=== PATIENT | male | born 1960 | race Caucasian/White ===

== ENCOUNTER 2016-10-07 13:51 | Inpatient (IN) | payer SELFPAY ==
[2016-10-07] MEDS ORDERED: Sodium Chloride 0.9% 1,000 ML IV ONE (13:55)
[2016-10-07] MEDS ORDERED: Ondansetron 4 MG/2 ML SDV IVPUSH ONE (13:55)
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
[2016-10-07] MEDS ORDERED: Ketorolac 30 MG/ML SDV IVPUSH ONE (14:33)
[2016-10-07 15:18] LABS: CHLORIDE,CL 102 mmol/L (98-110); SODIUM,NA 137 mmol/L (136-146)
[2016-10-07] MEDS ORDERED: HYDROmorphone 2 MG/ML Syringe IVPUSH ONE (15:27)
[2016-10-07] MEDS ORDERED: Iopamidol 755 MG/ML 500 ML Multipack Bottle IVPUSH STA (16:33)
[2016-10-07] MEDS: Sodium Chloride 0.9% 1,000 ML IV SCH (17:15)
--- NOTE | 2016-10-07 17:46 | PCM.HP ---
H&P History of Present Illness - General Date of Service: 10/07/16 Admit Problem/Dx: Admission Diagnosis/Problem Admission Diagnosis/Problem Pancreatitis Source of Information: Patient, Old records, Provider - History of Present Illness Initial Comments - Free Text/Narative: He presented to the ED today and was diagnosed with acute pancreatitis thought likely secondary to alcoholism. He arrived from the [facility] about two weeks ago. He had been drinking alcohol when he was there. He has not had alcohol in the last few days. Bilateral Upper Abdominal Pain Score (Numeric/FACES): 10 - Related Data Allergies/Adverse Reactions: Allergies Allergy/AdvReac Type Severity Reaction Status Date / Time morphine Allergy Hallucinati Verified 10/07/16 14:06 ons Home Medications: Home Meds Icosapent Ethyl [Vascepa] 2 gram PO BID 10/07/16 [History] Insulin Glarg,Human.Rec.Analog [Lantus] 5 units SQ DAILY 10/07/16 [History] Insulin Lispro [Humalog Kwikpen U-100] 0 - 10 units SQ TID 10/07/16 [History] Lisinopril 10 mg PO DAILY 10/07/16 [History] atorvaSTATin [Lipitor] 20 mg PO BEDTIME 10/07/16 [History] metFORMIN [Glucophage XR] 500 mg PO BID 10/07/16 [History] Past Medical History Cardiovascular History: Reports: High cholesterol, Hypertension Respiratory History: Reports: COPD Gastrointestinal History: Reports: Pancreatitis. Denies: Cirrhosis Genitourinary History: Denies: Chronic renal insuffiency Neurological History: Denies: Alzheimers disease, CVA Psychiatric History: Denies: Alzheimers disease Endocrine/Metabolic History: Reports: Diabetes, type I Oncologic (Cancer) History: Reports: None - Infectious Disease History Infectious Disease History: Reports: Chicken pox, Measles, Mumps - Past Surgical History GI Surgical History: Reports: Cholecystectomy Social & Family History - Family History Family Medical History: Noncontributory - Tobacco Use Smoking Status *Q: Current Every Day Smoker Years of Tobacco use: 45 Packs/Tins Daily: 1.5 - Caffeine Use Caffeine Use: Reports: None - Recreational Drug Use Recreational Drug Use: No H&P Review of Systems - Review of Systems: Review Of Systems: See Below General: Denies: fever, chills Pulmonary: Denies: Shortness of Breath, Wheezing, Cough, Sputum Cardiovascular: Denies: chest pain Gastrointestinal: Reports: Abdominal pain, Black stool, Melena, Nausea, Vomiting. Denies: Hematemesis, Hematochezia Genitourinary: Denies: dysuria, hematuria Psychiatric: Denies: agitation Exam - Exam Exam: See Below - Vital Signs Vital Signs: Last Vital Signs Temp 99.1 F 10/07/16 17:19 Pulse 95 10/07/16 17:19 Resp 18 10/07/16 17:19 BP 136/92 H 10/07/16 17:19 Pulse Ox 95 10/07/16 17:19 Weight: 63.503 kg - Exam General: alert, oriented, cooperative HEENT: EOMI Neck: supple, trachea midline Lungs: Clear to auscultation, Normal respiratory effort Cardiovascular: regular rate, regular rhythm Abdomen: soft, tenderness (marked epigastric tenderness) Rectal (Males) Exam: Deferred Extremities: No: edema Neurological: cranial nerves intact, normal speech Psychiatric: No: agitated - Patient Data Lab Results last 24 hrs: Laboratory Results - last 24 hr 10/07/16 10/07/16 10/07/16 Range/Units 14:30 14:30 14:30 WBC 14.87 H (4.0-11.0) K/uL RBC 4.46 L (4.50-5.90) M/uL Hgb 14.1 (13.0-17.0) g/dL Hct 41.1 (38.0-50.0) % MCV 92.2 (80.0-98.0) fL MCH 31.6 (27.0-32.0) pg MCHC 34.3 (31.0-37.0) g/dL RDW Std Deviation 47.3 (28.0-62.0) fl RDW Coeff of Claudio 14 (11.0-15.0) % Plt Count 299 (150-400) K/uL MPV 9.40 (7.40-12.00) fL Neut % (Auto) 83.8 H (48.0-80.0) % Lymph % (Auto) 10.0 L (16.0-40.0) % [place] % (Auto) 5.5 (0.0-15.0) % Eos % (Auto) 0.5 (0.0-7.0) % Baso % (Auto) 0.2 (0.0-1.5) % Neut # (Auto) 12.5 H (1.4-5.7) K/uL Lymph # (Auto) 1.5 (0.6-2.4) K/uL [place] # (Auto) 0.8 (0.0-0.8) K/uL Eos # (Auto) 0.1 (0.0-0.7) K/uL Baso # (Auto) 0.0 (0.0-0.1) K/uL Nucleated RBC % 0.0 /100WBC Nucleated RBCs # 0 K/uL ESR (0-19) mm/hr Sodium 137 (136-146) mmol/L Potassium 3.9 (3.5-5.1) mmol/L Chloride 102 (98-110) mmol/L Carbon Dioxide 23 (21-31) mmol/L BUN 10 (6.0-23.0) mg/dL Creatinine 0.8 (0.6-1.5) mg/dL Est Cr Clr Drug Dosing 88.62 mL/min Estimated GFR (MDRD) > 60.0 ml/min Glucose 260 H (60-110) mg/dL Calcium 9.2 (8.8-10.8) mg/dL Total Bilirubin 0.5 (0.1-1.5) mg/dL AST 14 (5-40) IU/L ALT 15 (8-54) IU/L Alkaline Phosphatase 115 (40-150) Troponin I (0.0-0.29) NG/ML C-Reactive Protein (0.0-0.5) mg/dL Total Protein 7.5 (6.0-8.0) g/dL Albumin 3.9 (3.5-5.0) g/dL Globulin 3.6 H (2.0-3.5) g/dL Albumin/Globulin Ratio 1.1 L (1.3-2.8) Amylase 168 H (10-90) U/L Lipase 311 H (7-80) U/L Ethyl Alcohol < 10.0 mg/dL 10/07/16 10/07/16 10/07/16 Range/Units 14:30 14:30 14:30 WBC (4.0-11.0) K/uL RBC (4.50-5.90) M/uL Hgb (13.0-17.0) g/dL Hct (38.0-50.0) % MCV (80.0-98.0) fL MCH (27.0-32.0) pg MCHC (31.0-37.0) g/dL RDW Std Deviation (28.0-62.0) fl RDW Coeff of Claudio (11.0-15.0) % Plt Count (150-400) K/uL MPV (7.40-12.00) fL Neut % (Auto) (48.0-80.0) % Lymph % (Auto) (16.0-40.0) % [place] % (Auto) (0.0-15.0) % Eos % (Auto) (0.0-7.0) % Baso % (Auto) (0.0-1.5) % Neut # (Auto) (1.4-5.7) K/uL Lymph # (Auto) (0.6-2.4) K/uL [place] # (Auto) (0.0-0.8) K/uL Eos # (Auto) (0.0-0.7) K/uL Baso # (Auto) (0.0-0.1) K/uL Nucleated RBC % /100WBC Nucleated RBCs # K/uL ESR 44 H (0-19) mm/hr Sodium (136-146) mmol/L Potassium (3.5-5.1) mmol/L Chloride (98-110) mmol/L Carbon Dioxide (21-31) mmol/L BUN (6.0-23.0) mg/dL Creatinine (0.6-1.5) mg/dL Est Cr Clr Drug Dosing mL/min Estimated GFR (MDRD) ml/min Glucose (60-110) mg/dL Calcium (8.8-10.8) mg/dL Total Bilirubin (0.1-1.5) mg/dL AST (5-40) IU/L ALT (8-54) IU/L Alkaline Phosphatase (40-150) Troponin I < 0.10 (0.0-0.29) NG/ML C-Reactive Protein 1.38 H (0.0-0.5) mg/dL Total Protein (6.0-8.0) g/dL Albumin (3.5-5.0) g/dL Globulin (2.0-3.5) g/dL Albumin/Globulin Ratio (1.3-2.8) Amylase (10-90) U/L Lipase (7-80) U/L Ethyl Alcohol mg/dL Result Diagrams: 10/07/16 14:30 10/07/16 14:30 *Q Meaningful Use (ADM) - VTE *Q VTE Criteria *Q: - Stroke *Q Stroke Criteria *Q: - AMI *Q AMI Criteria *Q: - Problem List (1) Pancreatitis SNOMED Code(s): 22489111 ICD Code: K85.90 - ACUTE PANCREATITIS WITHOUT NECROSIS OR INFECTION, UNSP Status: Acute Current Visit: Yes (2) Diabetes mellitus SNOMED Code(s): 00143869 ICD Code: E11.9 - TYPE 2 DIABETES MELLITUS WITHOUT COMPLICATIONS Status: Acute Current Visit: Yes Problem List Initiated/Reviewed/Updated: Yes Orders Last 24hrs: Active Orders 24 hr Category Date Time Status Patient Status [ADT] Routine ADT 10/07/16 17:35 Ordered Antiembolic Devices [RC] PER UNIT ROUTINE Care 10/07/16 17:36 Ordered EKG Documentation Completion [RC] STAT Care 10/07/16 15:01 Active Oxygen Therapy [RC] PRN Care 10/07/16 17:35 Ordered VTE/DVT Education [RC] PER UNIT ROUTINE Care 10/07/16 17:35 Ordered Vital Signs [RC] Q4H Care 10/07/16 17:35 Ordered Nothing per Oral Now Diet [DIET] Diet 10/07/16 Dinner Ordered Abdomen Pelvis w Cont [CT] Stat Exams 10/07/16 14:55 Taken CBC WITH AUTO DIFF [HEME] AM Lab 10/08/16 05:11 Ordered CBC WITH AUTO DIFF [HEME] AM Lab 10/09/16 05:11 Ordered CBC WITH AUTO DIFF [HEME] AM Lab 10/10/16 05:11 Ordered COMPREHENSIVE METABOLIC PN,CMP [CHEM] AM Lab 10/08/16 05:11 Ordered COMPREHENSIVE METABOLIC PN,CMP [CHEM] AM Lab 10/09/16 05:11 Ordered COMPREHENSIVE METABOLIC PN,CMP [CHEM] AM Lab 10/10/16 05:11 Ordered MAGNESIUM [CHEM] AM Lab 10/08/16 05:11 Ordered MAGNESIUM [CHEM] AM Lab 10/09/16 05:11 Ordered MAGNESIUM [CHEM] AM Lab 10/10/16 05:11 Ordered UA W/O MICROSCOPIC [URIN] Stat Lab 10/07/16 16:33 Uncollected HYDROmorphone [Dilaudid] Med 10/07/16 17:35 Ordered 1 mg IVPUSH Q2H PRN Insulin Glarg,Human.Rec.Analog Med 10/08/16 09:00 Ordered 5 units SQ DAILY MVI, Adult with Vitamin K [Infuvite Adult] 10 ml Med 10/07/16 17:40 Ordered Thiamine [Vitamin B-1] 100 mg Folic Acid 1 mg Sodium Chloride 0.9% [Normal Saline] 1,000 ml IV DAILY Ondansetron [Zofran] Med 10/07/16 17:35 Ordered 4 mg IVPUSH Q4H PRN Pantoprazole [Protonix IV] 80 mg Med 10/07/16 17:45 Ordered Sodium Chloride 0.9% [Normal Saline] 100 ml IV Q10H Sodium Chloride 0.9% [Normal Saline] 1,000 ml Med 10/07/16 17:00 Active IV STAT Sequential Compression Device [OM.PC] Per Unit Routine Oth 10/07/16 17:36 Ordered Resuscitation Status Routine Resus Stat 10/07/16 17:35 Ordered Medication Orders Sodium Chloride (Normal Saline) 1,000 mls @ 150 mls/hr IV STAT KATHRYN Last Admin: 10/07/16 17:15 Dose: 150 mls/hr
[2016-10-07] MEDS ORDERED: MVI, Adult with Vitamin K 10 ML, Thiamine 100 MG, Folic Acid 1 MG in Sodium Chloride 0.... IV ONE ×4 (18:00)
[2016-10-07] MEDS ORDERED: Insulin Aspart 100 Units/ML 3 ML Pen SUBCUT SCH (18:00)
[2016-10-07] MEDS: Pantoprazole 80 MG in Sodium Chloride 0.9% 100 ML IV SCH (18:31)
[2016-10-07] MEDS: HYDROmorphone 2 MG/ML Syringe IVPUSH PRN (18:44)
[2016-10-07] MEDS: Nicotine 21 MG/24 Hr Patch TRDERM SCH (19:33)
[2016-10-07] MEDS: Ondansetron 4 MG/2 ML SDV IVPUSH PRN (23:36)
[2016-10-07] MEDS: Piperacillin/Tazobactam 3.375 GM in Sodium Chloride 0.9% 50 ML IV SCH (23:46)
[2016-10-07] MEDS: Aspirin 81 MG Tab.Chew PO SCH (23:46)
[2016-10-07] MEDS: Lisinopril 10 MG Tab PO SCH (23:46)
[2016-10-07] MEDS: atorvaSTATin 20 MG Tab PO SCH (23:46)
[2016-10-07] MEDS: diphenhydrAMINE 50 MG Cap PO SCH (23:47)
[2016-10-08] MEDS: Insulin Aspart 100 Units/ML 3 ML Pen SUBCUT SCH ×4 (01:41→17:10)
[2016-10-08] MEDS: LORazepam 2 MG/ML MDV IVPUSH PRN ×3 (01:42→16:09)
[2016-10-08] MEDS: Sodium Chloride 0.9% 1,000 ML IV SCH ×3 (01:51→14:48)
[2016-10-08] MEDS: Piperacillin/Tazobactam 3.375 GM in Sodium Chloride 0.9% 50 ML IV SCH ×4 (04:34→20:33)
[2016-10-08] MEDS: HYDROmorphone 2 MG/ML Syringe IVPUSH PRN ×6 (04:47→23:50)
[2016-10-08] MEDS: Ondansetron 4 MG/2 ML SDV IVPUSH PRN ×4 (04:55→23:50)
[2016-10-08] MEDS: Pantoprazole 80 MG in Sodium Chloride 0.9% 100 ML IV SCH ×2 (05:52→16:08)
[2016-10-08 05:55] LABS: CHLORIDE,CL 107 mmol/L (98-110); SODIUM,NA 139 mmol/L (136-146)
[2016-10-08] MEDS: diphenhydrAMINE 50 MG Cap PO SCH ×2 (08:52→20:44)
[2016-10-08] MEDS: Nicotine 21 MG/24 Hr Patch TRDERM SCH (08:59)
[2016-10-08] MEDS ORDERED: Insulin Glargine,Human Rec. Analog 100 Units/ML 3 ML Pen SUBCUT SCH (09:00)
--- NOTE | 2016-10-08 10:36 | PCM.PN ---
- General Info Date of Service: 10/08/16 Admission Dx/Problem (Free Text): Admission Diagnosis/Problem Admission Diagnosis/Problem Pancreatitis Subjective Update: Patient still having abdominal pain mostly localized to epigastric and periumbilical area. No nausea or vomiting. Pain has been controlled with diluadid. States that he does not get tremors or seizures after stopping drinking. No appetite at this time. As per nursing has been asking for dilaudid every 2 hrs as well as ativan. Functional Status: Reports: pain controlled, urinating - Review of Systems General: Reports: Fatigue. Denies: Fever, Weakness HEENT: Reports: ear pain. Denies: headaches, sinus congestion, sore throat Pulmonary: Reports: wheezing. Denies: shortness of breath, pleuritic chest pain Cardiovascular: Denies: Chest Pain, Palpitations, Edema Gastrointestinal: Reports: Abdominal pain. Denies: Diarrhea, Hematochezia, Melena, Nausea, Vomiting Genitourinary: Denies: dysuria, hematuria Musculoskeletal: Denies: neck pain, leg pain Skin: Denies: cyanosis Neurological: Denies: Confusion, Dizziness, Headache Psychiatric: Denies: confusion - Patient Data Vitals - most recent: Last Vital Signs Temp 37.1 C 10/08/16 09:00 Pulse 87 10/08/16 09:00 Resp 16 10/08/16 09:00 BP 152/95 H 10/08/16 09:00 Pulse Ox 93 L 10/08/16 09:00 Weight - most recent: 63.2 kg I&O - last 24 hours: Intake & Output 10/07/16 10/08/16 10/08/16 22:59 06:59 14:59 Intake Total 1416 932 Balance 1416 932 Lab Results last 24 hrs: Laboratory Results - last 24 hr 10/07/16 10/08/16 10/08/16 Range/Units 23:45 04:42 04:42 WBC 14.46 H (4.0-11.0) K/uL RBC 3.85 L (4.50-5.90) M/uL Hgb 12.0 L (13.0-17.0) g/dL Hct 36.3 L (38.0-50.0) % MCV 94.3 (80.0-98.0) fL MCH 31.2 (27.0-32.0) pg MCHC 33.1 (31.0-37.0) g/dL RDW Std Deviation 48.3 (28.0-62.0) fl RDW Coeff of Claudio 14 (11.0-15.0) % Plt Count 312 (150-400) K/uL MPV 9.70 (7.40-12.00) fL Neut % (Auto) 75.2 (48.0-80.0) % Lymph % (Auto) 14.2 L (16.0-40.0) % [place] % (Auto) 8.7 (0.0-15.0) % Eos % (Auto) 1.7 (0.0-7.0) % Baso % (Auto) 0.2 (0.0-1.5) % Neut # (Auto) 10.9 H (1.4-5.7) K/uL Lymph # (Auto) 2.1 (0.6-2.4) K/uL [place] # (Auto) 1.3 H (0.0-0.8) K/uL Eos # (Auto) 0.3 (0.0-0.7) K/uL Baso # (Auto) 0.0 (0.0-0.1) K/uL Nucleated RBC % 0.0 /100WBC Nucleated RBCs # 0 K/uL Sodium 139 (136-146) mmol/L Potassium 4.4 (3.5-5.1) mmol/L Chloride 107 (98-110) mmol/L Carbon Dioxide 24 (21-31) mmol/L BUN 8 (6.0-23.0) mg/dL Creatinine 0.8 (0.6-1.5) mg/dL Est Cr Clr Drug Dosing 88.62 mL/min Estimated GFR (MDRD) > 60.0 ml/min Glucose 167 H (60-110) mg/dL POC Glucose 135 H (60-110) mg/dL Calcium 8.2 L (8.8-10.8) mg/dL Total Bilirubin 0.6 (0.1-1.5) mg/dL AST 12 (5-40) IU/L ALT 11 (8-54) IU/L Alkaline Phosphatase 89 (40-150) Total Protein 5.9 L (6.0-8.0) g/dL Albumin 3.2 L (3.5-5.0) g/dL Globulin 2.7 (2.0-3.5) g/dL Albumin/Globulin Ratio 1.2 L (1.3-2.8) Lipase 330 H (7-80) U/L 10/08/16 Range/Units 06:01 WBC (4.0-11.0) K/uL RBC (4.50-5.90) M/uL Hgb (13.0-17.0) g/dL Hct (38.0-50.0) % MCV (80.0-98.0) fL MCH (27.0-32.0) pg MCHC (31.0-37.0) g/dL RDW Std Deviation (28.0-62.0) fl RDW Coeff of Claudio (11.0-15.0) % Plt Count (150-400) K/uL MPV (7.40-12.00) fL Neut % (Auto) (48.0-80.0) % Lymph % (Auto) (16.0-40.0) % [place] % (Auto) (0.0-15.0) % Eos % (Auto) (0.0-7.0) % Baso % (Auto) (0.0-1.5) % Neut # (Auto) (1.4-5.7) K/uL Lymph # (Auto) (0.6-2.4) K/uL [place] # (Auto) (0.0-0.8) K/uL Eos # (Auto) (0.0-0.7) K/uL Baso # (Auto) (0.0-0.1) K/uL Nucleated RBC % /100WBC Nucleated RBCs # K/uL Sodium (136-146) mmol/L Potassium (3.5-5.1) mmol/L Chloride (98-110) mmol/L Carbon Dioxide (21-31) mmol/L BUN (6.0-23.0) mg/dL Creatinine (0.6-1.5) mg/dL Est Cr Clr Drug Dosing mL/min Estimated GFR (MDRD) ml/min Glucose (60-110) mg/dL POC Glucose 157 H (60-110) mg/dL Calcium (8.8-10.8) mg/dL Total Bilirubin (0.1-1.5) mg/dL AST (5-40) IU/L ALT (8-54) IU/L Alkaline Phosphatase (40-150) Total Protein (6.0-8.0) g/dL Albumin (3.5-5.0) g/dL Globulin (2.0-3.5) g/dL Albumin/Globulin Ratio (1.3-2.8) Lipase (7-80) U/L Med Orders - Current: Current Medications Aspirin (Aspirin) 40.5 mg PO BEDTIME [facility] Last Admin: 10/07/16 23:46 Dose: Not Given Atorvastatin Calcium (Lipitor) 20 mg PO BEDTIME [facility] Last Admin: 10/07/16 23:46 Dose: Not Given Diphenhydramine HCl (Benadryl) 50 mg PO BID [facility] Last Admin: 10/08/16 08:52 Dose: 50 mg Hydromorphone HCl (Dilaudid) 1 mg IVPUSH Q2H PRN PRN Reason: Pain (severe 7-10) Last Admin: 10/08/16 08:52 Dose: 1 mg Sodium Chloride (Normal Saline) 1,000 mls @ 150 mls/hr IV STAT [facility] Last Admin: 10/08/16 08:51 Dose: 150 mls/hr Pantoprazole Sodium 80 mg/ (Sodium Chloride) 100 mls @ 10 mls/hr IV Q10H [facility] Last Admin: 10/08/16 05:52 Dose: 10 mls/hr Piperacillin Sod/Tazobactam (Sod 3.375 gm/ Sodium Chloride) 50 mls @ 100 mls/ hr IV Q6H [facility] Last Admin: 10/08/16 08:51 Dose: 100 mls/hr Insulin Aspart (Novolog) 0 unit SUBCUT Q6HR KATHRYN PRN Reason: Protocol Last Admin: 10/08/16 06:14 Dose: 2 units Lisinopril (Prinivil) 10 mg PO BEDTIME [facility] Last Admin: 10/07/16 23:46 Dose: Not Given Lorazepam (Ativan) 1 mg IVPUSH Q2H PRN PRN Reason: Anxiety Last Admin: 10/08/16 05:52 Dose: 1 mg Nicotine (Habitrol) 21 mg TRDERM DAILY [facility] Last Admin: 10/08/16 08:59 Dose: 21 mg Ondansetron HCl (Zofran) 4 mg IVPUSH Q4H PRN PRN Reason: Nausea Last Admin: 10/08/16 04:55 Dose: 4 mg Discontinued Medications Hydromorphone HCl (Dilaudid) 1 mg IVPUSH ONETIME ONE Stop: 10/07/16 15:28 Last Admin: 10/07/16 15:39 Dose: 1 mg Sodium Chloride (Normal Saline) 1,000 mls @ 999 mls/hr IV STAT ONE Stop: 10/07/16 14:55 Last Admin: 10/07/16 14:37 Dose: 999 mls/hr Multivitamins/Minerals 10 ml/Thiamine HCl 100 mg/ Folic Acid 1 mg/ Sodium Chloride 1,011.2 mls @ 125 mls/hr IV DAILY ONE Stop: 10/08/16 02:05 Last Admin: 10/07/16 20:02 Dose: 125 mls/hr Insulin Aspart (Novolog) 0 unit SUBCUT ACBED KATHRYN PRN Reason: Protocol Last Admin: 10/07/16 18:57 Dose: Not Given Insulin Glargine (Lantus Solostar) 5 units SUBCUT DAILY KATHRYN Iopamidol (Isovue Multipack-370 (76%)) 100 ml IVPUSH ONETIME STA Stop: 10/07/16 16:34 Last Admin: 10/07/16 16:45 Dose: 100 ml Ketorolac Tromethamine (Toradol) 30 mg IVPUSH ONETIME ONE Stop: 10/07/16 14:34 Last Admin: 10/07/16 14:55 Dose: Not Given Ondansetron HCl (Zofran) 8 mg IVPUSH ONETIME ONE Stop: 10/07/16 13:56 Last Admin: 10/07/16 14:43 Dose: 8 mg - Exam Quality Assessment: DVT prophylaxis General: alert, oriented, cooperative, no acute distress HEENT: Pupils equal, Pupils reactive, EOMI, Mucous membr. moist/pink Neck: supple Lungs: Normal respiratory effort, Wheezing Cardiovascular: Regular Rate, Regular Rhythm, No Murmurs Abdomen: bowel sounds present, soft, tenderness, distension. No: rebound, guarding Back Exam: normal inspection, full range of motion Extremities: no edema, normal pulses, no tenderness/swelling, no calf tenderness Peripheral Pulses: 2+: radial (L), radial (R), posterior tibial (L), posterior tibial (R), dorsalis pedis (L), dorsalis pedis (R) Skin: warm, dry, intact Neurological: no new focal deficit Psy/Mental Status: alert, normal affect, normal mood - Problem List & Annotations (1) Hypertension SNOMED Code(s): 79050963 Code(s): I10 - ESSENTIAL (PRIMARY) HYPERTENSION Status: Chronic Priority : Medium Current Visit: Yes Qualifiers: Hypertension type: essential hypertension Qualified Code(s): I10 - Essential (primary) hypertension (2) Hyperlipidemia SNOMED Code(s): 03660215 Code(s): E78.5 - HYPERLIPIDEMIA, UNSPECIFIED Status: Chronic Priority: Medium Current Visit: Yes Qualifiers: Hyperlipidemia type: unspecified Qualified Code(s): E78.5 - Hyperlipidemia , unspecified (3) Diabetes mellitus SNOMED Code(s): 05745607 Code(s): E11.9 - TYPE 2 DIABETES MELLITUS WITHOUT COMPLICATIONS Status: Chronic Priority: Medium Current Visit: Yes (4) Pancreatitis SNOMED Code(s): 12818504 Code(s): K85.90 - ACUTE PANCREATITIS WITHOUT NECROSIS OR INFECTION, UNSP Status: Acute Priority: High Current Visit: Yes Qualifiers: Chronicity: acute Pancreatitis type: alcohol induced Acute pancreatitis complication: unspecified Qualified Code(s): K85.20 - Alcohol induced acute pancreatitis without necrosis or infection - Problem List Review Problem List Initiated/Reviewed/Updated: Yes - Plan Plan:: 56 yo male admitted 10/07/16 for acute on chronic pancreatitis secondary to alcohol abuse with pmh of htn, hyperlipidemia, and diabetes. Acute pancreatitis: Lipase increased from 311 to 330 overnight. Patient still having abdominal pain and no appetite. Will cont. NPO and IVF resus. Diluadid for pain which is controlled at this time. CT did show mild intrahepatic biliary ductal dilatation will get Abd ultrasound today. Talked with Dr. Mirza , radiologist, who reviewed CT and thought it was not as much mild acute on chronic pancreatitis but most likely peptic ulcer disease with duodenitis. Will consult surgey today. alcohol abuse: Has not drank for multiple days. Denies seizures or DT's with abstinence. Ativan has been ordered for anxiety. Monitor closely for signs of withdrawl. Hypertension/hyperlipidemia: NPO, BP stable will monitor and restart home meds possibly tomorrow. Diabetes: Cont. ISS VTE: SCD, high risk of fall and bleed. Dispo: 3-4 days possibly Wednesday or Wednesday.
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
--- NOTE | 2016-10-08 16:28 | PCM.SN ---
- Free Text/Narrative Note: pt seen, chart reviewed, cx dictated, [id number]
[2016-10-08] MEDS: Lisinopril 10 MG Tab PO SCH (20:43)
[2016-10-08] MEDS: Aspirin 81 MG Tab.Chew PO SCH (20:43)
[2016-10-08] MEDS: atorvaSTATin 20 MG Tab PO SCH (20:44)
[2016-10-08] MEDS ORDERED: Acetaminophen 325 MG Tab PO PRN (20:54)
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
[2016-10-09] MEDS: Sodium Chloride 0.9% 1,000 ML IV SCH (00:07)
[2016-10-09] MEDS: LORazepam 2 MG/ML MDV IVPUSH PRN ×2 (01:56→06:26)
[2016-10-09] MEDS: Insulin Aspart 100 Units/ML 3 ML Pen SUBCUT SCH ×2 (02:55→06:46)
[2016-10-09] MEDS: Piperacillin/Tazobactam 3.375 GM in Sodium Chloride 0.9% 50 ML IV SCH ×2 (03:04→15:40)
[2016-10-09] MEDS: Pantoprazole 80 MG in Sodium Chloride 0.9% 100 ML IV SCH (03:24)
[2016-10-09] MEDS: HYDROmorphone 2 MG/ML Syringe IVPUSH PRN (04:39)
[2016-10-09] MEDS: Ondansetron 4 MG/2 ML SDV IVPUSH PRN (04:39)
[2016-10-09 07:02] LABS: CHLORIDE,CL 107 mmol/L (98-110); SODIUM,NA 137 mmol/L (136-146)
[2016-10-09 07:30] VITALS: BP 142/90
--- NOTE | 2016-10-09 14:42 | US ---
EXAM DATE: 10/07/16 PATIENT'S AGE: 56 Patient: JOSE LOWE Facility: [place], [place] Site . Site : 1960 Study: US Abdomen [id number] 3:59:51 PM Ordering Physician: King Matos Final Report: INDICATION: Intrahepatic biliary ductal dilatation TECHNIQUE: Ultrasound abdomen limited. Sonographic images of the right upper quadrant were obtained using de paz-scale and color Doppler images. COMPARISON: CT abdomen pelvis October 07, 2016 FINDINGS: Liver: The liver measures 19.1 cm in length. Normal echotexture. No masses. Mild intrahepatic biliary ductal dilatation. Gallbladder: Status post cholecystectomy. Common bile duct: 3 mm. Pancreas: Increased echogenicity throughout the pancreas. Right kidney: 9.9 x 5.1 x 4.7 cm. Normal echotexture and cortex. No masses, stones, or hydronephrosis. IMPRESSION: 1. Mild intrahepatic biliary ductal dilatation with normal common bile duct. Status post cholecystectomy. No etiology seen to explain the intrahepatic biliary ductal dilatation. MRCP may be useful for further evaluation. 2. Mild hepatomegaly. 3. Increased echogenicity throughout the pancreas likely due to edema. Dictated by Nancy Rodriguez MD @ Oct 08 2016 4:03PM (Electronic Signature) Report Signed by Proxy and Original Signed Document filed in the Medical Record. [facility] [place]
--- NOTE | 2016-10-09 15:12 | PCM.DCSUM1 ---
Discharge Summary - Hospital Course HPI Initial Comments: 56 yo male admitted 10/07/16 for suspected pancreatitis and found to have peptic ulcer disease with duodenitis. Brief History: Patient intially presented with epigastric pain and history of pancreatitis. 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 He had been eating a bland diet however on day of admission was only tolerating water, he did have some vomiting on prior to arrival at ED. In ED patient CT abd/pelvis showed significant thickening of the distal stomach and entire duodenum with fluid collection adjacent to the pylorus. Peripancreatic stranding. Atrophy of the pancreatic body with changes of chronic pancreatitis and the pancreatic tail. Differential considerations include pancreatitis with pseudocyst formation by the pyloris with regional inflammatory changes, ruptured gastric or duodenal ulcer with wall off fluid collection and inflammatory changes, or less likely sequela of recent blunt trauma. Thickening of the hepatic flexure of the colon is likely secondary to a appears to be a primary duodenal process. There was also mild intrahepatic biliary ductal dilatation. - Discharge Data Discharge Date: 10/09/16 Discharge Disposition: Against Medical Advice 07 Condition: Fair - Discharge Diagnosis/Problem(s) (1) Hypertension SNOMED Code(s): 22900015 ICD Code: I10 - ESSENTIAL (PRIMARY) HYPERTENSION Status: Chronic Priority : Medium Qualifiers: Hypertension type: essential hypertension Qualified Code(s): I10 - Essential (primary) hypertension (2) Hyperlipidemia SNOMED Code(s): 18618102 ICD Code: E78.5 - HYPERLIPIDEMIA, UNSPECIFIED Status: Chronic Priority: Medium Qualifiers: Hyperlipidemia type: unspecified Qualified Code(s): E78.5 - Hyperlipidemia , unspecified (3) Diabetes mellitus SNOMED Code(s): 99237209 ICD Code: E11.9 - TYPE 2 DIABETES MELLITUS WITHOUT COMPLICATIONS Status: Chronic Priority: Medium (4) Pancreatitis SNOMED Code(s): 87779730 ICD Code: K85.90 - ACUTE PANCREATITIS WITHOUT NECROSIS OR INFECTION, UNSP Status: Acute Priority: High Qualifiers: Chronicity: acute Pancreatitis type: alcohol induced Acute pancreatitis complication: unspecified Qualified Code(s): K85.20 - Alcohol induced acute pancreatitis without necrosis or infection - Patient Summary/Data Consults: Consultations 10/08/16 13:33 Consult to Physician [CONS] Routine Hospital Course: Dr. Mirza reviewed the CT and believed that there was no rupture but more likely extremely thick wall with inflammatory changes most likly representing peptic ulcer disease with duodenitis. Patient was admitted to hospital, place NPO, and IVF resuscitated. He was given IV dilaudid for pain as well as IV protonix. On second day of admission abdominal US revealed mild intrahepatic biliary ductal dilatation with normal common bile duct. Status post cholecystectomy. No etiology seen to explain intrahepatic biliary ductal patient. It was recommended that MRCP may be useful for further evaluation. There was also mild hepatomegaly and increased echogenicity throughout the pancreas likely due to the edema. On third day of admission it was reported by nursing that patient had been leaving the floor multiple time and going to his car. His liver exams on admission were within normal limits but on day that patient left AMA his AST had increased. Patient's lipase had returned to normal and patient insisted on leaving against medical advice. Patient did sign AMA forms and left without being seen on 10/09/16. - Discharge Plan Home Medications: Home Meds Aspirin 40.5 mg PO BEDTIME 10/07/16 [History] Icosapent Ethyl [Vascepa] 2 gram PO BID 10/07/16 [History] Insulin Glarg,Human.Rec.Analog [Lantus] 5 - 10 units SQ BEDTIME 10/07/16 [ History] Insulin Lispro [Humalog Kwikpen U-100] 0 - 10 units SQ TIDMEALS 10/07/16 [ History] Lisinopril 10 mg PO BEDTIME 10/07/16 [History] atorvaSTATin [Lipitor] 20 mg PO BEDTIME 10/07/16 [History] diphenhydrAMINE [Benadryl] 50 mg PO BID 10/07/16 [History] metFORMIN [Glucophage] 500 mg PO BIDMEALS 10/07/16 [History] Forms: ED Department Discharge Referrals: PCP,None [Primary Care Provider] - - Discharge Summary/Plan Comment DC Time >30 min.: Yes Discharge Summary/Plan Comment: 56 yo male admitted 10/07/16 for suspected pancreatitis and found to have peptic ulcer disease with duodenitis. Patient intially presented with epigastric pain and history of pancreatitis. 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 He had been eating a bland diet however on day of admission was only tolerating water, he did have some vomiting on prior to arrival at ED. In ED patient CT abd/pelvis showed significant thickening of the distal stomach and entire duodenum with fluid collection adjacent to the pylorus. Peripancreatic stranding. Atrophy of the pancreatic body with changes of chronic pancreatitis and the pancreatic tail. Differential considerations include pancreatitis with pseudocyst formation by the pyloris with regional inflammatory changes, ruptured gastric or duodenal ulcer with wall off fluid collection and inflammatory changes, or less likely sequela of recent blunt trauma. Thickening of the hepatic flexure of the colon is likely secondary to a appears to be a primary duodenal process. There was also mild intrahepatic biliary ductal dilatation. Dr. Mirza reviewed the CT and believed that there was no rupture but more likely extremely thick wall with inflammatory changes most likly representing peptic ulcer disease with duodenitis. Patient was admitted to hospital, place NPO, and IVF resuscitated. He was given IV dilaudid for pain as well as IV protonix. On second day of admission abdominal US revealed mild intrahepatic biliary ductal dilatation with normal common bile duct. Status post cholecystectomy. No etiology seen to explain intrahepatic biliary ductal patient. It was recommended that MRCP may be useful for further evaluation. There was also mild hepatomegaly and increased echogenicity throughout the pancreas likely due to the edema. On third day of admission it was reported by nursing that patient had been leaving the floor multiple time and going to his car. His liver exams on admission were within normal limits but on day that patient left AMA his AST had increased. Patient's lipase had returned to normal and patient insisted on leaving against medical advice. Patient did sign AMA forms and left without being seen on 10/09/16. - General Info Date of Service: 10/09/16 Admission Dx/Problem (Free Text: Admission Diagnosis/Problem Admission Diagnosis/Problem Pancreatitis Subjective Update: Patient left AMA without being seen. - Patient Data Vitals - Most Recent: Last Vital Signs Temp 35.9 C 10/09/16 07:20 Pulse 104 H 10/09/16 07:20 Resp 16 10/09/16 07:20 BP 125/79 10/09/16 07:20 Pulse Ox 92 L 10/09/16 07:20 Weight - Most Recent: 63.2 kg I&O - Last 24 hours: Intake & Output 10/09/16 10/09/16 10/09/16 06:59 14:59 22:59 Intake Total 180 200 Output Total 400 Balance -220 200 Lab Results - Last 24 hrs: Laboratory Results - last 24 hr 10/08/16 10/09/16 10/09/16 Range/Units 16:32 01:54 06:20 WBC 20.46 H (4.0-11.0) K/uL RBC 3.76 L (4.50-5.90) M/uL Hgb 11.9 L (13.0-17.0) g/dL Hct 35.4 L (38.0-50.0) % MCV 94.1 (80.0-98.0) fL MCH 31.6 (27.0-32.0) pg MCHC 33.6 (31.0-37.0) g/dL RDW Std Deviation 48.2 (28.0-62.0) fl RDW Coeff of Claudio 14 (11.0-15.0) % Plt Count 286 (150-400) K/uL MPV 9.30 (7.40-12.00) fL Neut % (Auto) 76.9 (48.0-80.0) % Lymph % (Auto) 10.7 L (16.0-40.0) % Addison % (Auto) 11.5 (0.0-15.0) % Eos % (Auto) 0.7 (0.0-7.0) % Baso % (Auto) 0.2 (0.0-1.5) % Neut # (Auto) 15.7 H (1.4-5.7) K/uL Lymph # (Auto) 2.2 (0.6-2.4) K/uL Addison # (Auto) 2.4 H (0.0-0.8) K/uL Eos # (Auto) 0.1 (0.0-0.7) K/uL Baso # (Auto) 0.0 (0.0-0.1) K/uL Nucleated RBC % 0.0 /100WBC Nucleated RBCs # 0 K/uL Sodium (136-146) mmol/L Potassium (3.5-5.1) mmol/L Chloride (98-110) mmol/L Carbon Dioxide (21-31) mmol/L BUN (6.0-23.0) mg/dL Creatinine (0.6-1.5) mg/dL Est Cr Clr Drug Dosing mL/min Estimated GFR (MDRD) ml/min Glucose (60-110) mg/dL POC Glucose 112 H 116 H (60-110) mg/dL Calcium (8.8-10.8) mg/dL Total Bilirubin (0.1-1.5) mg/dL AST (5-40) IU/L ALT (8-54) IU/L Alkaline Phosphatase (40-150) Total Protein (6.0-8.0) g/dL Albumin (3.5-5.0) g/dL Globulin (2.0-3.5) g/dL Albumin/Globulin Ratio (1.3-2.8) Lipase (7-80) U/L 10/09/16 10/09/16 Range/Units 06:20 06:38 WBC (4.0-11.0) K/uL RBC (4.50-5.90) M/uL Hgb (13.0-17.0) g/dL Hct (38.0-50.0) % MCV (80.0-98.0) fL MCH (27.0-32.0) pg MCHC (31.0-37.0) g/dL RDW Std Deviation (28.0-62.0) fl RDW Coeff of Claudio (11.0-15.0) % Plt Count (150-400) K/uL MPV (7.40-12.00) fL Neut % (Auto) (48.0-80.0) % Lymph % (Auto) (16.0-40.0) % Addison % (Auto) (0.0-15.0) % Eos % (Auto) (0.0-7.0) % Baso % (Auto) (0.0-1.5) % Neut # (Auto) (1.4-5.7) K/uL Lymph # (Auto) (0.6-2.4) K/uL Addison # (Auto) (0.0-0.8) K/uL Eos # (Auto) (0.0-0.7) K/uL Baso # (Auto) (0.0-0.1) K/uL Nucleated RBC % /100WBC Nucleated RBCs # K/uL Sodium 137 (136-146) mmol/L Potassium 3.7 (3.5-5.1) mmol/L Chloride 107 (98-110) mmol/L Carbon Dioxide 16 L (21-31) mmol/L BUN 9 (6.0-23.0) mg/dL Creatinine 0.8 (0.6-1.5) mg/dL Est Cr Clr Drug Dosing 88.62 mL/min Estimated GFR (MDRD) > 60.0 ml/min Glucose 120 H (60-110) mg/dL POC Glucose 114 H (60-110) mg/dL Calcium 8.2 L (8.8-10.8) mg/dL Total Bilirubin 1.1 (0.1-1.5) mg/dL AST 141 H (5-40) IU/L ALT 67 H (8-54) IU/L Alkaline Phosphatase 133 (40-150) Total Protein 6.4 (6.0-8.0) g/dL Albumin 3.3 L (3.5-5.0) g/dL Globulin 3.1 (2.0-3.5) g/dL Albumin/Globulin Ratio 1.1 L (1.3-2.8) Lipase 75 (7-80) U/L Med Orders - Current: Current Medications Discontinued Medications Acetaminophen (Tylenol) 650 mg PO Q6H PRN PRN Reason: Fever Aspirin (Aspirin) 40.5 mg PO BEDTIME [facility] Last Admin: 10/08/16 20:43 Dose: 40.5 mg Atorvastatin Calcium (Lipitor) 20 mg PO BEDTIME KATHRYN Last Admin: 10/08/16 20:44 Dose: 20 mg Diphenhydramine HCl (Benadryl) 50 mg PO BID [facility] Last Admin: 10/08/16 20:44 Dose: 50 mg Hydromorphone HCl (Dilaudid) 1 mg IVPUSH ONETIME ONE Stop: 10/07/16 15:28 Last Admin: 10/07/16 15:39 Dose: 1 mg Hydromorphone HCl (Dilaudid) 1 mg IVPUSH Q2H PRN PRN Reason: Pain (severe 7-10) Last Admin: 10/09/16 04:39 Dose: 1 mg Sodium Chloride (Normal Saline) 1,000 mls @ 999 mls/hr IV STAT ONE Stop: 10/07/16 14:55 Last Admin: 10/07/16 14:37 Dose: 999 mls/hr Sodium Chloride (Normal Saline) 1,000 mls @ 150 mls/hr IV STAT KATHRYN Last Admin: 10/09/16 00:07 Dose: 150 mls/hr Multivitamins/Minerals 10 ml/Thiamine HCl 100 mg/ Folic Acid 1 mg/ Sodium Chloride 1,011.2 mls @ 125 mls/hr IV DAILY ONE Stop: 10/08/16 02:05 Last Admin: 10/07/16 20:02 Dose: 125 mls/hr Pantoprazole Sodium 80 mg/ (Sodium Chloride) 100 mls @ 10 mls/hr IV Q10H [facility] Last Admin: 10/09/16 03:24 Dose: 10 mls/hr Piperacillin Sod/Tazobactam (Sod 3.375 gm/ Sodium Chloride) 50 mls @ 100 mls/ hr IV Q6H [facility] Last Admin: 10/09/16 03:04 Dose: 100 mls/hr Insulin Aspart (Novolog) 0 unit SUBCUT ACBED [facility] PRN Reason: Protocol Last Admin: 10/07/16 18:57 Dose: Not Given Insulin Aspart (Novolog) 0 unit SUBCUT Q6HR [facility] PRN Reason: Protocol Last Admin: 10/09/16 06:46 Dose: Not Given Insulin Glargine (Lantus Solostar) 5 units SUBCUT DAILY [facility] Iopamidol (Isovue Multipack-370 (76%)) 100 ml IVPUSH ONETIME STA Stop: 10/07/16 16:34 Last Admin: 10/07/16 16:45 Dose: 100 ml Ketorolac Tromethamine (Toradol) 30 mg IVPUSH ONETIME ONE Stop: 10/07/16 14:34 Last Admin: 10/07/16 14:55 Dose: Not Given Lisinopril (Prinivil) 10 mg PO BEDTIME [facility] Last Admin: 10/08/16 20:43 Dose: 10 mg Lorazepam (Ativan) 1 mg IVPUSH Q2H PRN PRN Reason: Anxiety Last Admin: 10/09/16 06:26 Dose: 1 mg Nicotine (Habitrol) 21 mg TRDERM DAILY KATHRYN Last Admin: 10/08/16 08:59 Dose: 21 mg Ondansetron HCl (Zofran) 8 mg IVPUSH ONETIME ONE Stop: 10/07/16 13:56 Last Admin: 10/07/16 14:43 Dose: 8 mg Ondansetron HCl (Zofran) 4 mg IVPUSH Q4H PRN PRN Reason: Nausea Last Admin: 10/09/16 04:39 Dose: 4 mg Comments:: Patient left AMA without being seen. *Q Meaningful Use (DIS) - VTE *Q VTE Criteria *Q: - Stroke *Q Stroke Criteria *Q: - AMI *Q AMI Criteria *Q:
[2016-10-09] MEDS: Nicotine 21 MG/24 Hr Patch TRDERM SCH (15:39)
[2016-10-09] MEDS: diphenhydrAMINE 50 MG Cap PO SCH (15:39)
== END 2016-10-09 09:15 | disposition left against medical advice (07) | DRG 440 ==
LOC: MW.ED 13:51 → MW.MS 18:09
PROVIDERS: ADMIT Family Medicine; ATTEND Family Medicine
DX: K85.20 Alcohol induced acute pancreatitis without necrosis or infection (principal); K27.9 Peptic ulcer, site unspecified, unspecified as acute or chronic, without hemorrhage or perforation; K29.80 Duodenitis without bleeding; I10 Essential (primary) hypertension; E78.5 Hyperlipidemia, unspecified; E10.9 Type 1 diabetes mellitus without complications; J44.9 Chronic obstructive pulmonary disease, unspecified; Z79.82 Long term (current) use of aspirin; Z79.4 Long term (current) use of insulin; Z79.899 Other long term (current) drug therapy; Z88.8 Allergy status to other drugs, medicaments and biological substances; F17.200 Nicotine dependence, unspecified, uncomplicated
CPT/HCPCS: 36415; 74177; 74177-26; 76705; 76705-26; 80053; 82150; 82962; 83690; 84484; 85025; 85652; 86140; 87040; 93005; 96361; 96374; 96375; 99284; 99285-25; A9270-GY; C9113; G0480; J1170; J1815-GY; J2060; J2405; J2543; J3411; J7030; J7040; J7050; Q9967

== ENCOUNTER 2019-04-25 21:06 | Inpatient (IN) | payer SELFPAY ==
--- NOTE | 2019-04-25 21:42 | EDM.PDOC ---
ED HPI GENERAL MEDICAL PROBLEM - General Chief Complaint: Abdominal Pain Stated Complaint: DEHYDRATED, VOMITING,PANCREATITIS Time Seen by Provider: 04/25/19 21:15 Source of Information: Reports: Patient History Limitations: Reports: No Limitations - History of Present Illness INITIAL COMMENTS - FREE TEXT/NARRATIVE: Presents with a plethora of symptoms. He reports an 8 month history of dizziness, constipation, abdominal pain, vomiting, dysuria. He states that he has drank alcohol his entire life but he has not drank any in the last 10 days and has, through the years, taken a number of sabbaticals from drinking. He then told me that he had a complete physical one month ago in [place] and had a "best physical I've ever had" and got a "clean bill of health". And I pointed out to him that he just told me he's been sick for 8 months he said that he took a vacation to [place] and felt great while he was there but as soon as he came back to [place] his symptoms all returned. He states that he self medicates his constipation with "Blue Gava Tequila". The patient states that " I have not urinated for 3 days". When I told him that was highly unlikely he said "Well I just vomit continuously". Of note, the patient appears well is talking and telling stories continuously. upper abdomen Pain Score (Numeric/FACES): 10 - Related Data Allergies Allergy/AdvReac Type Severity Reaction Status Date / Time morphine Allergy Hallucinati Verified 04/25/19 21:29 ons Home Meds: Home Meds Lisinopril 10 mg PO BEDTIME 10/07/16 [History] atorvaSTATin [Lipitor] 20 mg PO BEDTIME 10/07/16 [History] metFORMIN [Glucophage] 500 mg PO BIDMEALS 10/07/16 [History] Past Medical History HEENT History: Reports: Impaired Vision Cardiovascular History: Reports: High Cholesterol, Hypertension Respiratory History: Reports: COPD, Pneumothorax Gastrointestinal History: Reports: Pancreatitis Musculoskeletal History: Reports: Arthritis Other Musculoskeletal History: Back Psychiatric History: Reports: Other (See Below) Other Psychiatric History: History of "melancholia" Endocrine/Metabolic History: Reports: Diabetes, Type I Oncologic (Cancer) History: Reports: None - Infectious Disease History Infectious Disease History: Reports: Chicken Pox, Measles, Mumps - Past Surgical History HEENT Surgical History: Reports: Tonsillectomy Cardiovascular Surgical History: Reports: None GI Surgical History: Reports: Cholecystectomy Social & Family History - Family History Family Medical History: Noncontributory HEENT: Reports: Impaired Vision Endocrine/Metabolic: Reports: Diabetes, type II Oncologic: Reports: Colon, Liver, Lung, Pancreatic, Thyroid - Caffeine Use Caffeine Use: Reports: Coffee ED ROS GENERAL - Review of Systems Review Of Systems: ROS reveals no pertinent complaints other than HPI. ED EXAM, GI/ABD - Physical Exam Exam: See Below Exam Limited By: No Limitations General Appearance: Alert, No Apparent Distress Ears: Normal External Exam Nose: Normal Inspection Throat/Mouth: Normal Inspection, Normal Oropharynx Head: Atraumatic, Normocephalic Neck: Normal Inspection Respiratory/Chest: No Respiratory Distress, Lungs Clear, Normal Breath Sounds Cardiovascular: Normal Peripheral Pulses, Regular Rate, Rhythm, No Murmur GI/Abdominal Exam: Normal Bowel Sounds, Soft, No Distention, Tender (Cross upper abdomen) Neurological: Alert, Oriented, Normal Cognition Psychiatric: Normal Affect, Normal Mood, Other (Patient states that he gets "ER shock" upon further questioning he describes a panic attack when he comes to the ER) Skin Exam: Warm, Dry, Intact, Normal Color, No Rash Lymphatic: No Adenopathy Course - Vital Signs Last Recorded V/S: Last Vital Signs Temp 36.1 C 04/25/19 21:10 Pulse 104 H 04/25/19 21:10 Resp 18 04/25/19 21:10 BP 96/60 04/25/19 21:10 Pulse Ox 94 L 04/25/19 21:10 - Orders/Labs/Meds Orders: Active Orders 24 hr Category Date Time Status Patient Status [ADT] Stat ADT 04/25/19 22:25 Ordered CULTURE BLOOD [BC] Stat Lab 04/25/19 22:17 Ordered CULTURE BLOOD [BC] Stat Lab 04/25/19 22:17 Ordered URINALYSIS W/MICROSCOPIC [UA W/MICROSCOPIC] [URIN] Stat Lab 04/25/19 21:44 Ordered Sodium Chloride 0.9% [Normal Saline] 1,000 ml Med 04/25/19 21:48 Active IV STAT Sodium Chloride 0.9% [Normal Saline] 1,000 ml Med 04/25/19 22:27 Ordered IV STAT Blood Culture x2 Reflex Set [OM.PC] Stat Oth 04/25/19 22:17 Ordered Medication Orders Sodium Chloride (Normal Saline) 1,000 mls @ 999 mls/hr IV STAT ONE Stop: 04/25/19 22:48 Last Admin: 04/25/19 22:00 Dose: 999 mls/hr Sodium Chloride (Normal Saline) 1,000 mls @ 999 mls/hr IV STAT ONE Stop: 04/25/19 23:27 Labs: Laboratory Tests 04/25/19 04/25/19 04/25/19 Range/Units 21:15 21:15 21:27 WBC 20.74 H (4.0-11.0) K/uL RBC 4.67 (4.50-5.90) M/uL Hgb 15.4 (13.0-17.0) g/dL Hct 43.1 (38.0-50.0) % MCV 92.3 (80.0-98.0) fL MCH 33.0 H (27.0-32.0) pg MCHC 35.7 (31.0-37.0) g/dL RDW Std Deviation 42.7 (28.0-62.0) fl RDW Coeff of Claudio 13 (11.0-15.0) % Plt Count 354 (150-400) K/uL MPV 9.30 (7.40-12.00) fL Neut % (Auto) 73.3 (48.0-80.0) % Lymph % (Auto) 13.7 L (16.0-40.0) % Blount % (Auto) 12.2 (0.0-15.0) % Eos % (Auto) 0.6 (0.0-7.0) % Baso % (Auto) 0.2 (0.0-1.5) % Neut # (Auto) 15.2 H (1.4-5.7) K/uL Lymph # (Auto) 2.8 H (0.6-2.4) K/uL Blount # (Auto) 2.5 H (0.0-0.8) K/uL Eos # (Auto) 0.1 (0.0-0.7) K/uL Baso # (Auto) 0.1 (0.0-0.1) K/uL Nucleated RBC % 0.0 /100WBC Nucleated RBCs # 0 K/uL Sodium 129 L (136-148) mmol/L Potassium 2.5 L (3.5-5.1) mmol/L Chloride 81 L (98-107) mmol/L Carbon Dioxide 41.2 H (21.0-32.0) mmol/L BUN 48 H (7.0-18.0) mg/dL Creatinine 3.8 H (0.8-1.3) mg/dL Est Cr Clr Drug Dosing TNP Estimated GFR (MDRD) 16.4 ml/min Glucose 105 (74-106) mg/dL POC Glucose 108 (60-110) mg/dL Calcium 8.9 (8.5-10.1) mg/dL Total Bilirubin 0.4 (0.2-1.0) mg/dL AST 17 (15-37) IU/L ALT 17 (14-63) IU/L Alkaline Phosphatase 110 (46-116) U/L Total Protein 8.0 (6.4-8.2) g/dL Albumin 3.4 (3.4-5.0) g/dL Globulin 4.6 H (2.6-4.0) g/dL Albumin/Globulin Ratio 0.7 L (0.9-1.6) Amylase 135 H (25-115) U/L Lipase 671 H (73-393) U/L Meds: Medications Generic Name Dose Route Start Last Admin Trade Name Freq PRN Reason Stop Dose Admin Sodium Chloride 1,000 mls @ 999 mls/hr 04/25/19 21:48 04/25/19 22:00 Normal Saline IV 04/25/19 22:48 999 mls/hr STAT ONE Administration Sodium Chloride 1,000 mls @ 999 mls/hr 04/25/19 22:27 Normal Saline IV 04/25/19 23:27 STAT ONE Discontinued Medications Generic Name Dose Route Start Last Admin Trade Name Freq PRN Reason Stop Dose Admin Lorazepam 0.5 mg 04/25/19 21:48 04/25/19 22:00 Ativan IVPUSH 04/25/19 21:49 0.5 mg ONETIME ONE Administration - Re-Assessments/Exams Free Text/Narrative Re-Assessment/Exam: 04/25/19 22:02 Patient became anxious and told me he was having "ER shock". Easily calmed with conversation and he again began telling stories. Ativan 0.5 mg IV given Free Text/Narrative Re-Assessment/Exam: 04/25/19 22:[address] Rock, hospitalist. Same will admit the patient. Patient states "I guess I waited too long". Departure - Departure Time of Disposition: 22:31 Disposition: Admitted As Inpatient 65 Condition: Fair Clinical Impression: Acute kidney injury, Dehydration Pancreatitis Qualifiers: Chronicity: acute Pancreatitis type: alcohol induced Acute pancreatitis complication: unspecified Qualified Code(s): K85.20 - Alcohol induced acute pancreatitis without necrosis or infection Leukocytosis Qualifiers: Leukocytosis type: unspecified Qualified Code(s): D72.829 - Elevated white blood cell count, unspecified - Discharge Information Referrals: PCP,None [Primary Care Provider] - Forms: ED Department Discharge - My Orders Last 24 Hours: My Active Orders 04/25/19 21:44 URINALYSIS W/MICROSCOPIC [UA W/MICROSCOPIC] [URIN] Stat 04/25/19 21:48 Sodium Chloride 0.9% [Normal Saline] 1,000 ml IV STAT 04/25/19 22:17 CULTURE BLOOD [BC] Stat CULTURE BLOOD [BC] Stat Blood Culture x2 Reflex Set [OM.PC] Stat 04/25/19 22:25 Patient Status [ADT] Stat 04/25/19 22:27 Sodium Chloride 0.9% [Normal Saline] 1,000 ml IV STAT - Assessment/Plan Last 24 Hours: My Active Orders 04/25/19 21:44 URINALYSIS W/MICROSCOPIC [UA W/MICROSCOPIC] [URIN] Stat 04/25/19 21:48 Sodium Chloride 0.9% [Normal Saline] 1,000 ml IV STAT 04/25/19 22:17 CULTURE BLOOD [BC] Stat CULTURE BLOOD [BC] Stat Blood Culture x2 Reflex Set [OM.PC] Stat 04/25/19 22:25 Patient Status [ADT] Stat 04/25/19 22:27 Sodium Chloride 0.9% [Normal Saline] 1,000 ml IV STAT
[2019-04-25] MEDS ORDERED: LORazepam 2 MG/ML SDV IVPUSH ONE (21:48)
[2019-04-25] MEDS ORDERED: Sodium Chloride 0.9% 1,000 ML IV ONE ×2 (21:48→22:27)
[2019-04-25 21:56] LABS: BLOOD UREA NITROGEN,BUN 48 mg/dL (7.0-18.0); CARBON DIOXIDE,CO2 41.2 mmol/L (21.0-32.0); CHLORIDE,CL 81 mmol/L (98-107); GLUCOSE RANDOM 105 mg/dL (74-106); LIPASE 671 U/L (73-393); POTASSIUM,K 2.5 mmol/L (3.5-5.1); SODIUM,NA 129 mmol/L (136-148)
[2019-04-25] MEDS ORDERED: fentaNYL 100 MCG/2 ML SDV IVPUSH ONE (22:30)
[2019-04-25] MEDS: Nicotine 21 MG/24 Hr Patch TRDERM SCH (22:39)
[2019-04-26] MEDS ORDERED: LORazepam 2 MG/ML SDV IVPUSH PRN ×2 (00:16→00:56)
[2019-04-26] MEDS: Sodium Chloride 0.9% 1,000 ML IV SCH ×4 (00:30→23:24)
--- NOTE | 2019-04-26 01:14 | CT ---
INDICATION: Abdominal pain TECHNIQUE: CT Abdomen and pelvis without i.v. contrast. Coronal and sagittal reformats were obtained. COMPARISON: None FINDINGS: Lower chest: Unremarkable. Liver: Unremarkable. Spleen: Unremarkable. Pancreas: There is a lobulated hypodense lesion with peripheral coarse calcification seen in the pancreatic tail measuring 5.3 x 2 cm. Gallbladder: Previous cholecystectomy noted without significant intra- or extrahepatic biliary ductal dilatation seen. Kidney: Unremarkable. No kidney or ureteral stones or obstruction seen. Adrenal: Unremarkable. Bowel: Unremarkable. The appendix is normal in appearance and size. Vascular: Unremarkable. Lymph: Several calcified peripancreatic lymph nodes are noted. Left para-aortic nodes are present measuring up to 1.1 cm. Peritoneum: Unremarkable. No pneumoperitoneum is seen. No significant ascites is noted. Pelvis: Mild prostatic enlargement is seen. Soft tissue: Unremarkable. Bone: Unremarkable for age. IMPRESSION: 1. There is a lobulated hypodense lesion with peripheral coarse calcification seen in the pancreatic tail measuring 5.3 x 2 cm. Assessment with pancreatic MRI is recommended to exclude a pancreatic mass. 2. Several calcified peripancreatic lymph nodes are noted. Left para-aortic nodes are present measuring up to 1.1 cm. Dictated by Rl Lopez MD @ 04/26/2019 1:12:38 AM Please note that all CT scans at this facility use dose modulation, iterative reconstruction, and/or weight-based dosing when appropriate to reduce radiation dose to as low as reasonably achievable. Dictated by: Rl Lopez MD @ 04/26/2019 01:13:36 (Electronically Signed)
[2019-04-26] MEDS ORDERED: Potassium Chloride 20 MEQ Tab.ER PO ONE ×2 (01:16→08:04)
[2019-04-26] MEDS: HYDROmorphone 1 MG/ML Syringe IVPUSH PRN ×5 (01:33→15:57)
[2019-04-26] MEDS: Pantoprazole 40 MG in Sodium Chloride 0.9% 10 ML IV SCH (01:37)
[2019-04-26] MEDS: LORazepam 1 MG Tab PO PRN ×3 (01:49→20:14)
--- NOTE | 2019-04-26 02:00 | PCM.HP.2 ---
H&P History of Present Illness - General Date of Service: 04/26/19 Admit Problem/Dx: Admission Diagnosis/Problem Admission Diagnosis/Problem Pancreatitis - History of Present Illness Initial Comments - Free Text/Narative: 58 yo male with pmh of chronic alcoholic pancreatitis who presents to the ED with complaints of abdominal pain, nausea and vomiting. PAtient reports his abdominal pain has been on and off over the past 2 years. He reports increase in his pain this week and has not been able to eat or drink much. HE reports a decrease in his urination. He denies any fevers or blood in his stool. He reports his last drink was 10 days ago. He is no clear with the amount he drinks he says anywhere between two shots to a half a bottle a day. upper abdomen Pain Score (Numeric/FACES): 10 - Related Data Allergies/Adverse Reactions: Allergies Allergy/AdvReac Type Severity Reaction Status Date / Time morphine Allergy Hallucinati Verified 04/25/19 23:22 ons Home Medications: Home Meds Lisinopril 10 mg PO BEDTIME 10/07/16 [History] atorvaSTATin [Lipitor] 20 mg PO BEDTIME 10/07/16 [History] metFORMIN [Glucophage] 500 mg PO BIDMEALS 10/07/16 [History] Aspirin 81 mg PO BEDTIME 04/25/19 [History] Psyllium Husk [Psyllium Fiber] 5 cap PO DAILY 04/25/19 [History] diphenhydrAMINE HCl [Benadryl] 50 mg PO BEDTIME 04/25/19 [History] Past Medical History HEENT History: Reports: Impaired Vision Cardiovascular History: Reports: High Cholesterol, Hypertension Respiratory History: Reports: COPD, Pneumothorax Gastrointestinal History: Reports: Pancreatitis Musculoskeletal History: Reports: Arthritis Other Musculoskeletal History: Back Psychiatric History: Reports: Other (See Below) Other Psychiatric History: History of "melancholia" Endocrine/Metabolic History: Reports: Diabetes, Type I Oncologic (Cancer) History: Reports: None - Infectious Disease History Infectious Disease History: Reports: Chicken Pox, Measles, Mumps - Past Surgical History HEENT Surgical History: Reports: Tonsillectomy Cardiovascular Surgical History: Reports: None GI Surgical History: Reports: Cholecystectomy Social & Family History - Family History Family Medical History: Noncontributory HEENT: Reports: Impaired Vision Endocrine/Metabolic: Reports: Diabetes, type II Oncologic: Reports: Colon, Liver, Lung, Pancreatic, Thyroid - Tobacco Use Smoking Status *Q: Current Every Day Smoker Years of Tobacco use: 40 Packs/Tins Daily: 1 - Caffeine Use Caffeine Use: Reports: None - Alcohol Use Days Per Week of Alcohol Use: 7 Number of Drinks Per Day: 5 Total Drinks Per Week: 35 Date of Last Drink: 04/16/19 - Recreational Drug Use Recreational Drug Use: No H&P Review of Systems - Review of Systems: Review Of Systems: ROS reveals no pertinent complaints other than HPI. Exam - Exam Exam: See Below - Vital Signs Vital Signs: Last Vital Signs Temp 36.1 C 04/25/19 22:47 Pulse 97 04/25/19 22:47 Resp 17 04/25/19 22:47 BP 100/65 04/25/19 22:47 Pulse Ox 97 04/25/19 22:47 Weight: 57.289 kg - Exam General: Alert, Oriented HEENT: Mucosa Moist & [place] Neck: Supple Lungs: Clear to Auscultation, Normal Respiratory Effort Cardiovascular: Regular Rate, Regular Rhythm GI/Abdominal Exam: Normal Bowel Sounds, Soft, Non-Tender Extremities: Non-Tender, No Pedal Edema Skin: Warm, Dry, Intact - Patient Data Lab Results Last 24 hrs: Laboratory Results - last 24 hr 04/25/19 04/25/19 04/25/19 Range/Units 21:15 21:15 21:27 WBC 20.74 H (4.0-11.0) K/uL RBC 4.67 (4.50-5.90) M/uL Hgb 15.4 (13.0-17.0) g/dL Hct 43.1 (38.0-50.0) % MCV 92.3 (80.0-98.0) fL MCH 33.0 H (27.0-32.0) pg MCHC 35.7 (31.0-37.0) g/dL RDW Std Deviation 42.7 (28.0-62.0) fl RDW Coeff of Claudio 13 (11.0-15.0) % Plt Count 354 (150-400) K/uL MPV 9.30 (7.40-12.00) fL Neut % (Auto) 73.3 (48.0-80.0) % Lymph % (Auto) 13.7 L (16.0-40.0) % [place] % (Auto) 12.2 (0.0-15.0) % Eos % (Auto) 0.6 (0.0-7.0) % Baso % (Auto) 0.2 (0.0-1.5) % Neut # (Auto) 15.2 H (1.4-5.7) K/uL Lymph # (Auto) 2.8 H (0.6-2.4) K/uL [place] # (Auto) 2.5 H (0.0-0.8) K/uL Eos # (Auto) 0.1 (0.0-0.7) K/uL Baso # (Auto) 0.1 (0.0-0.1) K/uL Nucleated RBC % 0.0 /100WBC Nucleated RBCs # 0 K/uL Lactate (0.20-2.00) mmol/L Sodium 129 L (136-148) mmol/L Potassium 2.5 L (3.5-5.1) mmol/L Chloride 81 L (98-107) mmol/L Carbon Dioxide 41.2 H (21.0-32.0) mmol/L BUN 48 H (7.0-18.0) mg/dL Creatinine 3.8 H (0.8-1.3) mg/dL Est Cr Clr Drug Dosing TNP Estimated GFR (MDRD) 16.4 ml/min Glucose 105 (74-106) mg/dL POC Glucose 108 (60-110) mg/dL Calcium 8.9 (8.5-10.1) mg/dL Total Bilirubin 0.4 (0.2-1.0) mg/dL AST 17 (15-37) IU/L ALT 17 (14-63) IU/L Alkaline Phosphatase 110 (46-116) U/L Total Protein 8.0 (6.4-8.2) g/dL Albumin 3.4 (3.4-5.0) g/dL Globulin 4.6 H (2.6-4.0) g/dL Albumin/Globulin Ratio 0.7 L (0.9-1.6) Amylase 135 H (25-115) U/L Lipase 671 H (73-393) U/L Urine Color Urine Appearance Urine pH (5.0-8.0) Ur Specific [place] (1.001-1.035) Urine Protein (NEGATIVE) mg/dL Urine Glucose (UA) (NEGATIVE) mg/dL Urine Ketones (NEGATIVE) mg/dL Urine Occult Blood (NEGATIVE) Urine Nitrite (NEGATIVE) Urine Bilirubin (NEGATIVE) Urine Urobilinogen (<2.0) EU/dL Ur Leukocyte Esterase (NEGATIVE) Urine RBC (0-2/HPF) Urine WBC (0-5/HPF) Ur Epithelial Cells (NONE-FEW) Urine Bacteria (NEGATIVE) 04/25/19 04/26/19 Range/Units 22:40 01:18 WBC (4.0-11.0) K/uL RBC (4.50-5.90) M/uL Hgb (13.0-17.0) g/dL Hct (38.0-50.0) % MCV (80.0-98.0) fL MCH (27.0-32.0) pg MCHC (31.0-37.0) g/dL RDW Std Deviation (28.0-62.0) fl RDW Coeff of Claudio (11.0-15.0) % Plt Count (150-400) K/uL MPV (7.40-12.00) fL Neut % (Auto) (48.0-80.0) % Lymph % (Auto) (16.0-40.0) % [place] % (Auto) (0.0-15.0) % Eos % (Auto) (0.0-7.0) % Baso % (Auto) (0.0-1.5) % Neut # (Auto) (1.4-5.7) K/uL Lymph # (Auto) (0.6-2.4) K/uL [place] # (Auto) (0.0-0.8) K/uL Eos # (Auto) (0.0-0.7) K/uL Baso # (Auto) (0.0-0.1) K/uL Nucleated RBC % /100WBC Nucleated RBCs # K/uL Lactate 0.8 (0.20-2.00) mmol/L Sodium (136-148) mmol/L Potassium (3.5-5.1) mmol/L Chloride (98-107) mmol/L Carbon Dioxide (21.0-32.0) mmol/L BUN (7.0-18.0) mg/dL Creatinine (0.8-1.3) mg/dL Est Cr Clr Drug Dosing Estimated GFR (MDRD) ml/min Glucose (74-106) mg/dL POC Glucose (60-110) mg/dL Calcium (8.5-10.1) mg/dL Total Bilirubin (0.2-1.0) mg/dL AST (15-37) IU/L ALT (14-63) IU/L Alkaline Phosphatase (46-116) U/L Total Protein (6.4-8.2) g/dL Albumin (3.4-5.0) g/dL Globulin (2.6-4.0) g/dL Albumin/Globulin Ratio (0.9-1.6) Amylase (25-115) U/L Lipase (73-393) U/L Urine Color YELLOW Urine Appearance CLEAR Urine pH 5.5 (5.0-8.0) Ur Specific [place] 1.020 (1.001-1.035) Urine Protein NEGATIVE (NEGATIVE) mg/dL Urine Glucose (UA) NEGATIVE (NEGATIVE) mg/dL Urine Ketones TRACE H (NEGATIVE) mg/dL Urine Occult Blood NEGATIVE (NEGATIVE) Urine Nitrite NEGATIVE (NEGATIVE) Urine Bilirubin NEGATIVE (NEGATIVE) Urine Urobilinogen 0.2 (<2.0) EU/dL Ur Leukocyte Esterase NEGATIVE (NEGATIVE) Urine RBC 0-1 (0-2/HPF) Urine WBC 0-1 (0-5/HPF) Ur Epithelial Cells RARE (NONE-FEW) Urine Bacteria RARE (NEGATIVE) Result Diagrams: 04/26/19 06:00 04/26/19 17:10 Cosme Results Last 24 hrs: Microbiology 04/25/19 22:39 Anaerobic Blood Culture - Final Blood - Venous - Lab Draw Problem List Initiated/Reviewed/Updated: Yes Orders Last 24hrs: Active Orders 24 hr Category Date Time Status Patient Status [ADT] Stat ADT 04/25/19 22:25 Active CIWAA Assessment [RC] Q4H Care 04/26/19 00:10 Active NPO [Nothing Per Oral Diet] [DIET] Diet 04/26/19 Breakfast Active CBC WITH AUTO DIFF [HEME] AM Lab 04/26/19 05:11 Ordered CBC WITH AUTO DIFF [HEME] AM Lab 04/27/19 05:11 Ordered CBC WITH AUTO DIFF [HEME] AM Lab 04/28/19 05:11 Ordered CBC WITH AUTO DIFF [HEME] AM Lab 04/29/19 05:11 Ordered CMP [COMPREHENSIVE METABOLIC PN,CMP] [CHEM] AM Lab 04/26/19 05:11 Ordered CMP [COMPREHENSIVE METABOLIC PN,CMP] [CHEM] AM Lab 04/27/19 05:11 Ordered CMP [COMPREHENSIVE METABOLIC PN,CMP] [CHEM] AM Lab 04/28/19 05:11 Ordered CMP [COMPREHENSIVE METABOLIC PN,CMP] [CHEM] AM Lab 04/29/19 05:11 Ordered CULTURE BLOOD [BC] Stat Lab 04/25/19 22:28 Received CULTURE BLOOD [BC] Stat Lab 04/25/19 22:39 Results Folic Acid Med 04/26/19 09:00 Ordered 1 mg SUBCUT DAILY HYDROmorphone [Dilaudid] Med 04/26/19 00:12 Active 0.5 mg IVPUSH Q3H PRN LORazepam [Ativan] Med 04/26/19 01:36 Active 0 mg PO Q4H PRN LORazepam [Ativan] Med 04/26/19 00:56 Active See Protocol IVPUSH Q4H PRN Nicotine [Habitrol] Med 04/25/19 22:45 Active 21 mg TRDERM DAILY Pantoprazole [ProTONIX IV] 40 mg Med 04/26/19 02:00 Active Sodium Chloride 0.9% [Normal Saline] 10 ml IV Q24H Pneumococcal Polyvalent-23 Vac [Pneumovax 23] Med 04/26/19 12:00 Once 0.5 ml IM .ONCE ONE Sodium Chloride 0.9% [Normal Saline] 1,000 ml Med 04/26/19 00:15 Active IV ASDIRECTED Thiamine [Vitamin B-1] 100 mg Med 04/26/19 02:00 Ordered Sodium Chloride 0.9% [Normal Saline] 100 ml IV DAILY Blood Culture x2 Reflex Set [OM.PC] Stat Oth 04/25/19 22:17 Ordered Medication Orders Folic Acid (Folic Acid) 1 mg SUBCUT DAILY KATHRYN Hydromorphone HCl (Dilaudid) 0.5 mg IVPUSH Q3H PRN PRN Reason: Pain Last Admin: 04/26/19 01:33 Dose: 0.5 mg Sodium Chloride (Normal Saline) 1,000 mls @ 200 mls/hr IV ASDIRECTED KATHRYN Last Admin: 04/26/19 00:30 Dose: 125 mls/hr Pantoprazole Sodium 40 mg/ (Sodium Chloride) 10 mls @ 300 mls/hr IV Q24H KATHRYN Last Admin: 04/26/19 01:37 Dose: 300 mls/hr Thiamine HCl 100 mg/ Sodium (Chloride) 101 mls @ 202 mls/hr IV DAILY [facility] Lorazepam (Ativan) 0 mg IVPUSH Q4H PRN; Protocol PRN Reason: Withdrawal Symptoms Lorazepam (Ativan) 0 mg PO Q4H PRN; Protocol PRN Reason: Withdrawal Symptoms Last Admin: 04/26/19 01:49 Dose: 1 mg Nicotine (Habitrol) 21 mg TRDERM DAILY [facility] Last Admin: 04/25/19 22:39 Dose: 21 mg Pneumococcal Polyvalent Vaccine (Pneumovax 23) 0.5 ml IM .ONCE ONE Stop: 04/26/19 12:01 Assessment/Plan Comment:: 58 yo male admitted for acute on chronic pancreatitis and renal insufficiency. Acute on chronic pancreatitis: we will resuscitate with IV fluid, bowel rest and pain management, CT scan shows mass at tail of pancreas so will consider MRCP. patient does have a leukocytosis but does not appear septic renal insufficiency:presumable acute, will hydrate and monitor creatinine and hypokalemia ETOH abuse: CIWA protocol prn ativan, thiamin and folic acid
[2019-04-26] MEDS: Thiamine 100 MG in Sodium Chloride 0.9% 100 ML IV SCH (02:34)
[2019-04-26 06:42] LABS: CARBON DIOXIDE,CO2 34.8 mmol/L (21.0-32.0); POTASSIUM,K 2.6 mmol/L (3.5-5.1)
[2019-04-26] MEDS ORDERED: Sodium Chloride 0.9% with KCl 1,000 ML IV SCH (08:15)
[2019-04-26] MEDS: Nicotine 21 MG/24 Hr Patch TRDERM SCH (08:41)
[2019-04-26] MEDS: Folic Acid 50 MG/10 ML MDV SUBCUT SCH (08:52)
[2019-04-26] MEDS ORDERED: Pneumococcal Polyvalent-23 Vaccine 0.5 ML SDV IM ONE (12:00)
--- NOTE | 2019-04-26 12:35 | PCM.PN ---
- General Info Date of Service: 04/26/19 - Review of Systems Systems Review Comment:: abdominal pain improving, no nausea or vomiting - Patient Data Vitals - Most Recent: Last Vital Signs Temp 36.5 C 04/26/19 07:45 Pulse 97 04/26/19 07:45 Resp 16 04/26/19 07:45 BP 86/53 L 04/26/19 07:45 Pulse Ox 94 L 04/26/19 07:45 Weight - Most Recent: 57.198 kg I&O - Last 24 Hours: Intake & Output 04/25/19 04/26/19 04/26/19 22:59 06:59 14:59 Intake Total 780 Output Total 100 Balance 680 Lab Results Last 24 Hours: Laboratory Results - last 24 hr 04/25/19 04/25/19 04/25/19 Range/Units 21:15 21:15 21:27 WBC 20.74 H (4.0-11.0) K/uL RBC 4.67 (4.50-5.90) M/uL Hgb 15.4 (13.0-17.0) g/dL Hct 43.1 (38.0-50.0) % MCV 92.3 (80.0-98.0) fL MCH 33.0 H (27.0-32.0) pg MCHC 35.7 (31.0-37.0) g/dL RDW Std Deviation 42.7 (28.0-62.0) fl RDW Coeff of Claudio 13 (11.0-15.0) % Plt Count 354 (150-400) K/uL MPV 9.30 (7.40-12.00) fL Neut % (Auto) 73.3 (48.0-80.0) % Lymph % (Auto) 13.7 L (16.0-40.0) % [place] % (Auto) 12.2 (0.0-15.0) % Eos % (Auto) 0.6 (0.0-7.0) % Baso % (Auto) 0.2 (0.0-1.5) % Neut # (Auto) 15.2 H (1.4-5.7) K/uL Lymph # (Auto) 2.8 H (0.6-2.4) K/uL [place] # (Auto) 2.5 H (0.0-0.8) K/uL Eos # (Auto) 0.1 (0.0-0.7) K/uL Baso # (Auto) 0.1 (0.0-0.1) K/uL Add Manual Diff Neutrophils % (Manual) (48.0-80.0) % Lymphocytes % (Manual) (16.0-40.0) % Monocytes % (Manual) (0.0-15.0) % Eosinophils % (Manual) (0.0-7.0) % Nucleated RBC % 0.0 /100WBC Absolute Seg Neuts (1.4-5.7) Lymphocytes # (Manual) (0.6-2.4) Monocytes # (Manual) (0.0-0.8) Eosinophils # (Manual) (0.0-0.7) Nucleated RBCs # 0 K/uL Lactate (0.20-2.00) mmol/L Sodium 129 L (136-148) mmol/L Potassium 2.5 L (3.5-5.1) mmol/L Chloride 81 L (98-107) mmol/L Carbon Dioxide 41.2 H (21.0-32.0) mmol/L BUN 48 H (7.0-18.0) mg/dL Creatinine 3.8 H (0.8-1.3) mg/dL Est Cr Clr Drug Dosing TNP Estimated GFR (MDRD) 16.4 ml/min Glucose 105 (74-106) mg/dL POC Glucose 108 (60-110) mg/dL Calcium 8.9 (8.5-10.1) mg/dL Total Bilirubin 0.4 (0.2-1.0) mg/dL AST 17 (15-37) IU/L ALT 17 (14-63) IU/L Alkaline Phosphatase 110 (46-116) U/L Total Protein 8.0 (6.4-8.2) g/dL Albumin 3.4 (3.4-5.0) g/dL Globulin 4.6 H (2.6-4.0) g/dL Albumin/Globulin Ratio 0.7 L (0.9-1.6) Amylase 135 H (25-115) U/L Lipase 671 H (73-393) U/L Urine Color Urine Appearance Urine pH (5.0-8.0) Ur Specific [place] (1.001-1.035) Urine Protein (NEGATIVE) mg/dL Urine Glucose (UA) (NEGATIVE) mg/dL Urine Ketones (NEGATIVE) mg/dL Urine Occult Blood (NEGATIVE) Urine Nitrite (NEGATIVE) Urine Bilirubin (NEGATIVE) Urine Urobilinogen (<2.0) EU/dL Ur Leukocyte Esterase (NEGATIVE) Urine RBC (0-2/HPF) Urine WBC (0-5/HPF) Ur Epithelial Cells (NONE-FEW) Urine Bacteria (NEGATIVE) 04/25/19 04/26/19 04/26/19 Range/Units 22:40 01:18 06:00 WBC 14.47 H (4.0-11.0) K/uL RBC 4.16 L (4.50-5.90) M/uL Hgb 13.4 (13.0-17.0) g/dL Hct 38.3 (38.0-50.0) % MCV 92.1 (80.0-98.0) fL MCH 32.2 H (27.0-32.0) pg MCHC 35.0 (31.0-37.0) g/dL RDW Std Deviation 42.7 (28.0-62.0) fl RDW Coeff of Claudio 13 (11.0-15.0) % Plt Count 345 (150-400) K/uL MPV 9.10 (7.40-12.00) fL Neut % (Auto) (48.0-80.0) % Lymph % (Auto) (16.0-40.0) % [place] % (Auto) (0.0-15.0) % Eos % (Auto) (0.0-7.0) % Baso % (Auto) (0.0-1.5) % Neut # (Auto) (1.4-5.7) K/uL Lymph # (Auto) (0.6-2.4) K/uL [place] # (Auto) (0.0-0.8) K/uL Eos # (Auto) (0.0-0.7) K/uL Baso # (Auto) (0.0-0.1) K/uL Add Manual Diff YES Neutrophils % (Manual) 69 (48.0-80.0) % Lymphocytes % (Manual) 20 (16.0-40.0) % Monocytes % (Manual) 9 (0.0-15.0) % Eosinophils % (Manual) 2 (0.0-7.0) % Nucleated RBC % 0.0 /100WBC Absolute Seg Neuts 10.0 H (1.4-5.7) Lymphocytes # (Manual) 2.9 H (0.6-2.4) Monocytes # (Manual) 1.3 H (0.0-0.8) Eosinophils # (Manual) 0.3 (0.0-0.7) Nucleated RBCs # 0 K/uL Lactate 0.8 (0.20-2.00) mmol/L Sodium (136-148) mmol/L Potassium (3.5-5.1) mmol/L Chloride (98-107) mmol/L Carbon Dioxide (21.0-32.0) mmol/L BUN (7.0-18.0) mg/dL Creatinine (0.8-1.3) mg/dL Est Cr Clr Drug Dosing Estimated GFR (MDRD) ml/min Glucose (74-106) mg/dL POC Glucose (60-110) mg/dL Calcium (8.5-10.1) mg/dL Total Bilirubin (0.2-1.0) mg/dL AST (15-37) IU/L ALT (14-63) IU/L Alkaline Phosphatase (46-116) U/L Total Protein (6.4-8.2) g/dL Albumin (3.4-5.0) g/dL Globulin (2.6-4.0) g/dL Albumin/Globulin Ratio (0.9-1.6) Amylase (25-115) U/L Lipase (73-393) U/L Urine Color YELLOW Urine Appearance CLEAR Urine pH 5.5 (5.0-8.0) Ur Specific [place] 1.020 (1.001-1.035) Urine Protein NEGATIVE (NEGATIVE) mg/dL Urine Glucose (UA) NEGATIVE (NEGATIVE) mg/dL Urine Ketones TRACE H (NEGATIVE) mg/dL Urine Occult Blood NEGATIVE (NEGATIVE) Urine Nitrite NEGATIVE (NEGATIVE) Urine Bilirubin NEGATIVE (NEGATIVE) Urine Urobilinogen 0.2 (<2.0) EU/dL Ur Leukocyte Esterase NEGATIVE (NEGATIVE) Urine RBC 0-1 (0-2/HPF) Urine WBC 0-1 (0-5/HPF) Ur Epithelial Cells RARE (NONE-FEW) Urine Bacteria RARE (NEGATIVE) 04/26/19 Range/Units 06:00 WBC (4.0-11.0) K/uL RBC (4.50-5.90) M/uL Hgb (13.0-17.0) g/dL Hct (38.0-50.0) % MCV (80.0-98.0) fL MCH (27.0-32.0) pg MCHC (31.0-37.0) g/dL RDW Std Deviation (28.0-62.0) fl RDW Coeff of Claudio (11.0-15.0) % Plt Count (150-400) K/uL MPV (7.40-12.00) fL Neut % (Auto) (48.0-80.0) % Lymph % (Auto) (16.0-40.0) % [place] % (Auto) (0.0-15.0) % Eos % (Auto) (0.0-7.0) % Baso % (Auto) (0.0-1.5) % Neut # (Auto) (1.4-5.7) K/uL Lymph # (Auto) (0.6-2.4) K/uL [place] # (Auto) (0.0-0.8) K/uL Eos # (Auto) (0.0-0.7) K/uL Baso # (Auto) (0.0-0.1) K/uL Add Manual Diff Neutrophils % (Manual) (48.0-80.0) % Lymphocytes % (Manual) (16.0-40.0) % Monocytes % (Manual) (0.0-15.0) % Eosinophils % (Manual) (0.0-7.0) % Nucleated RBC % /100WBC Absolute Seg Neuts (1.4-5.7) Lymphocytes # (Manual) (0.6-2.4) Monocytes # (Manual) (0.0-0.8) Eosinophils # (Manual) (0.0-0.7) Nucleated RBCs # K/uL Lactate (0.20-2.00) mmol/L Sodium 131 L (136-148) mmol/L Potassium 2.6 L (3.5-5.1) mmol/L Chloride 91 L (98-107) mmol/L Carbon Dioxide 34.8 H (21.0-32.0) mmol/L BUN 43 H (7.0-18.0) mg/dL Creatinine 2.7 H (0.8-1.3) mg/dL Est Cr Clr Drug Dosing 23.83 Estimated GFR (MDRD) 24.3 ml/min Glucose 170 H (74-106) mg/dL POC Glucose (60-110) mg/dL Calcium 7.4 L (8.5-10.1) mg/dL Total Bilirubin 0.3 (0.2-1.0) mg/dL AST 17 (15-37) IU/L ALT 14 (14-63) IU/L Alkaline Phosphatase 92 (46-116) U/L Total Protein 6.6 (6.4-8.2) g/dL Albumin 2.9 L (3.4-5.0) g/dL Globulin 3.7 (2.6-4.0) g/dL Albumin/Globulin Ratio 0.8 L (0.9-1.6) Amylase (25-115) U/L Lipase (73-393) U/L Urine Color Urine Appearance Urine pH (5.0-8.0) Ur Specific [place] (1.001-1.035) Urine Protein (NEGATIVE) mg/dL Urine Glucose (UA) (NEGATIVE) mg/dL Urine Ketones (NEGATIVE) mg/dL Urine Occult Blood (NEGATIVE) Urine Nitrite (NEGATIVE) Urine Bilirubin (NEGATIVE) Urine Urobilinogen (<2.0) EU/dL Ur Leukocyte Esterase (NEGATIVE) Urine RBC (0-2/HPF) Urine WBC (0-5/HPF) Ur Epithelial Cells (NONE-FEW) Urine Bacteria (NEGATIVE) [place]me Results Last 24 Hours: Microbiology 04/25/19 22:39 Anaerobic Blood Culture - Final Blood - Venous - Lab Draw Med Orders - Current: Current Medications Folic Acid (Folic Acid) 1 mg SUBCUT DAILY [facility] Last Admin: 04/26/19 08:52 Dose: 1 mg Hydromorphone HCl (Dilaudid) 0.5 mg IVPUSH Q3H PRN PRN Reason: Pain Last Admin: 04/26/19 08:56 Dose: 0.5 mg Sodium Chloride (Normal Saline) 1,000 mls @ 200 mls/hr IV ASDIRECTED [facility] Last Admin: 04/26/19 05:02 Dose: 200 mls/hr Pantoprazole Sodium 40 mg/ (Sodium Chloride) 10 mls @ 300 mls/hr IV Q24H [facility] Last Admin: 04/26/19 01:37 Dose: 300 mls/hr Thiamine HCl 100 mg/ Sodium (Chloride) 101 mls @ 202 mls/hr IV DAILY [facility] Last Admin: 04/26/19 02:34 Dose: 202 mls/hr Potassium Chloride/Sodium Chloride (Normal Saline With 40 Meq Kcl) 1,000 mls @ 200 mls/hr IV ASDIRECTED [facility] Stop: 04/26/19 13:14 Last Admin: 04/26/19 09:24 Dose: 200 mls/hr Lorazepam (Ativan) 0 mg IVPUSH Q4H PRN; Protocol PRN Reason: Withdrawal Symptoms Lorazepam (Ativan) 0 mg PO Q4H PRN; Protocol PRN Reason: Withdrawal Symptoms Last Admin: 04/26/19 01:49 Dose: 1 mg Nicotine (Habitrol) 21 mg TRDERM DAILY [facility] Last Admin: 04/26/19 08:41 Dose: 21 mg Discontinued Medications Fentanyl (Sublimaze) 50 mcg IVPUSH ONETIME ONE Stop: 04/25/19 22:31 Last Admin: 04/25/19 22:40 Dose: 50 mcg Sodium Chloride (Normal Saline) 1,000 mls @ 999 mls/hr IV STAT ONE Stop: 04/25/19 22:48 Last Admin: 04/25/19 22:00 Dose: 999 mls/hr Sodium Chloride (Normal Saline) 1,000 mls @ 999 mls/hr IV STAT ONE Stop: 04/25/19 23:27 Last Admin: 04/25/19 22:45 Dose: 999 mls/hr Lorazepam (Ativan) 0.5 mg IVPUSH ONETIME ONE Stop: 04/25/19 21:49 Last Admin: 04/25/19 22:00 Dose: 0.5 mg Lorazepam (Ativan) 1 mg IVPUSH Q4H PRN PRN Reason: Withdrawal Symptoms Pneumococcal Polyvalent Vaccine (Pneumovax 23) 0.5 ml IM .ONCE ONE Stop: 04/26/19 12:01 Potassium Chloride (Klor-Con M20) 40 meq PO ONETIME ONE Stop: 04/26/19 01:17 Last Admin: 10/16/19 01:35 Dose: 40 meq Potassium Chloride (Klor-Con M20) 40 meq PO ONETIME ONE Stop: 04/26/19 08:05 Last Admin: 04/26/19 08:40 Dose: 40 meq - Exam General: Alert, Oriented Lungs: Clear to Auscultation, Normal Respiratory Effort Cardiovascular: Regular Rate, Regular Rhythm GI/Abdominal Exam: Soft, Non-Tender, No Distention Extremities: Non-Tender, No Pedal Edema Skin: Warm, Dry, Intact - Problem List Review Problem List Initiated/Reviewed/Updated: Yes - My Orders Last 24 Hours: My Active Orders 04/26/19 00:10 CIWAA Assessment [RC] Q4H 04/26/19 00:12 HYDROmorphone [Dilaudid] 0.5 mg IVPUSH Q3H PRN 04/26/19 00:15 Sodium Chloride 0.9% [Normal Saline] 1,000 ml IV ASDIRECTED 04/26/19 00:56 LORazepam [Ativan] See Protocol IVPUSH Q4H PRN 04/26/19 01:36 LORazepam [Ativan] 0 mg PO Q4H PRN 04/26/19 02:00 Pantoprazole [ProTONIX IV] 40 mg Sodium Chloride 0.9% [Normal Saline] 10 ml IV Q24H Thiamine [Vitamin B-1] 100 mg Sodium Chloride 0.9% [Normal Saline] 100 ml IV DAILY 04/26/19 09:00 Folic Acid 1 mg SUBCUT DAILY 04/26/19 Breakfast NPO [Nothing Per Oral Diet] [DIET] 04/27/19 05:11 CBC WITH AUTO DIFF [HEME] AM CMP [COMPREHENSIVE METABOLIC PN,CMP] [CHEM] AM 04/28/19 05:11 CBC WITH AUTO DIFF [HEME] AM CMP [COMPREHENSIVE METABOLIC PN,CMP] [CHEM] AM 04/29/19 05:11 CBC WITH AUTO DIFF [HEME] AM CMP [COMPREHENSIVE METABOLIC PN,CMP] [CHEM] AM - Plan Plan:: 58 yo male admitted for acute on chronic pancreatitis and renal insufficiency. Acute on chronic pancreatitis: we will resuscitate with IV fluid, bowel rest and pain management, CT scan shows mass at tail of pancreas so will consider MRCP. patient does have a leukocytosis that is improving renal insufficiency: Creatinine has improved to 2.7. Will continue IV fluid hydrate and monitor creatinine and hypokalemia, CT scan shows no obstruction, will bladder scan. ETOH abuse: CIWA protocol prn ativan, thiamin and folic acid
[2019-04-26 17:30] LABS: CARBON DIOXIDE,CO2 28.2 mmol/L (21.0-32.0); POTASSIUM,K 3.8 mmol/L (3.5-5.1)
[2019-04-27] MEDS: Pantoprazole 40 MG in Sodium Chloride 0.9% 10 ML IV SCH (02:52)
[2019-04-27] MEDS: LORazepam 1 MG Tab PO PRN ×2 (03:23→09:15)
[2019-04-27] MEDS: Sodium Chloride 0.9% 1,000 ML IV SCH ×2 (04:45→10:00)
[2019-04-27 06:38] LABS: BLOOD UREA NITROGEN,BUN 17 mg/dL (7.0-18.0); CARBON DIOXIDE,CO2 26.6 mmol/L (21.0-32.0); CHLORIDE,CL 107 mmol/L (98-107); GLUCOSE RANDOM 194 mg/dL (74-106); POTASSIUM,K 3.5 mmol/L (3.5-5.1); SODIUM,NA 142 mmol/L (136-148)
[2019-04-27 08:06] VITALS: BP 128/82; PULSE 72
[2019-04-27] MEDS: Nicotine 21 MG/24 Hr Patch TRDERM SCH (09:05)
[2019-04-27] MEDS: Folic Acid 50 MG/10 ML MDV SUBCUT SCH (09:12)
[2019-04-27] MEDS: Thiamine 100 MG in Sodium Chloride 0.9% 100 ML IV SCH (09:57)
--- NOTE | 2019-04-27 11:52 | PCM.DCSUM1 ---
Discharge Summary - Discharge Data Discharge Date: 04/27/19 Discharge Disposition: Home, Self-Care 01 Condition: Good - Referral to Home Health Primary Care Physician: PCP None - Patient Summary/Data Hospital Course: 58 yo male with pmh of chronic alcoholic pancreatitis who was admitted for acute renal failure, hypokalemia, dehydration and acute on chronic pancreatitis. He presented to the ED with complaints of abdominal pain, nausea and vomiting and decrease urinary output. He reports that he is still drinking. Patient was found to have a WBC of 20,740 sodium of 129, potassium of 2.5, CO2 41, Creatinine of 3.8. CT of the abdomen reported a lobulated hypodense lesion of the pancreatic tail 5.3 by 2 cm. / blood cultures grew out coag negative staff which was felt to be a contaminate. Patient was placed on CIWAA protocol and treated with IV fluids. He had normalization of his creatinine, potassium and sodium. His abdominal pain resolved and he is requesting discharge home today. He is to follow up with [facility] regarding CT scan findings and he was encouraged and educated on the need to stop drinking alcohol. - Discharge Plan Home Medications: Home Meds Lisinopril 10 mg PO BEDTIME 10/07/16 [History] atorvaSTATin [Lipitor] 20 mg PO BEDTIME 10/07/16 [History] metFORMIN [Glucophage] 500 mg PO BIDMEALS 10/07/16 [History] Aspirin 81 mg PO BEDTIME 04/25/19 [History] Psyllium Husk [Psyllium Fiber] 5 cap PO DAILY 04/25/19 [History] diphenhydrAMINE HCl [Benadryl] 50 mg PO BEDTIME 04/25/19 [History] Patient Handouts: Acute Pancreatitis, [id number], Dehydration, Adult, Easy-to -Read Referrals: [facility] [Outside] Jose Angel Shrestha MD [Resident] - 05/08/19 3:30 pm - Discharge Summary/Plan Comment DC Time >30 min.: No - Patient Data Vitals - Most Recent: Last Vital Signs Temp 36.2 C 04/27/19 08:00 Pulse 72 04/27/19 08:00 Resp 18 04/27/19 08:00 BP 128/82 04/27/19 08:00 Pulse Ox 97 04/27/19 08:00 Weight - Most Recent: 57.289 kg I&O - Last 24 hours: Intake & Output 04/26/19 04/27/19 04/27/19 22:59 06:59 14:59 Intake Total 2610 2725 100 Output Total 1429 1050 Balance 1181 1675 100 Lab Results - Last 24 hrs: Laboratory Results - last 24 hr 04/26/19 04/27/19 04/27/19 Range/Units 17:10 06:12 06:12 WBC 9.98 (4.0-11.0) K/uL RBC 3.58 L (4.50-5.90) M/uL Hgb 11.5 L (13.0-17.0) g/dL Hct 33.8 L (38.0-50.0) % MCV 94.4 (80.0-98.0) fL MCH 32.1 H (27.0-32.0) pg MCHC 34.0 (31.0-37.0) g/dL RDW Std Deviation 43.5 (28.0-62.0) fl RDW Coeff of Claudio 13 (11.0-15.0) % Plt Count 291 (150-400) K/uL MPV 8.70 (7.40-12.00) fL Neut % (Auto) 64.9 (48.0-80.0) % Lymph % (Auto) 21.2 (16.0-40.0) % [place] % (Auto) 10.7 (0.0-15.0) % Eos % (Auto) 2.6 (0.0-7.0) % Baso % (Auto) 0.6 (0.0-1.5) % Neut # (Auto) 6.5 H (1.4-5.7) K/uL Lymph # (Auto) 2.1 (0.6-2.4) K/uL [place] # (Auto) 1.1 H (0.0-0.8) K/uL Eos # (Auto) 0.3 (0.0-0.7) K/uL Baso # (Auto) 0.1 (0.0-0.1) K/uL Nucleated RBC % 0.0 /100WBC Nucleated RBCs # 0 K/uL Sodium 136 142 (136-148) mmol/L Potassium 3.8 3.5 (3.5-5.1) mmol/L Chloride 101 107 (98-107) mmol/L Carbon Dioxide 28.2 26.6 (21.0-32.0) mmol/L BUN 31 H 17 (7.0-18.0) mg/dL Creatinine 1.4 H 1.0 (0.8-1.3) mg/dL Est Cr Clr Drug Dosing 45.96 64.45 mL/min Estimated GFR (MDRD) 51.9 > 60.0 ml/min Glucose 175 H 194 H (74-106) mg/dL Calcium 7.5 L 7.0 L (8.5-10.1) mg/dL Total Bilirubin 0.2 (0.2-1.0) mg/dL AST 24 (15-37) IU/L ALT 19 (14-63) IU/L Alkaline Phosphatase 70 (46-116) U/L Total Protein 5.7 L (6.4-8.2) g/dL Albumin 2.4 L (3.4-5.0) g/dL Globulin 3.3 (2.6-4.0) g/dL Albumin/Globulin Ratio 0.7 L (0.9-1.6) AURELIANO Results - Last 24 hrs: Microbiology 04/25/19 22:28 Aerobic Blood Culture - Preliminary Blood - Venous NO GROWTH AFTER 1 DAY Anaerobic Blood Culture - Preliminary 04/25/19 22:39 Aerobic Blood Culture - Preliminary Blood - Venous - Lab Draw NO GROWTH AFTER 1 DAY Anaerobic Blood Culture - Final Med Orders - Current: Current Medications Folic Acid (Folic Acid) 1 mg SUBCUT DAILY [facility] Last Admin: 04/27/19 09:12 Dose: 1 mg Sodium Chloride (Normal Saline) 1,000 mls @ 200 mls/hr IV ASDIRECTED [facility] Last Admin: 04/27/19 10:00 Dose: 200 mls/hr Pantoprazole Sodium 40 mg/ (Sodium Chloride) 10 mls @ 300 mls/hr IV Q24H [facility] Last Admin: 04/27/19 02:52 Dose: 300 mls/hr Thiamine HCl 100 mg/ Sodium (Chloride) 101 mls @ 202 mls/hr IV DAILY [facility] Last Admin: 04/27/19 09:57 Dose: 202 mls/hr Vancomycin HCl 1 gm/ Sodium (Chloride) 250 mls @ 166.667 mls/hr IV Q24H [facility] Last Admin: 04/26/19 15:51 Dose: 166.667 mls/hr Lorazepam (Ativan) 0 mg IVPUSH Q4H PRN; Protocol PRN Reason: Withdrawal Symptoms Lorazepam (Ativan) 0 mg PO Q4H PRN; Protocol PRN Reason: Withdrawal Symptoms Last Admin: 04/27/19 09:15 Dose: 1 mg Nicotine (Habitrol) 21 mg TRDERM DAILY [facility] Last Admin: 04/27/19 09:05 Dose: 21 mg Vancomycin HCl (Pharmacy To Dose - Vancomycin) 1 dose .XX ASDIRECTED [facility] Discontinued Medications Fentanyl (Sublimaze) 50 mcg IVPUSH ONETIME ONE Stop: 04/25/19 22:31 Last Admin: 04/25/19 22:40 Dose: 50 mcg Hydromorphone HCl (Dilaudid) 0.5 mg IVPUSH Q3H PRN PRN Reason: Pain Last Admin: 04/26/19 15:57 Dose: 0.5 mg Sodium Chloride (Normal Saline) 1,000 mls @ 999 mls/hr IV STAT ONE Stop: 04/25/19 22:48 Last Admin: 04/25/19 22:00 Dose: 999 mls/hr Sodium Chloride (Normal Saline) 1,000 mls @ 999 mls/hr IV STAT ONE Stop: 04/25/19 23:27 Last Admin: 04/25/19 22:45 Dose: 999 mls/hr Potassium Chloride/Sodium Chloride (Normal Saline With 40 Meq Kcl) 1,000 mls @ 200 mls/hr IV ASDIRECTED [facility] Stop: 04/26/19 13:14 Last Admin: 04/26/19 09:24 Dose: 200 mls/hr Lorazepam (Ativan) 0.5 mg IVPUSH ONETIME ONE Stop: 04/25/19 21:49 Last Admin: 04/25/19 22:00 Dose: 0.5 mg Lorazepam (Ativan) 1 mg IVPUSH Q4H PRN PRN Reason: Withdrawal Symptoms Pneumococcal Polyvalent Vaccine (Pneumovax 23) 0.5 ml IM .ONCE ONE Stop: 04/26/19 12:01 Potassium Chloride (Klor-Con M20) 40 meq PO ONETIME ONE Stop: 04/26/19 01:17 Last Admin: 04/26/19 01:35 Dose: 40 meq Potassium Chloride (Klor-Con M20) 40 meq PO ONETIME ONE Stop: 04/26/19 08:05 Last Admin: 04/26/19 08:40 Dose: 40 meq
== END 2019-04-27 12:00 | disposition home or self-care (01) | DRG 682 ==
LOC: MW.ED 21:06 → MW.MS 22:43 → EEVIPCON 22:43
PROVIDERS: ADMIT Internal Medicine; ATTEND Internal Medicine
DX: N17.9 Acute kidney failure, unspecified (principal); K85.20 Alcohol induced acute pancreatitis without necrosis or infection; K86.0 Alcohol-induced chronic pancreatitis; F10.188 Alcohol abuse with other alcohol-induced disorder; E86.0 Dehydration; E87.6 Hypokalemia; E78.00 Pure hypercholesterolemia, unspecified; I10 Essential (primary) hypertension; J44.9 Chronic obstructive pulmonary disease, unspecified; M19.90 Unspecified osteoarthritis, unspecified site; E10.9 Type 1 diabetes mellitus without complications; F17.200 Nicotine dependence, unspecified, uncomplicated; Z79.82 Long term (current) use of aspirin; Z79.84 Long term (current) use of oral hypoglycemic drugs; Z79.899 Other long term (current) drug therapy; Z88.5 Allergy status to narcotic agent; Z90.49 Acquired absence of other specified parts of digestive tract; Z90.89 Acquired absence of other organs
CPT/HCPCS: 36415; 51798; 74176; 74176-26; 80048; 80053; 81001; 82150; 82962; 83605; 83690; 85025; 87040; 87077; 87186; 96361; 96374; 96375; 99283; 99284-25; A9270-GY; C9113; J1170; J2060; J3010; J3370; J3411; J3480; J7030; J7040; J7050

== ENCOUNTER 2019-12-11 12:14 | Inpatient (IN) | payer MEDICAID ==
[2019-12-11] MEDS ORDERED: Sodium Chloride 0.9% 2.5 ML Syringe FLUSH PRN (12:20)
[2019-12-11] MEDS ORDERED: Sodium Chloride 0.9% 1,000 ML IV ONE (12:20)
[2019-12-11] MEDS ORDERED: Ondansetron 4 MG/2 ML SDV IVPUSH ONE (12:20)
[2019-12-11] MEDS ORDERED: Sodium Chloride 0.9% 10 ML Syringe FLUSH PRN (12:20)
--- NOTE | 2019-12-11 12:29 | EDM.PDOC ---
ED HPI GENERAL MEDICAL PROBLEM - General Chief Complaint: General Stated Complaint: VOMITING/CHEST PAIN Time Seen by Provider: 12/11/19 12:18 Source of Information: Reports: Patient History Limitations: Reports: No Limitations - History of Present Illness INITIAL COMMENTS - FREE TEXT/NARRATIVE: HISTORY AND PHYSICAL: History of present illness: Patient is a 59-year-old male who presents to the emergency room with complaints of multiple vague complaints. Patient reports that he has a history of chronic alcoholic pancreatitis, hypertension and type II diabetes, states he usually is hospitalized once or twice a year for his pancreatitis that is progressively "gets worse". "I need to be admitted for IV fluids and pain meds... then I should be good to get out of here in a few days". He states over the past 2-3 days he has had weakness, generalized abdominal pain, constipation , nausea, vomiting and generalized chest pain. Chest pain does not radiate and nothing makes the pain better or worse. He reports that he has not had a bowel movement in approximately 10 days and points to entire abdomen and chest when describing his pain. He lives in [facility] and states it has taken him 2 days to come to our facility for evaluation. Reports his weaknesses "so bad I felt like I could pass out". Has had poor oral intake and believes he is dehydrated. Patient denies any fever, chills, headache, change in vision, syncope, back pain, shortness of breath or cough. Denies any diarrhea or dysuria. Has not noted any blood in urine or stool. Patient has been eating and drinking appropriately. Patient states he is a chronic daily smoker but is trying to quit. States in the past 1 month he has not had any alcohol, reporting that prior to this month he would take approximately 3 shots of hard alcohol per night Review of systems: As per history of present illness and below otherwise all systems reviewed and negative. Past medical history: As per history of present illness and as reviewed below otherwise noncontributory. Surgical history: As per history of present illness and as reviewed below otherwise noncontributory. Social history: See social history for further information Family history: As per history of present illness and as reviewed below otherwise noncontributory. Physical exam: General: Well developed but chronically ill appearing 59-year-old male. Alert and oriented. Nontoxic in appearance and in no acute distress although does appear anxious about his health. Vital signs are stable and have been reviewed by me. HEENT: Atraumatic, normocephalic, pupils equal and reactive bilaterally, negative for conjunctival pallor or scleral icterus, mucous membranes moist, TMs normal bilaterally, throat clear, neck supple, nontender, trachea midline. No drooling or trismus noted. No meningeal signs. No hot potato voice noted. Lungs: Clear to auscultation, breath sounds equal bilaterally, chest nontender. Heart: S1S2, regular rate and rhythm without overt murmur Abdomen: Soft, nondistended, diffuse generalized tenderness in all 4 quadrants. Negative for masses or hepatosplenomegaly. Negative for costovertebral tenderness. Pelvis: Stable nontender. Skin: Intact, warm, dry. No lesions or rashes noted. Extremities: Atraumatic, moves all extremities per self without difficulty or deficits, negative for cords or calf pain. Neurovascular unremarkable. Neuro: Awake, alert, oriented. Cranial nerves II through XII unremarkable. Cerebellum unremarkable. Motor and sensory unremarkable throughout. Exam nonfocal. Notes: Patient reports he has an allergy to morphine, stating that he does have hallucinations. Reports he typically needs Ativan if he has morphine. He has had Dilaudid before without any adverse reactions. EKG shows a rate of 119, sinus tachycardia with a prolonged QT interval. Reviewed by myself and Dr Callahan. Negative chest x-ray. Unable to do the CT with contrast due to renal function. Patient feels improved after his first liter and the dilaudid. Pancreas is poorly seen due to the lack of contrast, low density with calcifications felt to represent chronic pancreatitis. Slightly enlarged lymph nodes within the left retroperitoneum and a efrem-aortic location. Otherwise nothing acute is noted on CT scan. Dr. Nicholas/Nathaniel were consulted on this case. Will come down and evaluate patient for likely admission. Patient is aware and agreeable to plan of care. Vital signs remained stable. Patient continues to have nausea, will give some Ativan as he has prolonged QT on his previous EKG. We will also repeat the EKG for reevaluation. Diagnostics: CBC, CMP, troponin, EKG, 1 view chest, UA, urine drug screen, INR, Mag, ETOH Therapeutics: IV fluid, Zofran, Dilaudid, 40 meQ Potassium Impression: Acute on chronic pancreatitis Leukocytosis Prolonged QT interval Acute renal injury Hypokalemia Hyponatremic Plan: Definitive disposition and diagnosis as appropriate pending reevaluation and review of above. Duration: Day(s): abdomen Pain Score (Numeric/FACES): 10 - Related Data Allergies Allergy/AdvReac Type Severity Reaction Status Date / Time morphine Allergy Kimaniinati Verified 12/11/19 12:27 ons Home Meds: Home Meds Lisinopril 10 mg PO BEDTIME 10/07/16 [History] atorvaSTATin [Lipitor] 20 mg PO BEDTIME 10/07/16 [History] metFORMIN [Glucophage] 500 mg PO BIDMEALS 10/07/16 [History] Aspirin 81 mg PO BEDTIME 04/25/19 [History] Psyllium Husk [Psyllium Fiber] 5 cap PO DAILY 04/25/19 [History] diphenhydrAMINE HCL [Benadryl] 50 mg PO BEDTIME 04/25/19 [History] Past Medical History HEENT History: Reports: Impaired Vision Cardiovascular History: Reports: High Cholesterol, Hypertension Respiratory History: Reports: COPD, Pneumothorax Gastrointestinal History: Reports: Pancreatitis Genitourinary History: Reports: Other (See Below) Other Genitourinary History: Stated "a doctor told me that my kidneys were shriveled up." Musculoskeletal History: Reports: Arthritis Other Musculoskeletal History: Back Psychiatric History: Reports: Other (See Below) Other Psychiatric History: History of "melancholia" Endocrine/Metabolic History: Reports: Diabetes, Type I Oncologic (Cancer) History: Reports: None - Infectious Disease History Infectious Disease History: Reports: Chicken Pox, Measles, Mumps - Past Surgical History HEENT Surgical History: Reports: Tonsillectomy Cardiovascular Surgical History: Reports: None GI Surgical History: Reports: Cholecystectomy Social & Family History - Family History Family Medical History: Noncontributory HEENT: Reports: Impaired Vision Endocrine/Metabolic: Reports: Diabetes, type II Oncologic: Reports: Colon, Liver, Lung, Pancreatic, Thyroid - Caffeine Use Caffeine Use: Reports: None ED ROS GENERAL - Review of Systems Review Of Systems: Comprehensive ROS is negative, except as noted in HPI. ED EXAM, GENERAL - Physical Exam Exam: See Below EKG INTERPRETATION EKG Date: 12/11/19 Time: 12:20 Rhythm: Other (Sinus Tachycardia with Prolonged QT interval) P-Wave: Present QT: Prolonged Course - Vital Signs Last Recorded V/S: Last Vital Signs Temp 97.7 F 06/01/20 12:22 Pulse 90 12/11/19 14:12 Resp 14 12/11/19 14:12 BP 139/80 12/11/19 14:12 Pulse Ox 95 12/11/19 14:12 - Orders/Labs/Meds Orders: Active Orders 24 hr Category Date Time Status Admission Status [Patient Status] [ADT] Stat ADT 12/11/19 14:01 Active Cardiac Monitoring [RC] . DIRECTED Care 12/11/19 14:01 Active EKG Documentation Completion [RC] STAT Care 12/11/19 12:20 Active EKG Documentation Completion [RC] STAT Care 12/11/19 14:05 Active CORONAVIRUS COVID-19 RAPID PCR [MOLEC] Stat Lab 12/11/19 13:54 Received CULTURE BLOOD [BC] Stat Lab 12/11/19 12:40 Received CULTURE BLOOD [BC] Stat Lab 12/11/19 12:50 Received DRUG SCREEN, URINE [URCHEM] Stat Lab 12/11/19 12:20 Ordered ELECTROLYTES,URINE RANDOM [URCHEM] Stat Lab 12/11/19 13:22 Ordered OSMOLALITY - SERUM [REF] Stat Lab 12/11/19 13:23 Ordered OSMOLALITY - URINE Stat Lab 12/11/19 13:23 Ordered UA W/AURELIANO RFLX IF INDICATED [URIN] Stat Lab 12/11/19 12:20 Ordered Potassium Chloride Riders [KCL 40 MEQ in Water 100 ML] Med 12/11/19 13:11 Active 40 meq Premix Bag 1 bag IV ONETIME Sodium Chloride 0.9% [Normal Saline] 1,000 ml Med 12/11/19 13:13 Active IV STAT Sodium Chloride 0.9% [Saline Flush] Med 12/11/19 12:20 Active 10 ml FLUSH ASDIRECTED PRN Sodium Chloride 0.9% [Saline Flush] Med 12/11/19 12:20 Active 2.5 ml FLUSH ASDIRECTED PRN Blood Culture x2 Reflex Set [OM.PC] Stat Oth 12/11/19 12:39 Ordered Saline Lock Insert [OM.PC] Stat Oth 12/11/19 12:20 Ordered Medication Orders Potassium Chloride 40 meq/ (Premix) 100 mls @ 25 mls/hr IV ONETIME ONE Stop: 12/11/19 17:10 Last Admin: 12/11/19 14:02 Dose: 25 mls/hr Sodium Chloride (Normal Saline) 1,000 mls @ 250 drops/hr IV STAT STA Stop: 12/14/19 01:12 Last Admin: 12/11/19 14:02 Dose: 250 drops/hr Sodium Chloride (Saline Flush) 10 ml FLUSH ASDIRECTED PRN PRN Reason: Keep Vein Open Last Admin: 12/11/19 12:34 Dose: 10 ml Sodium Chloride (Saline Flush) 2.5 ml FLUSH ASDIRECTED PRN PRN Reason: Keep Vein Open Last Admin: 12/11/19 12:34 Dose: 2.5 ml Labs: Laboratory Tests 12/11/19 12/11/19 12/11/19 Range/Units 12:23 12:23 12:23 WBC 15.85 H (4.0-11.0) K/uL RBC 4.80 (4.50-5.90) M/uL Hgb 15.5 (13.0-17.0) g/dL Hct 43.1 (38.0-50.0) % MCV 89.8 (80.0-98.0) fL MCH 32.3 H (27.0-32.0) pg MCHC 36.0 (31.0-37.0) g/dL RDW Std Deviation 40.7 (28.0-62.0) fl RDW Coeff of Claudio 12 (11.0-15.0) % Plt Count 392 (150-400) K/uL MPV 9.30 (7.40-12.00) fL Neut % (Auto) 77.6 (48.0-80.0) % Lymph % (Auto) 13.2 L (16.0-40.0) % [place] % (Auto) 8.7 (0.0-15.0) % Eos % (Auto) 0.4 (0.0-7.0) % Baso % (Auto) 0.1 (0.0-1.5) % Neut # (Auto) 12.3 H (1.4-5.7) K/uL Lymph # (Auto) 2.1 (0.6-2.4) K/uL [place] # (Auto) 1.4 H (0.0-0.8) K/uL Eos # (Auto) 0.1 (0.0-0.7) K/uL Baso # (Auto) 0.0 (0.0-0.1) K/uL Nucleated RBC % 0.0 /100WBC Nucleated RBCs # 0 K/uL INR 0.96 Lactate (0.20-2.00) mmol/L Sodium 124 L (136-148) mmol/L Potassium 3.0 L (3.5-5.1) mmol/L Chloride 74 L (98-107) mmol/L Carbon Dioxide 38.8 H (21.0-32.0) mmol/L BUN 77 H (7.0-18.0) mg/dL Creatinine 2.6 H (0.8-1.3) mg/dL Est Cr Clr Drug Dosing 21.32 mL/min Estimated GFR (MDRD) 25.3 ml/min Glucose 191 H (74-106) mg/dL Calcium 9.8 (8.5-10.1) mg/dL Magnesium (1.8-2.4) mg/dL Total Bilirubin 1.0 (0.2-1.0) mg/dL AST 22 (15-37) IU/L ALT 31 (14-63) IU/L Alkaline Phosphatase 130 H (46-116) U/L Troponin I < 0.050 (0.000-0.056) ng/mL Total Protein 8.8 H (6.4-8.2) g/dL Albumin 4.5 (3.4-5.0) g/dL Globulin 4.3 H (2.6-4.0) g/dL Albumin/Globulin Ratio 1.1 (0.9-1.6) Lipase 637 H (73-393) U/L Ethyl Alcohol mg/dL 12/11/19 12/11/19 12/11/19 Range/Units 12:23 12:23 12:50 WBC (4.0-11.0) K/uL RBC (4.50-5.90) M/uL Hgb (13.0-17.0) g/dL Hct (38.0-50.0) % MCV (80.0-98.0) fL MCH (27.0-32.0) pg MCHC (31.0-37.0) g/dL RDW Std Deviation (28.0-62.0) fl RDW Coeff of Claudio (11.0-15.0) % Plt Count (150-400) K/uL MPV (7.40-12.00) fL Neut % (Auto) (48.0-80.0) % Lymph % (Auto) (16.0-40.0) % [place] % (Auto) (0.0-15.0) % Eos % (Auto) (0.0-7.0) % Baso % (Auto) (0.0-1.5) % Neut # (Auto) (1.4-5.7) K/uL Lymph # (Auto) (0.6-2.4) K/uL [place] # (Auto) (0.0-0.8) K/uL Eos # (Auto) (0.0-0.7) K/uL Baso # (Auto) (0.0-0.1) K/uL Nucleated RBC % /100WBC Nucleated RBCs # K/uL INR Lactate 1.5 (0.20-2.00) mmol/L Sodium (136-148) mmol/L Potassium (3.5-5.1) mmol/L Chloride (98-107) mmol/L Carbon Dioxide (21.0-32.0) mmol/L BUN (7.0-18.0) mg/dL Creatinine (0.8-1.3) mg/dL Est Cr Clr Drug Dosing mL/min Estimated GFR (MDRD) ml/min Glucose (74-106) mg/dL Calcium (8.5-10.1) mg/dL Magnesium 2.3 (1.8-2.4) mg/dL Total Bilirubin (0.2-1.0) mg/dL AST (15-37) IU/L ALT (14-63) IU/L Alkaline Phosphatase (46-116) U/L Troponin I (0.000-0.056) ng/mL Total Protein (6.4-8.2) g/dL Albumin (3.4-5.0) g/dL Globulin (2.6-4.0) g/dL Albumin/Globulin Ratio (0.9-1.6) Lipase (73-393) U/L Ethyl Alcohol <3 mg/dL Meds: Medications Generic Name Dose Route Start Last Admin Trade Name Freq PRN Reason Stop Dose Admin Potassium Chloride 40 meq/ 100 mls @ 25 mls/hr 12/11/19 13:11 12/11/19 14:02 Premix IV 12/11/19 17:10 25 mls/hr ONETIME ONE Administration Sodium Chloride 1,000 mls @ 250 drops/hr 12/11/19 13:13 12/11/19 14:02 Normal Saline IV 12/14/19 01:12 250 drops/hr STAT STA Administration Sodium Chloride 10 ml 12/11/19 12:20 12/11/19 12:34 Saline Flush FLUSH 10 ml ASDIRECTED PRN Administration Keep Vein Open Sodium Chloride 2.5 ml 12/11/19 12:20 12/11/19 12:34 Saline Flush FLUSH 2.5 ml ASDIRECTED PRN Administration Keep Vein Open Discontinued Medications Generic Name Dose Route Start Last Admin Trade Name Freq PRN Reason Stop Dose Admin Hydromorphone HCl 1 mg 12/11/19 12:40 12/11/19 12:48 Dilaudid IVPUSH 12/11/19 12:41 1 mg ONETIME ONE Administration Sodium Chloride 1,000 mls @ 999 mls/hr 12/11/19 12:20 12/11/19 12:33 Normal Saline IV 12/11/19 13:20 999 mls/hr STAT ONE Administration Lorazepam 0.5 mg 12/11/19 14:05 12/11/19 14:08 Ativan IVPUSH 12/11/19 14:06 0.5 mg ONETIME ONE Administration Ondansetron HCl 4 mg 12/11/19 12:20 12/11/19 12:34 Zofran IVPUSH 12/11/19 12:21 4 mg ONETIME ONE Administration Departure - Departure Time of Disposition: 14:18 Disposition: Admitted As Inpatient 65 Clinical Impression: Hypokalemia, Prolonged QT interval, Acute kidney injury, Hyponatremia Pancreatitis Qualifiers: Chronicity: acute Pancreatitis type: alcohol induced Acute pancreatitis complication: unspecified Qualified Code(s): K85.20 - Alcohol induced acute pancreatitis without necrosis or infection Leukocytosis Qualifiers: Leukocytosis type: unspecified Qualified Code(s): D72.829 - Elevated white blood cell count, unspecified - Discharge Information Referrals: PCP,Unknown [Primary Care Provider] - Forms: ED Department Discharge Sepsis Event Note - Focused Exam Vital Signs: Vital Signs Temp Pulse Resp BP Pulse Ox 12/11/19 14:12 90 14 139/80 95 12/11/19 12:22 97.7 F 118 H 18 113/81 95 Date Exam was Performed: 12/11/19 Time Exam was Performed: 14:17 - My Orders Last 24 Hours: My Active Orders 12/11/19 12:20 EKG Documentation Completion [RC] STAT DRUG SCREEN, URINE [URCHEM] Stat UA W/AURELIANO RFLX IF INDICATED [URIN] Stat Sodium Chloride 0.9% [Saline Flush] 10 ml FLUSH ASDIRECTED PRN Sodium Chloride 0.9% [Saline Flush] 2.5 ml FLUSH ASDIRECTED PRN Saline Lock Insert [OM.PC] Stat 12/11/19 12:39 Blood Culture x2 Reflex Set [OM.PC] Stat 12/11/19 12:40 CULTURE BLOOD [BC] Stat 12/11/19 12:50 CULTURE BLOOD [BC] Stat 12/11/19 13:11 Potassium Chloride Riders [KCL 40 MEQ in Water 100 ML] 40 meq Premix Bag 1 bag IV ONETIME 12/11/19 13:13 Sodium Chloride 0.9% [Normal Saline] 1,000 ml IV STAT 12/11/19 13:54 CORONAVIRUS COVID-19 RAPID PCR [MOLEC] Stat 12/11/19 14:01 Admission Status [Patient Status] [ADT] Stat Cardiac Monitoring [RC] . DIRECTED 12/11/19 14:05 EKG Documentation Completion [RC] STAT - Assessment/Plan Last 24 Hours: My Active Orders 12/11/19 12:20 EKG Documentation Completion [RC] STAT DRUG SCREEN, URINE [URCHEM] Stat UA W/AURELIANO RFLX IF INDICATED [URIN] Stat Sodium Chloride 0.9% [Saline Flush] 10 ml FLUSH ASDIRECTED PRN Sodium Chloride 0.9% [Saline Flush] 2.5 ml FLUSH ASDIRECTED PRN Saline Lock Insert [OM.PC] Stat 12/11/19 12:39 Blood Culture x2 Reflex Set [OM.PC] Stat 12/11/19 12:40 CULTURE BLOOD [BC] Stat 12/11/19 12:50 CULTURE BLOOD [BC] Stat 12/11/19 13:11 Potassium Chloride Riders [KCL 40 MEQ in Water 100 ML] 40 meq Premix Bag 1 bag IV ONETIME 12/11/19 13:13 Sodium Chloride 0.9% [Normal Saline] 1,000 ml IV STAT 12/11/19 13:54 CORONAVIRUS COVID-19 RAPID PCR [MOLEC] Stat 12/11/19 14:01 Admission Status [Patient Status] [ADT] Stat Cardiac Monitoring [RC] . DIRECTED 12/11/19 14:05 EKG Documentation Completion [RC] STAT
[2019-12-11] MEDS ORDERED: HYDROmorphone 1 MG/ML Syringe IVPUSH ONE (12:40)
--- NOTE | 2019-12-11 12:54 | CR ---
Chest: Portable view of the chest was obtained. Comparison: No prior chest imaging is available. Heart size and mediastinum are normal. Lungs are clear with no acute parenchymal change. Bony structures are grossly intact. Impression: 1. Nothing acute is appreciated on portable chest x-ray. Diagnostic code #1 This report was dictated in MDT
[2019-12-11 13:01] LABS: BLOOD UREA NITROGEN,BUN 77 mg/dL (7.0-18.0); CARBON DIOXIDE,CO2 38.8 mmol/L (21.0-32.0); CHLORIDE,CL 74 mmol/L (98-107); GLUCOSE RANDOM 191 mg/dL (74-106); LIPASE 637 U/L (73-393); SODIUM,NA 124 mmol/L (136-148)
[2019-12-11] MEDS ORDERED: Potassium Chloride Riders 40 MEQ in Premix Bag 1 BAG IV ONE (13:11)
[2019-12-11] MEDS ORDERED: Sodium Chloride 0.9% 1,000 ML IV STA ×2 (13:13→17:06)
--- NOTE | 2019-12-11 13:44 | CT ---
CT abdomen and pelvis Technique: Multiple axial sections were obtained from above the dome of the diaphragm inferiorly through the pubic symphysis. Intravenous and oral contrast not utilized. Comparison: Prior CT abdomen and pelvis exam of 04/26/19. Findings: Visualized lung bases show nothing acute. Liver contains no focal abnormality. Spleen appears within normal limits. Adrenal glands are mildly prominent in size which is a stable finding. Several enlarged lymph nodes are seen within the left side of the periaortic region within the upper retroperitoneum. Largest lymph node measures about 1.2 cm. These lymph nodes have increased in size from previous exam. Aorta shows diffuse atherosclerotic calcification which continues into the iliac vessels. No other retroperitoneal adenopathy is seen. No mesenteric abnormalities are appreciated. Surgical clips seen from prior cholecystectomy. Appendix is seen which is normal in size. Pancreas is poorly visualized without IV or oral contrast. There does appear to be a low density finding within the pancreatic tail which also contains calcifications most likely residual from prior pancreatitis. Calcifications also noted to the head and neck of the pancreas possibly due to additional changes of prior pancreatitis. No pelvic mass or adenopathy is seen. No free fluid or inflammatory change is appreciated. Impression: 1. Pancreas poorly seen due to lack of IV or oral contrast but low density noted within the pancreatic tail with calcifications felt to be present within the pancreatic tail as well as pancreatic calcifications within the pancreatic head and neck. Findings most likely relate to chronic pancreatitis. 2. Slightly enlarged lymph nodes within the upper left retroperitoneum in a periaortic location. These have increased in size from prior study. No other adenopathy is seen and this finding is nonspecific regarding etiology. 3. Other findings as noted above which appear chronic. Nothing acute is otherwise seen. Diagnostic code #3 This report was dictated in [facility]
[2019-12-11] MEDS ORDERED: LORazepam 2 MG/ML SDV IVPUSH ONE (14:05)
--- NOTE | 2019-12-11 14:46 | EDM.PDOC ---
ED HPI GENERAL MEDICAL PROBLEM - General Chief Complaint: General Stated Complaint: VOMITING/CHEST PAIN Time Seen by Provider: 12/11/19 12:18 Source of Information: Reports: Patient History Limitations: Reports: No Limitations - History of Present Illness INITIAL COMMENTS - FREE TEXT/NARRATIVE: HISTORY AND PHYSICAL: History of present illness: Patient is a 59-year-old male who presents to the emergency room with complaints of multiple vague complaints. Patient reports that he has a history of chronic alcoholic pancreatitis, hypertension and type II diabetes, states he usually is hospitalized once or twice a year for his pancreatitis that is progressively "gets worse". "I need to be admitted for IV fluids and pain meds... then I should be good to get out of here in a few days". He states over the past 2-3 days he has had weakness, generalized abdominal pain, constipation , nausea, vomiting and generalized chest pain. Chest pain does not radiate and nothing makes the pain better or worse. He reports that he has not had a bowel movement in approximately 10 days and points to entire abdomen and chest when describing his pain. He lives in [facility] and states it has taken him 2 days to come to our facility for evaluation. Reports his weaknesses "so bad I felt like I could pass out". Has had poor oral intake and believes he is dehydrated. Patient denies any fever, chills, headache, change in vision, syncope, back pain, shortness of breath or cough. Denies any diarrhea or dysuria. Has not noted any blood in urine or stool. Patient has been eating and drinking appropriately. Patient states he is a chronic daily smoker but is trying to quit. States in the past 1 month he has not had any alcohol, reporting that prior to this month he would take approximately 3 shots of hard alcohol per night Review of systems: As per history of present illness and below otherwise all systems reviewed and negative. Past medical history: As per history of present illness and as reviewed below otherwise noncontributory. Surgical history: As per history of present illness and as reviewed below otherwise noncontributory. Social history: See social history for further information Family history: As per history of present illness and as reviewed below otherwise noncontributory. Physical exam: General: Well developed but chronically ill appearing 59-year-old male. Alert and oriented. Nontoxic in appearance and in no acute distress although does appear anxious about his health. Vital signs are stable and have been reviewed by me. HEENT: Atraumatic, normocephalic, pupils equal and reactive bilaterally, negative for conjunctival pallor or scleral icterus, mucous membranes moist, TMs normal bilaterally, throat clear, neck supple, nontender, trachea midline. No drooling or trismus noted. No meningeal signs. No hot potato voice noted. Lungs: Clear to auscultation, breath sounds equal bilaterally, chest nontender. Heart: S1S2, regular rate and rhythm without overt murmur Abdomen: Soft, nondistended, diffuse generalized tenderness in all 4 quadrants. Negative for masses or hepatosplenomegaly. Negative for costovertebral tenderness. Pelvis: Stable nontender. Skin: Intact, warm, dry. No lesions or rashes noted. Extremities: Atraumatic, moves all extremities per self without difficulty or deficits, negative for cords or calf pain. Neurovascular unremarkable. Neuro: Awake, alert, oriented. Cranial nerves II through XII unremarkable. Cerebellum unremarkable. Motor and sensory unremarkable throughout. Exam nonfocal. Notes: Patient reports he has an allergy to morphine, stating that he does have hallucinations. Reports he typically needs Ativan if he has morphine. He has had Dilaudid before without any adverse reactions. EKG shows a rate of 119, sinus tachycardia with a prolonged QT interval. Reviewed by myself and Dr Callahan. Negative chest x-ray. Unable to do the CT with contrast due to renal function. Patient feels improved after his first liter and the dilaudid. Pancreas is poorly seen due to the lack of contrast, low density with calcifications felt to represent chronic pancreatitis. Slightly enlarged lymph nodes within the left retroperitoneum and a efrem-aortic location. Otherwise nothing acute is noted on CT scan. Dr. Nicholas/Nathaniel were consulted on this case. Will come down and evaluate patient for likely admission. Patient is aware and agreeable to plan of care. Vital signs remained stable. Patient continues to have nausea, will give some Ativan as he has prolonged QT on his previous EKG. We will also repeat the EKG for reevaluation. Diagnostics: CBC, CMP, troponin, EKG, 1 view chest, UA, urine drug screen, INR, Mag, ETOH Therapeutics: IV fluid, Zofran, Dilaudid, 40 meQ Potassium Impression: Acute on chronic pancreatitis Leukocytosis Prolonged QT interval Acute renal injury Hypokalemia Hyponatremic Plan: Definitive disposition and diagnosis as appropriate pending reevaluation and review of above. Duration: Day(s): abdomen Pain Score (Numeric/FACES): 10 - Related Data Allergies Allergy/AdvReac Type Severity Reaction Status Date / Time morphine Allergy Kimaniinati Verified 12/11/19 12:27 ons Home Meds: Home Meds Lisinopril 10 mg PO BEDTIME 10/07/16 [History] atorvaSTATin [Lipitor] 20 mg PO BEDTIME 10/07/16 [History] metFORMIN [Glucophage] 500 mg PO BIDMEALS 10/07/16 [History] Aspirin 81 mg PO BEDTIME 04/25/19 [History] Psyllium Husk [Psyllium Fiber] 5 cap PO DAILY 04/25/19 [History] diphenhydrAMINE HCL [Benadryl] 50 mg PO BEDTIME 04/25/19 [History] Past Medical History HEENT History: Reports: Impaired Vision Cardiovascular History: Reports: High Cholesterol, Hypertension Respiratory History: Reports: COPD, Pneumothorax Gastrointestinal History: Reports: Pancreatitis Genitourinary History: Reports: Other (See Below) Other Genitourinary History: Stated "a doctor told me that my kidneys were shriveled up." Musculoskeletal History: Reports: Arthritis Other Musculoskeletal History: Back Neurological History: Reports: None Psychiatric History: Reports: Other (See Below) Other Psychiatric History: History of "melancholia" Endocrine/Metabolic History: Reports: Diabetes, Type I Hematologic History: Reports: None Immunologic History: Reports: None Oncologic (Cancer) History: Reports: None Dermatologic History: Reports: None - Infectious Disease History Infectious Disease History: Reports: Chicken Pox, Measles, Mumps - Past Surgical History HEENT Surgical History: Reports: Tonsillectomy Cardiovascular Surgical History: Reports: None GI Surgical History: Reports: Cholecystectomy Social & Family History - Family History Family Medical History: Noncontributory HEENT: Reports: Impaired Vision Endocrine/Metabolic: Reports: Diabetes, type II Oncologic: Reports: Colon, Liver, Lung, Pancreatic, Thyroid - Tobacco Use Smoking Status *Q: Current Every Day Smoker Years of Tobacco use: 38 Packs/Tins Daily: 0.4 - Caffeine Use Caffeine Use: Reports: None - Recreational Drug Use Recreational Drug Use: No ED ROS GENERAL - Review of Systems Review Of Systems: Unable To Obtain (see note) Reason Not Obtained: see note ED EXAM, GENERAL - Physical Exam Exam: Not Obtained (note) Free Text/Narrative:: HISTORY AND PHYSICAL: History of present illness: Patient is a 59-year-old male who presents to the emergency room with complaints of multiple vague complaints. Patient reports that he has a history of chronic alcoholic pancreatitis, hypertension and type II diabetes, states he usually is hospitalized once or twice a year for his pancreatitis that is progressively "gets worse". "I need to be admitted for IV fluids and pain meds... then I should be good to get out of here in a few days". He states over the past 2-3 days he has had weakness, generalized abdominal pain, constipation , nausea, vomiting and generalized chest pain. Chest pain does not radiate and nothing makes the pain better or worse. He reports that he has not had a bowel movement in approximately 10 days and points to entire abdomen and chest when describing his pain. He lives in [facility] and states it has taken him 2 days to come to our facility for evaluation. Reports his weaknesses "so bad I felt like I could pass out". Has had poor oral intake and believes he is dehydrated. Patient denies any fever, chills, headache, change in vision, syncope, back pain, shortness of breath or cough. Denies any diarrhea or dysuria. Has not noted any blood in urine or stool. Patient has been eating and drinking appropriately. Patient states he is a chronic daily smoker but is trying to quit. States in the past 1 month he has not had any alcohol, reporting that prior to this month he would take approximately 3 shots of hard alcohol per night Review of systems: As per history of present illness and below otherwise all systems reviewed and negative. Past medical history: As per history of present illness and as reviewed below otherwise noncontributory. Surgical history: As per history of present illness and as reviewed below otherwise noncontributory. Social history: See social history for further information Family history: As per history of present illness and as reviewed below otherwise noncontributory. Physical exam: General: Well developed but chronically ill appearing 59-year-old male. Alert and oriented. Nontoxic in appearance and in no acute distress although does appear anxious about his health. Vital signs are stable and have been reviewed by me. HEENT: Atraumatic, normocephalic, pupils equal and reactive bilaterally, negative for conjunctival pallor or scleral icterus, mucous membranes moist, TMs normal bilaterally, throat clear, neck supple, nontender, trachea midline. No drooling or trismus noted. No meningeal signs. No hot potato voice noted. Lungs: Clear to auscultation, breath sounds equal bilaterally, chest nontender. Heart: S1S2, regular rate and rhythm without overt murmur Abdomen: Soft, nondistended, diffuse generalized tenderness in all 4 quadrants. Negative for masses or hepatosplenomegaly. Negative for costovertebral tenderness. Pelvis: Stable nontender. Skin: Intact, warm, dry. No lesions or rashes noted. Extremities: Atraumatic, moves all extremities per self without difficulty or deficits, negative for cords or calf pain. Neurovascular unremarkable. Neuro: Awake, alert, oriented. Cranial nerves II through XII unremarkable. Cerebellum unremarkable. Motor and sensory unremarkable throughout. Exam nonfocal. Notes: Patient reports he has an allergy to morphine, stating that he does have hallucinations. Reports he typically needs Ativan if he has morphine. He has had Dilaudid before without any adverse reactions. EKG shows a rate of 119, sinus tachycardia with a prolonged QT interval. Reviewed by myself and Dr Callahan. Negative chest x-ray. Unable to do the CT with contrast due to renal function. Patient feels improved after his first liter and the dilaudid. Pancreas is poorly seen due to the lack of contrast, low density with calcifications felt to represent chronic pancreatitis. Slightly enlarged lymph nodes within the left retroperitoneum and a efrem-aortic location. Otherwise nothing acute is noted on CT scan. Dr. Nicholas/Nathaniel were consulted on this case. Will come down and evaluate patient for likely admission. Patient is aware and agreeable to plan of care. Vital signs remained stable. Patient continues to have nausea, will give some Ativan as he has prolonged QT on his previous EKG. We will also repeat the EKG for reevaluation. Diagnostics: CBC, CMP, troponin, EKG, 1 view chest, UA, urine drug screen, INR, Mag, ETOH Therapeutics: IV fluid, Zofran, Dilaudid, 40 meQ Potassium Impression: Acute on chronic pancreatitis Leukocytosis Prolonged QT interval Acute renal injury Hypokalemia Hyponatremic Plan: Definitive disposition and diagnosis as appropriate pending reevaluation and review of above. Course - Vital Signs Last Recorded V/S: Last Vital Signs Temp 97.7 F 12/11/19 12:22 Pulse 90 12/11/19 14:12 Resp 14 12/11/19 14:12 BP 139/80 12/11/19 14:12 Pulse Ox 95 12/11/19 14:12 - Orders/Labs/Meds Orders: Active Orders 24 hr Category Date Time Status Admission Status [Patient Status] [ADT] Stat ADT 12/11/19 14:01 Active Cardiac Monitoring [RC] . DIRECTED Care 12/11/19 14:01 Active EKG Documentation Completion [RC] STAT Care 12/11/19 12:20 Active EKG Documentation Completion [RC] STAT Care 12/11/19 14:05 Active BASIC METABOLIC PANEL,BMP [CHEM] Routine Lab 12/11/19 16:00 Ordered CULTURE BLOOD [BC] Stat Lab 12/11/19 12:40 Received CULTURE BLOOD [BC] Stat Lab 12/11/19 12:50 Received DRUG SCREEN, URINE [URCHEM] Stat Lab 12/11/19 12:20 Ordered ELECTROLYTES,URINE RANDOM [URCHEM] Stat Lab 12/11/19 13:22 Ordered OSMOLALITY - SERUM [REF] Stat Lab 12/11/19 13:23 Ordered OSMOLALITY - URINE Stat Lab 12/11/19 13:23 Ordered UA W/AURELIANO RFLX IF INDICATED [URIN] Stat Lab 12/11/19 12:20 Ordered Potassium Chloride Riders [KCL 40 MEQ in Water 100 ML] Med 12/11/19 13:11 Active 40 meq Premix Bag 1 bag IV ONETIME Sodium Chloride 0.9% [Normal Saline] 1,000 ml Med 12/11/19 13:13 Active IV STAT Sodium Chloride 0.9% [Saline Flush] Med 12/11/19 12:20 Active 10 ml FLUSH ASDIRECTED PRN Sodium Chloride 0.9% [Saline Flush] Med 12/11/19 12:20 Active 2.5 ml FLUSH ASDIRECTED PRN Blood Culture x2 Reflex Set [OM.PC] Stat Oth 12/11/19 12:39 Ordered Saline Lock Insert [OM.PC] Stat Oth 12/11/19 12:20 Ordered Medication Orders Potassium Chloride 40 meq/ (Premix) 100 mls @ 25 mls/hr IV ONETIME ONE Stop: 12/11/19 17:10 Last Admin: 12/11/19 14:02 Dose: 25 mls/hr Sodium Chloride (Normal Saline) 1,000 mls @ 250 drops/hr IV STAT STA Stop: 12/14/19 01:12 Last Admin: 12/11/19 14:02 Dose: 250 drops/hr Sodium Chloride (Saline Flush) 10 ml FLUSH ASDIRECTED PRN PRN Reason: Keep Vein Open Last Admin: 12/11/19 12:34 Dose: 10 ml Sodium Chloride (Saline Flush) 2.5 ml FLUSH ASDIRECTED PRN PRN Reason: Keep Vein Open Last Admin: 12/11/19 12:34 Dose: 2.5 ml Labs: Laboratory Tests 12/11/19 12/11/19 12/11/19 Range/Units 12:23 12:23 12:23 WBC 15.85 H (4.0-11.0) K/uL RBC 4.80 (4.50-5.90) M/uL Hgb 15.5 (13.0-17.0) g/dL Hct 43.1 (38.0-50.0) % MCV 89.8 (80.0-98.0) fL MCH 32.3 H (27.0-32.0) pg MCHC 36.0 (31.0-37.0) g/dL RDW Std Deviation 40.7 (28.0-62.0) fl RDW Coeff of Claudio 12 (11.0-15.0) % Plt Count 392 (150-400) K/uL MPV 9.30 (7.40-12.00) fL Neut % (Auto) 77.6 (48.0-80.0) % Lymph % (Auto) 13.2 L (16.0-40.0) % Real % (Auto) 8.7 (0.0-15.0) % Eos % (Auto) 0.4 (0.0-7.0) % Baso % (Auto) 0.1 (0.0-1.5) % Neut # (Auto) 12.3 H (1.4-5.7) K/uL Lymph # (Auto) 2.1 (0.6-2.4) K/uL Real # (Auto) 1.4 H (0.0-0.8) K/uL Eos # (Auto) 0.1 (0.0-0.7) K/uL Baso # (Auto) 0.0 (0.0-0.1) K/uL Nucleated RBC % 0.0 /100WBC Nucleated RBCs # 0 K/uL INR 0.96 Lactate (0.20-2.00) mmol/L Sodium 124 L (136-148) mmol/L Potassium 3.0 L (3.5-5.1) mmol/L Chloride 74 L (98-107) mmol/L Carbon Dioxide 38.8 H (21.0-32.0) mmol/L BUN 77 H (7.0-18.0) mg/dL Creatinine 2.6 H (0.8-1.3) mg/dL Est Cr Clr Drug Dosing 21.32 mL/min Estimated GFR (MDRD) 25.3 ml/min Glucose 191 H (74-106) mg/dL Calcium 9.8 (8.5-10.1) mg/dL Magnesium (1.8-2.4) mg/dL Total Bilirubin 1.0 (0.2-1.0) mg/dL AST 22 (15-37) IU/L ALT 31 (14-63) IU/L Alkaline Phosphatase 130 H (46-116) U/L Troponin I < 0.050 (0.000-0.056) ng/mL Total Protein 8.8 H (6.4-8.2) g/dL Albumin 4.5 (3.4-5.0) g/dL Globulin 4.3 H (2.6-4.0) g/dL Albumin/Globulin Ratio 1.1 (0.9-1.6) Lipase 637 H (73-393) U/L Ethyl Alcohol mg/dL SARS-CoV-2 RNA (RT-PCR) (NEGATIVE) 12/11/19 12/11/19 12/11/19 Range/Units 12:23 12:23 12:50 WBC (4.0-11.0) K/uL RBC (4.50-5.90) M/uL Hgb (13.0-17.0) g/dL Hct (38.0-50.0) % MCV (80.0-98.0) fL MCH (27.0-32.0) pg MCHC (31.0-37.0) g/dL RDW Std Deviation (28.0-62.0) fl RDW Coeff of Claudio (11.0-15.0) % Plt Count (150-400) K/uL MPV (7.40-12.00) fL Neut % (Auto) (48.0-80.0) % Lymph % (Auto) (16.0-40.0) % Real % (Auto) (0.0-15.0) % Eos % (Auto) (0.0-7.0) % Baso % (Auto) (0.0-1.5) % Neut # (Auto) (1.4-5.7) K/uL Lymph # (Auto) (0.6-2.4) K/uL Real # (Auto) (0.0-0.8) K/uL Eos # (Auto) (0.0-0.7) K/uL Baso # (Auto) (0.0-0.1) K/uL Nucleated RBC % /100WBC Nucleated RBCs # K/uL INR Lactate 1.5 (0.20-2.00) mmol/L Sodium (136-148) mmol/L Potassium (3.5-5.1) mmol/L Chloride (98-107) mmol/L Carbon Dioxide (21.0-32.0) mmol/L BUN (7.0-18.0) mg/dL Creatinine (0.8-1.3) mg/dL Est Cr Clr Drug Dosing mL/min Estimated GFR (MDRD) ml/min Glucose (74-106) mg/dL Calcium (8.5-10.1) mg/dL Magnesium 2.3 (1.8-2.4) mg/dL Total Bilirubin (0.2-1.0) mg/dL AST (15-37) IU/L ALT (14-63) IU/L Alkaline Phosphatase (46-116) U/L Troponin I (0.000-0.056) ng/mL Total Protein (6.4-8.2) g/dL Albumin (3.4-5.0) g/dL Globulin (2.6-4.0) g/dL Albumin/Globulin Ratio (0.9-1.6) Lipase (73-393) U/L Ethyl Alcohol <3 mg/dL SARS-CoV-2 RNA (RT-PCR) (NEGATIVE) 12/11/19 Range/Units 13:54 WBC (4.0-11.0) K/uL RBC (4.50-5.90) M/uL Hgb (13.0-17.0) g/dL Hct (38.0-50.0) % MCV (80.0-98.0) fL MCH (27.0-32.0) pg MCHC (31.0-37.0) g/dL RDW Std Deviation (28.0-62.0) fl RDW Coeff of Claudio (11.0-15.0) % Plt Count (150-400) K/uL MPV (7.40-12.00) fL Neut % (Auto) (48.0-80.0) % Lymph % (Auto) (16.0-40.0) % Real % (Auto) (0.0-15.0) % Eos % (Auto) (0.0-7.0) % Baso % (Auto) (0.0-1.5) % Neut # (Auto) (1.4-5.7) K/uL Lymph # (Auto) (0.6-2.4) K/uL Real # (Auto) (0.0-0.8) K/uL Eos # (Auto) (0.0-0.7) K/uL Baso # (Auto) (0.0-0.1) K/uL Nucleated RBC % /100WBC Nucleated RBCs # K/uL INR Lactate (0.20-2.00) mmol/L Sodium (136-148) mmol/L Potassium (3.5-5.1) mmol/L Chloride (98-107) mmol/L Carbon Dioxide (21.0-32.0) mmol/L BUN (7.0-18.0) mg/dL Creatinine (0.8-1.3) mg/dL Est Cr Clr Drug Dosing mL/min Estimated GFR (MDRD) ml/min Glucose (74-106) mg/dL Calcium (8.5-10.1) mg/dL Magnesium (1.8-2.4) mg/dL Total Bilirubin (0.2-1.0) mg/dL AST (15-37) IU/L ALT (14-63) IU/L Alkaline Phosphatase (46-116) U/L Troponin I (0.000-0.056) ng/mL Total Protein (6.4-8.2) g/dL Albumin (3.4-5.0) g/dL Globulin (2.6-4.0) g/dL Albumin/Globulin Ratio (0.9-1.6) Lipase (73-393) U/L Ethyl Alcohol mg/dL SARS-CoV-2 RNA (RT-PCR) NEGATIVE (NEGATIVE) Meds: Medications Generic Name Dose Route Start Last Admin Trade Name Freq PRN Reason Stop Dose Admin Potassium Chloride 40 meq/ 100 mls @ 25 mls/hr 12/11/19 13:11 12/11/19 14:02 Premix IV 12/11/19 17:10 25 mls/hr ONETIME ONE Administration Sodium Chloride 1,000 mls @ 250 drops/hr 12/11/19 13:13 12/11/19 14:02 Normal Saline IV 12/14/19 01:12 250 drops/hr STAT STA Administration Sodium Chloride 10 ml 12/11/19 12:20 12/11/19 12:34 Saline Flush FLUSH 10 ml ASDIRECTED PRN Administration Keep Vein Open Sodium Chloride 2.5 ml 12/11/19 12:20 12/11/19 12:34 Saline Flush FLUSH 2.5 ml ASDIRECTED PRN Administration Keep Vein Open Discontinued Medications Generic Name Dose Route Start Last Admin Trade Name Freq PRN Reason Stop Dose Admin Hydromorphone HCl 1 mg 12/11/19 12:40 12/11/19 12:48 Dilaudid IVPUSH 12/11/19 12:41 1 mg ONETIME ONE Administration Sodium Chloride 1,000 mls @ 999 mls/hr 12/11/19 12:20 12/11/19 12:33 Normal Saline IV 12/11/19 13:20 999 mls/hr STAT ONE Administration Lorazepam 0.5 mg 12/11/19 14:05 12/11/19 14:08 Ativan IVPUSH 12/11/19 14:06 0.5 mg ONETIME ONE Administration Ondansetron HCl 4 mg 12/11/19 12:20 12/11/19 12:34 Zofran IVPUSH 12/11/19 12:21 4 mg ONETIME ONE Administration - Re-Assessments/Exams Free Text/Narrative Re-Assessment/Exam: Attending physician note I have seen and evaluated the patient with the advanced practice provider. Chief Complaint: Chest pain, shortness of breath and abdominal pain Brief HPI: Briefly this 59-year-old male with a past medical history of alcohol abuse and chronic pancreatitis presents emergency department after being found down on the hospital campus property and was brought emergently to the emergency department. He is awake alert and appropriate and giving us a history now. He states that he has chest, abdominal pain and shortness of breath. He rates these as severe. Persistent vomiting for multiple days and drinking excessive amounts of alcohol. ROS: Reviewed and agree Focused Exam: VITAL SIGNS: Reviewed. GENERAL: Awake, conversant, GCS 15, appears moderately ill. HEAD: No visible signs of trauma EYES: Pupils equal, EOM grossly intact EARS: Hearing grossly intact. MOUTH: No visible lesions NECK: Appears supple CHEST: Mild tachypnea, clear lung sounds CARDIAC: Regular rhythm ABDOMEN: Soft, diffusely tender. No rebound or guarding. NEUROLOGIC EXAM: Awake and Alert, non-focal SKIN: No visible rashes EXTREMITIES: No deformities noted VASCULAR: Appears well perfused Assessment & Plan: I have reviewed the case in detail with the nurse practitioner. I agree with the care given. We will add urine electrolytes, urine osmolality, and serum osmolality to determine the cause of the patient's acute hyponatremia. 12 lead EKG interpretation Obtained: December 11, 2019 at 12:20 PM Rhythm: Sinus tachycardia Rate: 119 [place]: Normal Intervals: Prolonged QT interval corrected at [address]/T Segments: No acute ischemic changes Interpretation: Sinus tachycardia with prolonged QT interval 12 lead EKG interpretation Obtained: December 11, 2019 at 1421 hrs. #2 for evaluation of the patient's QT interval Rhythm: Sinus Rate: 87 Chester: Normal Intervals: Prolonged QT interval corrected at [address]/T Segments: No acute ischemic changes Interpretation: Sinus rhythm with prolonged QT interval. Slightly worse from previous EKG. Patient did receive ondansetron intravenously upon arrival secondary to his nausea. My diagnostic impression: 1. Acute on chronic pancreatitis 2. Acute renal failure with azotemia 3. Acute hyponatremia without symptoms likely secondary to dehydration/ hypovolemia 4. Acute hypokalemia 5. Prolonged QT interval likely secondary to electrolyte abnormality 6. Leukocytosis 7. Severe dehydration with electrolyte abnormality 8. Clinical signs of protein calorie malnutrition with temporal wasting and interosseous wasting The patient has clinical signs and symptoms of dehydration requiring IV hydration History (indicate if present with "X" ) x Inadequate Oral Intake x Unable to take PO / persistent vomiting x Needs to remain NPO due to possibility of a surgical condition x Abnormal fluid losses Physical Examination (indicate if present with "X" ) _altered Mental Status x HR >100 or elevated HR x Dry mucous membranes _appears septic Testing (indicate if present with "X" ) x Elevated BUN x Elevated Cr _Na >150 _elevated urine specific gravity _hemoconcentration (elevated Hgb/Hct) _elevated lactate _elevated Glucose level Critical Care Note: The patient presented in critical status due to severe electrolyte abnormalities with EKG abnormalities requiring intravenous replacement of electrolytes and constant monitoring The patient required rapid exam, decision making, and frequent re-evaluations during their time in the Emergency Department. Total Critical Care time exclusive of all other billable procedure time provided by myself 45 minutes Departure - Departure Time of Disposition: 14:47 Disposition: Admitted As Inpatient 65 Clinical Impression: Hypokalemia, Prolonged QT interval, Acute kidney injury, Hyponatremia Pancreatitis Qualifiers: Chronicity: acute Pancreatitis type: alcohol induced Acute pancreatitis complication: unspecified Qualified Code(s): K85.20 - Alcohol induced acute pancreatitis without necrosis or infection Leukocytosis Qualifiers: Leukocytosis type: unspecified Qualified Code(s): D72.829 - Elevated white blood cell count, unspecified - Discharge Information Referrals: PCP,Unknown [Primary Care Provider] - Forms: ED Department Discharge Sepsis Event Note - Evaluation Sepsis Screening Result: No Definite Risk - Focused Exam Vital Signs: Vital Signs Temp Pulse Resp BP Pulse Ox 12/11/19 14:12 90 14 139/80 95 12/11/19 12:22 97.7 F 118 H 18 113/81 95 Date Exam was Performed: 12/11/19 Time Exam was Performed: 14:38 - My Orders Last 24 Hours: My Active Orders 12/11/19 13:22 ELECTROLYTES,URINE RANDOM [URCHEM] Stat 12/11/19 13:23 OSMOLALITY - SERUM [REF] Stat OSMOLALITY - URINE Stat - Assessment/Plan Last 24 Hours: My Active Orders 12/11/19 13:22 ELECTROLYTES,URINE RANDOM [URCHEM] Stat 12/11/19 13:23 OSMOLALITY - SERUM [REF] Stat OSMOLALITY - URINE Stat
--- NOTE | 2019-12-11 14:51 | PCM.HP.2 ---
<Lacey Mar - Last Filed: 12/11/19 16:14> H&P History of Present Illness - General Date of Service: 12/11/19 Admit Problem/Dx: Admission Diagnosis/Problem Admission Diagnosis/Problem Pancreatitis Source of Information: Patient - History of Present Illness Initial Comments - Free Text/Narative: Patient is a 59-year-old male with a significant past medical history of chronic alcoholic pancreatitis, hypertension and type 2 diabetes; presenting today to the ED secondary to abdominal pain discomfort and numerous other complaints. Patient related to ER provider having waited outside hospital premises because of abdominal pain and endorses not having eaten anything significant for the past couple of days. Patient also endorses no alcohol x1 month. Main complaint per patient is dehydration with weakness and believes that all he needs is some fluids and some pain medication to get him through. ED course: Patient was started on 1 L of normal saline; EKG did not show any acute findings, CT abdomen pelvis pending, hyponatremia of 124 noted hypokalemia also appreciated however no EKG findings. Prolonged QTC on EKG of 500; troponin negative. Bedside: endorsing abd. discomfort and decrease in appetite. Mentions occasional vomiting w. food and decrease in appetite; bc of persistent Nausea and vomiting has not been compliant with his Metformin and Lipitor this past month. Vehemently denies use of ETOH, endorse one cigarette daily but mentions the nausea and abd. worsens with this too. abdomen Pain Score (Numeric/FACES): 10 - Related Data Allergies/Adverse Reactions: Allergies Allergy/AdvReac Type Severity Reaction Status Date / Time morphine Allergy Hallucinati Verified 12/11/19 15:36 ons Home Medications: Home Meds Lisinopril 10 mg PO BEDTIME 10/07/16 [History] atorvaSTATin [Lipitor] 20 mg PO BEDTIME 10/07/16 [History] metFORMIN [Glucophage] 500 mg PO BIDMEALS 10/07/16 [History] Aspirin 81 mg PO BEDTIME 04/25/19 [History] Psyllium Husk [Psyllium Fiber] 5 cap PO DAILY 04/25/19 [History] diphenhydrAMINE HCL [Benadryl] 50 mg PO BEDTIME 04/25/19 [History] Ondansetron [Zofran ODT] 4 mg PO Q6H PRN 3 Days #12 tab.dis 12/13/19 [Rx] Past Medical History HEENT History: Reports: Impaired Vision Cardiovascular History: Reports: High Cholesterol, Hypertension Respiratory History: Reports: COPD, Pneumothorax Gastrointestinal History: Reports: Pancreatitis Genitourinary History: Reports: Other (See Below) Other Genitourinary History: Stated "a doctor told me that my kidneys were shriveled up." Musculoskeletal History: Reports: Arthritis Other Musculoskeletal History: Back Neurological History: Reports: None Psychiatric History: Reports: Other (See Below) Other Psychiatric History: History of "melancholia" Endocrine/Metabolic History: Reports: Diabetes, Type I Hematologic History: Reports: None Immunologic History: Reports: None Oncologic (Cancer) History: Reports: None Dermatologic History: Reports: None - Infectious Disease History Infectious Disease History: Reports: Chicken Pox, Measles, Mumps - Past Surgical History HEENT Surgical History: Reports: Tonsillectomy Cardiovascular Surgical History: Reports: None GI Surgical History: Reports: Cholecystectomy Social & Family History - Family History Family Medical History: Noncontributory HEENT: Reports: Impaired Vision Endocrine/Metabolic: Reports: Diabetes, type II Oncologic: Reports: Colon, Liver, Lung, Pancreatic, Thyroid - Tobacco Use Smoking Status *Q: Current Every Day Smoker Years of Tobacco use: 38 Packs/Tins Daily: 0.4 - Caffeine Use Caffeine Use: Reports: None - Recreational Drug Use Recreational Drug Use: No H&P Review of Systems - Review of Systems: Review Of Systems: See Below General: Denies: Fever, Chills, Malaise, Weakness HEENT: Reports: No Symptoms Pulmonary: Reports: No Symptoms Cardiovascular: Reports: Chest Pain. Denies: Palpitations, Dyspnea on Exertion , Edema, Lightheadedness, Syncope Gastrointestinal: Reports: Abdominal Pain, Diarrhea, Decreased Appetite, Nausea , Vomiting. Denies: Black Stool, Bloody Stool, Hematemesis, Melena Genitourinary: Reports: No Symptoms Musculoskeletal: Reports: No Symptoms Skin: Reports: No Symptoms Psychiatric: Reports: No Symptoms Neurological: Reports: No Symptoms. Denies: Confusion, Dizziness, Headache Exam - Exam Exam: See Below - Vital Signs Vital Signs: Last Vital Signs Temp 97.7 F 12/11/19 12:22 Pulse 90 12/11/19 14:12 Resp 14 12/11/19 14:12 BP 139/80 12/11/19 14:12 Pulse Ox 95 06/01/20 14:12 Weight: 49.895 kg - Exam Quality Assessment: No: Supplemental Oxygen General: Alert, Oriented HEENT: EOMI Neck: Supple, Trachea Midline Lungs: Clear to Auscultation, Normal Respiratory Effort Cardiovascular: Regular Rate, Regular Rhythm GI/Abdominal Exam: Other (diffuse abd. tenderness ' predominantly in LUQ and LLQ ; no organomegaly and no rebound tenderness. s/p cholecystectomy ) Back Exam: Normal Inspection, Full Range of Motion Extremities: No Pedal Edema Skin: Warm, Intact Neurological: Cranial Nerves Intact Neuro Extensive - Mental Status: Alert, Oriented x3 Psychiatric: Alert, Normal Mood - Patient Data Lab Results Last 24 hrs: Laboratory Results - last 24 hr 12/11/19 12/11/19 12/11/19 Range/Units 12:23 12:23 12:23 WBC 15.85 H (4.0-11.0) K/uL RBC 4.80 (4.50-5.90) M/uL Hgb 15.5 (13.0-17.0) g/dL Hct 43.1 (38.0-50.0) % MCV 89.8 (80.0-98.0) fL MCH 32.3 H (27.0-32.0) pg MCHC 36.0 (31.0-37.0) g/dL RDW Std Deviation 40.7 (28.0-62.0) fl RDW Coeff of Claudio 12 (11.0-15.0) % Plt Count 392 (150-400) K/uL MPV 9.30 (7.40-12.00) fL Neut % (Auto) 77.6 (48.0-80.0) % Lymph % (Auto) 13.2 L (16.0-40.0) % Mineral % (Auto) 8.7 (0.0-15.0) % Eos % (Auto) 0.4 (0.0-7.0) % Baso % (Auto) 0.1 (0.0-1.5) % Neut # (Auto) 12.3 H (1.4-5.7) K/uL Lymph # (Auto) 2.1 (0.6-2.4) K/uL Mineral # (Auto) 1.4 H (0.0-0.8) K/uL Eos # (Auto) 0.1 (0.0-0.7) K/uL Baso # (Auto) 0.0 (0.0-0.1) K/uL Nucleated RBC % 0.0 /100WBC Nucleated RBCs # 0 K/uL INR 0.96 Lactate (0.20-2.00) mmol/L Sodium 124 L (136-148) mmol/L Potassium 3.0 L (3.5-5.1) mmol/L Chloride 74 L (98-107) mmol/L Carbon Dioxide 38.8 H (21.0-32.0) mmol/L BUN 77 H (7.0-18.0) mg/dL Creatinine 2.6 H (0.8-1.3) mg/dL Est Cr Clr Drug Dosing 21.32 mL/min Estimated GFR (MDRD) 25.3 ml/min Glucose 191 H (74-106) mg/dL Calcium 9.8 (8.5-10.1) mg/dL Magnesium (1.8-2.4) mg/dL Total Bilirubin 1.0 (0.2-1.0) mg/dL AST 22 (15-37) IU/L ALT 31 (14-63) IU/L Alkaline Phosphatase 130 H (46-116) U/L Troponin I < 0.050 (0.000-0.056) ng/mL Total Protein 8.8 H (6.4-8.2) g/dL Albumin 4.5 (3.4-5.0) g/dL Globulin 4.3 H (2.6-4.0) g/dL Albumin/Globulin Ratio 1.1 (0.9-1.6) Lipase 637 H (73-393) U/L Ethyl Alcohol mg/dL SARS-CoV-2 RNA (RT-PCR) (NEGATIVE) 12/11/19 12/11/19 12/11/19 Range/Units 12:23 12:23 12:50 WBC (4.0-11.0) K/uL RBC (4.50-5.90) M/uL Hgb (13.0-17.0) g/dL Hct (38.0-50.0) % MCV (80.0-98.0) fL MCH (27.0-32.0) pg MCHC (31.0-37.0) g/dL RDW Std Deviation (28.0-62.0) fl RDW Coeff of Claudio (11.0-15.0) % Plt Count (150-400) K/uL MPV (7.40-12.00) fL Neut % (Auto) (48.0-80.0) % Lymph % (Auto) (16.0-40.0) % Mineral % (Auto) (0.0-15.0) % Eos % (Auto) (0.0-7.0) % Baso % (Auto) (0.0-1.5) % Neut # (Auto) (1.4-5.7) K/uL Lymph # (Auto) (0.6-2.4) K/uL Mineral # (Auto) (0.0-0.8) K/uL Eos # (Auto) (0.0-0.7) K/uL Baso # (Auto) (0.0-0.1) K/uL Nucleated RBC % /100WBC Nucleated RBCs # K/uL INR Lactate 1.5 (0.20-2.00) mmol/L Sodium (136-148) mmol/L Potassium (3.5-5.1) mmol/L Chloride (98-107) mmol/L Carbon Dioxide (21.0-32.0) mmol/L BUN (7.0-18.0) mg/dL Creatinine (0.8-1.3) mg/dL Est Cr Clr Drug Dosing mL/min Estimated GFR (MDRD) ml/min Glucose (74-106) mg/dL Calcium (8.5-10.1) mg/dL Magnesium 2.3 (1.8-2.4) mg/dL Total Bilirubin (0.2-1.0) mg/dL AST (15-37) IU/L ALT (14-63) IU/L Alkaline Phosphatase (46-116) U/L Troponin I (0.000-0.056) ng/mL Total Protein (6.4-8.2) g/dL Albumin (3.4-5.0) g/dL Globulin (2.6-4.0) g/dL Albumin/Globulin Ratio (0.9-1.6) Lipase (73-393) U/L Ethyl Alcohol <3 mg/dL SARS-CoV-2 RNA (RT-PCR) (NEGATIVE) 12/11/19 Range/Units 13:54 WBC (4.0-11.0) K/uL RBC (4.50-5.90) M/uL Hgb (13.0-17.0) g/dL Hct (38.0-50.0) % MCV (80.0-98.0) fL MCH (27.0-32.0) pg MCHC (31.0-37.0) g/dL RDW Std Deviation (28.0-62.0) fl RDW Coeff of Claudio (11.0-15.0) % Plt Count (150-400) K/uL MPV (7.40-12.00) fL Neut % (Auto) (48.0-80.0) % Lymph % (Auto) (16.0-40.0) % Mineral % (Auto) (0.0-15.0) % Eos % (Auto) (0.0-7.0) % Baso % (Auto) (0.0-1.5) % Neut # (Auto) (1.4-5.7) K/uL Lymph # (Auto) (0.6-2.4) K/uL Mineral # (Auto) (0.0-0.8) K/uL Eos # (Auto) (0.0-0.7) K/uL Baso # (Auto) (0.0-0.1) K/uL Nucleated RBC % /100WBC Nucleated RBCs # K/uL INR Lactate (0.20-2.00) mmol/L Sodium (136-148) mmol/L Potassium (3.5-5.1) mmol/L Chloride (98-107) mmol/L Carbon Dioxide (21.0-32.0) mmol/L BUN (7.0-18.0) mg/dL Creatinine (0.8-1.3) mg/dL Est Cr Clr Drug Dosing mL/min Estimated GFR (MDRD) ml/min Glucose (74-106) mg/dL Calcium (8.5-10.1) mg/dL Magnesium (1.8-2.4) mg/dL Total Bilirubin (0.2-1.0) mg/dL AST (15-37) IU/L ALT (14-63) IU/L Alkaline Phosphatase (46-116) U/L Troponin I (0.000-0.056) ng/mL Total Protein (6.4-8.2) g/dL Albumin (3.4-5.0) g/dL Globulin (2.6-4.0) g/dL Albumin/Globulin Ratio (0.9-1.6) Lipase (73-393) U/L Ethyl Alcohol mg/dL SARS-CoV-2 RNA (RT-PCR) NEGATIVE (NEGATIVE) Result Diagrams: 12/11/19 12:23 12/11/19 12:23 Sepsis Event Note - Evaluation Sepsis Screening Result: No Definite Risk - Focused Exam Vital Signs: Vital Signs Temp Pulse Resp BP Pulse Ox 12/11/19 14:12 90 14 139/80 95 12/11/19 12:22 97.7 F 118 H 18 113/81 95 Date Exam was Performed: 12/11/19 Time Exam was Performed: 16:14 Problem List Initiated/Reviewed/Updated: Yes Orders Last 24hrs: Active Orders 24 hr Category Date Time Status Admission Status [Patient Status] [ADT] Stat ADT 12/11/19 14:01 Active Cardiac Monitoring [RC] . DIRECTED Care 12/11/19 14:01 Active EKG Documentation Completion [RC] STAT Care 12/11/19 12:20 Active EKG Documentation Completion [RC] STAT Care 12/11/19 14:05 Active BASIC METABOLIC PANEL,BMP [CHEM] Routine Lab 12/11/19 16:00 Ordered CULTURE BLOOD [BC] Stat Lab 12/11/19 12:40 Received CULTURE BLOOD [BC] Stat Lab 12/11/19 12:50 Received DRUG SCREEN, URINE [URCHEM] Stat Lab 12/11/19 12:20 Ordered ELECTROLYTES,URINE RANDOM [URCHEM] Stat Lab 12/11/19 13:22 Ordered OSMOLALITY - SERUM [REF] Stat Lab 12/11/19 13:23 Ordered OSMOLALITY - URINE Stat Lab 12/11/19 13:23 Ordered UA W/COSME RFLX IF INDICATED [URIN] Stat Lab 12/11/19 12:20 Ordered Potassium Chloride Riders [KCL 40 MEQ in Water 100 ML] Med 12/11/19 13:11 Active 40 meq Premix Bag 1 bag IV ONETIME Sodium Chloride 0.9% [Normal Saline] 1,000 ml Med 12/11/19 13:13 Active IV STAT Sodium Chloride 0.9% [Saline Flush] Med 12/11/19 12:20 Active 10 ml FLUSH ASDIRECTED PRN Sodium Chloride 0.9% [Saline Flush] Med 12/11/19 12:20 Active 2.5 ml FLUSH ASDIRECTED PRN Blood Culture x2 Reflex Set [OM.PC] Stat Ot 12/11/19 12:39 Ordered Saline Lock Insert [OM.PC] Stat Ot 12/11/19 12:20 Ordered Medication Orders Potassium Chloride 40 meq/ (Premix) 100 mls @ 25 mls/hr IV ONETIME ONE Stop: 12/11/19 17:10 Last Admin: 12/11/19 14:02 Dose: 25 mls/hr Sodium Chloride (Normal Saline) 1,000 mls @ 250 drops/hr IV STAT STA Stop: 12/14/19 01:12 Last Admin: 12/11/19 14:02 Dose: 250 drops/hr Sodium Chloride (Saline Flush) 10 ml FLUSH ASDIRECTED PRN PRN Reason: Keep Vein Open Last Admin: 12/11/19 12:34 Dose: 10 ml Sodium Chloride (Saline Flush) 2.5 ml FLUSH ASDIRECTED PRN PRN Reason: Keep Vein Open Last Admin: 12/11/19 12:34 Dose: 2.5 ml Assessment/Plan Comment:: Assessment 1. Abdominal pain in the setting of acute on chronic pancreatitis w/ elevated lipase 2. Moderate dehydration 3. Leukocytosis 4. Hyponatremia in the setting of dehydration 5. Hypokalemia 6. Acute on chronic kidney injury with elevated creatinine 7. Past medical history: Type 2 diabetes, hypertension and medical non- compliance. 8. Retroperitoneal lymphadenopathy Plan. Admit to inpatient. Full code. N.p.o. Up ad humza. Telemetry. 1. Elevated lipase in setting of acute on chronic pancreatitis: Pain control, Dilaudid; will avoid nephrotoxic agents secondary to RISHABH; will start patient on Tylenol PRN. Calcifications noted on CT abdomen pelvis showed calcifications but no obstruction (poorly visualized secondary to non-contrast imaging); continue to monitor clinically. RISHABH: repeat labs in AM post-fluid resuscitation. 2. Hyponatremia; rechecks BMP this afternoon after receiving 2 L of 0.9% normal saline in ED; will aim for slow sodium correction; will reassess after repeat BMP this afternoon. pt. is mentating well; no signs or history of seizure /AMS ataxia etc. Urine studies ordered: most likely hypovolemic hyponatremia; clinically volume down; free water deficits >1 L Hypokalemia: given 40 KCL in ED ; recheck in AM EKG: prolonged QTc in setting of dehydration, hypokalemia, and recent use of ondansetron; will continue to trend troponin x 3 q 6 hours/ACS r/o 3. Leukocytosis most likely secondary to dehydration; will follow up with CT abdomen pelvis and urine and blood cultures. Lactate of 1.5 Urine and blood culture ordered ; will treat accordingly. afebrile. COVID negative 4. PMH: continue to monitor current acute situation; will hold off on restarting meds once RISHABH has improved. Sliding scale : low dose; recheck A1c. accuchecks TID. <Yfn Nicholas - Last Filed: 12/16/19 12:06> H&P History of Present Illness - General Admit Problem/Dx: Admission Diagnosis/Problem Admission Diagnosis/Problem Pancreatitis Exam - Vital Signs Vital Signs: Last Vital Signs Temp 36.5 C 12/13/19 03:53 Pulse 75 12/13/19 03:53 Resp 17 12/13/19 03:53 BP 130/75 12/13/19 03:53 Pulse Ox 96 12/13/19 03:53 - Patient Data Result Diagrams: 12/13/19 17:02 12/13/19 17:02 Cosme Results Last 24 hrs: Microbiology 12/11/19 12:50 Aerobic Blood Culture - Preliminary Blood - Venous - Lab Draw NO GROWTH AFTER 4 DAYS Anaerobic Blood Culture - Preliminary NO GROWTH AFTER 4 DAYS 12/11/19 12:40 Aerobic Blood Culture - Preliminary Blood - Venous NO GROWTH AFTER 4 DAYS Anaerobic Blood Culture - Preliminary NO GROWTH AFTER 4 DAYS Assessment/Plan Comment:: I performed a history and physical exam of the patient and discussed management with resident. I have reviewed the residents note and agree with documented findings and plan unless otherwise specified in my note.
[2019-12-11] MEDS ORDERED: HYDROmorphone 2 MG/ML Syringe IVPUSH PRN (15:21)
[2019-12-11 15:50] LABS: HEMOGLOBIN A1C 7.3 % (4.5-6.2)
[2019-12-11] MEDS: Heparin Sodium 5,000 Units/ML Vial SUBCUT SCH (16:09)
[2019-12-11 16:40] LABS: CARBON DIOXIDE,CO2 41.3 mmol/L (21.0-32.0); POTASSIUM,K 3.4 mmol/L (3.5-5.1)
[2019-12-11] MEDS ORDERED: Omeprazole 20 MG Cap.CR PO SCH (17:00)
[2019-12-11] MEDS: Insulin Aspart 100 Units/ML 3 ML Pen SUBCUT SCH (18:27)
[2019-12-11] MEDS: HYDROmorphone 1 MG/ML Syringe IVPUSH PRN (21:11)
[2019-12-11] MEDS ORDERED: LORazepam 2 MG/ML SDV IVPUSH PRN (21:44)
[2019-12-12 00:51] LABS: BLOOD UREA NITROGEN,BUN 70 mg/dL (7.0-18.0); CARBON DIOXIDE,CO2 37.2 mmol/L (21.0-32.0); CHLORIDE,CL 87 mmol/L (98-107); GLUCOSE RANDOM 131 mg/dL (74-106); POTASSIUM,K 3.2 mmol/L (3.5-5.1); SODIUM,NA 129 mmol/L (136-148)
[2019-12-12] MEDS: HYDROmorphone 1 MG/ML Syringe IVPUSH PRN ×2 (02:27→08:38)
[2019-12-12] MEDS: Heparin Sodium 5,000 Units/ML Vial SUBCUT SCH ×2 (02:52→15:12)
[2019-12-12 06:16] LABS: CARBON DIOXIDE,CO2 35.1 mmol/L (21.0-32.0); POTASSIUM,K 2.8 mmol/L (3.5-5.1)
[2019-12-12] MEDS ORDERED: Sodium Chloride 0.9% 1,000 ML IV SCH (06:25)
[2019-12-12] MEDS: Pantoprazole 40 MG in Sodium Chloride 0.9% 10 ML IV SCH (07:16)
[2019-12-12] MEDS: Insulin Aspart 100 Units/ML 3 ML Pen SUBCUT SCH ×3 (07:22→18:12)
[2019-12-12] MEDS: Potassium Chloride 20 MEQ Tab.ER PO SCH ×2 (08:05→17:10)
--- NOTE | 2019-12-12 09:14 | PCM.PN ---
- General Info Date of Service: 12/12/19 Subjective Update: Patient seen at bedside endorsing abdominal pain and discomfort. Mentions a minimal appetite but otherwise endorses urinating and stooling without any issues. Patient was sitting up in his bed watching "the wire" on his laptop but states having severe pain in his belly; requested Ativan and more pain medication at this time. - Review of Systems General: Denies: Fever, Weakness, Malaise HEENT: Reports: No Symptoms Pulmonary: Reports: No Symptoms Cardiovascular: Denies: Palpitations Gastrointestinal: Reports: Abdominal Pain, Decreased Appetite, Flatus, Nausea. Denies: Vomiting Genitourinary: Reports: No Symptoms Musculoskeletal: Reports: No Symptoms Neurological: Reports: No Symptoms Psychiatric: Reports: No Symptoms - Patient Data Vitals - Most Recent: Last Vital Signs Temp 97.0 F 12/12/19 05:55 Pulse 77 12/12/19 05:55 Resp 18 12/12/19 05:55 BP 147/70 H 12/12/19 05:55 Pulse Ox 95 12/12/19 05:55 Weight - Most Recent: 49.895 kg I&O - Last 24 Hours: Intake & Output 12/11/19 12/12/19 12/12/19 22:59 06:59 14:59 Intake Total 1545 Output Total 500 Balance 1045 Lab Results Last 24 Hours: Laboratory Results - last 24 hr 12/11/19 12/11/19 12/11/19 Range/Units 11:23 12:23 12:23 WBC 15.85 H (4.0-11.0) K/uL RBC 4.80 (4.50-5.90) M/uL Hgb 15.5 (13.0-17.0) g/dL Hct 43.1 (38.0-50.0) % MCV 89.8 (80.0-98.0) fL MCH 32.3 H (27.0-32.0) pg MCHC 36.0 (31.0-37.0) g/dL RDW Std Deviation 40.7 (28.0-62.0) fl RDW Coeff of Claudio 12 (11.0-15.0) % Plt Count 392 (150-400) K/uL MPV 9.30 (7.40-12.00) fL Neut % (Auto) 77.6 (48.0-80.0) % Lymph % (Auto) 13.2 L (16.0-40.0) % [place] % (Auto) 8.7 (0.0-15.0) % Eos % (Auto) 0.4 (0.0-7.0) % Baso % (Auto) 0.1 (0.0-1.5) % Neut # (Auto) 12.3 H (1.4-5.7) K/uL Lymph # (Auto) 2.1 (0.6-2.4) K/uL [place] # (Auto) 1.4 H (0.0-0.8) K/uL Eos # (Auto) 0.1 (0.0-0.7) K/uL Baso # (Auto) 0.0 (0.0-0.1) K/uL Nucleated RBC % 0.0 /100WBC Nucleated RBCs # 0 K/uL INR 0.96 Lactate (0.20-2.00) mmol/L Sodium (136-148) mmol/L Potassium (3.5-5.1) mmol/L Chloride (98-107) mmol/L Carbon Dioxide (21.0-32.0) mmol/L BUN (7.0-18.0) mg/dL Creatinine (0.8-1.3) mg/dL Est Cr Clr Drug Dosing mL/min Estimated GFR (MDRD) ml/min Glucose (74-106) mg/dL POC Glucose (60-110) mg/dL Hemoglobin A1c 7.3 H (4.5-6.2) % Calcium (8.5-10.1) mg/dL Phosphorus (2.6-4.7) mg/dL Magnesium (1.8-2.4) mg/dL Total Bilirubin (0.2-1.0) mg/dL AST (15-37) IU/L ALT (14-63) IU/L Alkaline Phosphatase (46-116) U/L Troponin I (0.000-0.056) ng/mL Total Protein (6.4-8.2) g/dL Albumin (3.4-5.0) g/dL Globulin (2.6-4.0) g/dL Albumin/Globulin Ratio (0.9-1.6) Lipase (73-393) U/L Urine Color Urine Appearance Urine pH (5.0-8.0) Ur Specific [place] (1.001-1.035) Urine Protein (NEGATIVE) mg/dL Urine Glucose (UA) (NEGATIVE) mg/dL Urine Ketones (NEGATIVE) mg/dL Urine Occult Blood (NEGATIVE) Urine Nitrite (NEGATIVE) Urine Bilirubin (NEGATIVE) Urine Urobilinogen (<2.0) EU/dL Ur Leukocyte Esterase (NEGATIVE) Urine RBC (0-2/HPF) Urine WBC (0-5/HPF) Ur Epithelial Cells (NONE-FEW) Amorphous Sediment (NEGATIVE) Urine Bacteria (NEGATIVE) Urine Mucus (NONE-MOD) Ur Random Sodium (40.0-220.0) mmol/L Ur Random Potassium mmol/L Ur Random Chloride mmol/L Urine Opiates Screen (NEGATIVE) Ur Oxycodone Screen (NEGATIVE) Urine Methadone Screen (NEGATIVE) Ur Barbiturates Screen (NEGATIVE) Ur Phencyclidine Scrn (NEGATIVE) Ur Amphetamine Screen (NEGATIVE) U Methamphetamines Scrn (NEGATIVE) U Benzodiazepines Scrn (NEGATIVE) U Cocaine Metab Screen (NEGATIVE) U Marijuana (THC) Screen (NEGATIVE) Ethyl Alcohol mg/dL SARS-CoV-2 RNA (RT-PCR) (NEGATIVE) 12/11/19 12/11/19 12/11/19 Range/Units 12:23 12:23 12:23 WBC (4.0-11.0) K/uL RBC (4.50-5.90) M/uL Hgb (13.0-17.0) g/dL Hct (38.0-50.0) % MCV (80.0-98.0) fL MCH (27.0-32.0) pg MCHC (31.0-37.0) g/dL RDW Std Deviation (28.0-62.0) fl RDW Coeff of Claudio (11.0-15.0) % Plt Count (150-400) K/uL MPV (7.40-12.00) fL Neut % (Auto) (48.0-80.0) % Lymph % (Auto) (16.0-40.0) % [place] % (Auto) (0.0-15.0) % Eos % (Auto) (0.0-7.0) % Baso % (Auto) (0.0-1.5) % Neut # (Auto) (1.4-5.7) K/uL Lymph # (Auto) (0.6-2.4) K/uL [place] # (Auto) (0.0-0.8) K/uL Eos # (Auto) (0.0-0.7) K/uL Baso # (Auto) (0.0-0.1) K/uL Nucleated RBC % /100WBC Nucleated RBCs # K/uL INR Lactate (0.20-2.00) mmol/L Sodium 124 L (136-148) mmol/L Potassium 3.0 L (3.5-5.1) mmol/L Chloride 74 L (98-107) mmol/L Carbon Dioxide 38.8 H (21.0-32.0) mmol/L BUN 77 H (7.0-18.0) mg/dL Creatinine 2.6 H (0.8-1.3) mg/dL Est Cr Clr Drug Dosing 21.32 mL/min Estimated GFR (MDRD) 25.3 ml/min Glucose 191 H (74-106) mg/dL POC Glucose (60-110) mg/dL Hemoglobin A1c (4.5-6.2) % Calcium 9.8 (8.5-10.1) mg/dL Phosphorus (2.6-4.7) mg/dL Magnesium 2.3 (1.8-2.4) mg/dL Total Bilirubin 1.0 (0.2-1.0) mg/dL AST 22 (15-37) IU/L ALT 31 (14-63) IU/L Alkaline Phosphatase 130 H (46-116) U/L Troponin I < 0.050 (0.000-0.056) ng/mL Total Protein 8.8 H (6.4-8.2) g/dL Albumin 4.5 (3.4-5.0) g/dL Globulin 4.3 H (2.6-4.0) g/dL Albumin/Globulin Ratio 1.1 (0.9-1.6) Lipase 637 H (73-393) U/L Urine Color Urine Appearance Urine pH (5.0-8.0) Ur Specific [place] (1.001-1.035) Urine Protein (NEGATIVE) mg/dL Urine Glucose (UA) (NEGATIVE) mg/dL Urine Ketones (NEGATIVE) mg/dL Urine Occult Blood (NEGATIVE) Urine Nitrite (NEGATIVE) Urine Bilirubin (NEGATIVE) Urine Urobilinogen (<2.0) EU/dL Ur Leukocyte Esterase (NEGATIVE) Urine RBC (0-2/HPF) Urine WBC (0-5/HPF) Ur Epithelial Cells (NONE-FEW) Amorphous Sediment (NEGATIVE) Urine Bacteria (NEGATIVE) Urine Mucus (NONE-MOD) Ur Random Sodium (40.0-220.0) mmol/L Ur Random Potassium mmol/L Ur Random Chloride mmol/L Urine Opiates Screen (NEGATIVE) Ur Oxycodone Screen (NEGATIVE) Urine Methadone Screen (NEGATIVE) Ur Barbiturates Screen (NEGATIVE) Ur Phencyclidine Scrn (NEGATIVE) Ur Amphetamine Screen (NEGATIVE) U Methamphetamines Scrn (NEGATIVE) U Benzodiazepines Scrn (NEGATIVE) U Cocaine Metab Screen (NEGATIVE) U Marijuana (THC) Screen (NEGATIVE) Ethyl Alcohol <3 mg/dL SARS-CoV-2 RNA (RT-PCR) (NEGATIVE) 12/11/19 12/11/19 12/11/19 Range/Units 12:50 13:54 15:40 WBC (4.0-11.0) K/uL RBC (4.50-5.90) M/uL Hgb (13.0-17.0) g/dL Hct (38.0-50.0) % MCV (80.0-98.0) fL MCH (27.0-32.0) pg MCHC (31.0-37.0) g/dL RDW Std Deviation (28.0-62.0) fl RDW Coeff of Claudio (11.0-15.0) % Plt Count (150-400) K/uL MPV (7.40-12.00) fL Neut % (Auto) (48.0-80.0) % Lymph % (Auto) (16.0-40.0) % [place] % (Auto) (0.0-15.0) % Eos % (Auto) (0.0-7.0) % Baso % (Auto) (0.0-1.5) % Neut # (Auto) (1.4-5.7) K/uL Lymph # (Auto) (0.6-2.4) K/uL [place] # (Auto) (0.0-0.8) K/uL Eos # (Auto) (0.0-0.7) K/uL Baso # (Auto) (0.0-0.1) K/uL Nucleated RBC % /100WBC Nucleated RBCs # K/uL INR Lactate 1.5 (0.20-2.00) mmol/L Sodium (136-148) mmol/L Potassium (3.5-5.1) mmol/L Chloride (98-107) mmol/L Carbon Dioxide (21.0-32.0) mmol/L BUN (7.0-18.0) mg/dL Creatinine (0.8-1.3) mg/dL Est Cr Clr Drug Dosing mL/min Estimated GFR (MDRD) ml/min Glucose (74-106) mg/dL POC Glucose (60-110) mg/dL Hemoglobin A1c (4.5-6.2) % Calcium (8.5-10.1) mg/dL Phosphorus (2.6-4.7) mg/dL Magnesium (1.8-2.4) mg/dL Total Bilirubin (0.2-1.0) mg/dL AST (15-37) IU/L ALT (14-63) IU/L Alkaline Phosphatase (46-116) U/L Troponin I (0.000-0.056) ng/mL Total Protein (6.4-8.2) g/dL Albumin (3.4-5.0) g/dL Globulin (2.6-4.0) g/dL Albumin/Globulin Ratio (0.9-1.6) Lipase (73-393) U/L Urine Color YELLOW Urine Appearance CLEAR Urine pH 7.0 (5.0-8.0) Ur Specific [place] 1.020 (1.001-1.035) Urine Protein TRACE H (NEGATIVE) mg/dL Urine Glucose (UA) NEGATIVE (NEGATIVE) mg/dL Urine Ketones TRACE H (NEGATIVE) mg/dL Urine Occult Blood TRACE-INTACT H (NEGATIVE) Urine Nitrite NEGATIVE (NEGATIVE) Urine Bilirubin NEGATIVE (NEGATIVE) Urine Urobilinogen 0.2 (<2.0) EU/dL Ur Leukocyte Esterase NEGATIVE (NEGATIVE) Urine RBC 3-5 (0-2/HPF) Urine WBC 0-2 (0-5/HPF) Ur Epithelial Cells RARE (NONE-FEW) Amorphous Sediment RARE (NEGATIVE) Urine Bacteria RARE (NEGATIVE) Urine Mucus RARE (NONE-MOD) Ur Random Sodium (40.0-220.0) mmol/L Ur Random Potassium mmol/L Ur Random Chloride mmol/L Urine Opiates Screen (NEGATIVE) Ur Oxycodone Screen (NEGATIVE) Urine Methadone Screen (NEGATIVE) Ur Barbiturates Screen (NEGATIVE) Ur Phencyclidine Scrn (NEGATIVE) Ur Amphetamine Screen (NEGATIVE) U Methamphetamines Scrn (NEGATIVE) U Benzodiazepines Scrn (NEGATIVE) U Cocaine Metab Screen (NEGATIVE) U Marijuana (THC) Screen (NEGATIVE) Ethyl Alcohol mg/dL SARS-CoV-2 RNA (RT-PCR) NEGATIVE (NEGATIVE) 12/11/19 12/11/19 12/11/19 Range/Units 15:40 15:40 16:10 WBC (4.0-11.0) K/uL RBC (4.50-5.90) M/uL Hgb (13.0-17.0) g/dL Hct (38.0-50.0) % MCV (80.0-98.0) fL MCH (27.0-32.0) pg MCHC (31.0-37.0) g/dL RDW Std Deviation (28.0-62.0) fl RDW Coeff of Claudio (11.0-15.0) % Plt Count (150-400) K/uL MPV (7.40-12.00) fL Neut % (Auto) (48.0-80.0) % Lymph % (Auto) (16.0-40.0) % [place] % (Auto) (0.0-15.0) % Eos % (Auto) (0.0-7.0) % Baso % (Auto) (0.0-1.5) % Neut # (Auto) (1.4-5.7) K/uL Lymph # (Auto) (0.6-2.4) K/uL [place] # (Auto) (0.0-0.8) K/uL Eos # (Auto) (0.0-0.7) K/uL Baso # (Auto) (0.0-0.1) K/uL Nucleated RBC % /100WBC Nucleated RBCs # K/uL INR Lactate (0.20-2.00) mmol/L Sodium 128 L (136-148) mmol/L Potassium 3.4 L (3.5-5.1) mmol/L Chloride 84 L (98-107) mmol/L Carbon Dioxide 41.3 H (21.0-32.0) mmol/L BUN 74 H (7.0-18.0) mg/dL Creatinine 2.5 H (0.8-1.3) mg/dL Est Cr Clr Drug Dosing 22.18 mL/min Estimated GFR (MDRD) 26.5 ml/min Glucose 144 H (74-106) mg/dL POC Glucose (60-110) mg/dL Hemoglobin A1c (4.5-6.2) % Calcium 8.8 (8.5-10.1) mg/dL Phosphorus (2.6-4.7) mg/dL Magnesium (1.8-2.4) mg/dL Total Bilirubin (0.2-1.0) mg/dL AST (15-37) IU/L ALT (14-63) IU/L Alkaline Phosphatase (46-116) U/L Troponin I (0.000-0.056) ng/mL Total Protein (6.4-8.2) g/dL Albumin (3.4-5.0) g/dL Globulin (2.6-4.0) g/dL Albumin/Globulin Ratio (0.9-1.6) Lipase (73-393) U/L Urine Color Urine Appearance Urine pH (5.0-8.0) Ur Specific [place] (1.001-1.035) Urine Protein (NEGATIVE) mg/dL Urine Glucose (UA) (NEGATIVE) mg/dL Urine Ketones (NEGATIVE) mg/dL Urine Occult Blood (NEGATIVE) Urine Nitrite (NEGATIVE) Urine Bilirubin (NEGATIVE) Urine Urobilinogen (<2.0) EU/dL Ur Leukocyte Esterase (NEGATIVE) Urine RBC (0-2/HPF) Urine WBC (0-5/HPF) Ur Epithelial Cells (NONE-FEW) Amorphous Sediment (NEGATIVE) Urine Bacteria (NEGATIVE) Urine Mucus (NONE-MOD) Ur Random Sodium 42.0 (40.0-220.0) mmol/L Ur Random Potassium 58.7 mmol/L Ur Random Chloride 55 mmol/L Urine Opiates Screen NEGATIVE (NEGATIVE) Ur Oxycodone Screen NEGATIVE (NEGATIVE) Urine Methadone Screen NEGATIVE (NEGATIVE) Ur Barbiturates Screen NEGATIVE (NEGATIVE) Ur Phencyclidine Scrn NEGATIVE (NEGATIVE) Ur Amphetamine Screen NEGATIVE (NEGATIVE) U Methamphetamines Scrn NEGATIVE (NEGATIVE) U Benzodiazepines Scrn NEGATIVE (NEGATIVE) U Cocaine Metab Screen NEGATIVE (NEGATIVE) U Marijuana (THC) Screen NEGATIVE (NEGATIVE) Ethyl Alcohol mg/dL SARS-CoV-2 RNA (RT-PCR) (NEGATIVE) 12/11/19 12/11/19 12/12/19 Range/Units 18:06 18:10 00:23 WBC (4.0-11.0) K/uL RBC (4.50-5.90) M/uL Hgb (13.0-17.0) g/dL Hct (38.0-50.0) % MCV (80.0-98.0) fL MCH (27.0-32.0) pg MCHC (31.0-37.0) g/dL RDW Std Deviation (28.0-62.0) fl RDW Coeff of Claudio (11.0-15.0) % Plt Count (150-400) K/uL MPV (7.40-12.00) fL Neut % (Auto) (48.0-80.0) % Lymph % (Auto) (16.0-40.0) % [place] % (Auto) (0.0-15.0) % Eos % (Auto) (0.0-7.0) % Baso % (Auto) (0.0-1.5) % Neut # (Auto) (1.4-5.7) K/uL Lymph # (Auto) (0.6-2.4) K/uL [place] # (Auto) (0.0-0.8) K/uL Eos # (Auto) (0.0-0.7) K/uL Baso # (Auto) (0.0-0.1) K/uL Nucleated RBC % /100WBC Nucleated RBCs # K/uL INR Lactate (0.20-2.00) mmol/L Sodium 129 L (136-148) mmol/L Potassium 3.2 L (3.5-5.1) mmol/L Chloride 87 L (98-107) mmol/L Carbon Dioxide 37.2 H (21.0-32.0) mmol/L BUN 70 H (7.0-18.0) mg/dL Creatinine 2.3 H (0.8-1.3) mg/dL Est Cr Clr Drug Dosing 24.10 mL/min Estimated GFR (MDRD) 29.2 ml/min Glucose 131 H (74-106) mg/dL POC Glucose 118 H (60-110) mg/dL Hemoglobin A1c (4.5-6.2) % Calcium 8.2 L (8.5-10.1) mg/dL Phosphorus (2.6-4.7) mg/dL Magnesium (1.8-2.4) mg/dL Total Bilirubin (0.2-1.0) mg/dL AST (15-37) IU/L ALT (14-63) IU/L Alkaline Phosphatase (46-116) U/L Troponin I < 0.050 < 0.050 (0.000-0.056) ng/mL Total Protein (6.4-8.2) g/dL Albumin (3.4-5.0) g/dL Globulin (2.6-4.0) g/dL Albumin/Globulin Ratio (0.9-1.6) Lipase (73-393) U/L Urine Color Urine Appearance Urine pH (5.0-8.0) Ur Specific [place] (1.001-1.035) Urine Protein (NEGATIVE) mg/dL Urine Glucose (UA) (NEGATIVE) mg/dL Urine Ketones (NEGATIVE) mg/dL Urine Occult Blood (NEGATIVE) Urine Nitrite (NEGATIVE) Urine Bilirubin (NEGATIVE) Urine Urobilinogen (<2.0) EU/dL Ur Leukocyte Esterase (NEGATIVE) Urine RBC (0-2/HPF) Urine WBC (0-5/HPF) Ur Epithelial Cells (NONE-FEW) Amorphous Sediment (NEGATIVE) Urine Bacteria (NEGATIVE) Urine Mucus (NONE-MOD) Ur Random Sodium (40.0-220.0) mmol/L Ur Random Potassium mmol/L Ur Random Chloride mmol/L Urine Opiates Screen (NEGATIVE) Ur Oxycodone Screen (NEGATIVE) Urine Methadone Screen (NEGATIVE) Ur Barbiturates Screen (NEGATIVE) Ur Phencyclidine Scrn (NEGATIVE) Ur Amphetamine Screen (NEGATIVE) U Methamphetamines Scrn (NEGATIVE) U Benzodiazepines Scrn (NEGATIVE) U Cocaine Metab Screen (NEGATIVE) U Marijuana (THC) Screen (NEGATIVE) Ethyl Alcohol mg/dL SARS-CoV-2 RNA (RT-PCR) (NEGATIVE) 12/12/19 12/12/19 12/12/19 Range/Units 05:23 05:23 05:23 WBC 14.18 H (4.0-11.0) K/uL RBC 3.78 L (4.50-5.90) M/uL Hgb 12.0 L (13.0-17.0) g/dL Hct 34.6 L (38.0-50.0) % MCV 91.5 (80.0-98.0) fL MCH 31.7 (27.0-32.0) pg MCHC 34.7 (31.0-37.0) g/dL RDW Std Deviation 41.8 (28.0-62.0) fl RDW Coeff of Claudio 12 (11.0-15.0) % Plt Count 356 (150-400) K/uL MPV 9.40 (7.40-12.00) fL Neut % (Auto) 74.6 (48.0-80.0) % Lymph % (Auto) 10.9 L (16.0-40.0) % [place] % (Auto) 12.4 (0.0-15.0) % Eos % (Auto) 1.9 (0.0-7.0) % Baso % (Auto) 0.2 (0.0-1.5) % Neut # (Auto) 10.6 H (1.4-5.7) K/uL Lymph # (Auto) 1.6 (0.6-2.4) K/uL [place] # (Auto) 1.8 H (0.0-0.8) K/uL Eos # (Auto) 0.3 (0.0-0.7) K/uL Baso # (Auto) 0.0 (0.0-0.1) K/uL Nucleated RBC % 0.0 /100WBC Nucleated RBCs # 0 K/uL INR Lactate (0.20-2.00) mmol/L Sodium 130 L (136-148) mmol/L Potassium 2.8 L (3.5-5.1) mmol/L Chloride 87 L (98-107) mmol/L Carbon Dioxide 35.1 H (21.0-32.0) mmol/L BUN 64 H (7.0-18.0) mg/dL Creatinine 2.1 H (0.8-1.3) mg/dL Est Cr Clr Drug Dosing 26.40 mL/min Estimated GFR (MDRD) 32.4 ml/min Glucose 114 H (74-106) mg/dL POC Glucose (60-110) mg/dL Hemoglobin A1c (4.5-6.2) % Calcium 8.2 L (8.5-10.1) mg/dL Phosphorus 4.0 (2.6-4.7) mg/dL Magnesium (1.8-2.4) mg/dL Total Bilirubin 0.6 (0.2-1.0) mg/dL AST 20 (15-37) IU/L ALT 21 (14-63) IU/L Alkaline Phosphatase 93 (46-116) U/L Troponin I (0.000-0.056) ng/mL Total Protein 6.6 (6.4-8.2) g/dL Albumin 3.3 L (3.4-5.0) g/dL Globulin 3.3 (2.6-4.0) g/dL Albumin/Globulin Ratio 1.0 (0.9-1.6) Lipase (73-393) U/L Urine Color Urine Appearance Urine pH (5.0-8.0) Ur Specific [place] (1.001-1.035) Urine Protein (NEGATIVE) mg/dL Urine Glucose (UA) (NEGATIVE) mg/dL Urine Ketones (NEGATIVE) mg/dL Urine Occult Blood (NEGATIVE) Urine Nitrite (NEGATIVE) Urine Bilirubin (NEGATIVE) Urine Urobilinogen (<2.0) EU/dL Ur Leukocyte Esterase (NEGATIVE) Urine RBC (0-2/HPF) Urine WBC (0-5/HPF) Ur Epithelial Cells (NONE-FEW) Amorphous Sediment (NEGATIVE) Urine Bacteria (NEGATIVE) Urine Mucus (NONE-MOD) Ur Random Sodium (40.0-220.0) mmol/L Ur Random Potassium mmol/L Ur Random Chloride mmol/L Urine Opiates Screen (NEGATIVE) Ur Oxycodone Screen (NEGATIVE) Urine Methadone Screen (NEGATIVE) Ur Barbiturates Screen (NEGATIVE) Ur Phencyclidine Scrn (NEGATIVE) Ur Amphetamine Screen (NEGATIVE) U Methamphetamines Scrn (NEGATIVE) U Benzodiazepines Scrn (NEGATIVE) U Cocaine Metab Screen (NEGATIVE) U Marijuana (THC) Screen (NEGATIVE) Ethyl Alcohol mg/dL SARS-CoV-2 RNA (RT-PCR) (NEGATIVE) 12/12/19 Range/Units 06:44 WBC (4.0-11.0) K/uL RBC (4.50-5.90) M/uL Hgb (13.0-17.0) g/dL Hct (38.0-50.0) % MCV (80.0-98.0) fL MCH (27.0-32.0) pg MCHC (31.0-37.0) g/dL RDW Std Deviation (28.0-62.0) fl RDW Coeff of Claudio (11.0-15.0) % Plt Count (150-400) K/uL MPV (7.40-12.00) fL Neut % (Auto) (48.0-80.0) % Lymph % (Auto) (16.0-40.0) % [place] % (Auto) (0.0-15.0) % Eos % (Auto) (0.0-7.0) % Baso % (Auto) (0.0-1.5) % Neut # (Auto) (1.4-5.7) K/uL Lymph # (Auto) (0.6-2.4) K/uL [place] # (Auto) (0.0-0.8) K/uL Eos # (Auto) (0.0-0.7) K/uL Baso # (Auto) (0.0-0.1) K/uL Nucleated RBC % /100WBC Nucleated RBCs # K/uL INR Lactate (0.20-2.00) mmol/L Sodium (136-148) mmol/L Potassium (3.5-5.1) mmol/L Chloride (98-107) mmol/L Carbon Dioxide (21.0-32.0) mmol/L BUN (7.0-18.0) mg/dL Creatinine (0.8-1.3) mg/dL Est Cr Clr Drug Dosing mL/min Estimated GFR (MDRD) ml/min Glucose (74-106) mg/dL POC Glucose 169 H (60-110) mg/dL Hemoglobin A1c (4.5-6.2) % Calcium (8.5-10.1) mg/dL Phosphorus (2.6-4.7) mg/dL Magnesium (1.8-2.4) mg/dL Total Bilirubin (0.2-1.0) mg/dL AST (15-37) IU/L ALT (14-63) IU/L Alkaline Phosphatase (46-116) U/L Troponin I (0.000-0.056) ng/mL Total Protein (6.4-8.2) g/dL Albumin (3.4-5.0) g/dL Globulin (2.6-4.0) g/dL Albumin/Globulin Ratio (0.9-1.6) Lipase (73-393) U/L Urine Color Urine Appearance Urine pH (5.0-8.0) Ur Specific [place] (1.001-1.035) Urine Protein (NEGATIVE) mg/dL Urine Glucose (UA) (NEGATIVE) mg/dL Urine Ketones (NEGATIVE) mg/dL Urine Occult Blood (NEGATIVE) Urine Nitrite (NEGATIVE) Urine Bilirubin (NEGATIVE) Urine Urobilinogen (<2.0) EU/dL Ur Leukocyte Esterase (NEGATIVE) Urine RBC (0-2/HPF) Urine WBC (0-5/HPF) Ur Epithelial Cells (NONE-FEW) Amorphous Sediment (NEGATIVE) Urine Bacteria (NEGATIVE) Urine Mucus (NONE-MOD) Ur Random Sodium (40.0-220.0) mmol/L Ur Random Potassium mmol/L Ur Random Chloride mmol/L Urine Opiates Screen (NEGATIVE) Ur Oxycodone Screen (NEGATIVE) Urine Methadone Screen (NEGATIVE) Ur Barbiturates Screen (NEGATIVE) Ur Phencyclidine Scrn (NEGATIVE) Ur Amphetamine Screen (NEGATIVE) U Methamphetamines Scrn (NEGATIVE) U Benzodiazepines Scrn (NEGATIVE) U Cocaine Metab Screen (NEGATIVE) U Marijuana (THC) Screen (NEGATIVE) Ethyl Alcohol mg/dL SARS-CoV-2 RNA (RT-PCR) (NEGATIVE) Med Orders - Current: Current Medications Heparin Sodium (Porcine) (Heparin Sodium) 5,000 units SUBCUT Q12H KATHRYN Last Admin: 12/12/19 02:52 Dose: 5,000 units Hydromorphone HCl (Dilaudid) 1 mg IVPUSH Q4H PRN PRN Reason: Pain Last Admin: 12/12/19 08:38 Dose: 1 mg Pantoprazole Sodium 40 mg/ (Sodium Chloride) 10 mls @ 300 mls/hr IV Q24H KATHRYN Last Admin: 12/12/19 07:16 Dose: 300 mls/hr Sodium Chloride (Normal Saline) 1,000 mls @ 75 mls/hr IV ASDIRECTED KATHRYN Last Admin: 12/12/19 08:04 Dose: 75 mls/hr Insulin Aspart (Novolog) 0 unit SUBCUT TIDAC KATHRYN; Protocol Last Admin: 12/12/19 07:22 Dose: Not Given Lorazepam (Ativan) 0 mg IVPUSH Q4H PRN; Protocol PRN Reason: Anxiety Last Admin: 12/11/19 22:11 Dose: 1 mg Potassium Chloride (Klor-Con M20) 40 meq PO BIDMEALS KATHRYN Last Admin: 12/12/19 08:05 Dose: 40 meq Sodium Chloride (Saline Flush) 10 ml FLUSH ASDIRECTED PRN PRN Reason: Keep Vein Open Last Admin: 12/11/19 12:34 Dose: 10 ml Sodium Chloride (Saline Flush) 2.5 ml FLUSH ASDIRECTED PRN PRN Reason: Keep Vein Open Last Admin: 12/11/19 12:34 Dose: 2.5 ml Discontinued Medications Hydromorphone HCl (Dilaudid) 1 mg IVPUSH ONETIME ONE Stop: 12/11/19 12:41 Last Admin: 12/11/19 12:48 Dose: 1 mg Hydromorphone HCl (Dilaudid) 1 mg IVPUSH Q4H PRN PRN Reason: Pain Last Admin: 12/11/19 17:47 Dose: 1 mg Sodium Chloride (Normal Saline) 1,000 mls @ 999 mls/hr IV STAT ONE Stop: 12/11/19 13:20 Last Admin: 12/11/19 12:33 Dose: 999 mls/hr Potassium Chloride 40 meq/ (Premix) 100 mls @ 25 mls/hr IV ONETIME ONE Stop: 12/11/19 17:10 Last Admin: 12/11/19 14:02 Dose: 25 mls/hr Sodium Chloride (Normal Saline) 1,000 mls @ 250 drops/hr IV STAT STA Stop: 12/14/19 01:12 Last Admin: 12/11/19 14:02 Dose: 250 drops/hr Sodium Chloride (Normal Saline) 1,000 mls @ 75 mls/hr IV NOW STA Stop: 12/12/19 06:24 Last Admin: 12/11/19 19:26 Dose: 75 mls/hr Lorazepam (Ativan) 0.5 mg IVPUSH ONETIME ONE Stop: 12/11/19 14:06 Last Admin: 12/11/19 14:08 Dose: 0.5 mg Omeprazole (Omeprazole) 20 mg PO BIDAC KATHRYN Last Admin: 12/11/19 17:20 Dose: 20 mg Ondansetron HCl (Zofran) 4 mg IVPUSH ONETIME ONE Stop: 12/11/19 12:21 Last Admin: 12/11/19 12:34 Dose: 4 mg - Exam Quality Assessment: No: Supplemental Oxygen General: Alert, Oriented, Cooperative, No Acute Distress HEENT: EOMI, Mucous Membr. Moist/[place] Neck: Supple Lungs: Clear to Auscultation, Normal Respiratory Effort Cardiovascular: Regular Rate, Regular Rhythm GI/Abdominal Exam: Soft, Other (diffuse abd. tenderness w.o rebound tenderness and or organomegaly; epigastric tenderness; no flank tenderness ) Extremities: Normal Inspection, Normal Range of Motion, Non-Tender, No Pedal Edema Skin: Warm, Intact Neurological: No New Focal Deficit Psy/Mental Status: Alert, Normal Affect, Normal Mood Sepsis Event Note - Evaluation Sepsis Screening Result: No Definite Risk - Focused Exam Vital Signs: Vital Signs Temp Pulse Resp BP Pulse Ox 12/12/19 05:55 97.0 F 77 18 147/70 H 95 12/12/19 00:21 97.0 F 78 16 122/84 96 Date Exam was Performed: 12/12/19 Time Exam was Performed: 12:03 - Problem List Review Problem List Initiated/Reviewed/Updated: Yes - My Orders Last 24 Hours: My Active Orders 12/11/19 15:18 Accu Check [Blood Glucose Check, Bedside] [] TIDAC 12/11/19 15:19 Up ad Humza [] ASDIRECTED 12/11/19 15:25 Code Status [Resuscitation Status] Routine 12/11/19 15:30 Heparin Sodium 5,000 units SUBCUT Q12H 12/11/19 17:00 Insulin Aspart [NovoLOG] See Protocol SUBCUT TIDAC 12/11/19 17:37 HYDROmorphone [Dilaudid] 1 mg IVPUSH Q4H PRN 12/11/19 Dinner Nothing Per Oral Diet [DIET] 12/12/19 08:00 Potassium Chloride [Klor-Con M20] 40 meq PO BIDMEALS 12/12/19 15:28 CBC WITH AUTO DIFF [HEME] DAILY 12/13/19 05:11 COMPREHENSIVE METABOLIC PN,CMP [CHEM] AM 12/13/19 15:28 CBC WITH AUTO DIFF [HEME] DAILY 12/14/19 05:11 COMPREHENSIVE METABOLIC PN,CMP [CHEM] AM 12/14/19 15:28 CBC WITH AUTO DIFF [HEME] DAILY 12/15/19 05:11 COMPREHENSIVE METABOLIC PN,CMP [CHEM] AM - Plan Plan:: Assessment 1. Abdominal pain in the setting of acute on chronic pancreatitis improving 2. Moderate dehydration improving 3. Leukocytosis: improving 4. Hyponatremia in the setting of dehydration improving 5. Hypokalemia 6. Acute on chronic kidney injury with elevated creatinine 7. Past medical history: Type 2 diabetes, hypertension and medical non- compliance. 8. Retroperitoneal lymphadenopathy Plan. Admit to inpatient. Full code. N.p.o. Up ad humza. Telemetry. 1. Elevated lipase in setting of acute on chronic pancreatitis: Pain control, Dilaudid; will also add on Ativan PRN to supplement pain will avoid nephrotoxic agents secondary to RISHABH; will start patient on Tylenol PRN. Calcifications noted on CT abdomen pelvis showed calcifications but no obstruction (poorly visualized secondary to non-contrast imaging); continue to monitor clinically. RISHABH: repeat labs in AM post-fluid resuscitation. will increase fluid hydration to 125 cc/hr NS; include sips and chips as well ; continue NPO 2. Hyponatremia; rechecks BMP this afternoon after receiving 2 L of 0.9% normal saline in ED; will aim for slow sodium correction; will reassess after repeat BMP this afternoon. pt. is mentating well; no signs or history of seizure /AMS ataxia etc. Hyponatremia much improved from second BMP : continue rehydration with Sips and chips as well Urine studies ordered: most likely hypovolemic hyponatremia; clinically volume down; free water deficits >1 L Hypokalemia: given 40 KCL BID today; recheck tomorrow in AM EKG: prolonged QTc in setting of dehydration, hypokalemia, and recent use of ondansetron; will continue to trend troponin x 3 q 6 hours/ACS r/o 3. Leukocytosis most likely secondary to dehydration; will follow up with CT abdomen pelvis and urine and blood cultures.: marginal improvement from yesterday Lactate of 1.5 Urine and blood culture ordered ; will treat accordingly. afebrile. Improving from yesterday but will keep a watchful eye for any clinical deterioration COVID negative 4. PMH: DM Sliding scale : low dose; recheck A1c. accuchecks TID.
[2019-12-12] MEDS ORDERED: LORazepam 2 MG/ML SDV IVPUSH PRN (10:30)
[2019-12-12] MEDS: Nicotine 7 MG/24 Hr Patch TRDERM SCH (15:12)
[2019-12-12] MEDS: Sodium Chloride 0.9% 1,000 ML IV SCH (17:04)
[2019-12-12] MEDS ORDERED: traZODone 50 MG Tab PO PRN (21:47)
[2019-12-13] MEDS: Sodium Chloride 0.9% 1,000 ML IV SCH ×3 (01:10→10:47)
[2019-12-13] MEDS: Heparin Sodium 5,000 Units/ML Vial SUBCUT SCH ×2 (03:47→15:32)
[2019-12-13 03:55] VITALS: BP 130/75; PULSE 75
[2019-12-13 05:57] LABS: CARBON DIOXIDE,CO2 23.3 mmol/L (21.0-32.0); POTASSIUM,K 3.5 mmol/L (3.5-5.1)
[2019-12-13] MEDS: Pantoprazole 40 MG in Sodium Chloride 0.9% 10 ML IV SCH (06:20)
[2019-12-13] MEDS: Insulin Aspart 100 Units/ML 3 ML Pen SUBCUT SCH ×3 (08:07→18:04)
[2019-12-13] MEDS: Potassium Chloride 20 MEQ Tab.ER PO SCH ×2 (08:45→17:57)
[2019-12-13] MEDS: Nicotine 7 MG/24 Hr Patch TRDERM SCH (08:46)
[2019-12-13] MEDS ORDERED: Magnesium Sulfate/Water 2 GM in Premix Bag 1 BAG IV ONE (09:53)
[2019-12-13] MEDS ORDERED: Nicotine 14 MG/24 Hr Patch TRDERM SCH (10:00)
--- NOTE | 2019-12-13 10:48 | PCM.PN ---
<Lacey Mar - Last Filed: 12/13/19 10:43> - General Info Date of Service: 12/13/19 Subjective Update: Bedside: endorsing feeling beter and would like to go home. mentions pain imrproving and appetite returning. Functional Status: Reports: Pain Controlled - Review of Systems General: Denies: Fever, Fatigue HEENT: Reports: No Symptoms Pulmonary: Reports: No Symptoms Cardiovascular: Reports: No Symptoms Gastrointestinal: Denies: Abdominal Pain, Constipation, Decreased Appetite, Diarrhea Genitourinary: Reports: No Symptoms Musculoskeletal: Reports: No Symptoms Skin: Reports: No Symptoms Neurological: Reports: No Symptoms - Patient Data Vitals - Most Recent: Last Vital Signs Temp 97.7 F 12/13/19 03:53 Pulse 75 12/13/19 03:53 Resp 17 12/13/19 03:53 BP 130/75 12/13/19 03:53 Pulse Ox 96 12/13/19 03:53 Weight - Most Recent: 49.895 kg I&O - Last 24 Hours: Intake & Output 12/12/19 12/13/19 12/13/19 22:59 06:59 14:59 Intake Total 1292 250 Output Total 150 Balance 1292 100 Lab Results Last 24 Hours: Laboratory Results - last 24 hr 12/11/19 12/11/19 12/12/19 Range/Units 15:40 16:10 11:52 WBC (4.0-11.0) K/uL RBC (4.50-5.90) M/uL Hgb (13.0-17.0) g/dL Hct (38.0-50.0) % MCV (80.0-98.0) fL MCH (27.0-32.0) pg MCHC (31.0-37.0) g/dL RDW Std Deviation (28.0-62.0) fl RDW Coeff of Claudio (11.0-15.0) % Plt Count (150-400) K/uL MPV (7.40-12.00) fL Neut % (Auto) (48.0-80.0) % Lymph % (Auto) (16.0-40.0) % Caswell % (Auto) (0.0-15.0) % Eos % (Auto) (0.0-7.0) % Baso % (Auto) (0.0-1.5) % Neut # (Auto) (1.4-5.7) K/uL Lymph # (Auto) (0.6-2.4) K/uL Caswell # (Auto) (0.0-0.8) K/uL Eos # (Auto) (0.0-0.7) K/uL Baso # (Auto) (0.0-0.1) K/uL Nucleated RBC % /100WBC Nucleated RBCs # K/uL Sodium (136-148) mmol/L Potassium (3.5-5.1) mmol/L Chloride (98-107) mmol/L Carbon Dioxide (21.0-32.0) mmol/L BUN (7.0-18.0) mg/dL Creatinine (0.8-1.3) mg/dL Est Cr Clr Drug Dosing mL/min Estimated GFR (MDRD) ml/min Glucose (74-106) mg/dL POC Glucose 120 H (60-110) mg/dL Serum Osmolality 290 (275-295) mosm/kg Calcium (8.5-10.1) mg/dL Magnesium (1.8-2.4) mg/dL Total Bilirubin (0.2-1.0) mg/dL AST (15-37) IU/L ALT (14-63) IU/L Alkaline Phosphatase (46-116) U/L Total Protein (6.4-8.2) g/dL Albumin (3.4-5.0) g/dL Globulin (2.6-4.0) g/dL Albumin/Globulin Ratio (0.9-1.6) Urine Osmolality 432 (300-900) mosm/kg 12/12/19 12/12/19 12/13/19 Range/Units 15:32 17:56 05:12 WBC 13.46 H 14.29 H (4.0-11.0) K/uL RBC 3.80 L 3.66 L (4.50-5.90) M/uL Hgb 12.0 L 11.5 L (13.0-17.0) g/dL Hct 34.6 L 33.9 L (38.0-50.0) % MCV 91.1 92.6 (80.0-98.0) fL MCH 31.6 31.4 (27.0-32.0) pg MCHC 34.7 33.9 (31.0-37.0) g/dL RDW Std Deviation 41.6 42.4 (28.0-62.0) fl RDW Coeff of Claudio 13 12 (11.0-15.0) % Plt Count 335 341 (150-400) K/uL MPV 9.00 9.10 (7.40-12.00) fL Neut % (Auto) 70.3 76.2 (48.0-80.0) % Lymph % (Auto) 20.2 12.9 L (16.0-40.0) % Caswell % (Auto) 7.7 7.3 (0.0-15.0) % Eos % (Auto) 1.7 3.3 (0.0-7.0) % Baso % (Auto) 0.1 0.3 (0.0-1.5) % Neut # (Auto) 9.5 H 10.9 H (1.4-5.7) K/uL Lymph # (Auto) 2.7 H 1.8 (0.6-2.4) K/uL Caswell # (Auto) 1.0 H 1.1 H (0.0-0.8) K/uL Eos # (Auto) 0.2 0.5 (0.0-0.7) K/uL Baso # (Auto) 0.0 0.0 (0.0-0.1) K/uL Nucleated RBC % 0.0 0.0 /100WBC Nucleated RBCs # 0 0 K/uL Sodium (136-148) mmol/L Potassium (3.5-5.1) mmol/L Chloride (98-107) mmol/L Carbon Dioxide (21.0-32.0) mmol/L BUN (7.0-18.0) mg/dL Creatinine (0.8-1.3) mg/dL Est Cr Clr Drug Dosing mL/min Estimated GFR (MDRD) ml/min Glucose (74-106) mg/dL POC Glucose 74 (60-110) mg/dL Serum Osmolality (275-295) mosm/kg Calcium (8.5-10.1) mg/dL Magnesium (1.8-2.4) mg/dL Total Bilirubin (0.2-1.0) mg/dL AST (15-37) IU/L ALT (14-63) IU/L Alkaline Phosphatase (46-116) U/L Total Protein (6.4-8.2) g/dL Albumin (3.4-5.0) g/dL Globulin (2.6-4.0) g/dL Albumin/Globulin Ratio (0.9-1.6) Urine Osmolality (300-900) mosm/kg 12/13/19 12/13/19 12/13/19 Range/Units 05:12 05:12 06:23 WBC (4.0-11.0) K/uL RBC (4.50-5.90) M/uL Hgb (13.0-17.0) g/dL Hct (38.0-50.0) % MCV (80.0-98.0) fL MCH (27.0-32.0) pg MCHC (31.0-37.0) g/dL RDW Std Deviation (28.0-62.0) fl RDW Coeff of Claudio (11.0-15.0) % Plt Count (150-400) K/uL MPV (7.40-12.00) fL Neut % (Auto) (48.0-80.0) % Lymph % (Auto) (16.0-40.0) % Caswell % (Auto) (0.0-15.0) % Eos % (Auto) (0.0-7.0) % Baso % (Auto) (0.0-1.5) % Neut # (Auto) (1.4-5.7) K/uL Lymph # (Auto) (0.6-2.4) K/uL Caswell # (Auto) (0.0-0.8) K/uL Eos # (Auto) (0.0-0.7) K/uL Baso # (Auto) (0.0-0.1) K/uL Nucleated RBC % /100WBC Nucleated RBCs # K/uL Sodium 135 L (136-148) mmol/L Potassium 3.5 (3.5-5.1) mmol/L Chloride 98 (98-107) mmol/L Carbon Dioxide 23.3 (21.0-32.0) mmol/L BUN 45 H (7.0-18.0) mg/dL Creatinine 1.5 H (0.8-1.3) mg/dL Est Cr Clr Drug Dosing 36.96 mL/min Estimated GFR (MDRD) 47.7 ml/min Glucose 67 L (74-106) mg/dL POC Glucose 59 L (60-110) mg/dL Serum Osmolality (275-295) mosm/kg Calcium 7.7 L (8.5-10.1) mg/dL Magnesium 1.7 L (1.8-2.4) mg/dL Total Bilirubin 0.7 (0.2-1.0) mg/dL AST 22 (15-37) IU/L ALT 21 (14-63) IU/L Alkaline Phosphatase 87 (46-116) U/L Total Protein 6.1 L (6.4-8.2) g/dL Albumin 2.9 L (3.4-5.0) g/dL Globulin 3.2 (2.6-4.0) g/dL Albumin/Globulin Ratio 0.9 (0.9-1.6) Urine Osmolality (300-900) mosm/kg Cosme Results Last 24 Hours: Microbiology 12/11/19 12:50 Aerobic Blood Culture - Preliminary Blood - Venous - Lab Draw NO GROWTH AFTER 1 DAY Anaerobic Blood Culture - Preliminary NO GROWTH AFTER 1 DAY 12/11/19 12:40 Aerobic Blood Culture - Preliminary Blood - Venous NO GROWTH AFTER 1 DAY Anaerobic Blood Culture - Preliminary NO GROWTH AFTER 1 DAY Med Orders - Current: Current Medications Heparin Sodium (Porcine) (Heparin Sodium) 5,000 units SUBCUT Q12H [facility] Last Admin: 12/13/19 03:47 Dose: 5,000 units Hydromorphone HCl (Dilaudid) 1 mg IVPUSH Q4H PRN PRN Reason: Pain Last Admin: 12/12/19 08:38 Dose: 1 mg Pantoprazole Sodium 40 mg/ (Sodium Chloride) 10 mls @ 300 mls/hr IV Q24H [facility] Last Admin: 12/13/19 06:20 Dose: 300 mls/hr Sodium Chloride (Normal Saline) 1,000 mls @ 125 mls/hr IV Q8H [facility] Last Admin: 12/13/19 10:02 Dose: 125 mls/hr Magnesium Sulfate 2 gm/ Premix 50 mls @ 50 mls/hr IV ONETIME ONE Stop: 12/13/19 10:52 Last Admin: 12/13/19 10:20 Dose: 50 mls/hr Insulin Aspart (Novolog) 0 unit SUBCUT TIDAC [facility]; Protocol Last Admin: 12/13/19 08:07 Dose: Not Given Lorazepam (Ativan) 0 mg IVPUSH Q4H PRN; Protocol PRN Reason: Anxiety Last Admin: 12/11/19 22:11 Dose: 1 mg Lorazepam (Ativan) 1 mg IVPUSH Q6H PRN PRN Reason: anxiety/pain Nicotine (Habitrol) 14 mg TRDERM DAILY [facility] Last Admin: 12/13/19 10:20 Dose: 14 mg Potassium Chloride (Klor-Con M20) 40 meq PO BIDMEALS [facility] Last Admin: 12/13/19 08:45 Dose: 40 meq Sodium Chloride (Saline Flush) 10 ml FLUSH ASDIRECTED PRN PRN Reason: Keep Vein Open Last Admin: 12/11/19 12:34 Dose: 10 ml Sodium Chloride (Saline Flush) 2.5 ml FLUSH ASDIRECTED PRN PRN Reason: Keep Vein Open Last Admin: 12/11/19 12:34 Dose: 2.5 ml Trazodone HCl (Trazodone) 50 mg PO BEDTIME PRN PRN Reason: Insomnia Discontinued Medications Hydromorphone HCl (Dilaudid) 1 mg IVPUSH ONETIME ONE Stop: 12/11/19 12:41 Last Admin: 12/11/19 12:48 Dose: 1 mg Hydromorphone HCl (Dilaudid) 1 mg IVPUSH Q4H PRN PRN Reason: Pain Last Admin: 12/11/19 17:47 Dose: 1 mg Sodium Chloride (Normal Saline) 1,000 mls @ 999 mls/hr IV STAT ONE Stop: 12/11/19 13:20 Last Admin: 12/11/19 12:33 Dose: 999 mls/hr Potassium Chloride 40 meq/ (Premix) 100 mls @ 25 mls/hr IV ONETIME ONE Stop: 12/11/19 17:10 Last Admin: 12/11/19 14:02 Dose: 25 mls/hr Sodium Chloride (Normal Saline) 1,000 mls @ 250 drops/hr IV STAT STA Stop: 12/14/19 01:12 Last Admin: 12/11/19 14:02 Dose: 250 drops/hr Sodium Chloride (Normal Saline) 1,000 mls @ 75 mls/hr IV NOW STA Stop: 12/12/19 06:24 Last Admin: 12/11/19 19:26 Dose: 75 mls/hr Sodium Chloride (Normal Saline) 1,000 mls @ 75 mls/hr IV ASDIRECTED [facility] Last Infusion: 12/12/19 10:49 Dose: 125 mls/hr Lorazepam (Ativan) 0.5 mg IVPUSH ONETIME ONE Stop: 12/11/19 14:06 Last Admin: 12/11/19 14:08 Dose: 0.5 mg Nicotine (Habitrol) 7 mg TRDERM DAILY [facility] Last Admin: 12/13/19 08:46 Dose: 7 mg Omeprazole (Omeprazole) 20 mg PO BIDAC [facility] Last Admin: 12/11/19 17:20 Dose: 20 mg Ondansetron HCl (Zofran) 4 mg IVPUSH ONETIME ONE Stop: 12/11/19 12:21 Last Admin: 12/11/19 12:34 Dose: 4 mg - Exam General: Alert, Oriented HEENT: EOMI Neck: Supple Lungs: Clear to Auscultation, Normal Respiratory Effort Cardiovascular: Regular Rate, Regular Rhythm GI/Abdominal Exam: Soft, Other (minimal tenderness; no rebound tenderness; improvemnt from yesterday examination ) Extremities: Normal Inspection Skin: Warm, Dry Neurological: No New Focal Deficit Psy/Mental Status: Alert, Normal Affect, Normal Mood Sepsis Event Note - Evaluation Sepsis Screening Result: No Definite Risk - Focused Exam Vital Signs: Vital Signs Temp Pulse Resp BP Pulse Ox 12/13/19 03:53 97.7 F 75 17 130/75 96 12/13/19 00:00 98.8 F 87 18 126/77 95 Date Exam was Performed: 12/13/19 Time Exam was Performed: 10:43 - Problem List Review Problem List Initiated/Reviewed/Updated: Yes - My Orders Last 24 Hours: My Active Orders 12/13/19 17:00 CBC WITH AUTO DIFF [HEME] Routine COMPREHENSIVE METABOLIC PN,CMP [CHEM] Routine 12/13/19 Breakfast Soft Diet [DIET] 12/14/19 05:11 COMPREHENSIVE METABOLIC PN,CMP [CHEM] AM 12/14/19 15:28 CBC WITH AUTO DIFF [HEME] DAILY 12/15/19 05:11 COMPREHENSIVE METABOLIC PN,CMP [CHEM] AM - Plan Plan:: Assessment 1. Abdominal pain in the setting of acute on chronic pancreatitis improving 2. Moderate dehydration improving 3. Leukocytosis: 4. Hyponatremia in the setting of dehydration: Resolved 5. Hypokalemia: resolved 6. Acute on chronic kidney injury with elevated creatinine 7. Past medical history: Type 2 diabetes, hypertension and medical non- compliance. 8. Retroperitoneal lymphadenopathy 9. Hypomagnesemia: given 2 grams of IV mg. today; Plan. Admit to inpatient. Full code. N.p.o. Up ad humza. Telemetry. 1. Elevated lipase in setting of acute on chronic pancreatitis: Pain control, Dilaudid; will also add on Ativan PRN to supplement pain will avoid nephrotoxic agents secondary to RISHABH; will start patient on Tylenol PRN. Calcifications noted on CT abdomen pelvis showed calcifications but no obstruction (poorly visualized secondary to non-contrast imaging); continue to monitor clinically. RISHABH: repeat labs in AM post-fluid resuscitation. 2. Hyponatremia; resolved rechecks BMP this afternoon after receiving 2 L of 0.9% normal saline in ED; will aim for slow sodium correction; will reassess after repeat BMP this afternoon. pt. is mentating well; no signs or history of seizure/AMS ataxia etc. Hyponatremia much improved from second BMP : continue rehydration with Sips and chips as well Urine studies ordered: most likely hypovolemic hyponatremia; clinically volume down; free water deficits >1 L Hypokalemia: given 40 KCL BID today; recheck tomorrow in AM EKG: prolonged QTc in setting of dehydration, hypokalemia, and recent use of ondansetron; will continue to trend troponin x 3 q 6 hours/ACS r/o 3. Leukocytosis: minimal increase from yesterday; does not appear toxic at this time. most likely secondary to dehydration; will follow up with CT abdomen pelvis and urine and blood cultures.: marginal improvement from yesterday Lactate of 1.5 Urine and blood culture ordered ; will treat accordingly. afebrile. Improving from yesterday but will keep a watchful eye for any clinical deterioration COVID negative 4. PMH: DM Sliding scale : low dose; recheck A1c. accuchecks TID. 5. Pt. requesting discharge from hospital due to feeling better; explained to patient that WBC is still marginally elevated w. low magnesium; will replete magnesium and recheck CBC and CMP this afternoon; if improving and clinically stable will consider dc.; mentions he needs to leave to work at latest in AM; Advised pt. that I cannot guarantee discharge and that discharge requires both clinical and lab improvement. pt understood and agreed. <Jose EliasFrancis Pradip - Last Filed: 12/15/19 19:10> - Patient Data Vitals - Most Recent: Last Vital Signs Temp 36.5 C 12/13/19 03:53 Pulse 75 12/13/19 03:53 Resp 17 12/13/19 03:53 BP 130/75 12/13/19 03:53 Pulse Ox 96 12/13/19 03:53 Cosme Results Last 24 Hours: Microbiology 12/11/19 12:50 Aerobic Blood Culture - Preliminary Blood - Venous - Lab Draw NO GROWTH AFTER 4 DAYS Anaerobic Blood Culture - Preliminary NO GROWTH AFTER 4 DAYS 12/11/19 12:40 Aerobic Blood Culture - Preliminary Blood - Venous NO GROWTH AFTER 4 DAYS Anaerobic Blood Culture - Preliminary NO GROWTH AFTER 4 DAYS Med Orders - Current: Current Medications Discontinued Medications Guaifenesin (Mucinex) 600 mg PO ONETIME ONE Stop: 12/13/19 15:08 Last Admin: 12/13/19 15:32 Dose: 600 mg Heparin Sodium (Porcine) (Heparin Sodium) 5,000 units SUBCUT Q12H KATHRYN Last Admin: 12/13/19 15:32 Dose: 5,000 units Hydromorphone HCl (Dilaudid) 1 mg IVPUSH ONETIME ONE Stop: 12/11/19 12:41 Last Admin: 12/11/19 12:48 Dose: 1 mg Hydromorphone HCl (Dilaudid) 1 mg IVPUSH Q4H PRN PRN Reason: Pain Last Admin: 12/11/19 17:47 Dose: 1 mg Hydromorphone HCl (Dilaudid) 1 mg IVPUSH Q4H PRN PRN Reason: Pain Last Admin: 12/12/19 08:38 Dose: 1 mg Sodium Chloride (Normal Saline) 1,000 mls @ 999 mls/hr IV STAT ONE Stop: 12/11/19 13:20 Last Admin: 12/11/19 12:33 Dose: 999 mls/hr Potassium Chloride 40 meq/ (Premix) 100 mls @ 25 mls/hr IV ONETIME ONE Stop: 12/11/19 17:10 Last Admin: 12/11/19 14:02 Dose: 25 mls/hr Sodium Chloride (Normal Saline) 1,000 mls @ 250 drops/hr IV STAT STA Stop: 12/14/19 01:12 Last Admin: 12/11/19 14:02 Dose: 250 drops/hr Sodium Chloride (Normal Saline) 1,000 mls @ 75 mls/hr IV NOW STA Stop: 12/12/19 06:24 Last Admin: 12/11/19 19:26 Dose: 75 mls/hr Pantoprazole Sodium 40 mg/ (Sodium Chloride) 10 mls @ 300 mls/hr IV Q24H K[facility] Last Admin: 12/13/19 06:20 Dose: 300 mls/hr Sodium Chloride (Normal Saline) 1,000 mls @ 75 mls/hr IV ASDIRECTED [facility] Last Infusion: 12/12/19 10:49 Dose: 125 mls/hr Sodium Chloride (Normal Saline) 1,000 mls @ 125 mls/hr IV Q8H [facility] Last Admin: 12/13/19 10:47 Dose: Not Given Magnesium Sulfate 2 gm/ Premix 50 mls @ 50 mls/hr IV ONETIME ONE Stop: 12/13/19 10:52 Last Admin: 12/13/19 10:20 Dose: 50 mls/hr Insulin Aspart (Novolog) 0 unit SUBCUT TIDAC [facility]; Protocol Last Admin: 12/13/19 18:04 Dose: 4 unit Lorazepam (Ativan) 0.5 mg IVPUSH ONETIME ONE Stop: 12/11/19 14:06 Last Admin: 12/11/19 14:08 Dose: 0.5 mg Lorazepam (Ativan) 0 mg IVPUSH Q4H PRN; Protocol PRN Reason: Anxiety Last Admin: 12/11/19 22:11 Dose: 1 mg Lorazepam (Ativan) 1 mg IVPUSH Q6H PRN PRN Reason: anxiety/pain Nicotine (Habitrol) 7 mg TRDERM DAILY [facility] Last Admin: 12/13/19 08:46 Dose: 7 mg Nicotine (Habitrol) 14 mg TRDERM DAILY [facility] Last Admin: 12/13/19 10:20 Dose: 14 mg Omeprazole (Omeprazole) 20 mg PO BIDAC [facility] Last Admin: 12/11/19 17:20 Dose: 20 mg Ondansetron HCl (Zofran) 4 mg IVPUSH ONETIME ONE Stop: 12/11/19 12:21 Last Admin: 12/11/19 12:34 Dose: 4 mg Potassium Chloride (Klor-Con M20) 40 meq PO BIDMEALS KATHRYN Last Admin: 12/13/19 17:57 Dose: 40 meq Sodium Chloride (Saline Flush) 10 ml FLUSH ASDIRECTED PRN PRN Reason: Keep Vein Open Last Admin: 12/11/19 12:34 Dose: 10 ml Sodium Chloride (Saline Flush) 2.5 ml FLUSH ASDIRECTED PRN PRN Reason: Keep Vein Open Last Admin: 12/11/19 12:34 Dose: 2.5 ml Trazodone HCl (Trazodone) 50 mg PO BEDTIME PRN PRN Reason: Insomnia - Free Text/Narrative Note: I have seen and evaluated the patient with the resident. I have discussed findings and treatment plan with resident. I agree with the assessment and plan as outlined in the following note.
[2019-12-13] MEDS ORDERED: guaiFENesin 600 MG Tab.ER PO ONE (15:07)
[2019-12-13 17:32] LABS: CARBON DIOXIDE,CO2 28.1 mmol/L (21.0-32.0); POTASSIUM,K 4.4 mmol/L (3.5-5.1)
--- NOTE | 2019-12-13 17:47 | PCM.DCSUM1 ---
<Lacey Mar - Last Filed: 12/14/19 18:39> Discharge Summary - Hospital Course Free Text/Narrative:: Discharge summary Hospital course: She is a 59-year-old male with a significant past medical history of chronic pancreatitis, previous history of tobacco abuse, uncontrolled diabetes; presenting to hospital via ED secondary to worsening dehydration. Patient mentions for the past month having increasing nausea and nonbilious vomiting and presented to the ED because he was concerned about his fluid status. Patient on arrival was found to have a marginally elevated white count, hyponatremia of 124, acute kidney injury and hypomagnesemia. Patient received 2 L bolus in ED with subsequent repletion of electrolytes. Patient throughout this time however did not have any signs of ataxia, altered mental status. Patient was admitted for acute on chronic pancreatitis and mild to moderate dehydration. Throughout stay patient was made n.p.o. with subsequent advancement of diet; which patient had improved and tolerated. Patient was also repleted with potassium and magnesium throughout his stay. CT abdomen pelvis did show chronic calcifications of body and tail however no acute signs of cyst formation. Pain was controlled with Dilaudid and Ativan. On day of discharge white count had resolved, electrolytes were repleted and were not out of range. Advised patient to avoid all forms of tobacco and alcohol as patient does have a chronic pancreatitis at baseline. Once he of 7.3 suggesting uncontrolled diabetes; patient states that he has not been able to take his medication secondary to nausea vomiting. On discharge patient was given Zofran for acute episodes of nausea and or vomiting. Patient was advised to follow-up primary care after discharge. Discharge condition:stable Disposition:ho Follow-up:PCP - Discharge Data Discharge Date: 12/13/19 Discharge Disposition: Home, Self-Care 01 Condition: Fair - Referral to Home Health Primary Care Physician: PCP None - Patient Instructions Diet: Drink 8-10+ Glasses/Day, No Alcoholic Beverages, Diabetic Diet, GI Soft/ Low Residue/Low Fiber Showering/Bathing: November Shower Notify Provider of: Fever, Increased Pain, Nausea and/or Vomiting - Discharge Plan *PRESCRIPTION DRUG MONITORING PROGRAM REVIEWED*: No *COPY OF PRESCRIPTION DRUG MONITORING REPORT IN PATIENT KASEY: No Prescriptions/Med Rec: Ondansetron [Zofran ODT] 4 mg PO Q6H PRN 3 Days #12 tab.dis PRN Reason: Nausea/Vomiting Home Medications: Home Meds Lisinopril 10 mg PO BEDTIME 10/07/16 [History] atorvaSTATin [Lipitor] 20 mg PO BEDTIME 10/07/16 [History] metFORMIN [Glucophage] 500 mg PO BIDMEALS 10/07/16 [History] Aspirin 81 mg PO BEDTIME 04/25/19 [History] Psyllium Husk [Psyllium Fiber] 5 cap PO DAILY 04/25/19 [History] diphenhydrAMINE HCL [Benadryl] 50 mg PO BEDTIME 04/25/19 [History] Ondansetron [Zofran ODT] 4 mg PO Q6H PRN 3 Days #12 tab.dis 12/13/19 [Rx] Oxygen Therapy Mode: Room Air Patient Handouts: Acute Kidney Injury, Adult, Ondansetron tablets, Chronic Pancreatitis, Pancreatitis Eating Plan Referrals: Jose Angel Shrestha MD [Physician] - 12/19/19 2:00 pm - Discharge Summary/Plan Comment DC Time >30 min.: No - Patient Data Vitals - Most Recent: Last Vital Signs Temp 97.7 F 12/13/19 03:53 Pulse 75 12/13/19 03:53 Resp 17 12/13/19 03:53 BP 130/75 12/13/19 03:53 Pulse Ox 96 12/13/19 03:53 Weight - Most Recent: 49.895 kg I&O - Last 24 hours: Intake & Output 12/13/19 12/13/19 12/13/19 06:59 14:59 22:59 Intake Total 250 Output Total 150 Balance 100 Lab Results - Last 24 hrs: Laboratory Results - last 24 hr 12/11/19 12/11/19 12/12/19 Range/Units 15:40 16:10 17:56 WBC (4.0-11.0) K/uL RBC (4.50-5.90) M/uL Hgb (13.0-17.0) g/dL Hct (38.0-50.0) % MCV (80.0-98.0) fL MCH (27.0-32.0) pg MCHC (31.0-37.0) g/dL RDW Std Deviation (28.0-62.0) fl RDW Coeff of Claudio (11.0-15.0) % Plt Count (150-400) K/uL MPV (7.40-12.00) fL Neut % (Auto) (48.0-80.0) % Lymph % (Auto) (16.0-40.0) % Cloud % (Auto) (0.0-15.0) % Eos % (Auto) (0.0-7.0) % Baso % (Auto) (0.0-1.5) % Neut # (Auto) (1.4-5.7) K/uL Lymph # (Auto) (0.6-2.4) K/uL Cloud # (Auto) (0.0-0.8) K/uL Eos # (Auto) (0.0-0.7) K/uL Baso # (Auto) (0.0-0.1) K/uL Nucleated RBC % /100WBC Nucleated RBCs # K/uL Sodium (136-148) mmol/L Potassium (3.5-5.1) mmol/L Chloride (98-107) mmol/L Carbon Dioxide (21.0-32.0) mmol/L BUN (7.0-18.0) mg/dL Creatinine (0.8-1.3) mg/dL Est Cr Clr Drug Dosing mL/min Estimated GFR (MDRD) ml/min Glucose (74-106) mg/dL POC Glucose 74 (60-110) mg/dL Serum Osmolality 290 (275-295) mosm/kg Calcium (8.5-10.1) mg/dL Magnesium (1.8-2.4) mg/dL Total Bilirubin (0.2-1.0) mg/dL AST (15-37) IU/L ALT (14-63) IU/L Alkaline Phosphatase (46-116) U/L Total Protein (6.4-8.2) g/dL Albumin (3.4-5.0) g/dL Globulin (2.6-4.0) g/dL Albumin/Globulin Ratio (0.9-1.6) Urine Osmolality 432 (300-900) mosm/kg 12/13/19 12/13/19 12/13/19 Range/Units 05:12 05:12 05:12 WBC 14.29 H (4.0-11.0) K/uL RBC 3.66 L (4.50-5.90) M/uL Hgb 11.5 L (13.0-17.0) g/dL Hct 33.9 L (38.0-50.0) % MCV 92.6 (80.0-98.0) fL MCH 31.4 (27.0-32.0) pg MCHC 33.9 (31.0-37.0) g/dL RDW Std Deviation 42.4 (28.0-62.0) fl RDW Coeff of Claudio 12 (11.0-15.0) % Plt Count 341 (150-400) K/uL MPV 9.10 (7.40-12.00) fL Neut % (Auto) 76.2 (48.0-80.0) % Lymph % (Auto) 12.9 L (16.0-40.0) % Cloud % (Auto) 7.3 (0.0-15.0) % Eos % (Auto) 3.3 (0.0-7.0) % Baso % (Auto) 0.3 (0.0-1.5) % Neut # (Auto) 10.9 H (1.4-5.7) K/uL Lymph # (Auto) 1.8 (0.6-2.4) K/uL Cloud # (Auto) 1.1 H (0.0-0.8) K/uL Eos # (Auto) 0.5 (0.0-0.7) K/uL Baso # (Auto) 0.0 (0.0-0.1) K/uL Nucleated RBC % 0.0 /100WBC Nucleated RBCs # 0 K/uL Sodium 135 L (136-148) mmol/L Potassium 3.5 (3.5-5.1) mmol/L Chloride 98 (98-107) mmol/L Carbon Dioxide 23.3 (21.0-32.0) mmol/L BUN 45 H (7.0-18.0) mg/dL Creatinine 1.5 H (0.8-1.3) mg/dL Est Cr Clr Drug Dosing 36.96 mL/min Estimated GFR (MDRD) 47.7 ml/min Glucose 67 L (74-106) mg/dL POC Glucose (60-110) mg/dL Serum Osmolality (275-295) mosm/kg Calcium 7.7 L (8.5-10.1) mg/dL Magnesium 1.7 L (1.8-2.4) mg/dL Total Bilirubin 0.7 (0.2-1.0) mg/dL AST 22 (15-37) IU/L ALT 21 (14-63) IU/L Alkaline Phosphatase 87 (46-116) U/L Total Protein 6.1 L (6.4-8.2) g/dL Albumin 2.9 L (3.4-5.0) g/dL Globulin 3.2 (2.6-4.0) g/dL Albumin/Globulin Ratio 0.9 (0.9-1.6) Urine Osmolality (300-900) mosm/kg 12/13/19 12/13/19 12/13/19 Range/Units 06:23 07:26 12:07 WBC (4.0-11.0) K/uL RBC (4.50-5.90) M/uL Hgb (13.0-17.0) g/dL Hct (38.0-50.0) % MCV (80.0-98.0) fL MCH (27.0-32.0) pg MCHC (31.0-37.0) g/dL RDW Std Deviation (28.0-62.0) fl RDW Coeff of Claudio (11.0-15.0) % Plt Count (150-400) K/uL MPV (7.40-12.00) fL Neut % (Auto) (48.0-80.0) % Lymph % (Auto) (16.0-40.0) % Cloud % (Auto) (0.0-15.0) % Eos % (Auto) (0.0-7.0) % Baso % (Auto) (0.0-1.5) % Neut # (Auto) (1.4-5.7) K/uL Lymph # (Auto) (0.6-2.4) K/uL Cloud # (Auto) (0.0-0.8) K/uL Eos # (Auto) (0.0-0.7) K/uL Baso # (Auto) (0.0-0.1) K/uL Nucleated RBC % /100WBC Nucleated RBCs # K/uL Sodium (136-148) mmol/L Potassium (3.5-5.1) mmol/L Chloride (98-107) mmol/L Carbon Dioxide (21.0-32.0) mmol/L BUN (7.0-18.0) mg/dL Creatinine (0.8-1.3) mg/dL Est Cr Clr Drug Dosing mL/min Estimated GFR (MDRD) ml/min Glucose (74-106) mg/dL POC Glucose 59 L 148 H 394 H (60-110) mg/dL Serum Osmolality (275-295) mosm/kg Calcium (8.5-10.1) mg/dL Magnesium (1.8-2.4) mg/dL Total Bilirubin (0.2-1.0) mg/dL AST (15-37) IU/L ALT (14-63) IU/L Alkaline Phosphatase (46-116) U/L Total Protein (6.4-8.2) g/dL Albumin (3.4-5.0) g/dL Globulin (2.6-4.0) g/dL Albumin/Globulin Ratio (0.9-1.6) Urine Osmolality (300-900) mosm/kg 12/13/19 12/13/19 Range/Units 17:02 17:02 WBC 11.38 H (4.0-11.0) K/uL RBC 3.44 L (4.50-5.90) M/uL Hgb 10.9 L (13.0-17.0) g/dL Hct 31.5 L (38.0-50.0) % MCV 91.6 (80.0-98.0) fL MCH 31.7 (27.0-32.0) pg MCHC 34.6 (31.0-37.0) g/dL RDW Std Deviation 41.9 (28.0-62.0) fl RDW Coeff of Claudio 12 (11.0-15.0) % Plt Count 312 (150-400) K/uL MPV 9.00 (7.40-12.00) fL Neut % (Auto) 67.6 (48.0-80.0) % Lymph % (Auto) 17.0 (16.0-40.0) % Cloud % (Auto) 11.2 (0.0-15.0) % Eos % (Auto) 3.9 (0.0-7.0) % Baso % (Auto) 0.3 (0.0-1.5) % Neut # (Auto) 7.7 H (1.4-5.7) K/uL Lymph # (Auto) 1.9 (0.6-2.4) K/uL Cloud # (Auto) 1.3 H (0.0-0.8) K/uL Eos # (Auto) 0.4 (0.0-0.7) K/uL Baso # (Auto) 0.0 (0.0-0.1) K/uL Nucleated RBC % 0.0 /100WBC Nucleated RBCs # 0 K/uL Sodium 132 L (136-148) mmol/L Potassium 4.4 (3.5-5.1) mmol/L Chloride 97 L (98-107) mmol/L Carbon Dioxide 28.1 (21.0-32.0) mmol/L BUN 40 H (7.0-18.0) mg/dL Creatinine 1.6 H (0.8-1.3) mg/dL Est Cr Clr Drug Dosing 34.65 mL/min Estimated GFR (MDRD) 44.3 ml/min Glucose 319 H (74-106) mg/dL POC Glucose (60-110) mg/dL Serum Osmolality (275-295) mosm/kg Calcium 7.5 L (8.5-10.1) mg/dL Magnesium (1.8-2.4) mg/dL Total Bilirubin 0.2 (0.2-1.0) mg/dL AST 19 (15-37) IU/L ALT 21 (14-63) IU/L Alkaline Phosphatase 84 (46-116) U/L Total Protein 5.9 L (6.4-8.2) g/dL Albumin 2.7 L (3.4-5.0) g/dL Globulin 3.2 (2.6-4.0) g/dL Albumin/Globulin Ratio 0.8 L (0.9-1.6) Urine Osmolality (300-900) mosm/kg AURELIANO Results - Last 24 hrs: Microbiology 12/11/19 12:50 Aerobic Blood Culture - Preliminary Blood - Venous - Lab Draw NO GROWTH AFTER 2 DAYS Anaerobic Blood Culture - Preliminary NO GROWTH AFTER 2 DAYS 12/11/19 12:40 Aerobic Blood Culture - Preliminary Blood - Venous NO GROWTH AFTER 2 DAYS Anaerobic Blood Culture - Preliminary NO GROWTH AFTER 2 DAYS Med Orders - Current: Current Medications Heparin Sodium (Porcine) (Heparin Sodium) 5,000 units SUBCUT Q12H [facility] Last Admin: 12/13/19 15:32 Dose: 5,000 units Hydromorphone HCl (Dilaudid) 1 mg IVPUSH Q4H PRN PRN Reason: Pain Last Admin: 12/12/19 08:38 Dose: 1 mg Pantoprazole Sodium 40 mg/ (Sodium Chloride) 10 mls @ 300 mls/hr IV Q24H [facility] Last Admin: 12/13/19 06:20 Dose: 300 mls/hr Sodium Chloride (Normal Saline) 1,000 mls @ 125 mls/hr IV Q8H [facility] Last Admin: 12/13/19 10:47 Dose: Not Given Insulin Aspart (Novolog) 0 unit SUBCUT TIDAC [facility]; Protocol Last Admin: 12/13/19 12:12 Dose: 5 unit Lorazepam (Ativan) 0 mg IVPUSH Q4H PRN; Protocol PRN Reason: Anxiety Last Admin: 12/11/19 22:11 Dose: 1 mg Lorazepam (Ativan) 1 mg IVPUSH Q6H PRN PRN Reason: anxiety/pain Nicotine (Habitrol) 14 mg TRDERM DAILY [facility] Last Admin: 12/13/19 10:20 Dose: 14 mg Potassium Chloride (Klor-Con M20) 40 meq PO BIDMEALS [facility] Last Admin: 12/13/19 08:45 Dose: 40 meq Sodium Chloride (Saline Flush) 10 ml FLUSH ASDIRECTED PRN PRN Reason: Keep Vein Open Last Admin: 12/11/19 12:34 Dose: 10 ml Sodium Chloride (Saline Flush) 2.5 ml FLUSH ASDIRECTED PRN PRN Reason: Keep Vein Open Last Admin: 12/11/19 12:34 Dose: 2.5 ml Trazodone HCl (Trazodone) 50 mg PO BEDTIME PRN PRN Reason: Insomnia Discontinued Medications Guaifenesin (Mucinex) 600 mg PO ONETIME ONE Stop: 12/13/19 15:08 Last Admin: 12/13/19 15:32 Dose: 600 mg Hydromorphone HCl (Dilaudid) 1 mg IVPUSH ONETIME ONE Stop: 12/11/19 12:41 Last Admin: 12/11/19 12:48 Dose: 1 mg Hydromorphone HCl (Dilaudid) 1 mg IVPUSH Q4H PRN PRN Reason: Pain Last Admin: 12/11/19 17:47 Dose: 1 mg Sodium Chloride (Normal Saline) 1,000 mls @ 999 mls/hr IV STAT ONE Stop: 12/11/19 13:20 Last Admin: 12/11/19 12:33 Dose: 999 mls/hr Potassium Chloride 40 meq/ (Premix) 100 mls @ 25 mls/hr IV ONETIME ONE Stop: 12/11/19 17:10 Last Admin: 12/11/19 14:02 Dose: 25 mls/hr Sodium Chloride (Normal Saline) 1,000 mls @ 250 drops/hr IV STAT STA Stop: 12/14/19 01:12 Last Admin: 12/11/19 14:02 Dose: 250 drops/hr Sodium Chloride (Normal Saline) 1,000 mls @ 75 mls/hr IV NOW STA Stop: 12/12/19 06:24 Last Admin: 12/11/19 19:26 Dose: 75 mls/hr Sodium Chloride (Normal Saline) 1,000 mls @ 75 mls/hr IV ASDIRECTED [facility] Last Infusion: 12/12/19 10:49 Dose: 125 mls/hr Magnesium Sulfate 2 gm/ Premix 50 mls @ 50 mls/hr IV ONETIME ONE Stop: 12/13/19 10:52 Last Admin: 12/13/19 10:20 Dose: 50 mls/hr Lorazepam (Ativan) 0.5 mg IVPUSH ONETIME ONE Stop: 12/11/19 14:06 Last Admin: 12/11/19 14:08 Dose: 0.5 mg Nicotine (Habitrol) 7 mg TRDERM DAILY [facility] Last Admin: 12/13/19 08:46 Dose: 7 mg Omeprazole (Omeprazole) 20 mg PO BIDAC [facility] Last Admin: 12/11/19 17:20 Dose: 20 mg Ondansetron HCl (Zofran) 4 mg IVPUSH ONETIME ONE Stop: 12/11/19 12:21 Last Admin: 12/11/19 12:34 Dose: 4 mg Francis Lara - Last Filed: 12/15/19 19:16> Discharge Summary - Referral to Home Health Primary Care Physician: PCP None - Patient Data Vitals - Most Recent: Last Vital Signs Temp 36.5 C 12/13/19 03:53 Pulse 75 12/13/19 03:53 Resp 17 12/13/19 03:53 BP 130/75 12/13/19 03:53 Pulse Ox 96 12/13/19 03:53 AURELIANO Results - Last 24 hrs: Microbiology 12/11/19 12:50 Aerobic Blood Culture - Preliminary Blood - Venous - Lab Draw NO GROWTH AFTER 4 DAYS Anaerobic Blood Culture - Preliminary NO GROWTH AFTER 4 DAYS 12/11/19 12:40 Aerobic Blood Culture - Preliminary Blood - Venous NO GROWTH AFTER 4 DAYS Anaerobic Blood Culture - Preliminary NO GROWTH AFTER 4 DAYS Med Orders - Current: Current Medications Discontinued Medications Guaifenesin (Mucinex) 600 mg PO ONETIME ONE Stop: 12/13/19 15:08 Last Admin: 12/13/19 15:32 Dose: 600 mg Heparin Sodium (Porcine) (Heparin Sodium) 5,000 units SUBCUT Q12H KATHRYN Last Admin: 12/13/19 15:32 Dose: 5,000 units Hydromorphone HCl (Dilaudid) 1 mg IVPUSH ONETIME ONE Stop: 12/11/19 12:41 Last Admin: 12/11/19 12:48 Dose: 1 mg Hydromorphone HCl (Dilaudid) 1 mg IVPUSH Q4H PRN PRN Reason: Pain Last Admin: 12/11/19 17:47 Dose: 1 mg Hydromorphone HCl (Dilaudid) 1 mg IVPUSH Q4H PRN PRN Reason: Pain Last Admin: 12/12/19 08:38 Dose: 1 mg Sodium Chloride (Normal Saline) 1,000 mls @ 999 mls/hr IV STAT ONE Stop: 12/11/19 13:20 Last Admin: 12/11/19 12:33 Dose: 999 mls/hr Potassium Chloride 40 meq/ (Premix) 100 mls @ 25 mls/hr IV ONETIME ONE Stop: 12/11/19 17:10 Last Admin: 12/11/19 14:02 Dose: 25 mls/hr Sodium Chloride (Normal Saline) 1,000 mls @ 250 drops/hr IV STAT STA Stop: 12/14/19 01:12 Last Admin: 12/11/19 14:02 Dose: 250 drops/hr Sodium Chloride (Normal Saline) 1,000 mls @ 75 mls/hr IV NOW STA Stop: 12/12/19 06:24 Last Admin: 12/11/19 19:26 Dose: 75 mls/hr Pantoprazole Sodium 40 mg/ (Sodium Chloride) 10 mls @ 300 mls/hr IV Q24H KATHRYN Last Admin: 12/13/19 06:20 Dose: 300 mls/hr Sodium Chloride (Normal Saline) 1,000 mls @ 75 mls/hr IV ASDIRECTED [facility] Last Infusion: 12/12/19 10:49 Dose: 125 mls/hr Sodium Chloride (Normal Saline) 1,000 mls @ 125 mls/hr IV Q8H KATHRYN Last Admin: 12/13/19 10:47 Dose: Not Given Magnesium Sulfate 2 gm/ Premix 50 mls @ 50 mls/hr IV ONETIME ONE Stop: 12/13/19 10:52 Last Admin: 12/13/19 10:20 Dose: 50 mls/hr Insulin Aspart (Novolog) 0 unit SUBCUT TIDAC [facility]; Protocol Last Admin: 12/13/19 18:04 Dose: 4 unit Lorazepam (Ativan) 0.5 mg IVPUSH ONETIME ONE Stop: 12/11/19 14:06 Last Admin: 12/11/19 14:08 Dose: 0.5 mg Lorazepam (Ativan) 0 mg IVPUSH Q4H PRN; Protocol PRN Reason: Anxiety Last Admin: 12/11/19 22:11 Dose: 1 mg Lorazepam (Ativan) 1 mg IVPUSH Q6H PRN PRN Reason: anxiety/pain Nicotine (Habitrol) 7 mg TRDERM DAILY [facility] Last Admin: 12/13/19 08:46 Dose: 7 mg Nicotine (Habitrol) 14 mg TRDERM DAILY [facility] Last Admin: 12/13/19 10:20 Dose: 14 mg Omeprazole (Omeprazole) 20 mg PO BIDAC [facility] Last Admin: 12/11/19 17:20 Dose: 20 mg Ondansetron HCl (Zofran) 4 mg IVPUSH ONETIME ONE Stop: 12/11/19 12:21 Last Admin: 12/11/19 12:34 Dose: 4 mg Potassium Chloride (Klor-Con M20) 40 meq PO BIDMEALS KATRHYN Last Admin: 12/13/19 17:57 Dose: 40 meq Sodium Chloride (Saline Flush) 10 ml FLUSH ASDIRECTED PRN PRN Reason: Keep Vein Open Last Admin: 12/11/19 12:34 Dose: 10 ml Sodium Chloride (Saline Flush) 2.5 ml FLUSH ASDIRECTED PRN PRN Reason: Keep Vein Open Last Admin: 12/11/19 12:34 Dose: 2.5 ml Trazodone HCl (Trazodone) 50 mg PO BEDTIME PRN PRN Reason: Insomnia - Free Text/Narrative Note: I have seen and evaluated the patient with the resident. I have discussed findings and treatment plan with resident. I agree with the assessment and plan as outlined in the following note.
== END 2019-12-13 19:40 | disposition home or self-care (01) | DRG 682 ==
LOC: MW.ED 12:14 → MW.MS 14:01
PROVIDERS: ADMIT Student in an Organized Health Care Education/Training Program; ATTEND Student in an Organized Health Care Education/Training Program
DX: N17.9 Acute kidney failure, unspecified (principal); K85.90 Acute pancreatitis without necrosis or infection, unspecified; K86.1 Other chronic pancreatitis; E87.1 Hypo-osmolality and hyponatremia; E86.0 Dehydration; Z20.828 Contact with and (suspected) exposure to other viral communicable diseases; N18.9 Chronic kidney disease, unspecified; R59.0 Localized enlarged lymph nodes; E11.22 Type 2 diabetes mellitus with diabetic chronic kidney disease; E87.6 Hypokalemia; E83.42 Hypomagnesemia; I12.9 Hypertensive chronic kidney disease with stage 1 through stage 4 chronic kidney disease, or unspecified chronic kidney disease; E78.00 Pure hypercholesterolemia, unspecified; J44.9 Chronic obstructive pulmonary disease, unspecified; F17.200 Nicotine dependence, unspecified, uncomplicated; R94.31 Abnormal electrocardiogram [ECG] [EKG]; E11.65 Type 2 diabetes mellitus with hyperglycemia; Z91.19 Patient's noncompliance with other medical treatment and regimen; Z79.84 Long term (current) use of oral hypoglycemic drugs; Z79.899 Other long term (current) drug therapy
CPT/HCPCS: 36415; 71045; 71045-26; 74176; 74176-26; 80048; 80053; 80305-QW; 80307; 81001; 82436; 82962; 83036; 83605; 83690; 83735; 83930; 83935; 84100; 84133; 84300; 84484; 85025; 85610; 87040; 93005; 96361; 96374; 96375; 99285; 99285-25; A9270-GY; C9113; J1170; J1644; J1815-GY; J2060; J2405; J3475; J3480; J7030; J7050; U0002

== ENCOUNTER 2020-03-26 12:10 | Inpatient (IN) | payer MEDICAID ==
[2020-03-26] MEDS ORDERED: Sodium Chloride 0.9% 2.5 ML Syringe FLUSH PRN ×2 (12:40→15:54)
[2020-03-26] MEDS ORDERED: Lactated Ringers 1,000 ML IV ONE (12:40)
[2020-03-26] MEDS ORDERED: Sodium Chloride 0.9% 10 ML Syringe FLUSH PRN (12:40)
--- NOTE | 2020-03-26 12:42 | EDM.PDOC ---
ED HPI GENERAL MEDICAL PROBLEM - General Chief Complaint: Gastrointestinal Problem Stated Complaint: VOMITTING Time Seen by Provider: 03/26/20 12:12 Source of Information: Reports: Patient, Old Records History Limitations: Reports: No Limitations - History of Present Illness INITIAL COMMENTS - FREE TEXT/NARRATIVE: 59-year-old male past medical history of chronic pancreatitis, diabetes mellitus, hypertension, hyperlipidemia presenting with multiple complaints. He presents emergency department accompanied by his friend. They report a 2- week history of poor oral intake accompanied by multiple episodes of emesis. Patient states that he has not been able to eat much solid food due to recurrent vomiting. He is concerned that he may be dehydrated. He also reports recurrent episodes of syncope over the past few weeks, he states that he experiences syncope on a daily basis over the past 7 days. Reports that he had another episode on the way to the emergency department in his friend's car. He also complains of chronic bilateral low back pain that he attributes to multiple falls/prior injuries. He states that his back pain is not any worse than usual. However, he is quite concerned about poor oral intake, repeated vomiting, and multiple episodes of syncope. He denies any chest discomfort, shortness of breath, diarrhea, hematemesis, or any new pain today. ROS: A 10-point review of systems was negative, except as noted in the HPI (or in the ROS section of this note). Past medical history: Reviewed, no additional pertinent history. Surgical history: Reviewed in system, no additional pertinent history. Social history: Reviewed in system, no additional pertinent history. Family history: Reviewed in system, no additional pertinent history. PHYSICAL EXAM Vital signs reviewed. Nursing notes reviewed. Constitutional: Awake, alert, non-distressed. Thin appearing man. Head: Normocephalic, atraumatic. Eyes: EOMI, conjunctiva normal, no discharge, no scleral icterus. Ears, Nose, Throat: External ears and nose normal, tacky oral mucosa. Cardiovascular: Tachycardic, 2+ radial pulse, capillary refill less than 2 seconds. Pulmonary: normal work of breathing, no accessory muscle use. Abdomen/GI: Soft, nontender, nondistended, no guarding or rigidity, no masses. Musculoskeletal: No deformities. Integumentary: Appropriate color for ethnicity, warm, dry, no pallor or jaundice, no rash. Neurologic: Alert, answering questions appropriately, normal speech, no facial droop, moving all extremities well. Psychiatric: Appropriate mood and affect, normal thought process. kidneys, back Pain Score (Numeric/FACES): 10 - Related Data Allergies Allergy/AdvReac Type Severity Reaction Status Date / Time morphine Allergy Hallucinati Verified 03/26/20 17:35 ons Home Meds: Home Meds Lisinopril 10 mg PO BEDTIME 10/07/16 [History] atorvaSTATin [Lipitor] 20 mg PO BEDTIME 10/07/16 [History] metFORMIN [Glucophage] 500 mg PO BIDMEALS 10/07/16 [History] Aspirin 81 mg PO BEDTIME 04/25/19 [History] Psyllium Husk [Psyllium Fiber] 5 cap PO DAILY 04/25/19 [History] diphenhydrAMINE HCL [Benadryl] 50 mg PO BEDTIME 04/25/19 [History] Ondansetron [Zofran ODT] 4 mg PO Q6H PRN 3 Days #12 tab.dis 12/13/19 [Rx] Past Medical History HEENT History: Reports: Impaired Vision Cardiovascular History: Reports: High Cholesterol, Hypertension Respiratory History: Reports: COPD, Pneumothorax Gastrointestinal History: Reports: Pancreatitis Genitourinary History: Reports: Other (See Below) Other Genitourinary History: Stated "a doctor told me that my kidneys were shriveled up." Musculoskeletal History: Reports: Arthritis Other Musculoskeletal History: Back Neurological History: Reports: None Psychiatric History: Reports: Depression, Other (See Below) Other Psychiatric History: History of "melancholia" Endocrine/Metabolic History: Reports: Diabetes, Type II Hematologic History: Reports: None Immunologic History: Reports: None Oncologic (Cancer) History: Reports: None Dermatologic History: Reports: None - Infectious Disease History Infectious Disease History: Reports: Chicken Pox - Past Surgical History Head Surgeries/Procedures: Reports: None HEENT Surgical History: Reports: Tonsillectomy Cardiovascular Surgical History: Reports: None GI Surgical History: Reports: Cholecystectomy Social & Family History - Family History Family Medical History: Noncontributory HEENT: Reports: Impaired Vision Endocrine/Metabolic: Reports: Diabetes, type II Oncologic: Reports: Colon, Liver, Lung, Pancreatic, Thyroid - Tobacco Use Smoking Status *Q: Current Every Day Smoker Years of Tobacco use: 38 Packs/Tins Daily: 1.5 Tobacco Use Comment: now smoking 5/day - Caffeine Use Caffeine Use: Reports: None - Recreational Drug Use Recreational Drug Use: No ED ROS GENERAL - Review of Systems Review Of Systems: See Below ED EXAM, GI/ABD - Physical Exam Exam: See Below EKG INTERPRETATION EKG Interpretation Comments: 59-year-old male presenting with subacute poor oral intake, recurrent emesis, intermittent disorientation, and syncope. Differential diagnosis includes but is not limited to: Volume depletion, anemia, electrolyte disturbance, arrhythmia, acute coronary syndrome, orthostatic hypotension, cardiac syncope, thyroid disease, gastritis, peptic ulcer disease, pancreatitis, sepsis, intracranial hemorrhage, CVA, and many others [] Plan: Patient is stable to discharge home with outpatient primary care clinic follow-up. Strict emergency department return precautions were provided, patient indicated understanding. All questions were answered prior to departure. Discharged in good condition. Course - Vital Signs Text/Narrative:: 59-year-old male with subacute vomiting, poor oral intake, multiple episodes of syncope, recurrent nausea, and a chronic back and abdominal pain. Differential diagnosis includes but is not limited to: Electrolyte disturbance, volume depletion, anemia, arrhythmia, cardiac syncope, orthostatic syncope, renal failure, hepatic failure, thyroid disease, acute coronary syndrome, pancreatitis, liver disease, and many others. CBC shows mild leukocytosis. Lactate is elevated at 2.3. Chemistry panel shows hyponatremia at 126, severe hypokalemia at 2.7, hypochloremia at 76. Creatinine elevated at 2.8, consistent with acute kidney injury. Glucose 185. Troponin negative. Lipase is elevated at 1030. TSH is within normal limits. CT head shows no acute findings. CXR shows no acute findings. Given multiple metabolic derangements, patient will need to be admitted to the hospital. He was given IV lactated Ringer's bolus followed by an infusion. P.o. and IV potassium. IV magnesium sulfate. IV Compazine, p.o. oxycodone and acetaminophen. I spoke with the accepting hospitalist Dr. Francis Moctezuma who agrees to admit. Last Recorded V/S: Last Vital Signs Temp 37.0 C 03/26/20 17:15 Pulse 94 03/26/20 17:15 Resp 18 03/26/20 17:15 BP 132/82 03/26/20 17:15 Pulse Ox 93 L 03/26/20 17:25 - Orders/Labs/Meds Orders: Medication Orders Folic Acid (Folic Acid) 1 mg SUBCUT DAILY [facility] Heparin Sodium (Porcine) (Heparin Sodium) 5,000 units SUBCUT Q8H KATHRYN Hydromorphone HCl (Dilaudid) 0.5 mg IVPUSH Q4H PRN PRN Reason: Pain (severe 7-10) Last Admin: 03/26/20 16:13 Dose: 0.5 mg Documented by: BAKEMOL Potassium Chloride 40 meq/ (Premix) 100 mls @ 25 mls/hr IV ONETIME ONE Stop: 03/26/20 19:37 Last Admin: 03/26/20 16:48 Dose: 25 mls/hr Documented by: BAKEMOL Sodium Chloride (Normal Saline) 1,000 mls @ 150 mls/hr IV Q6H KATHRYN Pantoprazole Sodium 40 mg/ (Sodium Chloride) 10 mls @ 200 mls/hr IV Q24H KATHRYN Thiamine HCl 100 mg/ Sodium (Chloride) 101 mls @ 202 mls/hr IV DAILY KATHRYN Insulin Aspart (Novolog) 0 unit SUBCUT Q6H KATHRYN; Protocol Lorazepam (Ativan) 0 mg IVPUSH Q4H PRN; Protocol PRN Reason: CIWAA Lorazepam (Ativan) 0.5 mg IVPUSH Q4H PRN PRN Reason: Nausea Sodium Chloride (Saline Flush) 2.5 ml FLUSH ASDIRECTED PRN PRN Reason: Keep Vein Open Labs: Laboratory Tests 03/26/20 03/26/20 03/26/20 Range/Units 12:51 12:51 12:51 WBC 12.62 H (4.0-11.0) K/uL RBC 4.45 L (4.50-5.90) M/uL Hgb 13.8 (13.0-17.0) g/dL Hct 39.0 (38.0-50.0) % MCV 87.6 (80.0-98.0) fL MCH 31.0 (27.0-32.0) pg MCHC 35.4 (31.0-37.0) g/dL RDW Std Deviation 44.8 (28.0-62.0) fl RDW Coeff of Claudio 14 (11.0-15.0) % Plt Count 402 H (150-400) K/uL MPV 8.80 (7.40-12.00) fL Neut % (Auto) 72.8 (48.0-80.0) % Lymph % (Auto) 15.5 L (16.0-40.0) % Pine % (Auto) 10.9 (0.0-15.0) % Eos % (Auto) 0.6 (0.0-7.0) % Baso % (Auto) 0.2 (0.0-1.5) % Neut # (Auto) 9.2 H (1.4-5.7) K/uL Lymph # (Auto) 2.0 (0.6-2.4) K/uL Pine # (Auto) 1.4 H (0.0-0.8) K/uL Eos # (Auto) 0.1 (0.0-0.7) K/uL Baso # (Auto) 0.0 (0.0-0.1) K/uL Nucleated RBC % 0.0 /100WBC Nucleated RBCs # 0 K/uL Lactate 2.3 H* (0.20-2.00) mmol/L Sodium 126 L (136-148) mmol/L Potassium 2.7 L (3.5-5.1) mmol/L Chloride 76 L (98-107) mmol/L Carbon Dioxide 41.8 H (21.0-32.0) mmol/L BUN 98 H (7.0-18.0) mg/dL Creatinine 2.8 H (0.8-1.3) mg/dL Est Cr Clr Drug Dosing 18.00 mL/min Estimated GFR (MDRD) 23.2 ml/min Glucose 185 H (74-106) mg/dL Calcium 10.0 (8.5-10.1) mg/dL Phosphorus (2.6-4.7) mg/dL Magnesium (1.8-2.4) mg/dL Total Bilirubin 0.6 (0.2-1.0) mg/dL AST 19 (15-37) IU/L ALT 17 (14-63) IU/L Alkaline Phosphatase 143 H (46-116) U/L Troponin I < 0.050 (0.000-0.056) ng/mL Total Protein 8.8 H (6.4-8.2) g/dL Albumin 4.5 (3.4-5.0) g/dL Globulin 4.3 H (2.6-4.0) g/dL Albumin/Globulin Ratio 1.1 (0.9-1.6) Lipase 1030 H (73-393) U/L TSH 3rd Generation (0.36-3.74) uIU/mL 03/26/20 03/26/20 03/26/20 Range/Units 12:51 12:51 12:57 WBC (4.0-11.0) K/uL RBC (4.50-5.90) M/uL Hgb (13.0-17.0) g/dL Hct (38.0-50.0) % MCV (80.0-98.0) fL MCH (27.0-32.0) pg MCHC (31.0-37.0) g/dL RDW Std Deviation (28.0-62.0) fl RDW Coeff of Claudio (11.0-15.0) % Plt Count (150-400) K/uL MPV (7.40-12.00) fL Neut % (Auto) (48.0-80.0) % Lymph % (Auto) (16.0-40.0) % Pine % (Auto) (0.0-15.0) % Eos % (Auto) (0.0-7.0) % Baso % (Auto) (0.0-1.5) % Neut # (Auto) (1.4-5.7) K/uL Lymph # (Auto) (0.6-2.4) K/uL Pine # (Auto) (0.0-0.8) K/uL Eos # (Auto) (0.0-0.7) K/uL Baso # (Auto) (0.0-0.1) K/uL Nucleated RBC % /100WBC Nucleated RBCs # K/uL Lactate (0.20-2.00) mmol/L Sodium (136-148) mmol/L Potassium (3.5-5.1) mmol/L Chloride (98-107) mmol/L Carbon Dioxide (21.0-32.0) mmol/L BUN (7.0-18.0) mg/dL Creatinine (0.8-1.3) mg/dL Est Cr Clr Drug Dosing mL/min Estimated GFR (MDRD) ml/min Glucose (74-106) mg/dL Calcium (8.5-10.1) mg/dL Phosphorus 6.4 H (2.6-4.7) mg/dL Magnesium 2.6 H (1.8-2.4) mg/dL Total Bilirubin (0.2-1.0) mg/dL AST (15-37) IU/L ALT (14-63) IU/L Alkaline Phosphatase (46-116) U/L Troponin I (0.000-0.056) ng/mL Total Protein (6.4-8.2) g/dL Albumin (3.4-5.0) g/dL Globulin (2.6-4.0) g/dL Albumin/Globulin Ratio (0.9-1.6) Lipase (73-393) U/L TSH 3rd Generation 0.53 (0.36-3.74) uIU/mL Meds: Medications Generic Name Dose Route Start Last Admin Trade Name Freq PRN Reason Stop Dose Admin Folic Acid 1 mg 03/27/20 09:00 Folic Acid SUBCUT DAILY [facility] Heparin Sodium (Porcine) 5,000 units 03/26/20 16:00 Heparin Sodium SUBCUT Q8H [facility] Hydromorphone HCl 0.5 mg 03/26/20 15:44 03/26/20 16:13 Dilaudid IVPUSH 0.5 mg Q4H PRN Administration Pain (severe 7-10) Potassium Chloride 40 meq/ 100 mls @ 25 mls/hr 03/26/20 15:38 03/26/20 16:48 Premix IV 03/26/20 19:37 25 mls/hr ONETIME ONE Administration Sodium Chloride 1,000 mls @ 150 mls/hr 03/26/20 16:00 Normal Saline IV Q6H KATHRYN Pantoprazole Sodium 40 mg/ 10 mls @ 200 mls/hr 03/26/20 16:00 Sodium Chloride IV Q24H KATHRYN Thiamine HCl 100 mg/ Sodium 101 mls @ 202 mls/hr 03/27/20 09:00 Chloride IV DAILY [facility] Insulin Aspart 0 unit 03/26/20 18:00 Novolog SUBCUT Q6H KATHRYN Protocol Lorazepam 0 mg 03/26/20 15:54 Ativan IVPUSH Q4H PRN CIWAA Protocol Lorazepam 0.5 mg 03/26/20 16:44 Ativan IVPUSH Q4H PRN Nausea Sodium Chloride 2.5 ml 03/26/20 15:54 Saline Flush FLUSH ASDIRECTED PRN Keep Vein Open Discontinued Medications Generic Name Dose Route Start Last Admin Trade Name Freq PRN Reason Stop Dose Admin Acetaminophen 1,000 mg 03/26/20 12:58 03/26/20 14:00 Tylenol Extra Strength PO 03/26/20 12:59 1,000 mg ONETIME ONE Administration Lactated Ringer's 1,000 mls @ 999 mls/hr 03/26/20 12:40 03/26/20 12:56 Ringers, Lactated IV 03/26/20 13:40 999 mls/hr .BOLUS ONE Administration Prochlorperazine Edisylate 10 52 mls @ 150 mls/hr 03/26/20 13:06 03/26/20 15:14 mg/ Sodium Chloride IV 03/26/20 13:26 150 mls/hr ONETIME ONE Administration Magnesium Sulfate 2 gm/ Premix 50 mls @ 50 mls/hr 03/26/20 13:37 03/26/20 14:05 IV 03/26/20 14:36 50 mls/hr ONETIME ONE Administration Lactated Ringer's 1,000 mls @ 125 mls/hr 03/26/20 13:45 Ringers, Lactated IV ASDIRECTED [facility] Potassium Chloride 20 meq/ 50 mls @ 25 mls/hr 03/26/20 14:09 Premix IV 03/26/20 16:08 ONETIME ONE Sodium Chloride 1,000 mls @ 999 mls/hr 03/26/20 15:37 Normal Saline IV 03/26/20 16:37 .Bolus ONE Metoclopramide HCl 10 mg 03/26/20 12:57 03/26/20 14:17 Reglan IVPUSH 03/26/20 12:58 Not Given ONETIME ONE Ondansetron HCl 4 mg 03/26/20 16:41 Zofran IVPUSH Q6H PRN Nausea Oxycodone HCl 10 mg 03/26/20 12:58 03/26/20 14:02 Oxycodone PO 03/26/20 12:59 10 mg ONETIME ONE Administration Potassium Chloride 60 meq 03/26/20 13:43 03/26/20 14:03 Potassium Chloride PO 03/26/20 13:44 60 meq ONETIME ONE Administration Potassium Chloride Confirm 03/26/20 14:06 03/26/20 14:17 Potassium Chloride Administered 03/26/20 14:07 Not Given Dose 40 meq .ROUTE .STK-MED ONE Sodium Chloride 10 ml 03/26/20 12:40 03/26/20 12:56 Saline Flush FLUSH 10 ml ASDIRECTED PRN Administration Keep Vein Open Sodium Chloride 2.5 ml 03/26/20 12:40 03/26/20 12:56 Saline Flush FLUSH 2.5 ml ASDIRECTED PRN Administration Keep Vein Open Departure - Departure Time of Disposition: 14:10 Disposition: Admitted As Inpatient 65 Condition: Good Clinical Impression: Prolonged QT interval, Syncope and collapse, Hypokalemia, Hyponatremia, High serum lactate - Discharge Information *PRESCRIPTION DRUG MONITORING PROGRAM REVIEWED*: Not Applicable *COPY OF PRESCRIPTION DRUG MONITORING REPORT IN PATIENT KASEY: Not Applicable Sepsis Event Note (ED) - Evaluation Sepsis Screening Result: No Definite Risk - Focused Exam Vital Signs: Vital Signs Temp Pulse Resp BP Pulse Ox 03/26/20 12:20 36.2 C 114 H 16 105/83 93 L
[2020-03-26] MEDS ORDERED: Metoclopramide 10 MG/2 ML SDV IVPUSH ONE (12:57)
[2020-03-26] MEDS ORDERED: oxyCODONE 5 MG Tab PO ONE (12:58)
[2020-03-26] MEDS ORDERED: Acetaminophen 500 MG Tab PO ONE (12:58)
[2020-03-26] MEDS ORDERED: Prochlorperazine 10 MG in Sodium Chloride 0.9% 50 ML IV ONE (13:06)
[2020-03-26 13:36] LABS: BLOOD UREA NITROGEN,BUN 98 mg/dL (7.0-18.0); CARBON DIOXIDE,CO2 41.8 mmol/L (21.0-32.0); CHLORIDE,CL 76 mmol/L (98-107); GLUCOSE RANDOM 185 mg/dL (74-106); LIPASE 1030 U/L (73-393); POTASSIUM,K 2.7 mmol/L (3.5-5.1); SODIUM,NA 126 mmol/L (136-148)
[2020-03-26] MEDS ORDERED: Magnesium Sulfate/Water 2 GM in Premix Bag 1 BAG IV ONE (13:37)
[2020-03-26] MEDS ORDERED: Potassium Chloride 10% 20 MEQ/15 ML Soln 30 ML UD Cup PO ONE (13:43)
[2020-03-26] MEDS ORDERED: Lactated Ringers 1,000 ML IV SCH (13:45)
[2020-03-26] MEDS ORDERED: Potassium Chloride 10% 20 MEQ/15 ML Soln 30 ML UD Cup ONE (14:06)
[2020-03-26] MEDS ORDERED: Potassium Chloride Riders 20 MEQ in Premix Bag 1 BAG IV ONE (14:09)
--- NOTE | 2020-03-26 14:50 | CT ---
Head CT Technique: Multiple axial sections through the brain were obtained. Intravenous contrast was not utilized. Comparison: No prior intracranial imaging is available. Findings: Ventricles along with basal cisterns and sulci over the convexities are within normal limits for the patient's age. Mild areas of diminished density are noted within the periventricular white matter compatible with small vessel ischemic demyelination change. No other abnormal parenchymal densities are seen. No evidence of intracranial hemorrhage. No midline shift or mass-effect is seen. Bone window settings were reviewed. Mild mucosal thickening seen within the sphenoid sinus. Other visualized paranasal sinuses appear within normal limits. Minimal mucosal thickening within the right mastoid sinuses is seen. No acute calvarial finding is seen. Impression: 1. Mild senescent change as described above. 2. Minimal sinus findings which are most likely chronic. 3. No acute intracranial abnormality is identified. Diagnostic code #2 This report was dictated in MDT
[2020-03-26] MEDS ORDERED: Sodium Chloride 0.9% 1,000 ML IV ONE (15:37)
[2020-03-26] MEDS ORDERED: Potassium Chloride Riders 40 MEQ in Premix Bag 1 BAG IV ONE (15:38)
[2020-03-26] MEDS ORDERED: Pantoprazole 40 MG Vial IV SCH (15:45)
--- NOTE | 2020-03-26 15:57 | PCM.HP.2 ---
H&P History of Present Illness - General Date of Service: 03/26/20 Admit Problem/Dx: Admission Diagnosis/Problem Admission Diagnosis/Problem Syncope and collapse Source of Information: Patient History Limitations: Reports: No Limitations - History of Present Illness Initial Comments - Free Text/Narative: This 59 year old male with pmh of alcohol abuse, pancreatitis, cholelithiasis with cholecystectomy, HTN and DM Type 2 presented to the ED with multiple complaints. He reports he has not been eating or drinking for approximately 2 weeks having increased abdominal pain, nausea and vomiting. he has tried protein shakes but those don't stay down. He denies fevers or chills. No diarrhea, reports more constipation. Reports heartburn and epigastric RUQ pain. He reports this is very similar to the other attacks he has gotten in the past. He reports he has passed out many times over this last few weeks, mainly when he has recently changed positions, he becomes lightheaded and dizzy then passes out. He denies ches tpain or SOB. He reports he has not drank alcohol in 2-3 weeks, smokes 1-3 cigarettes daily and no recreational drug use. In the ED leukocytosis noted at 12,620, platelet 402, lactic acid 2.3, Na 126, k+ 2.7, Cl 76, Bicarb 41.8, BUN 98, Cr 2.8, lipase 1030, troponin negative HR elevated 110. BP 105/83. head CT obtained which was negative. CXR negative. He was give PO potassium which he threw up along with Oxycodone. he was also given 1 L LR bolus. He was given Magnesium 2 gm IV, compazine and Tylenol. he will be admitted for acute on chronic alcoholic pancreatitis with severe electrolyte abnormalities. kidneys, back Pain Score (Numeric/FACES): 10 - Related Data Allergies/Adverse Reactions: Allergies Allergy/AdvReac Type Severity Reaction Status Date / Time morphine Allergy Hallucinati Verified 03/26/20 12:25 ons Home Medications: Home Meds Lisinopril 10 mg PO BEDTIME 10/07/16 [History] atorvaSTATin [Lipitor] 20 mg PO BEDTIME 10/07/16 [History] metFORMIN [Glucophage] 500 mg PO BIDMEALS 10/07/16 [History] Aspirin 81 mg PO BEDTIME 04/25/19 [History] Psyllium Husk [Psyllium Fiber] 5 cap PO DAILY 04/25/19 [History] diphenhydrAMINE HCL [Benadryl] 50 mg PO BEDTIME 04/25/19 [History] Ondansetron [Zofran ODT] 4 mg PO Q6H PRN 3 Days #12 tab.dis 12/13/19 [Rx] Past Medical History HEENT History: Reports: Impaired Vision Cardiovascular History: Reports: High Cholesterol, Hypertension Respiratory History: Reports: COPD, Pneumothorax Gastrointestinal History: Reports: Pancreatitis Genitourinary History: Reports: Other (See Below) Other Genitourinary History: Stated "a doctor told me that my kidneys were shriveled up." Musculoskeletal History: Reports: Arthritis Other Musculoskeletal History: Back Neurological History: Reports: None Psychiatric History: Reports: Depression, Other (See Below) Other Psychiatric History: History of "melancholia" Endocrine/Metabolic History: Reports: Diabetes, Type II Hematologic History: Reports: None Immunologic History: Reports: None Oncologic (Cancer) History: Reports: None Dermatologic History: Reports: None - Infectious Disease History Infectious Disease History: Reports: Chicken Pox - Past Surgical History Head Surgeries/Procedures: Reports: None HEENT Surgical History: Reports: Tonsillectomy Cardiovascular Surgical History: Reports: None GI Surgical History: Reports: Cholecystectomy Social & Family History - Family History Family Medical History: Noncontributory HEENT: Reports: Impaired Vision Endocrine/Metabolic: Reports: Diabetes, type II Oncologic: Reports: Colon, Liver, Lung, Pancreatic, Thyroid - Tobacco Use Smoking Status *Q: Current Every Day Smoker Years of Tobacco use: 38 Packs/Tins Daily: 1.5 Tobacco Use Comment: now smoking 5/day - Caffeine Use Caffeine Use: Reports: None - Recreational Drug Use Recreational Drug Use: No H&P Review of Systems - Review of Systems: Review Of Systems: See Below General: Reports: Malaise, Weakness, Fatigue HEENT: Reports: Glasses, Vertigo. Denies: Headaches, Sinus Congestion, Sore Throat Pulmonary: Reports: Cough. Denies: Shortness of Breath Cardiovascular: Reports: Lightheadedness, Syncope Gastrointestinal: Reports: Abdominal Pain, Constipation, Nausea, Vomiting. Denies: Black Stool, Bloody Stool, Diarrhea Genitourinary: Reports: No Symptoms. Denies: Dysuria, Frequency, Burning Musculoskeletal: Reports: No Symptoms Skin: Reports: No Symptoms Psychiatric: Reports: No Symptoms Neurological: Reports: No Symptoms Hematologic/Lymphatic: Reports: No Symptoms Immunologic: Reports: No Symptoms Exam - Exam Exam: See Below - Vital Signs Vital Signs: Last Vital Signs Temp 97.2 F 03/26/20 12:20 Pulse 114 H 03/26/20 12:20 Resp 16 03/26/20 12:20 BP 105/83 03/26/20 12:20 Pulse Ox 93 L 03/26/20 12:20 Weight: 45.359 kg - Exam Quality Assessment: DVT Prophylaxis General: Alert, Oriented, Cooperative, Mild Distress (dry heaving and gagging during interview), Other (cachetic in appearance) HEENT: Conjunctiva Clear. No: Mucosa Moist & Burnett (dry) Lungs: Clear to Auscultation, Normal Respiratory Effort Cardiovascular: Tachycardia. No: Systolic Murmur GI/Abdominal Exam: Normal Bowel Sounds, Soft, Non-Tender, No Mass Extremities: Normal Inspection, Normal Range of Motion, Non-Tender, No Pedal Edema Skin: Warm, Dry Neurological: Cranial Nerves Intact Neuro Extensive - Mental Status: Alert, Oriented x3 Psychiatric: Alert, Normal Affect, Normal Mood - Patient Data Lab Results Last 24 hrs: Laboratory Results - last 24 hr 03/26/20 03/26/20 03/26/20 Range/Units 12:51 12:51 12:51 WBC 12.62 H (4.0-11.0) K/uL RBC 4.45 L (4.50-5.90) M/uL Hgb 13.8 (13.0-17.0) g/dL Hct 39.0 (38.0-50.0) % MCV 87.6 (80.0-98.0) fL MCH 31.0 (27.0-32.0) pg MCHC 35.4 (31.0-37.0) g/dL RDW Std Deviation 44.8 (28.0-62.0) fl RDW Coeff of Claudio 14 (11.0-15.0) % Plt Count 402 H (150-400) K/uL MPV 8.80 (7.40-12.00) fL Neut % (Auto) 72.8 (48.0-80.0) % Lymph % (Auto) 15.5 L (16.0-40.0) % Rich % (Auto) 10.9 (0.0-15.0) % Eos % (Auto) 0.6 (0.0-7.0) % Baso % (Auto) 0.2 (0.0-1.5) % Neut # (Auto) 9.2 H (1.4-5.7) K/uL Lymph # (Auto) 2.0 (0.6-2.4) K/uL Rich # (Auto) 1.4 H (0.0-0.8) K/uL Eos # (Auto) 0.1 (0.0-0.7) K/uL Baso # (Auto) 0.0 (0.0-0.1) K/uL Nucleated RBC % 0.0 /100WBC Nucleated RBCs # 0 K/uL Lactate 2.3 H* (0.20-2.00) mmol/L Sodium 126 L (136-148) mmol/L Potassium 2.7 L (3.5-5.1) mmol/L Chloride 76 L (98-107) mmol/L Carbon Dioxide 41.8 H (21.0-32.0) mmol/L BUN 98 H (7.0-18.0) mg/dL Creatinine 2.8 H (0.8-1.3) mg/dL Est Cr Clr Drug Dosing 18.00 mL/min Estimated GFR (MDRD) 23.2 ml/min Glucose 185 H (74-106) mg/dL Calcium 10.0 (8.5-10.1) mg/dL Magnesium (1.8-2.4) mg/dL Total Bilirubin 0.6 (0.2-1.0) mg/dL AST 19 (15-37) IU/L ALT 17 (14-63) IU/L Alkaline Phosphatase 143 H (46-116) U/L Troponin I < 0.050 (0.000-0.056) ng/mL Total Protein 8.8 H (6.4-8.2) g/dL Albumin 4.5 (3.4-5.0) g/dL Globulin 4.3 H (2.6-4.0) g/dL Albumin/Globulin Ratio 1.1 (0.9-1.6) Lipase 1030 H (73-393) U/L TSH 3rd Generation (0.36-3.74) uIU/mL 09/15/20 09/15/20 Range/Units 12:51 12:57 WBC (4.0-11.0) K/uL RBC (4.50-5.90) M/uL Hgb (13.0-17.0) g/dL Hct (38.0-50.0) % MCV (80.0-98.0) fL MCH (27.0-32.0) pg MCHC (31.0-37.0) g/dL RDW Std Deviation (28.0-62.0) fl RDW Coeff of Claudio (11.0-15.0) % Plt Count (150-400) K/uL MPV (7.40-12.00) fL Neut % (Auto) (48.0-80.0) % Lymph % (Auto) (16.0-40.0) % Rich % (Auto) (0.0-15.0) % Eos % (Auto) (0.0-7.0) % Baso % (Auto) (0.0-1.5) % Neut # (Auto) (1.4-5.7) K/uL Lymph # (Auto) (0.6-2.4) K/uL Rich # (Auto) (0.0-0.8) K/uL Eos # (Auto) (0.0-0.7) K/uL Baso # (Auto) (0.0-0.1) K/uL Nucleated RBC % /100WBC Nucleated RBCs # K/uL Lactate (0.20-2.00) mmol/L Sodium (136-148) mmol/L Potassium (3.5-5.1) mmol/L Chloride (98-107) mmol/L Carbon Dioxide (21.0-32.0) mmol/L BUN (7.0-18.0) mg/dL Creatinine (0.8-1.3) mg/dL Est Cr Clr Drug Dosing mL/min Estimated GFR (MDRD) ml/min Glucose (74-106) mg/dL Calcium (8.5-10.1) mg/dL Magnesium 2.6 H (1.8-2.4) mg/dL Total Bilirubin (0.2-1.0) mg/dL AST (15-37) IU/L ALT (14-63) IU/L Alkaline Phosphatase (46-116) U/L Troponin I (0.000-0.056) ng/mL Total Protein (6.4-8.2) g/dL Albumin (3.4-5.0) g/dL Globulin (2.6-4.0) g/dL Albumin/Globulin Ratio (0.9-1.6) Lipase (73-393) U/L TSH 3rd Generation 0.53 (0.36-3.74) uIU/mL Result Diagrams: 03/26/20 12:51 03/26/20 12:51 EKG INTERPRETATION EKG Date: 03/26/20 Rhythm: NSR QT: Prolonged Sepsis Event Note - Evaluation Sepsis Screening Result: No Definite Risk - Focused Exam Vital Signs: Vital Signs Temp Pulse Resp BP Pulse Ox 03/26/20 12:20 97.2 F 114 H 16 105/83 93 L - Problem List (1) Pancreatitis SNOMED Code(s): 03627557 ICD Code: K85.90 - ACUTE PANCREATITIS WITHOUT NECROSIS OR INFECTION, UNSP Status: Acute Priority: High Current Visit: No Qualifiers: Chronicity: acute Pancreatitis type: alcohol induced Acute pancreatitis complication: unspecified Qualified Code(s): K85.20 - Alcohol induced acute pancreatitis without necrosis or infection (2) High serum lactate SNOMED Code(s): 769121497, 328557570 ICD Code: R79.89 - OTHER SPECIFIED ABNORMAL FINDINGS OF BLOOD CHEMISTRY Status: Acute Current Visit: Yes (3) Hypokalemia SNOMED Code(s): 81938889 ICD Code: E87.6 - HYPOKALEMIA Status: Acute Current Visit: Yes (4) Hyponatremia SNOMED Code(s): 00247802 ICD Code: E87.1 - HYPO-OSMOLALITY AND HYPONATREMIA Status: Acute Current Visit: Yes (5) Prolonged QT interval SNOMED Code(s): 854209122 ICD Code: R94.31 - ABNORMAL ELECTROCARDIOGRAM [ECG] [EKG] Status: Acute Current Visit: Yes (6) Syncope and collapse SNOMED Code(s): 556540297 ICD Code: R55 - SYNCOPE AND COLLAPSE Status: Acute Current Visit: Yes (7) Acute kidney injury SNOMED Code(s): 79546214, 12832100 ICD Code: N17.9 - ACUTE KIDNEY FAILURE, UNSPECIFIED Status: Acute Current Visit: No (8) Dehydration SNOMED Code(s): 07004299 ICD Code: E86.0 - DEHYDRATION Status: Acute Current Visit: No (9) Leukocytosis SNOMED Code(s): 249148152, 059629145 ICD Code: D72.829 - ELEVATED WHITE BLOOD CELL COUNT, UNSPECIFIED Status: Acute Current Visit: No Qualifiers: Leukocytosis type: unspecified Qualified Code(s): D72.829 - Elevated white blood cell count, unspecified (10) Diabetes mellitus SNOMED Code(s): 76927483 ICD Code: E11.9 - TYPE 2 DIABETES MELLITUS WITHOUT COMPLICATIONS Status: Chronic Priority: Medium Current Visit: No (11) Hyperlipidemia SNOMED Code(s): 07016630 ICD Code: E78.5 - HYPERLIPIDEMIA, UNSPECIFIED Status: Chronic Priority: Medium Current Visit: No Qualifiers: Hyperlipidemia type: unspecified Qualified Code(s): E78.5 - Hyperlipidemia, unspecified (12) Hypertension SNOMED Code(s): 53096802 ICD Code: I10 - ESSENTIAL (PRIMARY) HYPERTENSION Status: Chronic Priority: Medium Current Visit: No Qualifiers: Hypertension type: essential hypertension Qualified Code(s): I10 - Essential (primary) hypertension Problem List Initiated/Reviewed/Updated: Yes Orders Last 24hrs: Active Orders 24 hr Category Date Time Status Admission Status [Patient Status] [ADT] Stat ADT 03/26/20 14:08 Active Blood Glucose Check, Bedside [RC] Q6H Care 03/26/20 18:00 Ordered CIWAA Assessment [RC] Q4H Care 03/26/20 15:54 Ordered Height and Weight [RC] DAILY Care 03/26/20 15:44 Ordered Intake and Output [RC] QSHIFT Care 03/26/20 15:45 Ordered Oxygen Therapy [RC] PRN Care 03/26/20 15:45 Ordered Telemetry Monitoring [Cardiac Monitoring] [RC] . Care 03/26/20 15:44 Ordered DIRECTED Up With Assistance [RC] ASDIRECTED Care 03/26/20 15:44 Ordered VTE/DVT Education [RC] PER UNIT ROUTINE Care 03/26/20 15:45 Ordered Vital Signs [RC] Q4H Care 03/26/20 15:45 Ordered Nothing Per Oral Diet [DIET] Diet 03/26/20 Dinner Active Chest 2V [CR] Stat Exams 03/26/20 14:01 Ordered BASIC METABOLIC PANEL,BMP [CHEM] Q5H Lab 03/27/20 19:00 Ordered BASIC METABOLIC PANEL,BMP [CHEM] Q5H Lab 03/28/20 00:00 Ordered BASIC METABOLIC PANEL,BMP [CHEM] Q5H Lab 03/28/20 05:00 Ordered BASIC METABOLIC PANEL,BMP [CHEM] Q5H Lab 03/28/20 10:00 Ordered CBC WITH AUTO DIFF [HEME] AM Lab 03/27/20 05:11 Ordered CBC WITH AUTO DIFF [HEME] AM Lab 03/28/20 05:11 Ordered CBC WITH AUTO DIFF [HEME] AM Lab 03/29/20 05:11 Ordered CORONAVIRUS COVID-19 KAUR [MOLEC] Stat Lab 03/26/20 15:49 Received LACTATE WITH REFLEX [BG] Routine Lab 03/26/20 16:45 Ordered MAGNESIUM [CHEM] AM Lab 03/27/20 05:11 Ordered MAGNESIUM [CHEM] AM Lab 03/28/20 05:11 Ordered MAGNESIUM [CHEM] AM Lab 03/29/20 05:11 Ordered PHOSPHORUS [CHEM] AM Lab 03/27/20 05:11 Ordered PHOSPHORUS [CHEM] AM Lab 03/28/20 05:11 Ordered PHOSPHORUS [CHEM] AM Lab 03/29/20 05:11 Ordered PHOSPHORUS [CHEM] Routine Lab 03/26/20 15:49 Ordered Folic Acid Med 03/27/20 09:00 Ordered 1 mg SUBCUT DAILY HYDROmorphone [Dilaudid] Med 03/26/20 15:44 Ordered 0.5 mg IVPUSH Q4H PRN Heparin Sodium Med 03/26/20 16:00 Ordered 5,000 units SUBCUT Q8H Insulin Aspart [NovoLOG] Med 03/26/20 18:00 Ordered See Protocol SUBCUT Q6H LORazepam [Ativan] Med 03/26/20 15:54 Ordered See Protocol IVPUSH Q4H PRN Pantoprazole [ProTONIX IV] 40 mg Med 03/26/20 16:00 Active Sodium Chloride 0.9% [Normal Saline] 10 ml IV Q24H Potassium Chloride Riders [KCL 20 MEQ in Water 50 ML] Med 03/26/20 14:09 Active 20 meq Premix Bag 1 bag IV ONETIME Potassium Chloride Riders [KCL 40 MEQ in Water 100 ML] Med 03/26/20 15:38 Active 40 meq Premix Bag 1 bag IV ONETIME Sodium Chloride 0.9% [Normal Saline] 1,000 ml Med 03/26/20 15:37 Active IV .Bolus Sodium Chloride 0.9% [Normal Saline] 1,000 ml Med 03/26/20 16:00 Ordered IV Q6H Sodium Chloride 0.9% [Saline Flush] Med 03/26/20 15:54 Ordered 2.5 ml FLUSH ASDIRECTED PRN Thiamine [Vitamin B-1] Med 03/27/20 09:00 Ordered 100 mg IVPUSH DAILY Saline Lock Insert [OM.PC] Routine Oth 03/26/20 15:54 Ordered Resuscitation Status Routine Resus Stat 03/26/20 15:44 Ordered Medication Orders Folic Acid (Folic Acid) 1 mg SUBCUT DAILY KATHRYN Heparin Sodium (Porcine) (Heparin Sodium) 5,000 units SUBCUT Q8H KATHRYN Hydromorphone HCl (Dilaudid) 0.5 mg IVPUSH Q4H PRN PRN Reason: Pain (severe 7-10) Potassium Chloride 20 meq/ (Premix) 50 mls @ 25 mls/hr IV ONETIME ONE Stop: 03/26/20 16:08 Sodium Chloride (Normal Saline) 1,000 mls @ 999 mls/hr IV .Bolus ONE Stop: 03/26/20 16:37 Potassium Chloride 40 meq/ (Premix) 100 mls @ 25 mls/hr IV ONETIME ONE Stop: 03/26/20 19:37 Sodium Chloride (Normal Saline) 1,000 mls @ 150 mls/hr IV Q6H KATHRYN Pantoprazole Sodium 40 mg/ (Sodium Chloride) 10 mls @ 200 mls/hr IV Q24H KATHRYN Insulin Aspart (Novolog) 0 unit SUBCUT Q6H KATHRYN; Protocol Lorazepam (Ativan) 0 mg IVPUSH Q4H PRN; Protocol PRN Reason: CIWAA Sodium Chloride (Saline Flush) 2.5 ml FLUSH ASDIRECTED PRN PRN Reason: Keep Vein Open Thiamine HCl (Vitamin B-1) 100 mg IVPUSH DAILY [facility] Assessment/Plan Comment:: This 59 year old male admitted with acute on chronic alcoholic pancreatitis, syncope, and severe electrolye abnormalities 1. Acute on chronic pancreatitis - Give another 1 L NS now - Dilaudid for pain control PRN - NPO except ice chips - No imaging at this time, will reassess in the am - Recheck lipase in am - Ativan for nausea PRN due to prolonged Qtc 2. Syncope - Monitor on telemetry - Obtain Orthostatics, likely positive due to dehydration - Obtain ECHO 3. RISHABH/dehdyration - Hold nephrotoxic medications - IVFs as above - Recheck in am 3. Severe electrolyte abnormalities - Hyponatremia- monitor closely for quick rise. Check BMP every 6 hours. NS 150ml/hr - Hypokalemia- monitor on telemetry, replace 40 IV and recheck this evening. - Mag and phos- elevated, will monitor in am. 4. DM Type 2: - Novolog SSI every 6 hours while NPO 5. HTN: - BP soft in ED, hold Lisinopril 6. Alcohol abuse - Thiamine and folic acid - CIWAA protocol with Ativan PRN VTE prophylaxis: Heparin Dispo: 2-3 days pending improvement
[2020-03-26] MEDS ORDERED: Heparin Sodium 5,000 Units/ML Vial SUBCUT SCH (16:00)
[2020-03-26] MEDS ORDERED: Pantoprazole 40 MG in Sodium Chloride 0.9% 10 ML IV SCH (16:00)
--- NOTE | 2020-03-26 16:06 | CR ---
Chest: 2 views of the chest were obtained. Comparison: Prior chest x-ray of 12/11/19. Heart size and mediastinum are normal. Lungs are clear with no acute parenchymal change. Mild degenerative change is scattered within the spine. Impression: 1. Findings as noted above. 2. Nothing acute is appreciated. Diagnostic code #2 This report was dictated in MDT
[2020-03-26] MEDS: HYDROmorphone 1 MG/ML Syringe IVPUSH PRN (16:13)
[2020-03-26] MEDS ORDERED: Ondansetron 4 MG/2 ML SDV IVPUSH PRN (16:41)
[2020-03-26] MEDS: Insulin Aspart 100 Units/ML 3 ML Pen SUBCUT SCH (18:58)
[2020-03-26] MEDS: LORazepam 2 MG/ML SDV IVPUSH PRN (20:16)
[2020-03-26] MEDS ORDERED: Sodium Chloride 0.9% with KCl 1,000 ML IV SCH (21:45)
[2020-03-26] MEDS: Sodium Chloride 0.9% 1,000 ML IV SCH (22:10)
[2020-03-26] MEDS: Pantoprazole 40 MG in Sodium Chloride 0.9% 10 ML IV SCH (22:20)
[2020-03-26] MEDS: Heparin Sodium 5,000 Units/ML Vial SUBCUT SCH (22:45)
[2020-03-27] MEDS: Insulin Aspart 100 Units/ML 3 ML Pen SUBCUT SCH ×4 (00:28→17:30)
[2020-03-27] MEDS: LORazepam 2 MG/ML SDV IVPUSH PRN ×4 (04:07→23:39)
[2020-03-27] MEDS: Sodium Chloride 0.9% 1,000 ML IV SCH ×3 (06:02→17:41)
[2020-03-27] MEDS: Heparin Sodium 5,000 Units/ML Vial SUBCUT SCH ×4 (06:20→22:36)
[2020-03-27 08:36] LABS: CARBON DIOXIDE,CO2 37.9 mmol/L (21.0-32.0); POTASSIUM,K 3.5 mmol/L (3.5-5.1)
[2020-03-27] MEDS ORDERED: Thiamine 200 MG/2 ML MDV IVPUSH SCH (09:00)
[2020-03-27] MEDS: Folic Acid 50 MG/10 ML MDV SUBCUT SCH (09:51)
[2020-03-27] MEDS: Thiamine 100 MG in Sodium Chloride 0.9% 100 ML IV SCH (09:56)
[2020-03-27] MEDS: HYDROmorphone 1 MG/ML Syringe IVPUSH PRN ×2 (10:57→16:30)
--- NOTE | 2020-03-27 12:31 | PCM.PN ---
- General Info Date of Service: 03/27/20 Admission Dx/Problem (Free Text): Admission Diagnosis/Problem Admission Diagnosis/Problem Syncope and collapse Subjective Update: Reports having a hard time hearing out of his L ear and reports mild pain. Denies chest pain, reports improvement in abdominal pain. No dyspnea. No other concerns. Functional Status: Reports: Pain Controlled, Ambulating, Urinating - Review of Systems General: Reports: Fatigue, Malaise HEENT: Reports: Other (hearing to L ear is hindered, reports mild pain to L ear, nothing significant. No worsening at night.) Pulmonary: Reports: No Symptoms. Denies: Shortness of Breath Cardiovascular: Reports: No Symptoms. Denies: Chest Pain Gastrointestinal: Reports: No Symptoms. Denies: Abdominal Pain, Nausea, Vomiting Genitourinary: Reports: No Symptoms. Denies: Dysuria, Frequency, Burning Musculoskeletal: Reports: No Symptoms Skin: Reports: No Symptoms Neurological: Reports: No Symptoms Psychiatric: Reports: No Symptoms - Patient Data Vitals - Most Recent: Last Vital Signs Temp 99.0 F 03/27/20 09:52 Pulse 95 03/27/20 09:52 Resp 18 03/27/20 09:52 BP 110/85 03/27/20 09:52 Pulse Ox 94 L 03/27/20 09:52 Orthostatic Blood Pressure [ 101/62 Standing] Orthostatic Blood Pressure [ 139/73 Sitting] Orthostatic Blood Pressure [ 113/76 Supine] Weight - Most Recent: 47.718 kg I&O - Last 24 Hours: Intake & Output 03/26/20 03/27/20 03/27/20 22:59 06:59 14:59 Intake Total 10 Output Total 950 Balance -940 Lab Results Last 24 Hours: Laboratory Results - last 24 hr 03/26/20 03/26/20 03/26/20 Range/Units 12:51 12:51 12:51 WBC 12.62 H (4.0-11.0) K/uL RBC 4.45 L (4.50-5.90) M/uL Hgb 13.8 (13.0-17.0) g/dL Hct 39.0 (38.0-50.0) % MCV 87.6 (80.0-98.0) fL MCH 31.0 (27.0-32.0) pg MCHC 35.4 (31.0-37.0) g/dL RDW Std Deviation 44.8 (28.0-62.0) fl RDW Coeff of Claudio 14 (11.0-15.0) % Plt Count 402 H (150-400) K/uL MPV 8.80 (7.40-12.00) fL Neut % (Auto) 72.8 (48.0-80.0) % Lymph % (Auto) 15.5 L (16.0-40.0) % [place] % (Auto) 10.9 (0.0-15.0) % Eos % (Auto) 0.6 (0.0-7.0) % Baso % (Auto) 0.2 (0.0-1.5) % Neut # (Auto) 9.2 H (1.4-5.7) K/uL Lymph # (Auto) 2.0 (0.6-2.4) K/uL [place] # (Auto) 1.4 H (0.0-0.8) K/uL Eos # (Auto) 0.1 (0.0-0.7) K/uL Baso # (Auto) 0.0 (0.0-0.1) K/uL Nucleated RBC % 0.0 /100WBC Nucleated RBCs # 0 K/uL Lactate 2.3 H* (0.20-2.00) mmol/L Sodium 126 L (136-148) mmol/L Potassium 2.7 L (3.5-5.1) mmol/L Chloride 76 L (98-107) mmol/L Carbon Dioxide 41.8 H (21.0-32.0) mmol/L BUN 98 H (7.0-18.0) mg/dL Creatinine 2.8 H (0.8-1.3) mg/dL Est Cr Clr Drug Dosing 18.00 mL/min Estimated GFR (MDRD) 23.2 ml/min Glucose 185 H (74-106) mg/dL POC Glucose (60-110) mg/dL Calcium 10.0 (8.5-10.1) mg/dL Phosphorus (2.6-4.7) mg/dL Magnesium (1.8-2.4) mg/dL Total Bilirubin 0.6 (0.2-1.0) mg/dL AST 19 (15-37) IU/L ALT 17 (14-63) IU/L Alkaline Phosphatase 143 H (46-116) U/L Troponin I < 0.050 (0.000-0.056) ng/mL Total Protein 8.8 H (6.4-8.2) g/dL Albumin 4.5 (3.4-5.0) g/dL Globulin 4.3 H (2.6-4.0) g/dL Albumin/Globulin Ratio 1.1 (0.9-1.6) Lipase 1030 H (73-393) U/L TSH 3rd Generation (0.36-3.74) uIU/mL SARS-CoV-2 RNA ([facility]) (NEGATIVE) 03/26/20 03/26/20 03/26/20 Range/Units 12:51 12:51 12:57 WBC (4.0-11.0) K/uL RBC (4.50-5.90) M/uL Hgb (13.0-17.0) g/dL Hct (38.0-50.0) % MCV (80.0-98.0) fL MCH (27.0-32.0) pg MCHC (31.0-37.0) g/dL RDW Std Deviation (28.0-62.0) fl RDW Coeff of Claudio (11.0-15.0) % Plt Count (150-400) K/uL MPV (7.40-12.00) fL Neut % (Auto) (48.0-80.0) % Lymph % (Auto) (16.0-40.0) % [place] % (Auto) (0.0-15.0) % Eos % (Auto) (0.0-7.0) % Baso % (Auto) (0.0-1.5) % Neut # (Auto) (1.4-5.7) K/uL Lymph # (Auto) (0.6-2.4) K/uL [place] # (Auto) (0.0-0.8) K/uL Eos # (Auto) (0.0-0.7) K/uL Baso # (Auto) (0.0-0.1) K/uL Nucleated RBC % /100WBC Nucleated RBCs # K/uL Lactate (0.20-2.00) mmol/L Sodium (136-148) mmol/L Potassium (3.5-5.1) mmol/L Chloride (98-107) mmol/L Carbon Dioxide (21.0-32.0) mmol/L BUN (7.0-18.0) mg/dL Creatinine (0.8-1.3) mg/dL Est Cr Clr Drug Dosing mL/min Estimated GFR (MDRD) ml/min Glucose (74-106) mg/dL POC Glucose (60-110) mg/dL Calcium (8.5-10.1) mg/dL Phosphorus 6.4 H (2.6-4.7) mg/dL Magnesium 2.6 H (1.8-2.4) mg/dL Total Bilirubin (0.2-1.0) mg/dL AST (15-37) IU/L ALT (14-63) IU/L Alkaline Phosphatase (46-116) U/L Troponin I (0.000-0.056) ng/mL Total Protein (6.4-8.2) g/dL Albumin (3.4-5.0) g/dL Globulin (2.6-4.0) g/dL Albumin/Globulin Ratio (0.9-1.6) Lipase (73-393) U/L TSH 3rd Generation 0.53 (0.36-3.74) uIU/mL SARS-CoV-2 RNA ([facility]) (NEGATIVE) 03/26/20 03/26/20 03/26/20 Range/Units 15:49 17:02 18:16 WBC (4.0-11.0) K/uL RBC (4.50-5.90) M/uL Hgb (13.0-17.0) g/dL Hct (38.0-50.0) % MCV (80.0-98.0) fL MCH (27.0-32.0) pg MCHC (31.0-37.0) g/dL RDW Std Deviation (28.0-62.0) fl RDW Coeff of Claudio (11.0-15.0) % Plt Count (150-400) K/uL MPV (7.40-12.00) fL Neut % (Auto) (48.0-80.0) % Lymph % (Auto) (16.0-40.0) % [place] % (Auto) (0.0-15.0) % Eos % (Auto) (0.0-7.0) % Baso % (Auto) (0.0-1.5) % Neut # (Auto) (1.4-5.7) K/uL Lymph # (Auto) (0.6-2.4) K/uL [place] # (Auto) (0.0-0.8) K/uL Eos # (Auto) (0.0-0.7) K/uL Baso # (Auto) (0.0-0.1) K/uL Nucleated RBC % /100WBC Nucleated RBCs # K/uL Lactate 1.4 (0.20-2.00) mmol/L Sodium (136-148) mmol/L Potassium (3.5-5.1) mmol/L Chloride (98-107) mmol/L Carbon Dioxide (21.0-32.0) mmol/L BUN (7.0-18.0) mg/dL Creatinine (0.8-1.3) mg/dL Est Cr Clr Drug Dosing mL/min Estimated GFR (MDRD) ml/min Glucose (74-106) mg/dL POC Glucose 155 H (60-110) mg/dL Calcium (8.5-10.1) mg/dL Phosphorus (2.6-4.7) mg/dL Magnesium (1.8-2.4) mg/dL Total Bilirubin (0.2-1.0) mg/dL AST (15-37) IU/L ALT (14-63) IU/L Alkaline Phosphatase (46-116) U/L Troponin I (0.000-0.056) ng/mL Total Protein (6.4-8.2) g/dL Albumin (3.4-5.0) g/dL Globulin (2.6-4.0) g/dL Albumin/Globulin Ratio (0.9-1.6) Lipase (73-393) U/L TSH 3rd Generation (0.36-3.74) uIU/mL SARS-CoV-2 RNA ([facility]) NEGATIVE (NEGATIVE) 03/27/20 03/27/20 03/27/20 Range/Units 00:02 00:20 05:09 WBC 17.78 H (4.0-11.0) K/uL RBC 3.94 L (4.50-5.90) M/uL Hgb 11.7 L (13.0-17.0) g/dL Hct 35.0 L (38.0-50.0) % MCV 88.8 (80.0-98.0) fL MCH 29.7 (27.0-32.0) pg MCHC 33.4 (31.0-37.0) g/dL RDW Std Deviation 45.9 (28.0-62.0) fl RDW Coeff of Claudio 14 (11.0-15.0) % Plt Count 425 H (150-400) K/uL MPV 9.00 (7.40-12.00) fL Neut % (Auto) 79.7 (48.0-80.0) % Lymph % (Auto) 9.3 L (16.0-40.0) % [place] % (Auto) 9.7 (0.0-15.0) % Eos % (Auto) 1.1 (0.0-7.0) % Baso % (Auto) 0.2 (0.0-1.5) % Neut # (Auto) 14.2 H (1.4-5.7) K/uL Lymph # (Auto) 1.7 (0.6-2.4) K/uL [place] # (Auto) 1.7 H (0.0-0.8) K/uL Eos # (Auto) 0.2 (0.0-0.7) K/uL Baso # (Auto) 0.0 (0.0-0.1) K/uL Nucleated RBC % 0.0 /100WBC Nucleated RBCs # 0 K/uL Lactate (0.20-2.00) mmol/L Sodium (136-148) mmol/L Potassium 3.3 L (3.5-5.1) mmol/L Chloride (98-107) mmol/L Carbon Dioxide (21.0-32.0) mmol/L BUN (7.0-18.0) mg/dL Creatinine (0.8-1.3) mg/dL Est Cr Clr Drug Dosing mL/min Estimated GFR (MDRD) ml/min Glucose (74-106) mg/dL POC Glucose 124 H (60-110) mg/dL Calcium (8.5-10.1) mg/dL Phosphorus (2.6-4.7) mg/dL Magnesium (1.8-2.4) mg/dL Total Bilirubin (0.2-1.0) mg/dL AST (15-37) IU/L ALT (14-63) IU/L Alkaline Phosphatase (46-116) U/L Troponin I (0.000-0.056) ng/mL Total Protein (6.4-8.2) g/dL Albumin (3.4-5.0) g/dL Globulin (2.6-4.0) g/dL Albumin/Globulin Ratio (0.9-1.6) Lipase (73-393) U/L TSH 3rd Generation (0.36-3.74) uIU/mL SARS-CoV-2 RNA ([facility]) (NEGATIVE) 03/27/20 03/27/20 03/27/20 Range/Units 05:09 05:09 05:41 WBC (4.0-11.0) K/uL RBC (4.50-5.90) M/uL Hgb (13.0-17.0) g/dL Hct (38.0-50.0) % MCV (80.0-98.0) fL MCH (27.0-32.0) pg MCHC (31.0-37.0) g/dL RDW Std Deviation (28.0-62.0) fl RDW Coeff of Claudio (11.0-15.0) % Plt Count (150-400) K/uL MPV (7.40-12.00) fL Neut % (Auto) (48.0-80.0) % Lymph % (Auto) (16.0-40.0) % [place] % (Auto) (0.0-15.0) % Eos % (Auto) (0.0-7.0) % Baso % (Auto) (0.0-1.5) % Neut # (Auto) (1.4-5.7) K/uL Lymph # (Auto) (0.6-2.4) K/uL [place] # (Auto) (0.0-0.8) K/uL Eos # (Auto) (0.0-0.7) K/uL Baso # (Auto) (0.0-0.1) K/uL Nucleated RBC % /100WBC Nucleated RBCs # K/uL Lactate (0.20-2.00) mmol/L Sodium 132 L (136-148) mmol/L Potassium 3.5 (3.5-5.1) mmol/L Chloride 85 L (98-107) mmol/L Carbon Dioxide 37.9 H (21.0-32.0) mmol/L BUN 83 H (7.0-18.0) mg/dL Creatinine 2.3 H (0.8-1.3) mg/dL Est Cr Clr Drug Dosing 23.05 mL/min Estimated GFR (MDRD) 29.2 ml/min Glucose 116 H (74-106) mg/dL POC Glucose 117 H (60-110) mg/dL Calcium 8.8 (8.5-10.1) mg/dL Phosphorus 4.2 (2.6-4.7) mg/dL Magnesium 2.9 H (1.8-2.4) mg/dL Total Bilirubin (0.2-1.0) mg/dL AST (15-37) IU/L ALT (14-63) IU/L Alkaline Phosphatase (46-116) U/L Troponin I (0.000-0.056) ng/mL Total Protein (6.4-8.2) g/dL Albumin (3.4-5.0) g/dL Globulin (2.6-4.0) g/dL Albumin/Globulin Ratio (0.9-1.6) Lipase 1094 H (73-393) U/L TSH 3rd Generation (0.36-3.74) uIU/mL SARS-CoV-2 RNA ([facility]) (NEGATIVE) 03/27/20 Range/Units 12:11 WBC (4.0-11.0) K/uL RBC (4.50-5.90) M/uL Hgb (13.0-17.0) g/dL Hct (38.0-50.0) % MCV (80.0-98.0) fL MCH (27.0-32.0) pg MCHC (31.0-37.0) g/dL RDW Std Deviation (28.0-62.0) fl RDW Coeff of Claudio (11.0-15.0) % Plt Count (150-400) K/uL MPV (7.40-12.00) fL Neut % (Auto) (48.0-80.0) % Lymph % (Auto) (16.0-40.0) % [place] % (Auto) (0.0-15.0) % Eos % (Auto) (0.0-7.0) % Baso % (Auto) (0.0-1.5) % Neut # (Auto) (1.4-5.7) K/uL Lymph # (Auto) (0.6-2.4) K/uL [place] # (Auto) (0.0-0.8) K/uL Eos # (Auto) (0.0-0.7) K/uL Baso # (Auto) (0.0-0.1) K/uL Nucleated RBC % /100WBC Nucleated RBCs # K/uL Lactate (0.20-2.00) mmol/L Sodium (136-148) mmol/L Potassium (3.5-5.1) mmol/L Chloride (98-107) mmol/L Carbon Dioxide (21.0-32.0) mmol/L BUN (7.0-18.0) mg/dL Creatinine (0.8-1.3) mg/dL Est Cr Clr Drug Dosing mL/min Estimated GFR (MDRD) ml/min Glucose (74-106) mg/dL POC Glucose 115 H (60-110) mg/dL Calcium (8.5-10.1) mg/dL Phosphorus (2.6-4.7) mg/dL Magnesium (1.8-2.4) mg/dL Total Bilirubin (0.2-1.0) mg/dL AST (15-37) IU/L ALT (14-63) IU/L Alkaline Phosphatase (46-116) U/L Troponin I (0.000-0.056) ng/mL Total Protein (6.4-8.2) g/dL Albumin (3.4-5.0) g/dL Globulin (2.6-4.0) g/dL Albumin/Globulin Ratio (0.9-1.6) Lipase (73-393) U/L TSH 3rd Generation (0.36-3.74) uIU/mL SARS-CoV-2 RNA ([facility]) (NEGATIVE) Med Orders - Current: Current Medications Folic Acid (Folic Acid) 1 mg SUBCUT DAILY [facility] Last Admin: 03/27/20 09:51 Dose: 1 mg Documented by: Heparin Sodium (Porcine) (Heparin Sodium) 5,000 units SUBCUT Q8H [facility] Last Admin: 03/27/20 06:20 Dose: 5,000 units Documented by: Hydromorphone HCl (Dilaudid) 0.5 mg IVPUSH Q4H PRN PRN Reason: Pain (severe 7-10) Last Admin: 03/27/20 10:57 Dose: 0.5 mg Documented by: Thiamine HCl 100 mg/ Sodium (Chloride) 101 mls @ 202 mls/hr IV DAILY [facility] Last Admin: 03/27/20 09:56 Dose: 202 mls/hr Documented by: Pantoprazole Sodium 40 mg/ (Sodium Chloride) 10 mls @ 200 mls/hr IV Q24H [facility] Last Admin: 03/26/20 22:20 Dose: 200 mls/hr Documented by: Sodium Chloride (Normal Saline) 1,000 mls @ 150 mls/hr IV ASDIRECTED [facility] Last Admin: 03/27/20 06:02 Dose: 150 mls/hr Documented by: Insulin Aspart (Novolog) 0 unit SUBCUT Q6H [facility]; Protocol Last Admin: 03/27/20 06:00 Dose: Not Given Documented by: Lorazepam (Ativan) 0 mg IVPUSH Q4H PRN; Protocol PRN Reason: CIWAA Last Admin: 03/26/20 20:16 Dose: 1 mg Documented by: Lorazepam (Ativan) 0.5 mg IVPUSH Q4H PRN PRN Reason: Nausea Last Admin: 03/27/20 04:07 Dose: 0.5 mg Documented by: Sodium Chloride (Saline Flush) 2.5 ml FLUSH ASDIRECTED PRN PRN Reason: Keep Vein Open Discontinued Medications Acetaminophen (Tylenol Extra Strength) 1,000 mg PO ONETIME ONE Stop: 03/26/20 12:59 Last Admin: 03/26/20 14:00 Dose: 1,000 mg Documented by: Heparin Sodium (Porcine) (Heparin Sodium) 5,000 units SUBCUT Q8H [facility] Last Admin: 03/26/20 21:42 Dose: Not Given Documented by: Lactated Ringer's (Ringers, Lactated) 1,000 mls @ 999 mls/hr IV .BOLUS ONE Stop: 03/26/20 13:40 Last Admin: 03/26/20 12:56 Dose: 999 mls/hr Documented by: Prochlorperazine Edisylate 10 (mg/ Sodium Chloride) 52 mls @ 150 mls/hr IV ONETIME ONE Stop: 03/26/20 13:26 Last Admin: 03/26/20 15:14 Dose: 150 mls/hr Documented by: Magnesium Sulfate 2 gm/ Premix 50 mls @ 50 mls/hr IV ONETIME ONE Stop: 03/26/20 14:36 Last Admin: 03/26/20 14:05 Dose: 50 mls/hr Documented by: Lactated Ringer's (Ringers, Lactated) 1,000 mls @ 125 mls/hr IV ASDIRECTED [facility] Potassium Chloride 20 meq/ (Premix) 50 mls @ 25 mls/hr IV ONETIME ONE Stop: 03/26/20 16:08 Last Admin: 03/26/20 22:09 Dose: Not Given Documented by: Sodium Chloride (Normal Saline) 1,000 mls @ 999 mls/hr IV .Bolus ONE Stop: 03/26/20 16:37 Last Admin: 03/26/20 18:58 Dose: 999 mls/hr Documented by: Potassium Chloride 40 meq/ (Premix) 100 mls @ 25 mls/hr IV ONETIME ONE Stop: 03/26/20 19:37 Last Admin: 03/26/20 16:48 Dose: 25 mls/hr Documented by: Sodium Chloride (Normal Saline) 1,000 mls @ 150 mls/hr IV Q6H [facility] Last Admin: 03/26/20 22:10 Dose: Not Given Documented by: Pantoprazole Sodium 40 mg/ (Sodium Chloride) 10 mls @ 200 mls/hr IV Q24H [facility] Last Admin: 03/26/20 21:43 Dose: Not Given Documented by: Potassium Chloride/Sodium Chloride (Normal Saline With 40 Meq Kcl) 1,000 mls @ 150 mls/hr IV ASDIRECTED [facility] Last Admin: 03/26/20 22:28 Dose: 150 mls/hr Documented by: Metoclopramide HCl (Reglan) 10 mg IVPUSH ONETIME ONE Stop: 03/26/20 12:58 Last Admin: 03/26/20 14:17 Dose: Not Given Documented by: Ondansetron HCl (Zofran) 4 mg IVPUSH Q6H PRN PRN Reason: Nausea Oxycodone HCl (Oxycodone) 10 mg PO ONETIME ONE Stop: 03/26/20 12:59 Last Admin: 03/26/20 14:02 Dose: 10 mg Documented by: Potassium Chloride (Potassium Chloride) 60 meq PO ONETIME ONE Stop: 03/26/20 13:44 Last Admin: 03/26/20 14:03 Dose: 60 meq Documented by: Potassium Chloride (Potassium Chloride) Confirm Administered Dose 40 meq .ROUTE .STK-MED ONE Stop: 03/26/20 14:07 Last Admin: 03/26/20 14:17 Dose: Not Given Documented by: Sodium Chloride (Saline Flush) 10 ml FLUSH ASDIRECTED PRN PRN Reason: Keep Vein Open Last Admin: 03/26/20 12:56 Dose: 10 ml Documented by: Sodium Chloride (Saline Flush) 2.5 ml FLUSH ASDIRECTED PRN PRN Reason: Keep Vein Open Last Admin: 03/26/20 12:56 Dose: 2.5 ml Documented by: - Exam Quality Assessment: DVT Prophylaxis General: Alert, Oriented, Cooperative, No Acute Distress HEENT: Other (Otitis externa TO L with tenderness on otoscopic exam and edema to EAC. Unable to visualize TM. No drainage noted. No significant erythema) Lungs: Clear to Auscultation, Normal Respiratory Effort Cardiovascular: Regular Rate, Regular Rhythm GI/Abdominal Exam: Normal Bowel Sounds, Soft, Tender Back Exam: Normal Inspection, Full Range of Motion Extremities: Normal Inspection, Normal Range of Motion, Non-Tender, No Pedal Edema Neurological: No New Focal Deficit Psy/Mental Status: Alert, Normal Affect, Normal Mood Sepsis Event Note - Evaluation Sepsis Screening Result: No Definite Risk - Focused Exam Vital Signs: Vital Signs Temp Pulse Resp BP Pulse Ox 03/27/20 09:52 99.0 F 95 18 110/85 94 L 03/27/20 04:21 97.7 F 98 18 138/79 92 L - Problem List & Annotations (1) Pancreatitis SNOMED Code(s): 73192940 Code(s): K85.90 - ACUTE PANCREATITIS WITHOUT NECROSIS OR INFECTION, UNSP Status: Acute Priority: High Current Visit: No Qualifiers: Chronicity: acute Pancreatitis type: alcohol induced Acute pancreatitis complication: unspecified Qualified Code(s): K85.20 - Alcohol induced acute pancreatitis without necrosis or infection (2) High serum lactate SNOMED Code(s): 778548112, 133207300 Code(s): R79.89 - OTHER SPECIFIED ABNORMAL FINDINGS OF BLOOD CHEMISTRY Status: Acute Current Visit: Yes (3) Hypokalemia SNOMED Code(s): 43825740 Code(s): E87.6 - HYPOKALEMIA Status: Acute Current Visit: Yes (4) Hyponatremia SNOMED Code(s): 33890997 Code(s): E87.1 - HYPO-OSMOLALITY AND HYPONATREMIA Status: Acute Current Visit: Yes (5) Prolonged QT interval SNOMED Code(s): 228363781 Code(s): R94.31 - ABNORMAL ELECTROCARDIOGRAM [ECG] [EKG] Status: Acute Current Visit: Yes (6) Syncope and collapse SNOMED Code(s): 167259838 Code(s): R55 - SYNCOPE AND COLLAPSE Status: Acute Current Visit: Yes (7) Acute kidney injury SNOMED Code(s): 59117118, 98223424 Code(s): N17.9 - ACUTE KIDNEY FAILURE, UNSPECIFIED Status: Acute Current Visit: No (8) Dehydration SNOMED Code(s): 28439620 Code(s): E86.0 - DEHYDRATION Status: Acute Current Visit: No (9) Leukocytosis SNOMED Code(s): 876542966, 254081873 Code(s): D72.829 - ELEVATED WHITE BLOOD CELL COUNT, UNSPECIFIED Status: Acute Current Visit: No Qualifiers: Leukocytosis type: unspecified Qualified Code(s): D72.829 - Elevated white blood cell count, unspecified (10) Diabetes mellitus SNOMED Code(s): 39515397 Code(s): E11.9 - TYPE 2 DIABETES MELLITUS WITHOUT COMPLICATIONS Status: Chronic Priority: Medium Current Visit: No (11) Hyperlipidemia SNOMED Code(s): 22201177 Code(s): E78.5 - HYPERLIPIDEMIA, UNSPECIFIED Status: Chronic Priority: Medium Current Visit: No Qualifiers: Hyperlipidemia type: unspecified Qualified Code(s): E78.5 - Hyperlipidemia, unspecified (12) Hypertension SNOMED Code(s): 56629299 Code(s): I10 - ESSENTIAL (PRIMARY) HYPERTENSION Status: Chronic Priority: Medium Current Visit: No Qualifiers: Hypertension type: essential hypertension Qualified Code(s): I10 - Essential (primary) hypertension (13) Otitis externa SNOMED Code(s): 6313056 Code(s): H60.90 - UNSPECIFIED OTITIS EXTERNA, UNSPECIFIED EAR Status: Acute Current Visit: Yes Qualifiers: Chronicity: acute Laterality: left (14) Otitis media SNOMED Code(s): 87393948 Code(s): H66.90 - OTITIS MEDIA, UNSPECIFIED, UNSPECIFIED EAR Status: Acute Current Visit: Yes Qualifiers: Chronicity: acute Laterality: left - Problem List Review Problem List Initiated/Reviewed/Updated: Yes - My Orders Last 24 Hours: My Active Orders 03/26/20 15:44 Height and Weight [RC] DAILY Telemetry Monitoring [Cardiac Monitoring] [RC] Q8H Up With Assistance [RC] ASDIRECTED HYDROmorphone [Dilaudid] 0.5 mg IVPUSH Q4H PRN Resuscitation Status Routine 03/26/20 15:45 Intake and Output [RC] Q12H Oxygen Therapy [RC] PRN VTE/DVT Education [RC] PER UNIT ROUTINE Vital Signs [RC] Q4H 03/26/20 15:54 CIWAA Assessment [RC] Q4H LORazepam [Ativan] See Protocol IVPUSH Q4H PRN Sodium Chloride 0.9% [Saline Flush] 2.5 ml FLUSH ASDIRECTED PRN Saline Lock Insert [OM.PC] Routine 03/26/20 Dinner Nothing Per Oral Diet [DIET] 03/26/20 16:37 Orthostatic Vital Signs [RC] ONETIME 03/26/20 16:44 LORazepam [Ativan] 0.5 mg IVPUSH Q4H PRN 03/26/20 18:00 Blood Glucose Check, Bedside [RC] Q6H Insulin Aspart [NovoLOG] See Protocol SUBCUT Q6H 03/26/20 22:00 Heparin Sodium 5,000 units SUBCUT Q8H Pantoprazole [ProTONIX IV] 40 mg Sodium Chloride 0.9% [Normal Saline] 10 ml IV Q24H 03/27/20 09:00 Folic Acid 1 mg SUBCUT DAILY Thiamine [Vitamin B-1] 100 mg Sodium Chloride 0.9% [Normal Saline] 100 ml IV DAILY 03/27/20 11:50 Abdomen Pelvis wo Cont [CT] Urgent Chest wo Cont [CT] Urgent 03/27/20 16:37 Echo Comp wo Cont [US] Routine 03/28/20 05:11 CBC WITH AUTO DIFF [HEME] AM MAGNESIUM [CHEM] AM PHOSPHORUS [CHEM] AM 03/29/20 05:11 CBC WITH AUTO DIFF [HEME] AM MAGNESIUM [CHEM] AM PHOSPHORUS [CHEM] AM - Plan Plan:: This 59 year old male admitted with acute on chronic alcoholic pancreatitis, syncope, and severe electrolye abnormalities 1. Acute on chronic pancreatitis - Dilaudid for pain control PRN - NPO except ice chips - CT abdomen this am for leukocytosis, negative - Lipase remains 1094 - Ativan for nausea PRN due to prolonged Qtc 2. Syncope - Monitor on telemetry - Orthostatics positive, likely due to dehydration, monitor in am again after fluid resuscitation. - Obtain ECHO 3. RISHABH/dehdyration - Improving - Hold nephrotoxic medications - IVFs as above - Recheck in am 3. Severe electrolyte abnormalities - Hyponatremia-Improving, COntinue NS 150 for now. elevated to 132 - Hypokalemia- resolved. monitor. - Mag and phos- elevated, will monitor in am. 4. Otitis Externa/Media - Treat with Cipro CH otic drops - Rocephin IV as well for possible otitis media due to inability to visualized TM. - No drainage noted. 5. DM Type 2: - Novolog SSI every 6 hours while NPO 6. HTN: - BP soft in ED, hold Lisinopril 7. Alcohol abuse - Thiamine and folic acid - CIWAA protocol with Ativan PRN VTE prophylaxis: Heparin Dispo: 2-3 days pending improvement
--- NOTE | 2020-03-27 12:35 | CT ---
CT abdomen and pelvis Technique: Multiple axial sections were obtained from above the dome of the diaphragm inferiorly through the pubic symphysis. Intravenous and oral contrast not utilized. Reconstructed coronal and sagittal images were obtained. Comparison: Previous CT abdomen and pelvis exam of 12/11/19. Findings: Visualized lung bases show nothing acute. Liver contains no focal parenchymal abnormality. Spleen size is normal. Considerable material within the stomach is seen presumably due to digested material. Surgical clips seen from prior cholecystectomy. Pancreas is poorly seen without IV or oral contrast. Calcifications are seen within the right upper abdomen within the retroperitoneum as well as calcifications being seen within the left upper abdomen. These are most likely within the pancreas. These are stable from prior CT exam. Slightly prominent periaortic lymph nodes seen within the upper retroperitoneum which are stable from previous exam. Adrenal glands show no nodule. Kidneys showhydronephrosis or surrounding inflammatory change. Aorta shows atherosclerotic calcification which continues into the iliac vessels. Appendix is seen which is normal in size. No pelvic mass or adenopathy is seen. No free fluid or inflammatory change is seen. Mild increased stool seen throughout the colon. Bone window settings were reviewed which shows a compression deformity within the superior L1 vertebral body. This could be fairly acute in age. Scattered degenerative change is noted within the spine. Impression: 1. Compression deformity within the superior L1 vertebral body which appears fairly acute in age and represents an interval finding from previous CT exam. 2. Calcifications within the right upper and left upper abdomen most likely pancreatic in origin. These are stable from prior exam. 3. Poorly seen pancreas. 4. Lymph nodes within the left periaortic region which are stable from previous study. 5. Nothing acute is definitely appreciated. Diagnostic code #3 This report was dictated in MDT
[2020-03-27] MEDS ORDERED: Bisacodyl 10 MG Supp RECTAL ONE (12:38)
[2020-03-27] MEDS ORDERED: Lactated Ringers 1,000 ML IV ONE (12:39)
--- NOTE | 2020-03-27 12:41 | CT ---
CT chest Technique: Multiple axial sections of the chest were obtained. Intravenous contrast not utilized. Reconstructed coronal and sagittal images were reviewed. Comparison: Prior chest x-ray of 03/26/20. Findings: Mediastinum and hilar regions show no adenopathy or discrete mass. No axillary adenopathy is identified. Mild emphysematous changes are present. No acute parenchymal change is seen. Bone window settings were reviewed. Mild degenerative change scattered within the spine. Endplate compression deformity seen superiorly within L1 which appears fairly acute. No acute osseous finding is otherwise appreciated. Impression: 1. Mild emphysematous change. 2. Compression deformity of the superior endplate of L1 which appears fairly acute. 3. No other acute abnormality is seen. Diagnostic code #2 This report was dictated in MDT
[2020-03-27] MEDS: cefTRIAXone 1 GM in Premix Bag 1 BAG IV SCH (13:36)
[2020-03-27] MEDS: Ciprofloxacin/Hydrocortisone Otic Susp 10 ML Bottle EARLF SCH ×2 (13:46→22:24)
[2020-03-27] MEDS ORDERED: LORazepam 2 MG/ML SDV IVPUSH PRN (15:28)
[2020-03-27] MEDS: Pantoprazole 40 MG in Sodium Chloride 0.9% 10 ML IV SCH (22:25)
[2020-03-28] MEDS: Insulin Aspart 100 Units/ML 3 ML Pen SUBCUT SCH ×3 (01:17→13:43)
[2020-03-28] MEDS: Sodium Chloride 0.9% 1,000 ML IV SCH ×2 (01:49→09:01)
[2020-03-28] MEDS: Heparin Sodium 5,000 Units/ML Vial SUBCUT SCH ×3 (06:51→14:39)
[2020-03-28] MEDS: HYDROmorphone 1 MG/ML Syringe IVPUSH PRN (06:57)
[2020-03-28] MEDS: Folic Acid 50 MG/10 ML MDV SUBCUT SCH (09:01)
[2020-03-28] MEDS: Ciprofloxacin/Hydrocortisone Otic Susp 10 ML Bottle EARLF SCH (09:02)
[2020-03-28] MEDS ORDERED: oxyCODONE 5 MG Tab PO PRN (09:30)
[2020-03-28 09:32] LABS: CARBON DIOXIDE,CO2 27.4 mmol/L (21.0-32.0); POTASSIUM,K 3.3 mmol/L (3.5-5.1)
[2020-03-28] MEDS: Thiamine 100 MG in Sodium Chloride 0.9% 100 ML IV SCH (09:36)
[2020-03-28] MEDS ORDERED: Potassium Chloride 20 MEQ Tab.ER PO ONE (14:10)
--- NOTE | 2020-03-28 14:18 | PCM.PN ---
- General Info Date of Service: 03/28/20 Admission Dx/Problem (Free Text): Admission Diagnosis/Problem Admission Diagnosis/Problem Syncope and collapse Subjective Update: Requesting pain meds and sleeping agent this morning. Tolerating CL diet. No chest pain or SOB. Ready to eat, will advance diet. Functional Status: Reports: Pain Controlled, Ambulating, Urinating - Review of Systems General: Reports: No Symptoms. Denies: Fatigue, Malaise Pulmonary: Reports: No Symptoms. Denies: Shortness of Breath Cardiovascular: Reports: No Symptoms. Denies: Chest Pain Gastrointestinal: Reports: No Symptoms. Denies: Abdominal Pain, Nausea, Vomiting Genitourinary: Reports: No Symptoms. Denies: Dysuria, Frequency Musculoskeletal: Reports: No Symptoms Skin: Reports: No Symptoms Neurological: Reports: No Symptoms Psychiatric: Reports: Anxiety - Patient Data Vitals - Most Recent: Last Vital Signs Temp 98.7 F 03/28/20 08:48 Pulse 116 H 03/28/20 08:48 Resp 14 03/28/20 08:48 BP 126/61 03/28/20 08:48 Pulse Ox 97 03/28/20 08:48 Orthostatic Blood Pressure [ 128/84 Standing] Orthostatic Blood Pressure [ 132/93 Sitting] Orthostatic Blood Pressure [ 146/81 Supine] Weight - Most Recent: 47.718 kg I&O - Last 24 Hours: Intake & Output 03/27/20 03/28/20 03/28/20 22:59 06:59 14:59 Intake Total 10 1880 Output Total 1150 925 Balance -1140 955 Lab Results Last 24 Hours: Laboratory Results - last 24 hr 03/27/20 03/27/20 03/28/20 Range/Units 16:55 23:35 08:35 WBC 14.74 H (4.0-11.0) K/uL RBC 3.45 L (4.50-5.90) M/uL Hgb 10.3 L (13.0-17.0) g/dL Hct 31.2 L (38.0-50.0) % MCV 90.4 (80.0-98.0) fL MCH 29.9 (27.0-32.0) pg MCHC 33.0 (31.0-37.0) g/dL RDW Std Deviation 46.1 (28.0-62.0) fl RDW Coeff of Claudio 14 (11.0-15.0) % Plt Count 413 H (150-400) K/uL MPV 9.20 (7.40-12.00) fL Neut % (Auto) 75.9 (48.0-80.0) % Lymph % (Auto) 12.7 L (16.0-40.0) % [place] % (Auto) 8.8 (0.0-15.0) % Eos % (Auto) 2.3 (0.0-7.0) % Baso % (Auto) 0.3 (0.0-1.5) % Neut # (Auto) 11.2 H (1.4-5.7) K/uL Lymph # (Auto) 1.9 (0.6-2.4) K/uL [place] # (Auto) 1.3 H (0.0-0.8) K/uL Eos # (Auto) 0.3 (0.0-0.7) K/uL Baso # (Auto) 0.0 (0.0-0.1) K/uL Nucleated RBC % 0.0 /100WBC Nucleated RBCs # 0 K/uL Sodium (136-148) mmol/L Potassium (3.5-5.1) mmol/L Chloride (98-107) mmol/L Carbon Dioxide (21.0-32.0) mmol/L BUN (7.0-18.0) mg/dL Creatinine (0.8-1.3) mg/dL Est Cr Clr Drug Dosing mL/min Estimated GFR (MDRD) ml/min Glucose (74-106) mg/dL POC Glucose 76 62 (60-110) mg/dL Calcium (8.5-10.1) mg/dL Phosphorus (2.6-4.7) mg/dL Magnesium (1.8-2.4) mg/dL Total Bilirubin (0.2-1.0) mg/dL AST (15-37) IU/L ALT (14-63) IU/L Alkaline Phosphatase (46-116) U/L Total Protein (6.4-8.2) g/dL Albumin (3.4-5.0) g/dL Globulin (2.6-4.0) g/dL Albumin/Globulin Ratio (0.9-1.6) Lipase (73-393) U/L 03/28/20 03/28/20 03/28/20 Range/Units 08:35 08:35 08:35 WBC (4.0-11.0) K/uL RBC (4.50-5.90) M/uL Hgb (13.0-17.0) g/dL Hct (38.0-50.0) % MCV (80.0-98.0) fL MCH (27.0-32.0) pg MCHC (31.0-37.0) g/dL RDW Std Deviation (28.0-62.0) fl RDW Coeff of Claudio (11.0-15.0) % Plt Count (150-400) K/uL MPV (7.40-12.00) fL Neut % (Auto) (48.0-80.0) % Lymph % (Auto) (16.0-40.0) % [place] % (Auto) (0.0-15.0) % Eos % (Auto) (0.0-7.0) % Baso % (Auto) (0.0-1.5) % Neut # (Auto) (1.4-5.7) K/uL Lymph # (Auto) (0.6-2.4) K/uL [place] # (Auto) (0.0-0.8) K/uL Eos # (Auto) (0.0-0.7) K/uL Baso # (Auto) (0.0-0.1) K/uL Nucleated RBC % /100WBC Nucleated RBCs # K/uL Sodium 134 L (136-148) mmol/L Potassium 3.3 L (3.5-5.1) mmol/L Chloride 97 L (98-107) mmol/L Carbon Dioxide 27.4 (21.0-32.0) mmol/L BUN 47 H (7.0-18.0) mg/dL Creatinine 1.6 H (0.8-1.3) mg/dL Est Cr Clr Drug Dosing 33.14 mL/min Estimated GFR (MDRD) 44.3 ml/min Glucose 95 (74-106) mg/dL POC Glucose (60-110) mg/dL Calcium 7.9 L (8.5-10.1) mg/dL Phosphorus 2.8 (2.6-4.7) mg/dL Magnesium 2.1 (1.8-2.4) mg/dL Total Bilirubin 0.5 (0.2-1.0) mg/dL AST 17 (15-37) IU/L ALT 14 (14-63) IU/L Alkaline Phosphatase 108 (46-116) U/L Total Protein 6.4 (6.4-8.2) g/dL Albumin 3.1 L (3.4-5.0) g/dL Globulin 3.3 (2.6-4.0) g/dL Albumin/Globulin Ratio 0.9 (0.9-1.6) Lipase 523 H (73-393) U/L 03/28/20 Range/Units 12:00 WBC (4.0-11.0) K/uL RBC (4.50-5.90) M/uL Hgb (13.0-17.0) g/dL Hct (38.0-50.0) % MCV (80.0-98.0) fL MCH (27.0-32.0) pg MCHC (31.0-37.0) g/dL RDW Std Deviation (28.0-62.0) fl RDW Coeff of Claudio (11.0-15.0) % Plt Count (150-400) K/uL MPV (7.40-12.00) fL Neut % (Auto) (48.0-80.0) % Lymph % (Auto) (16.0-40.0) % [place] % (Auto) (0.0-15.0) % Eos % (Auto) (0.0-7.0) % Baso % (Auto) (0.0-1.5) % Neut # (Auto) (1.4-5.7) K/uL Lymph # (Auto) (0.6-2.4) K/uL [place] # (Auto) (0.0-0.8) K/uL Eos # (Auto) (0.0-0.7) K/uL Baso # (Auto) (0.0-0.1) K/uL Nucleated RBC % /100WBC Nucleated RBCs # K/uL Sodium (136-148) mmol/L Potassium (3.5-5.1) mmol/L Chloride (98-107) mmol/L Carbon Dioxide (21.0-32.0) mmol/L BUN (7.0-18.0) mg/dL Creatinine (0.8-1.3) mg/dL Est Cr Clr Drug Dosing mL/min Estimated GFR (MDRD) ml/min Glucose (74-106) mg/dL POC Glucose 96 (60-110) mg/dL Calcium (8.5-10.1) mg/dL Phosphorus (2.6-4.7) mg/dL Magnesium (1.8-2.4) mg/dL Total Bilirubin (0.2-1.0) mg/dL AST (15-37) IU/L ALT (14-63) IU/L Alkaline Phosphatase (46-116) U/L Total Protein (6.4-8.2) g/dL Albumin (3.4-5.0) g/dL Globulin (2.6-4.0) g/dL Albumin/Globulin Ratio (0.9-1.6) Lipase (73-393) U/L Med Orders - Current: Current Medications Ciprofloxacin/Hydrocortisone (Cipro Hc Otic Susp) 0 ml EARLF BID [facility] Last Admin: 03/28/20 09:02 Dose: 3 drop Documented by: Folic Acid (Folic Acid) 1 mg SUBCUT DAILY [facility] Last Admin: 03/28/20 09:01 Dose: 1 mg Documented by: Heparin Sodium (Porcine) (Heparin Sodium) 5,000 units SUBCUT Q8H [facility] Last Admin: 03/28/20 06:54 Dose: 5,000 units Documented by: Thiamine HCl 100 mg/ Sodium (Chloride) 101 mls @ 202 mls/hr IV DAILY [facility] Last Admin: 03/28/20 09:36 Dose: 202 mls/hr Documented by: Pantoprazole Sodium 40 mg/ (Sodium Chloride) 10 mls @ 200 mls/hr IV Q24H [facility] Last Admin: 03/27/20 22:25 Dose: 200 mls/hr Documented by: Sodium Chloride (Normal Saline) 1,000 mls @ 150 mls/hr IV ASDIRECTED [facility] Last Admin: 03/28/20 09:01 Dose: 150 mls/hr Documented by: Ceftriaxone Sodium/Dextrose 1 (gm/ Premix) 50 mls @ 100 mls/hr IV Q24H [facility] Last Admin: 03/27/20 13:36 Dose: 100 mls/hr Documented by: Insulin Aspart (Novolog) 0 unit SUBCUT Q6H [facility]; Protocol Last Admin: 03/28/20 13:43 Dose: Not Given Documented by: Oxycodone HCl (Oxycodone) 5 mg PO Q6H PRN PRN Reason: Pain Last Admin: 03/28/20 11:51 Dose: 5 mg Documented by: Potassium Chloride (Klor-Con M20) 40 meq PO ONETIME ONE Stop: 03/28/20 14:11 Sodium Chloride (Saline Flush) 2.5 ml FLUSH ASDIRECTED PRN PRN Reason: Keep Vein Open Discontinued Medications Acetaminophen (Tylenol Extra Strength) 1,000 mg PO ONETIME ONE Stop: 03/26/20 12:59 Last Admin: 03/26/20 14:00 Dose: 1,000 mg Documented by: Bisacodyl (Dulcolax) 10 mg RECTAL ONETIME ONE Stop: 03/27/20 12:39 Last Admin: 03/27/20 13:35 Dose: 10 mg Documented by: Heparin Sodium (Porcine) (Heparin Sodium) 5,000 units SUBCUT Q8H [facility] Last Admin: 03/26/20 21:42 Dose: Not Given Documented by: Hydromorphone HCl (Dilaudid) 0.5 mg IVPUSH Q4H PRN PRN Reason: Pain (severe 7-10) Last Admin: 03/28/20 06:57 Dose: 0.5 mg Documented by: Lactated Ringer's (Ringers, Lactated) 1,000 mls @ 999 mls/hr IV .BOLUS ONE Stop: 03/26/20 13:40 Last Admin: 03/26/20 12:56 Dose: 999 mls/hr Documented by: Prochlorperazine Edisylate 10 (mg/ Sodium Chloride) 52 mls @ 150 mls/hr IV ONETIME ONE Stop: 03/26/20 13:26 Last Admin: 03/26/20 15:14 Dose: 150 mls/hr Documented by: Magnesium Sulfate 2 gm/ Premix 50 mls @ 50 mls/hr IV ONETIME ONE Stop: 03/26/20 14:36 Last Admin: 03/26/20 14:05 Dose: 50 mls/hr Documented by: Lactated Ringer's (Ringers, Lactated) 1,000 mls @ 125 mls/hr IV ASDIRECTED [facility] Potassium Chloride 20 meq/ (Premix) 50 mls @ 25 mls/hr IV ONETIME ONE Stop: 03/26/20 16:08 Last Admin: 03/26/20 22:09 Dose: Not Given Documented by: Sodium Chloride (Normal Saline) 1,000 mls @ 999 mls/hr IV .Bolus ONE Stop: 03/26/20 16:37 Last Admin: 03/26/20 18:58 Dose: 999 mls/hr Documented by: Potassium Chloride 40 meq/ (Premix) 100 mls @ 25 mls/hr IV ONETIME ONE Stop: 03/26/20 19:37 Last Admin: 03/26/20 16:48 Dose: 25 mls/hr Documented by: Sodium Chloride (Normal Saline) 1,000 mls @ 150 mls/hr IV Q6H [facility] Last Admin: 03/27/20 15:22 Dose: Not Given Documented by: Pantoprazole Sodium 40 mg/ (Sodium Chloride) 10 mls @ 200 mls/hr IV Q24H [facility] Last Admin: 03/26/20 21:43 Dose: Not Given Documented by: Potassium Chloride/Sodium Chloride (Normal Saline With 40 Meq Kcl) 1,000 mls @ 150 mls/hr IV ASDIRECTED [facility] Last Admin: 03/26/20 22:28 Dose: 150 mls/hr Documented by: Lactated Ringer's (Ringers, Lactated) 1,000 mls @ 999 mls/hr IV .BOLUS ONE Stop: 03/27/20 13:39 Last Admin: 03/27/20 13:35 Dose: 999 mls/hr Documented by: Lorazepam (Ativan) 0 mg IVPUSH Q4H PRN; Protocol PRN Reason: CIWAA Last Admin: 03/27/20 23:39 Dose: 1 mg Documented by: Lorazepam (Ativan) 0.5 mg IVPUSH Q4H PRN PRN Reason: Nausea Last Admin: 03/27/20 14:49 Dose: 0.5 mg Documented by: Lorazepam (Ativan) 0.25 mg IVPUSH Q6H PRN PRN Reason: Nausea/anxiety Metoclopramide HCl (Reglan) 10 mg IVPUSH ONETIME ONE Stop: 03/26/20 12:58 Last Admin: 03/26/20 14:17 Dose: Not Given Documented by: Ondansetron HCl (Zofran) 4 mg IVPUSH Q6H PRN PRN Reason: Nausea Oxycodone HCl (Oxycodone) 10 mg PO ONETIME ONE Stop: 03/26/20 12:59 Last Admin: 03/26/20 14:02 Dose: 10 mg Documented by: Potassium Chloride (Potassium Chloride) 60 meq PO ONETIME ONE Stop: 03/26/20 13:44 Last Admin: 03/26/20 14:03 Dose: 60 meq Documented by: Potassium Chloride (Potassium Chloride) Confirm Administered Dose 40 meq .ROUTE .STK-MED ONE Stop: 03/26/20 14:07 Last Admin: 03/26/20 14:17 Dose: Not Given Documented by: Sodium Chloride (Saline Flush) 10 ml FLUSH ASDIRECTED PRN PRN Reason: Keep Vein Open Last Admin: 03/26/20 12:56 Dose: 10 ml Documented by: Sodium Chloride (Saline Flush) 2.5 ml FLUSH ASDIRECTED PRN PRN Reason: Keep Vein Open Last Admin: 03/26/20 12:56 Dose: 2.5 ml Documented by: - Exam Quality Assessment: DVT Prophylaxis. No: Supplemental Oxygen General: Alert, Oriented Lungs: Clear to Auscultation, Normal Respiratory Effort Cardiovascular: Regular Rate, Regular Rhythm GI/Abdominal Exam: Normal Bowel Sounds, Soft, Non-Tender Back Exam: Normal Inspection, Full Range of Motion Extremities: Normal Inspection, Normal Range of Motion, Non-Tender, No Pedal Edema Neurological: No New Focal Deficit Psy/Mental Status: Anxious Sepsis Event Note - Evaluation Sepsis Screening Result: No Definite Risk - Focused Exam Vital Signs: Vital Signs Temp Pulse Resp BP Pulse Ox 03/28/20 08:48 98.7 F 116 H 14 126/61 97 03/28/20 05:44 97.3 F 78 13 121/72 92 L - Problem List & Annotations (1) Pancreatitis SNOMED Code(s): 42556495 Code(s): K85.90 - ACUTE PANCREATITIS WITHOUT NECROSIS OR INFECTION, UNSP Status: Acute Priority: High Current Visit: No Qualifiers: Chronicity: acute Pancreatitis type: alcohol induced Acute pancreatitis complication: unspecified Qualified Code(s): K85.20 - Alcohol induced acute pancreatitis without necrosis or infection (2) High serum lactate SNOMED Code(s): 236921424, 966925602 Code(s): R79.89 - OTHER SPECIFIED ABNORMAL FINDINGS OF BLOOD CHEMISTRY Status: Acute Current Visit: Yes (3) Hypokalemia SNOMED Code(s): 85488100 Code(s): E87.6 - HYPOKALEMIA Status: Acute Current Visit: Yes (4) Hyponatremia SNOMED Code(s): 60733585 Code(s): E87.1 - HYPO-OSMOLALITY AND HYPONATREMIA Status: Acute Current Visit: Yes (5) Prolonged QT interval SNOMED Code(s): 005339508 Code(s): R94.31 - ABNORMAL ELECTROCARDIOGRAM [ECG] [EKG] Status: Acute Current Visit: Yes (6) Syncope and collapse SNOMED Code(s): 274046809 Code(s): R55 - SYNCOPE AND COLLAPSE Status: Acute Current Visit: Yes (7) Acute kidney injury SNOMED Code(s): 38945442, 62920017 Code(s): N17.9 - ACUTE KIDNEY FAILURE, UNSPECIFIED Status: Acute Current Visit: No (8) Dehydration SNOMED Code(s): 77545491 Code(s): E86.0 - DEHYDRATION Status: Acute Current Visit: No (9) Leukocytosis SNOMED Code(s): 978593268, 293225595 Code(s): D72.829 - ELEVATED WHITE BLOOD CELL COUNT, UNSPECIFIED Status: Acute Current Visit: No Qualifiers: Leukocytosis type: unspecified Qualified Code(s): D72.829 - Elevated white blood cell count, unspecified (10) Diabetes mellitus SNOMED Code(s): 69545794 Code(s): E11.9 - TYPE 2 DIABETES MELLITUS WITHOUT COMPLICATIONS Status: Chronic Priority: Medium Current Visit: No (11) Hyperlipidemia SNOMED Code(s): 00100964 Code(s): E78.5 - HYPERLIPIDEMIA, UNSPECIFIED Status: Chronic Priority: Medium Current Visit: No Qualifiers: Hyperlipidemia type: unspecified Qualified Code(s): E78.5 - Hyperlipidemia, unspecified (12) Hypertension SNOMED Code(s): 33620026 Code(s): I10 - ESSENTIAL (PRIMARY) HYPERTENSION Status: Chronic Priority: Medium Current Visit: No Qualifiers: Hypertension type: essential hypertension Qualified Code(s): I10 - Essential (primary) hypertension (13) Otitis externa SNOMED Code(s): 9328583 Code(s): H60.90 - UNSPECIFIED OTITIS EXTERNA, UNSPECIFIED EAR Status: Acute Current Visit: Yes Qualifiers: Chronicity: acute Laterality: left (14) Otitis media SNOMED Code(s): 01344203 Code(s): H66.90 - OTITIS MEDIA, UNSPECIFIED, UNSPECIFIED EAR Status: Acute Current Visit: Yes Qualifiers: Chronicity: acute Laterality: left - Problem List Review Problem List Initiated/Reviewed/Updated: Yes - My Orders Last 24 Hours: My Active Orders 03/27/20 14:39 Bladder Scan [RC] ASDIRECTED 03/27/20 15:27 [facility] [place] Discontinue [Cardiac Monitoring Discontinue] [RC] Click to Edit 03/27/20 16:37 Echo Comp wo Cont [US] Routine 03/28/20 08:00 Orthostatic Vital Signs [RC] DAILY 03/28/20 09:30 oxyCODONE 5 mg PO Q6H PRN 03/28/20 Lunch Soft Diet [DIET] 03/28/20 12:08 PT Evaluation and Treatment [CONS] Routine 03/28/20 14:10 Potassium Chloride [Klor-Con M20] 40 meq PO ONETIME ONE 03/29/20 05:11 CBC WITH AUTO DIFF [HEME] AM MAGNESIUM [CHEM] AM PHOSPHORUS [CHEM] AM - Plan Plan:: This 59 year old male admitted with acute on chronic alcoholic pancreatitis, syncope, and severe electrolye abnormalities 1. Acute on chronic pancreatitis - Oxycodone PO PRN - Soft diet - Ativan for nausea PRN due to prolonged Qtc 2. Syncope - Monitor on telemetry - Orthostatics positive, likely due to dehydration, monitor in am again after fluid resuscitation. - ECHO pending - No further syncope - PT evaluation 3. RISHABH/dehdyration - Improving - Hold nephrotoxic medications - IVFs as above - Recheck in am 3. Severe electrolyte abnormalities resolved. 4. Otitis Externa/Media - Treat with Cipro CH otic drops - Rocephin IV as well for possible otitis media due to inability to visualized TM. - No drainage noted. - hearing improving as well as pain 5. DM Type 2: - Novolog SSI every 6 hours while NPO 6. HTN: - BP soft in ED, hold Lisinopril 7. Alcohol abuse - Thiamine and folic acid - CIWAA protocol with Ativan PRN VTE prophylaxis: Heparin Dispo: Likely DC in am
[2020-03-28] MEDS: cefTRIAXone 1 GM in Premix Bag 1 BAG IV SCH (14:39)
[2020-03-28] MEDS ORDERED: Melatonin 3 MG Tab PO PRN (16:40)
[2020-03-28 16:43] VITALS: BP 134/82; PULSE 70
--- NOTE | 2020-03-28 16:51 | PCM.DCSUM1 ---
Discharge Summary - Hospital Course Brief History: This 59 year old male with pmh of alcohol abuse, pancreatitis, cholelithiasis with cholecystectomy, HTN and DM Type 2 presented to the ED with multiple complaints. He reports he has not been eating or drinking for approximately 2 weeks having increased abdominal pain, nausea and vomiting. he has tried protein shakes but those don't stay down. He denies fevers or chills. No diarrhea, reports more constipation. Reports heartburn and epigastric RUQ pain. He reports this is very similar to the other attacks he has gotten in the past. He reports he has passed out many times over this last few weeks, mainly when he has recently changed positions, he becomes lightheaded and dizzy then passes out. He denies ches tpain or SOB. He reports he has not drank alcohol in 2-3 weeks, smokes 1-3 cigarettes daily and no recreational drug use. In the ED leukocytosis noted at 12,620, platelet 402, lactic acid 2.3, Na 126, k+ 2.7, Cl 76, Bicarb 41.8, BUN 98, Cr 2.8, lipase 1030, troponin negative HR elevated 110. BP 105/83. head CT obtained which was negative. CXR negative. He was give PO potassium which he threw up along with Oxycodone. he was also given 1 L LR bolus. He was given Magnesium 2 gm IV, compazine and Tylenol. he will be admitted for acute on chronic alcoholic pancreatitis with severe electrolyte abnormalities. Diagnosis: Stroke: No - Discharge Data Discharge Date: 03/28/20 Discharge Disposition: Home, Self-Care 01 Condition: Good - Referral to Home Health Primary Care Physician: PCP None - Discharge Diagnosis/Problem(s) (1) Pancreatitis SNOMED Code(s): 55469163 ICD Code: K85.90 - ACUTE PANCREATITIS WITHOUT NECROSIS OR INFECTION, UNSP Status: Acute Priority: High Current Visit: No Qualifiers: Chronicity: acute Pancreatitis type: alcohol induced Acute pancreatitis complication: unspecified Qualified Code(s): K85.20 - Alcohol induced acute pancreatitis without necrosis or infection (2) High serum lactate SNOMED Code(s): 118789337, 549970511 ICD Code: R79.89 - OTHER SPECIFIED ABNORMAL FINDINGS OF BLOOD CHEMISTRY Status: Acute Current Visit: Yes (3) Hypokalemia SNOMED Code(s): 88673217 ICD Code: E87.6 - HYPOKALEMIA Status: Acute Current Visit: Yes (4) Hyponatremia SNOMED Code(s): 47009227 ICD Code: E87.1 - HYPO-OSMOLALITY AND HYPONATREMIA Status: Acute Current Visit: Yes (5) Prolonged QT interval SNOMED Code(s): 594724827 ICD Code: R94.31 - ABNORMAL ELECTROCARDIOGRAM [ECG] [EKG] Status: Acute Current Visit: Yes (6) Syncope and collapse SNOMED Code(s): 185158796 ICD Code: R55 - SYNCOPE AND COLLAPSE Status: Acute Current Visit: Yes (7) Acute kidney injury SNOMED Code(s): 49393440, 14694947 ICD Code: N17.9 - ACUTE KIDNEY FAILURE, UNSPECIFIED Status: Acute Current Visit: No (8) Dehydration SNOMED Code(s): 23799989 ICD Code: E86.0 - DEHYDRATION Status: Acute Current Visit: No (9) Leukocytosis SNOMED Code(s): 000873757, 000551972 ICD Code: D72.829 - ELEVATED WHITE BLOOD CELL COUNT, UNSPECIFIED Status: Acute Current Visit: No Qualifiers: Leukocytosis type: unspecified Qualified Code(s): D72.829 - Elevated white blood cell count, unspecified (10) Diabetes mellitus SNOMED Code(s): 93887003 ICD Code: E11.9 - TYPE 2 DIABETES MELLITUS WITHOUT COMPLICATIONS Status: Chronic Priority: Medium Current Visit: No (11) Hyperlipidemia SNOMED Code(s): 73363482 ICD Code: E78.5 - HYPERLIPIDEMIA, UNSPECIFIED Status: Chronic Priority: Medium Current Visit: No Qualifiers: Hyperlipidemia type: unspecified Qualified Code(s): E78.5 - Hyperlipidemia, unspecified (12) Hypertension SNOMED Code(s): 71987741 ICD Code: I10 - ESSENTIAL (PRIMARY) HYPERTENSION Status: Chronic Priority: Medium Current Visit: No Qualifiers: Hypertension type: essential hypertension Qualified Code(s): I10 - Essential (primary) hypertension (13) Otitis externa SNOMED Code(s): 9215681 ICD Code: H60.90 - UNSPECIFIED OTITIS EXTERNA, UNSPECIFIED EAR Status: Acute Current Visit: Yes Qualifiers: Chronicity: acute Laterality: left (14) Otitis media SNOMED Code(s): 09514961 ICD Code: H66.90 - OTITIS MEDIA, UNSPECIFIED, UNSPECIFIED EAR Status: Acute Current Visit: Yes Qualifiers: Chronicity: acute Laterality: left - Patient Summary/Data Consults: Consultations 03/28/20 12:08 PT Evaluation and Treatment [CONS] Routine Hospital Course: Admitting Diagnoses: Acute on chronic alcoholic pancreatitis Hypokalemia Orthostatic hypotension syncope Discharge Diagnoses: Acute on chronic alcoholic pancreatitis Hypokalemia Orthostatic hypotension syncope Otitis externa and OM to Juliette Pulido was admitted with acute on chronic pancreaittis, with N/V and epigastric pain along with significant electrolyte abnormalities. He was treated with IVFs, BP improved along with orthostatic hypotension. He was treated with thiamine and folic acid for alcohol abuse. 03/27 leukocytosis noted, CT chest and abdomen/pelvis obtained which were negative. OM and Otitis externa noted to Juliette rodrigues. He was started on Rocephin and Cipro otic drops. Today he was feeling improved, but demanding Ativan and Dilaudid for pain though being very sedated. These medications were discontinued and diet advanced. He tolerated diet, but became agitated this afternoon wanting to leave. Medically stable, it was discussed with Dr Nicholas and we will discharge patient home today. I will continue Augment 875/125 BID for 5 more days for OM and CIpro otic drops for another 5 days as well. He he is to follow up with PCP as scheduled. He left unit quickly and just "wanted to get outside and smoke." He is to return to the ED or clinic if any concerns should arise. - Patient Instructions Diet: GI Soft/Low Residue/Low Fiber Activity: As Tolerated, No Strenuous Activities Driving: Do Not Drive Showering/Bathing: May Shower Notify Provider of: Fever, Increased Pain, Swelling and Redness, Drainage, Nausea and/or Vomiting - Discharge Plan *PRESCRIPTION DRUG MONITORING PROGRAM REVIEWED*: Not Applicable *COPY OF PRESCRIPTION DRUG MONITORING REPORT IN PATIENT KASEY: Not Applicable Prescriptions/Med Rec: Amoxicillin/Potassium Clav [Augmentin 875-125 Tablet] 1 each PO BID #10 tablet Home Medications: Home Meds Lisinopril 10 mg PO BEDTIME 10/07/16 [History] atorvaSTATin [Lipitor] 20 mg PO BEDTIME 10/07/16 [History] metFORMIN [Glucophage] 500 mg PO BIDMEALS 10/07/16 [History] Aspirin 81 mg PO BEDTIME 04/25/19 [History] Psyllium Husk [Psyllium Fiber] 5 cap PO DAILY 04/25/19 [History] diphenhydrAMINE HCL [Benadryl] 50 mg PO BEDTIME 04/25/19 [History] Ondansetron [Zofran ODT] 4 mg PO Q6H PRN 3 Days #12 tab.dis 12/13/19 [Rx] Amoxicillin/Potassium Clav [Augmentin 875-125 Tablet] 1 each PO BID #10 tablet 03/28/20 [Rx] Ciprofloxacin/Hydrocortisone [Cipro HC Otic Susp] 3 drop EARLF BID bottle 03/28/20 [Rx] Oxygen Therapy Mode: Room Air Patient Handouts: Amoxicillin; Clavulanic Acid tablets, Syncope, [id number] Referrals: Lora Knight NP [Nurse Practitioner] - 04/05/20 2:30 pm (Please come for your follow up appointment, arrive 15 minutes early with your ID and wearing a mask. Continue to use the ear drops at home, 3 drops in the left ear canal daily.) - Discharge Summary/Plan Comment DC Time >30 min.: No - Patient Data Vitals - Most Recent: Last Vital Signs Temp 98.2 F 03/28/20 16:00 Pulse 70 03/28/20 16:00 Resp 14 03/28/20 16:00 BP 134/82 03/28/20 16:00 Pulse Ox 96 03/28/20 16:00 Orthostatic Blood Pressure [ 128/84 Standing] Orthostatic Blood Pressure [ 132/93 Sitting] Orthostatic Blood Pressure [ 146/81 Supine] Weight - Most Recent: 47.718 kg I&O - Last 24 hours: Intake & Output 03/28/20 03/28/20 03/28/20 06:59 14:59 22:59 Intake Total 1880 200 Output Total 925 790 Balance 955 -590 Lab Results - Last 24 hrs: Laboratory Results - last 24 hr 03/27/20 03/27/20 03/28/20 Range/Units 16:55 23:35 08:35 WBC 14.74 H (4.0-11.0) K/uL RBC 3.45 L (4.50-5.90) M/uL Hgb 10.3 L (13.0-17.0) g/dL Hct 31.2 L (38.0-50.0) % MCV 90.4 (80.0-98.0) fL MCH 29.9 (27.0-32.0) pg MCHC 33.0 (31.0-37.0) g/dL RDW Std Deviation 46.1 (28.0-62.0) fl RDW Coeff of Claudio 14 (11.0-15.0) % Plt Count 413 H (150-400) K/uL MPV 9.20 (7.40-12.00) fL Neut % (Auto) 75.9 (48.0-80.0) % Lymph % (Auto) 12.7 L (16.0-40.0) % [place] % (Auto) 8.8 (0.0-15.0) % Eos % (Auto) 2.3 (0.0-7.0) % Baso % (Auto) 0.3 (0.0-1.5) % Neut # (Auto) 11.2 H (1.4-5.7) K/uL Lymph # (Auto) 1.9 (0.6-2.4) K/uL [place] # (Auto) 1.3 H (0.0-0.8) K/uL Eos # (Auto) 0.3 (0.0-0.7) K/uL Baso # (Auto) 0.0 (0.0-0.1) K/uL Nucleated RBC % 0.0 /100WBC Nucleated RBCs # 0 K/uL Sodium (136-148) mmol/L Potassium (3.5-5.1) mmol/L Chloride (98-107) mmol/L Carbon Dioxide (21.0-32.0) mmol/L BUN (7.0-18.0) mg/dL Creatinine (0.8-1.3) mg/dL Est Cr Clr Drug Dosing mL/min Estimated GFR (MDRD) ml/min Glucose (74-106) mg/dL POC Glucose 76 62 (60-110) mg/dL Calcium (8.5-10.1) mg/dL Phosphorus (2.6-4.7) mg/dL Magnesium (1.8-2.4) mg/dL Total Bilirubin (0.2-1.0) mg/dL AST (15-37) IU/L ALT (14-63) IU/L Alkaline Phosphatase (46-116) U/L Total Protein (6.4-8.2) g/dL Albumin (3.4-5.0) g/dL Globulin (2.6-4.0) g/dL Albumin/Globulin Ratio (0.9-1.6) Lipase (73-393) U/L 03/28/20 03/28/20 03/28/20 Range/Units 08:35 08:35 08:35 WBC (4.0-11.0) K/uL RBC (4.50-5.90) M/uL Hgb (13.0-17.0) g/dL Hct (38.0-50.0) % MCV (80.0-98.0) fL MCH (27.0-32.0) pg MCHC (31.0-37.0) g/dL RDW Std Deviation (28.0-62.0) fl RDW Coeff of Claudio (11.0-15.0) % Plt Count (150-400) K/uL MPV (7.40-12.00) fL Neut % (Auto) (48.0-80.0) % Lymph % (Auto) (16.0-40.0) % [place] % (Auto) (0.0-15.0) % Eos % (Auto) (0.0-7.0) % Baso % (Auto) (0.0-1.5) % Neut # (Auto) (1.4-5.7) K/uL Lymph # (Auto) (0.6-2.4) K/uL [place] # (Auto) (0.0-0.8) K/uL Eos # (Auto) (0.0-0.7) K/uL Baso # (Auto) (0.0-0.1) K/uL Nucleated RBC % /100WBC Nucleated RBCs # K/uL Sodium 134 L (136-148) mmol/L Potassium 3.3 L (3.5-5.1) mmol/L Chloride 97 L (98-107) mmol/L Carbon Dioxide 27.4 (21.0-32.0) mmol/L BUN 47 H (7.0-18.0) mg/dL Creatinine 1.6 H (0.8-1.3) mg/dL Est Cr Clr Drug Dosing 33.14 mL/min Estimated GFR (MDRD) 44.3 ml/min Glucose 95 (74-106) mg/dL POC Glucose (60-110) mg/dL Calcium 7.9 L (8.5-10.1) mg/dL Phosphorus 2.8 (2.6-4.7) mg/dL Magnesium 2.1 (1.8-2.4) mg/dL Total Bilirubin 0.5 (0.2-1.0) mg/dL AST 17 (15-37) IU/L ALT 14 (14-63) IU/L Alkaline Phosphatase 108 (46-116) U/L Total Protein 6.4 (6.4-8.2) g/dL Albumin 3.1 L (3.4-5.0) g/dL Globulin 3.3 (2.6-4.0) g/dL Albumin/Globulin Ratio 0.9 (0.9-1.6) Lipase 523 H (73-393) U/L 03/28/20 Range/Units 12:00 WBC (4.0-11.0) K/uL RBC (4.50-5.90) M/uL Hgb (13.0-17.0) g/dL Hct (38.0-50.0) % MCV (80.0-98.0) fL MCH (27.0-32.0) pg MCHC (31.0-37.0) g/dL RDW Std Deviation (28.0-62.0) fl RDW Coeff of Claudio (11.0-15.0) % Plt Count (150-400) K/uL MPV (7.40-12.00) fL Neut % (Auto) (48.0-80.0) % Lymph % (Auto) (16.0-40.0) % [place] % (Auto) (0.0-15.0) % Eos % (Auto) (0.0-7.0) % Baso % (Auto) (0.0-1.5) % Neut # (Auto) (1.4-5.7) K/uL Lymph # (Auto) (0.6-2.4) K/uL [place] # (Auto) (0.0-0.8) K/uL Eos # (Auto) (0.0-0.7) K/uL Baso # (Auto) (0.0-0.1) K/uL Nucleated RBC % /100WBC Nucleated RBCs # K/uL Sodium (136-148) mmol/L Potassium (3.5-5.1) mmol/L Chloride (98-107) mmol/L Carbon Dioxide (21.0-32.0) mmol/L BUN (7.0-18.0) mg/dL Creatinine (0.8-1.3) mg/dL Est Cr Clr Drug Dosing mL/min Estimated GFR (MDRD) ml/min Glucose (74-106) mg/dL POC Glucose 96 (60-110) mg/dL Calcium (8.5-10.1) mg/dL Phosphorus (2.6-4.7) mg/dL Magnesium (1.8-2.4) mg/dL Total Bilirubin (0.2-1.0) mg/dL AST (15-37) IU/L ALT (14-63) IU/L Alkaline Phosphatase (46-116) U/L Total Protein (6.4-8.2) g/dL Albumin (3.4-5.0) g/dL Globulin (2.6-4.0) g/dL Albumin/Globulin Ratio (0.9-1.6) Lipase (73-393) U/L Med Orders - Current: Current Medications Ciprofloxacin/Hydrocortisone (Cipro Hc Otic Susp) 0 ml EARLF BID [facility] Last Admin: 03/28/20 09:02 Dose: 3 drop Documented by: Folic Acid (Folic Acid) 1 mg SUBCUT DAILY [facility] Last Admin: 03/28/20 09:01 Dose: 1 mg Documented by: Heparin Sodium (Porcine) (Heparin Sodium) 5,000 units SUBCUT Q8H [facility] Last Admin: 03/28/20 14:39 Dose: 5,000 units Documented by: Thiamine HCl 100 mg/ Sodium (Chloride) 101 mls @ 202 mls/hr IV DAILY [facility] Last Admin: 03/28/20 09:36 Dose: 202 mls/hr Documented by: Pantoprazole Sodium 40 mg/ (Sodium Chloride) 10 mls @ 200 mls/hr IV Q24H [facility] Last Admin: 03/27/20 22:25 Dose: 200 mls/hr Documented by: Sodium Chloride (Normal Saline) 1,000 mls @ 150 mls/hr IV ASDIRECTED [facility] Last Admin: 03/28/20 09:01 Dose: 150 mls/hr Documented by: Ceftriaxone Sodium/Dextrose 1 (gm/ Premix) 50 mls @ 100 mls/hr IV Q24H [facility] Last Admin: 03/28/20 14:39 Dose: 100 mls/hr Documented by: Insulin Aspart (Novolog) 0 unit SUBCUT Q6H [facility]; Protocol Last Admin: 03/28/20 13:43 Dose: Not Given Documented by: Melatonin (Melatonin) 6 mg PO BEDTIME PRN PRN Reason: Insomnia Oxycodone HCl (Oxycodone) 5 mg PO Q6H PRN PRN Reason: Pain Last Admin: 03/28/20 11:51 Dose: 5 mg Documented by: Sodium Chloride (Saline Flush) 2.5 ml FLUSH ASDIRECTED PRN PRN Reason: Keep Vein Open Discontinued Medications Acetaminophen (Tylenol Extra Strength) 1,000 mg PO ONETIME ONE Stop: 03/26/20 12:59 Last Admin: 03/26/20 14:00 Dose: 1,000 mg Documented by: Bisacodyl (Dulcolax) 10 mg RECTAL ONETIME ONE Stop: 03/27/20 12:39 Last Admin: 03/27/20 13:35 Dose: 10 mg Documented by: Heparin Sodium (Porcine) (Heparin Sodium) 5,000 units SUBCUT Q8H [facility] Last Admin: 03/26/20 21:42 Dose: Not Given Documented by: Hydromorphone HCl (Dilaudid) 0.5 mg IVPUSH Q4H PRN PRN Reason: Pain (severe 7-10) Last Admin: 03/28/20 06:57 Dose: 0.5 mg Documented by: Lactated Ringer's (Ringers, Lactated) 1,000 mls @ 999 mls/hr IV .BOLUS ONE Stop: 03/26/20 13:40 Last Admin: 03/26/20 12:56 Dose: 999 mls/hr Documented by: Prochlorperazine Edisylate 10 (mg/ Sodium Chloride) 52 mls @ 150 mls/hr IV ONETIME ONE Stop: 03/26/20 13:26 Last Admin: 03/26/20 15:14 Dose: 150 mls/hr Documented by: Magnesium Sulfate 2 gm/ Premix 50 mls @ 50 mls/hr IV ONETIME ONE Stop: 03/26/20 14:36 Last Admin: 03/26/20 14:05 Dose: 50 mls/hr Documented by: Lactated Ringer's (Ringers, Lactated) 1,000 mls @ 125 mls/hr IV ASDIRECTED [facility] Potassium Chloride 20 meq/ (Premix) 50 mls @ 25 mls/hr IV ONETIME ONE Stop: 03/26/20 16:08 Last Admin: 03/26/20 22:09 Dose: Not Given Documented by: Sodium Chloride (Normal Saline) 1,000 mls @ 999 mls/hr IV .Bolus ONE Stop: 03/26/20 16:37 Last Admin: 03/26/20 18:58 Dose: 999 mls/hr Documented by: Potassium Chloride 40 meq/ (Premix) 100 mls @ 25 mls/hr IV ONETIME ONE Stop: 03/26/20 19:37 Last Admin: 03/26/20 16:48 Dose: 25 mls/hr Documented by: Sodium Chloride (Normal Saline) 1,000 mls @ 150 mls/hr IV Q6H [facility] Last Admin: 03/27/20 15:22 Dose: Not Given Documented by: Pantoprazole Sodium 40 mg/ (Sodium Chloride) 10 mls @ 200 mls/hr IV Q24H [facility] Last Admin: 03/26/20 21:43 Dose: Not Given Documented by: Potassium Chloride/Sodium Chloride (Normal Saline With 40 Meq Kcl) 1,000 mls @ 150 mls/hr IV ASDIRECTED [facility] Last Admin: 03/26/20 22:28 Dose: 150 mls/hr Documented by: Lactated Ringer's (Ringers, Lactated) 1,000 mls @ 999 mls/hr IV .BOLUS ONE Stop: 03/27/20 13:39 Last Admin: 03/27/20 13:35 Dose: 999 mls/hr Documented by: Lorazepam (Ativan) 0 mg IVPUSH Q4H PRN; Protocol PRN Reason: CIWAA Last Admin: 03/27/20 23:39 Dose: 1 mg Documented by: Lorazepam (Ativan) 0.5 mg IVPUSH Q4H PRN PRN Reason: Nausea Last Admin: 03/27/20 14:49 Dose: 0.5 mg Documented by: Lorazepam (Ativan) 0.25 mg IVPUSH Q6H PRN PRN Reason: Nausea/anxiety Metoclopramide HCl (Reglan) 10 mg IVPUSH ONETIME ONE Stop: 03/26/20 12:58 Last Admin: 03/26/20 14:17 Dose: Not Given Documented by: Ondansetron HCl (Zofran) 4 mg IVPUSH Q6H PRN PRN Reason: Nausea Oxycodone HCl (Oxycodone) 10 mg PO ONETIME ONE Stop: 03/26/20 12:59 Last Admin: 03/26/20 14:02 Dose: 10 mg Documented by: Potassium Chloride (Potassium Chloride) 60 meq PO ONETIME ONE Stop: 03/26/20 13:44 Last Admin: 03/26/20 14:03 Dose: 60 meq Documented by: Potassium Chloride (Potassium Chloride) Confirm Administered Dose 40 meq .ROUTE .STK-MED ONE Stop: 03/26/20 14:07 Last Admin: 03/26/20 14:17 Dose: Not Given Documented by: Potassium Chloride (Klor-Con M20) 40 meq PO ONETIME ONE Stop: 03/28/20 14:11 Last Admin: 03/28/20 14:40 Dose: 40 meq Documented by: Sodium Chloride (Saline Flush) 10 ml FLUSH ASDIRECTED PRN PRN Reason: Keep Vein Open Last Admin: 03/26/20 12:56 Dose: 10 ml Documented by: Sodium Chloride (Saline Flush) 2.5 ml FLUSH ASDIRECTED PRN PRN Reason: Keep Vein Open Last Admin: 03/26/20 12:56 Dose: 2.5 ml Documented by:
== END 2020-03-28 17:47 | disposition home or self-care (01) | DRG 640 ==
LOC: MW.ED 12:10 → MW.MS 14:08
PROVIDERS: ADMIT Internal Medicine; ATTEND Internal Medicine
DX: E87.6 Hypokalemia (principal); K85.20 Alcohol induced acute pancreatitis without necrosis or infection; N17.9 Acute kidney failure, unspecified; E87.1 Hypo-osmolality and hyponatremia; F17.210 Nicotine dependence, cigarettes, uncomplicated; Z20.828 Contact with and (suspected) exposure to other viral communicable diseases; I95.1 Orthostatic hypotension; R94.31 Abnormal electrocardiogram [ECG] [EKG]; E86.0 Dehydration; E78.5 Hyperlipidemia, unspecified; E11.9 Type 2 diabetes mellitus without complications; H60.92 Unspecified otitis externa, left ear; H66.92 Otitis media, unspecified, left ear; E78.00 Pure hypercholesterolemia, unspecified; I10 Essential (primary) hypertension; J44.9 Chronic obstructive pulmonary disease, unspecified; Z88.5 Allergy status to narcotic agent; Z79.82 Long term (current) use of aspirin; Z79.899 Other long term (current) drug therapy
CPT/HCPCS: 36415; 70450; 70450-26; 71046; 71046-26; 71250; 71250-26; 74176; 74176-26; 80048; 80053; 82962; 83605; 83690; 83735; 84100; 84132; 84443; 84484; 85025; 93005; 93306; 96361; 96374; 99285-25; A9270-GY; C9113; J0696; J0780; J1170; J1644; J1815-GY; J2060; J3411; J3475; J3480; J7030; J7050; J7120; U0002

== ENCOUNTER 2020-06-27 15:24 | Inpatient (IN) | payer MEDICAID ==
--- NOTE | 2020-06-27 15:39 | EDM.PDOC ---
ED HPI GENERAL MEDICAL PROBLEM - General Chief Complaint: Gastrointestinal Problem Stated Complaint: NAUSEA/VOMITTING Time Seen by Provider: 06/27/20 15:25 Source of Information: Reports: Patient History Limitations: Reports: No Limitations - History of Present Illness INITIAL COMMENTS - FREE TEXT/NARRATIVE: HISTORY AND PHYSICAL: History of present illness: Patient is a 60-year-old male who presents to the emergency room with nausea, vomiting, weight loss and chest pain. Patient reports over the last 1 month he has been vomiting blood. As a form of treatment he has stopped taking all his home medications and instead has been taking a daily dose of baking soda and laxatives. He has reported weight loss, although unsure how much weight he has lost. He says his appetite has decreased and he does not eat much as "all just you get up". He reports he was recently admitted for similar patient has a past medical history of alcohol abuse, pancreatitis, cholelithiasis with cholecystectomy, hypertension and type 2 diabetes. He reports he has not had any alcohol in 2 to 3 months. Patient denies any fever, chills, headache, change in vision, syncope or near syncope. Denies any shortness of breath, cough, or dysuria. Patient reports he has not had a bowel movement in approximately 1 week as the "laxatives cleaned to be out". Has not noted any blood in urine or stool. Review of systems: As per history of present illness and below otherwise all systems reviewed and negative. Past medical history: As per history of present illness and as reviewed below otherwise noncontributory. Surgical history: As per history of present illness and as reviewed below otherwise noncontributory. Social history: See social history for further information Family history: As per history of present illness and as reviewed below otherwise noncontributory. Physical exam: General: Well developed and chronically ill appearing 60-year-old male. Alert and orientated x 3. Nontoxic in appearance and in no acute distress. Vital signs are stable and have been reviewed by me. Nursing notes were reviewed. HEENT: Atraumatic, normocephalic, pupils equal and reactive bilaterally, negative for conjunctival pallor or scleral icterus, mucous membranes moist, TMs normal bilaterally, throat clear, neck supple, nontender, trachea midline. No drooling or trismus noted. No meningeal signs. No hot potato voice noted. Lungs: Clear to auscultation, breath sounds equal bilaterally, chest nontender. Normal work of breathing, no accessory muscles used. Heart: S1S2, regular rate and rhythm without overt murmur Abdomen: Soft, nondistended, nontender. Negative for masses or hepatosplenomegaly. Negative for costovertebral tenderness. Patient has had intractable vomiting while here, sample was used on the Hemoccult card and was positive. The emesis is clear and pinkish/sammie in color. Skin: Intact, warm, dry. No lesions or rashes noted. Rectal: This was done with consent and a technical specialist cytogenetics at the bedside. Patient has good rectal tone. Negative Hemoccult stool. Hematologic: No petechiae or purpra. Mucosa appropriate color and normal nail bed color and refill. Extremities: Atraumatic, moves all extremities per self without difficulty or deficits, negative for cords or calf pain. Neurovascular unremarkable. Neuro: Awake, alert, oriented. Cranial nerves II through XII unremarkable. Cerebellum unremarkable. Motor and sensory unremarkable throughout. Exam nonfocal. Psychiatric: Mood and affect are appropriate. Normal thought process. Answering questions appropriately. Notes: Patient has multiple abnormal lab values, elevated BUN/Creat at 52 and 4.1. Elevated lipase of 653. Lactate is elevated at 2.9, blood cultures have been added. Initially upon arrival patient had approximately 500 mL of clear slightly pink-tinged emesis. No obvious blood/natanael blood, I placed sample on Hemoccult card and it was positive. Rectal exam was performed, Hemoccult negative. Patient has generalized pain. At times he stating he is having chest pain, then dental pain, then low back pain then body aches. His troponin is negative and no concerning findings on his EKG. Done a D-dimer due to his initial tachycardia and brief complaint of chest pain which has now resolved. D-dimer is elevated at 5.07. Unable to do a CTA of the chest to rule out PE although my suspicion is low. Radiology states they can do a VQ scan tomorrow if desired. CT of the abdomen and pelvis could not be done with contrast; done without contrast. CT shows moderate distention of the stomach with poor definition of the antrum of the stomach, proximal duodenum as well as its relationship to the head of the pancreas. This finding is fairly similar to the prior examination. This is nonspecific and can be within normal limits, however diffuse bowel thickening such as from a gastritis, enteritis and peptic ulcer disease would be considerations. Infiltrative mass can also appear similar on this noncontrast study. Endoscopy could be considered for more detailed evaluation of this area. Cystic pancreatic tail lesion with adjacent calcification. This finding is stable compared to the prior exam. Differential diagnosis includes chronic pseudocyst, large IPMN or pancreatic cystic neoplasm. Multiple mesenteric calcifications consistent with prior granulomatous disease. L1 compression fract ure redemonstrated although note is made of some interval decreased height anteriorly compared to the prior exam. Patient has been asleep since receiving the IV medications. Vital signs have been stable. I did call and speak with Dr. Nicholas, hospitalist on-call, about this patient who is agreeable to keeping him as MedSurg inpatient with telemetry. I did make patient aware of this and he is agreeable. Diagnostics: CBC, CMP, UA, blood cultures, lactic, Hemoccult stool, COVID, CT abdomen and pelvis, EtOH, urine drug screen Therapeutics: IV fluid, Zofran, Ativan Impression: Pancreatitis RISHABH Gastritis Medication non-compliance Plan: MedSurg admission with telemetry Definitive disposition and diagnosis as appropriate pending reevaluation and review of above. Chest Pain Score (Numeric/FACES): 10 - Related Data Allergies Allergy/AdvReac Type Severity Reaction Status Date / Time morphine Allergy Hallucinati Verified 06/27/20 15:45 ons Home Meds: Home Meds Lisinopril 10 mg PO BEDTIME 10/07/16 [History] atorvaSTATin [Lipitor] 20 mg PO BEDTIME 10/07/16 [History] metFORMIN [Glucophage] 500 mg PO BIDMEALS 10/07/16 [History] Aspirin 81 mg PO BEDTIME 04/25/19 [History] Psyllium Husk [Psyllium Fiber] 5 cap PO DAILY 04/25/19 [History] diphenhydrAMINE HCL [Benadryl] 50 mg PO BEDTIME 04/25/19 [History] Ondansetron [Zofran ODT] 4 mg PO Q6H PRN 3 Days #12 tab.dis 12/13/19 [Rx] Amoxicillin/Potassium Clav [Augmentin 875-125 Tablet] 1 each PO BID #10 tablet 03/28/20 [Rx] Ciprofloxacin/Hydrocortisone [Cipro HC Otic Susp] 3 drop EARLF BID bottle 03/28/20 [Rx] Past Medical History HEENT History: Reports: Impaired Vision Cardiovascular History: Reports: High Cholesterol, Hypertension Respiratory History: Reports: COPD, Pneumothorax Gastrointestinal History: Reports: Pancreatitis Genitourinary History: Reports: Other (See Below) Other Genitourinary History: Stated "a doctor told me that my kidneys were shriveled up." Musculoskeletal History: Reports: Arthritis Other Musculoskeletal History: Back Neurological History: Reports: None Psychiatric History: Reports: Depression, Other (See Below) Other Psychiatric History: History of "melancholia" Endocrine/Metabolic History: Reports: Diabetes, Type II Hematologic History: Reports: None Immunologic History: Reports: None Oncologic (Cancer) History: Reports: None Dermatologic History: Reports: None - Infectious Disease History Infectious Disease History: Reports: Chicken Pox - Past Surgical History Head Surgeries/Procedures: Reports: None HEENT Surgical History: Reports: Tonsillectomy Cardiovascular Surgical History: Reports: None GI Surgical History: Reports: Cholecystectomy Social & Family History - Family History Family Medical History: No Pertinent Family History HEENT: Reports: Impaired Vision Endocrine/Metabolic: Reports: Diabetes, type II Oncologic: Reports: Colon, Liver, Lung, Pancreatic, Thyroid - Caffeine Use Caffeine Use: Reports: None ED ROS GENERAL - Review of Systems Review Of Systems: Comprehensive ROS is negative, except as noted in HPI. ED EXAM, GI/ABD - Physical Exam Exam: See Below (See dictation) Course - Vital Signs Last Recorded V/S: Last Vital Signs Temp 97 F 06/27/20 15:45 Pulse 120 H 06/27/20 15:45 Resp 20 06/27/20 15:45 BP 110/67 06/27/20 15:45 Pulse Ox 96 06/27/20 15:45 - Orders/Labs/Meds Orders: Active Orders 24 hr Category Date Time Status Admission Status [Patient Status] [ADT] Stat ADT 06/27/20 19:13 Ordered EKG Documentation Completion [RC] STAT Care 06/27/20 15:52 Active PE Chest [Ang Chest] [CT] Stat Exams 06/27/20 18:05 Ordered CULTURE BLOOD [BC] Stat Lab 06/27/20 16:31 Received CULTURE BLOOD [BC] Stat Lab 06/27/20 17:09 Received DRUG SCREEN, URINE [URCHEM] Stat Lab 06/27/20 15:42 Ordered UA RFX AURELIANO AND CULT IF INDIC [URIN] Stat Lab 06/27/20 15:42 Ordered Sodium Chloride 0.9% [Saline Flush] Med 06/27/20 15:43 Active 10 ml FLUSH ASDIRECTED PRN Sodium Chloride 0.9% [Saline Flush] Med 06/27/20 15:43 Active 2.5 ml FLUSH ASDIRECTED PRN Blood Culture x2 Reflex Set [OM.PC] Stat Oth 06/27/20 16:16 Ordered Saline Lock Insert [OM.PC] Stat Oth 06/27/20 15:43 Ordered Medication Orders Sodium Chloride (Saline Flush) 10 ml FLUSH ASDIRECTED PRN PRN Reason: Keep Vein Open Last Admin: 06/27/20 16:37 Dose: 10 ml Documented by: SHARON Sodium Chloride (Saline Flush) 2.5 ml FLUSH ASDIRECTED PRN PRN Reason: Keep Vein Open Last Admin: 06/27/20 16:37 Dose: 2.5 ml Documented by: SHARON Labs: Laboratory Tests 06/27/20 06/27/20 06/27/20 Range/Units 16:08 16:08 16:08 WBC 13.28 H (4.0-11.0) K/uL RBC 4.27 L (4.50-5.90) M/uL Hgb 13.2 (13.0-17.0) g/dL Hct 39.5 (38.0-50.0) % MCV 92.5 (80.0-98.0) fL MCH 30.9 (27.0-32.0) pg MCHC 33.4 (31.0-37.0) g/dL RDW Std Deviation 46.4 (28.0-62.0) fl RDW Coeff of Claudio 14 (11.0-15.0) % Plt Count 349 (150-400) K/uL MPV 9.40 (7.40-12.00) fL Neut % (Auto) 74.7 (48.0-80.0) % Lymph % (Auto) 16.9 (16.0-40.0) % Hickman % (Auto) 8.0 (0.0-15.0) % Eos % (Auto) 0.2 (0.0-7.0) % Baso % (Auto) 0.2 (0.0-1.5) % Neut # (Auto) 9.9 H (1.4-5.7) K/uL Lymph # (Auto) 2.3 (0.6-2.4) K/uL Hickman # (Auto) 1.1 H (0.0-0.8) K/uL Eos # (Auto) 0.0 (0.0-0.7) K/uL Baso # (Auto) 0.0 (0.0-0.1) K/uL Nucleated RBC % 0.0 /100WBC Nucleated RBCs # 0 K/uL D-Dimer, Quantitative (0.0-0.50) mg/L FEU Lactate 2.9 H* (0.20-2.00) mmol/L Sodium 133 L (136-148) mmol/L Potassium 3.6 (3.5-5.1) mmol/L Chloride 80 L (98-107) mmol/L Carbon Dioxide 41.0 H (21.0-32.0) mmol/L BUN 52 H (7.0-18.0) mg/dL Creatinine 4.1 H (0.8-1.3) mg/dL Est Cr Clr Drug Dosing 13.96 mL/min Estimated GFR (MDRD) 14.9 ml/min Glucose 173 H (74-106) mg/dL Calcium 10.1 (8.5-10.1) mg/dL Magnesium (1.8-2.4) mg/dL Total Bilirubin 0.5 (0.2-1.0) mg/dL AST 17 (15-37) IU/L ALT 16 (14-63) IU/L Alkaline Phosphatase 137 H (46-116) U/L Troponin I (0.000-0.056) ng/mL Total Protein 8.9 H (6.4-8.2) g/dL Albumin 4.4 (3.4-5.0) g/dL Globulin 4.5 H (2.6-4.0) g/dL Albumin/Globulin Ratio 1.0 (0.9-1.6) Lipase 653 H (73-393) U/L Ethyl Alcohol mg/dL SARS-CoV-2 RNA ([facility]) (NEGATIVE) 06/27/20 06/27/20 06/27/20 Range/Units 16:08 16:08 18:10 WBC (4.0-11.0) K/uL RBC (4.50-5.90) M/uL Hgb (13.0-17.0) g/dL Hct (38.0-50.0) % MCV (80.0-98.0) fL MCH (27.0-32.0) pg MCHC (31.0-37.0) g/dL RDW Std Deviation (28.0-62.0) fl RDW Coeff of Claudio (11.0-15.0) % Plt Count (150-400) K/uL MPV (7.40-12.00) fL Neut % (Auto) (48.0-80.0) % Lymph % (Auto) (16.0-40.0) % Hickman % (Auto) (0.0-15.0) % Eos % (Auto) (0.0-7.0) % Baso % (Auto) (0.0-1.5) % Neut # (Auto) (1.4-5.7) K/uL Lymph # (Auto) (0.6-2.4) K/uL Hickman # (Auto) (0.0-0.8) K/uL Eos # (Auto) (0.0-0.7) K/uL Baso # (Auto) (0.0-0.1) K/uL Nucleated RBC % /100WBC Nucleated RBCs # K/uL D-Dimer, Quantitative 5.07 H (0.0-0.50) mg/L FEU Lactate (0.20-2.00) mmol/L Sodium (136-148) mmol/L Potassium (3.5-5.1) mmol/L Chloride (98-107) mmol/L Carbon Dioxide (21.0-32.0) mmol/L BUN (7.0-18.0) mg/dL Creatinine (0.8-1.3) mg/dL Est Cr Clr Drug Dosing mL/min Estimated GFR (MDRD) ml/min Glucose (74-106) mg/dL Calcium (8.5-10.1) mg/dL Magnesium 2.3 (1.8-2.4) mg/dL Total Bilirubin (0.2-1.0) mg/dL AST (15-37) IU/L ALT (14-63) IU/L Alkaline Phosphatase (46-116) U/L Troponin I < 0.050 (0.000-0.056) ng/mL Total Protein (6.4-8.2) g/dL Albumin (3.4-5.0) g/dL Globulin (2.6-4.0) g/dL Albumin/Globulin Ratio (0.9-1.6) Lipase (73-393) U/L Ethyl Alcohol <3 mg/dL SARS-CoV-2 RNA ([facility]) NEGATIVE (NEGATIVE) Meds: Medications Generic Name Dose Route Start Last Admin Trade Name Freq PRN Reason Stop Dose Admin Sodium Chloride 10 ml 06/27/20 15:43 06/27/20 16:37 Saline Flush FLUSH 10 ml ASDIRECTED PRN Administration Keep Vein Open Sodium Chloride 2.5 ml 06/27/20 15:43 06/27/20 16:37 Saline Flush FLUSH 2.5 ml ASDIRECTED PRN Administration Keep Vein Open Discontinued Medications Generic Name Dose Route Start Last Admin Trade Name Freq PRN Reason Stop Dose Admin Sodium Chloride 1,000 mls @ 999 mls/hr 06/27/20 15:51 06/27/20 16:35 Normal Saline IV 06/27/20 16:51 999 mls/hr STAT ONE Administration Pantoprazole Sodium 80 mg/ 20 mls @ 420 mls/hr 06/27/20 15:51 06/27/20 16:37 Sodium Chloride IVPUSH 06/27/20 15:53 420 mls/hr ONETIME ONE Administration Sodium Chloride 1,000 mls @ 999 mls/hr 06/27/20 16:16 06/27/20 17:43 Normal Saline IV 06/27/20 17:16 999 mls/hr STAT ONE Administration Lorazepam 1 mg 06/27/20 15:51 06/27/20 16:37 Ativan IVPUSH 06/27/20 15:52 1 mg ONETIME ONE Administration Ondansetron HCl 4 mg 06/27/20 15:54 06/27/20 16:37 Zofran IVPUSH 06/27/20 15:55 4 mg ONETIME ONE Administration Departure - Departure Time of Disposition: 19:18 Disposition: Admitted As Inpatient 65 Clinical Impression: Noncompliance with medication regimen, RISHABH (acute kidney injury) Pancreatitis Qualifiers: Chronicity: acute Pancreatitis type: alcohol induced Acute pancreatitis complication: unspecified Qualified Code(s): K85.20 - Alcohol induced acute pancreatitis without necrosis or infection Gastritis Qualifiers: Gastritis type: unspecified gastritis Chronicity: unspecified Gastritis bleeding: without bleeding Qualified Code(s): K29.70 - Gastritis, unspecified, without bleeding - Discharge Information Referrals: PCP,None [Primary Care Provider] - Forms: ED Department Discharge Sepsis Event Note (ED) - Focused Exam Vital Signs: Vital Signs Temp Pulse Resp BP Pulse Ox 06/27/20 15:45 97 F 120 H 20 110/67 96 - My Orders Last 24 Hours: My Active Orders 06/27/20 15:42 DRUG SCREEN, URINE [URCHEM] Stat UA RFX AURELIANO AND CULT IF INDIC [URIN] Stat 06/27/20 15:43 Sodium Chloride 0.9% [Saline Flush] 10 ml FLUSH ASDIRECTED PRN Sodium Chloride 0.9% [Saline Flush] 2.5 ml FLUSH ASDIRECTED PRN Saline Lock Insert [OM.PC] Stat 06/27/20 15:52 EKG Documentation Completion [RC] STAT 06/27/20 16:16 Blood Culture x2 Reflex Set [OM.PC] Stat 06/27/20 16:31 CULTURE BLOOD [BC] Stat 06/27/20 17:09 CULTURE BLOOD [BC] Stat 06/27/20 18:05 PE Chest [Ang Chest] [CT] Stat 06/27/20 19:13 Admission Status [Patient Status] [ADT] Stat - Assessment/Plan Last 24 Hours: My Active Orders 06/27/20 15:42 DRUG SCREEN, URINE [URCHEM] Stat UA RFX AURELIANO AND CULT IF INDIC [URIN] Stat 06/27/20 15:43 Sodium Chloride 0.9% [Saline Flush] 10 ml FLUSH ASDIRECTED PRN Sodium Chloride 0.9% [Saline Flush] 2.5 ml FLUSH ASDIRECTED PRN Saline Lock Insert [OM.PC] Stat 06/27/20 15:52 EKG Documentation Completion [RC] STAT 06/27/20 16:16 Blood Culture x2 Reflex Set [OM.PC] Stat 06/27/20 16:31 CULTURE BLOOD [BC] Stat 06/27/20 17:09 CULTURE BLOOD [BC] Stat 06/27/20 18:05 PE Chest [Ang Chest] [CT] Stat 06/27/20 19:13 Admission Status [Patient Status] [ADT] Stat
[2020-06-27] MEDS ORDERED: Sodium Chloride 0.9% 10 ML Syringe FLUSH PRN (15:43)
[2020-06-27] MEDS ORDERED: Sodium Chloride 0.9% 2.5 ML Syringe FLUSH PRN (15:43)
[2020-06-27] MEDS ORDERED: Pantoprazole 80 MG in Sodium Chloride 0.9% 20 ML IVPUSH ONE (15:51)
[2020-06-27] MEDS ORDERED: Sodium Chloride 0.9% 1,000 ML IV ONE ×2 (15:51→16:16)
[2020-06-27] MEDS ORDERED: LORazepam 2 MG/ML SDV IVPUSH ONE (15:51)
[2020-06-27] MEDS ORDERED: Ondansetron 4 MG/2 ML SDV IVPUSH ONE (15:54)
--- NOTE | 2020-06-27 16:05 | PCM.SN.2 ---
- Free Text/Narrative Note: EG done 1557 hrs. and read at 1601. Sinus tachycardia heart rate 119 MD 122 QT 499 [place] 84 there are atrial premature complexes. When compared to 03/26/2020 no significant change impression no injury
[2020-06-27 16:42] LABS: POTASSIUM,K 3.6 mmol/L (3.5-5.1)
--- NOTE | 2020-06-27 17:33 | CR ---
INDICATION: Abdominal pain, uncontrolled vomiting TECHNIQUE: Portable upright AP view of the chest COMPARISON: PA and lateral chest radiograph 03/26/2020 FINDINGS: The lungs are clear. There is no sizable pleural effusion or pneumothorax. The cardiomediastinal silhouette is normal. The visualized osseous structures are unremarkable. There is no free air under the diaphragm. IMPRESSION: No acute intrathoracic process. Dictated by Eric Holder MD @ Jun 27 2020 5:29PM Signed by Dr. Eric Holder @ Jun 27 2020 5:31PM
--- NOTE | 2020-06-27 19:02 | CT ---
INDICATION: Abdominal pain and uncontrolled vomiting TECHNIQUE: Axial images were obtained from the diaphragm to the pubic symphysis. Reformats were obtained in the coronal and sagittal plane. IV Contrast: None Oral Contrast: None COMPARISON: Abdomen and pelvis CT 03/27/2020 FINDINGS: Lower chest: Unremarkable. Liver: Normal in contour with calcifications at the posterior margin of the liver redemonstrated. Gallbladder and bile ducts: Status post cholecystectomy. Spleen: Unremarkable. Normal in size without mass. Pancreas: The body and head of the pancreas are unremarkable, however at the tail the pancreas there is a hypodense area measuring 3.0 x 1.7 centimeters as well as areas of adjacent joint calcification. Central portion of this lesion is fluid density. Adrenal glands: Fusiform enlargement of adrenal glands, similar to the prior exam. This can be seen in adrenal hyperplasia. Kidneys: Unremarkable. No masses, stones, or hydronephrosis. Vasculature: Atherosclerosis without abdominal aortic aneurysm. GI tract: Multiple calcifications within the central mesentery. Stomach is fluid-filled and moderately distended. At the level of the gastric antrum and 1st portion the duodenum in its confluence with the pancreaticoduodenal groove, fat planes are not clearly defined (201, 44). Distal to this the small-bowel is decompressed. Colon is decompressed. Appendix is unremarkable. Pelvis: Unremarkable. Bones: L1 compression fracture redemonstrated with loss of height near 50 percent anteriorly. IMPRESSION: 1. Moderate distention of the stomach with poor definition of the antrum of the stomach, proximal duodenum as well as its relationship to the head of the pancreas. This finding is fairly similar to the prior examination. This is nonspecific and can be within normal limits, however diffuse bowel thickening such as from a gastritis, enteritis and peptic ulcer disease would be considerations. Infiltrative mass can also appear similar on this noncontrast study. Endoscopy could be considered for more detailed evaluation of this area. 2. Cystic pancreatic tail lesion with adjacent calcification. This finding is stable compared to the prior exam. Differential diagnosis includes chronic pseudocyst, large IPMN or pancreatic cystic neoplasm. 3. Multiple mesenteric calcifications consistent with prior granulomatous disease. 4. L1 compression fracture redemonstrated although note is made of some interval decreased height anteriorly compared to the prior exam. Please note that all CT scans at this facility use dose modulation, iterative reconstruction, and/or weight-based dosing when appropriate to reduce radiation dose to as low as reasonably achievable. Dictated by Nikhil Craig MD @ Jun 27 2020 6:41PM Signed by Dr. Nikhil Craig @ Jun 27 2020 7:01PM
[2020-06-27] MEDS ORDERED: HYDROmorphone 2 MG/ML Syringe IVPUSH ONE (20:20)
[2020-06-27] MEDS ORDERED: Pantoprazole 40 MG Vial IV SCH (20:47)
[2020-06-27] MEDS ORDERED: Albuterol/Ipratropium 3.0-0.5 MG/3 ML Neb Soln NEB PRN (20:47)
[2020-06-27] MEDS ORDERED: Acetaminophen 325 MG Tab PO PRN (20:47)
--- NOTE | 2020-06-27 21:04 | PCM.HP.2 ---
H&P History of Present Illness - General Date of Service: 06/27/20 Admit Problem/Dx: Admission Diagnosis/Problem Admission Diagnosis/Problem Pancreatitis - History of Present Illness Initial Comments - Free Text/Narative: Patient is a 60-year-old male with past medical history of alcohol abuse, pancreatitis, cholelithiasis with cholecystectomy, hypertension and type 2 diabetes.who presents to the emergency room with nausea, vomiting, weight loss and chest pain, generalized pain and weakness. Patient reports over the last 1 month he has been having N/V and also has been vomiting blood. He states he stopped taking all his home medications and has been taking baking soda with water and laxatives to alleviate his symptoms. States his symptoms got worse with the baking soda. Patient reports he has been sober for 2 months. Patient denies any fever, chills, headache, change in vision, syncope or near syncope. Denies any shortness of breath, cough, or dysuria. Patient reports he has not had a bowel movement in approximately 1 week, Has not noted any blood in urine or stool buts states he has noted blood in his vomit. in ER patient vomited approximately 500 mL of clear slightly pink-tinged emesis. No obvious blood/natanael blood, Lab work in ER: elevated BUN/Creat at 52 and 4.1. Elevated lipase of 653. Lactate is elevated at 2.9, blood cultures have been added. Hemoccult card of the vomit was positive. Hemoccult of stool was negative. Patient has generalized pain. His troponin is negative and EKG showed Sinus tachycardia with PACs. D-dimer is elevated at 5.07. CT of the abdomen and pelvis could not be done with contrast; done without contrast. CT shows moderate distention of the stomach with poor definition of the antrum of the stomach, proximal duodenum as well as its relationship to the head of the pancreas. This finding is fairly similar to the prior examination. This is nonspecific and can be within normal limits, however diffuse bowel thickening such as from a gastritis, enteritis and peptic ulcer disease would be considerations. Infiltrative mass can also appear similar on this noncontrast study. Endoscopy could be considered for more detailed evaluation of this area. Cystic pancreatic tail lesion with adjacent calcification. This finding is stable compared to the prior exam. Differential diagnosis includes chronic pseudocyst, large IPMN or pancreatic cystic neoplasm. Multiple mesenteric calcifications consistent with prior granulomatous disease. L1 compression fracture redemonstrated although note is made of some interval decreased height anteriorly compared to the prior exam. Patient was eventually admitted for further management. Chest Pain Score (Numeric/FACES): 10 - Related Data Allergies/Adverse Reactions: Allergies Allergy/AdvReac Type Severity Reaction Status Date / Time morphine Allergy Hallucinati Verified 06/27/20 15:45 ons Home Medications: Home Meds Lisinopril 10 mg PO BEDTIME 10/07/16 [History] atorvaSTATin [Lipitor] 20 mg PO BEDTIME 10/07/16 [History] metFORMIN [Glucophage] 500 mg PO BIDMEALS 10/07/16 [History] Aspirin 81 mg PO BEDTIME 04/25/19 [History] Psyllium Husk [Psyllium Fiber] 5 cap PO DAILY 04/25/19 [History] diphenhydrAMINE HCL [Benadryl] 50 mg PO BEDTIME 04/25/19 [History] Ondansetron [Zofran ODT] 4 mg PO Q6H PRN 3 Days #12 tab.dis 12/13/19 [Rx] Amoxicillin/Potassium Clav [Augmentin 875-125 Tablet] 1 each PO BID #10 tablet 03/28/20 [Rx] Ciprofloxacin/Hydrocortisone [Cipro HC Otic Susp] 3 drop EARLF BID bottle 03/28/20 [Rx] Past Medical History HEENT History: Reports: Impaired Vision Cardiovascular History: Reports: High Cholesterol, Hypertension Respiratory History: Reports: COPD, Pneumothorax Gastrointestinal History: Reports: Pancreatitis Genitourinary History: Reports: Other (See Below) Other Genitourinary History: Stated "a doctor told me that my kidneys were shriveled up." Musculoskeletal History: Reports: Arthritis Other Musculoskeletal History: Back Neurological History: Reports: None Psychiatric History: Reports: Depression, Other (See Below) Other Psychiatric History: History of "melancholia" Endocrine/Metabolic History: Reports: Diabetes, Type II Hematologic History: Reports: None Immunologic History: Reports: None Oncologic (Cancer) History: Reports: None Dermatologic History: Reports: None - Infectious Disease History Infectious Disease History: Reports: Chicken Pox - Past Surgical History Head Surgeries/Procedures: Reports: None HEENT Surgical History: Reports: Tonsillectomy Cardiovascular Surgical History: Reports: None Respiratory Surgical History: Reports: None GI Surgical History: Reports: Cholecystectomy Male Surgical History: Reports: None Endocrine Surgical History: Reports: None Neurological Surgical History: Reports: None Musculoskeletal Surgical History: Reports: None Oncologic Surgical History: Reports: None Social & Family History - Family History Family Medical History: No Pertinent Family History HEENT: Reports: Impaired Vision Endocrine/Metabolic: Reports: Diabetes, type II Oncologic: Reports: Colon, Liver, Lung, Pancreatic, Thyroid - Tobacco Use Tobacco Use Status *Q: Current Every Day Tobacco User Years of Tobacco use: 30 Packs/Tins Daily: 0.5 - Caffeine Use Caffeine Use: Reports: None - Recreational Drug Use Recreational Drug Use: No H&P Review of Systems - Review of Systems: Review Of Systems: See Below General: Reports: Malaise, Weakness, Fatigue, Decreased Appetite. Denies: Fever, Chills, Night Sweats Pulmonary: Denies: Shortness of Breath, Wheezing, Pleuritic Chest Pain, Cough Cardiovascular: Reports: Chest Pain. Denies: Palpitations, Dyspnea on Exertion, Orthopnea Gastrointestinal: Reports: Abdominal Pain, Anorexia, Constipation, Decreased Appetite, Flatus, Hematemesis, Nausea, Vomiting. Denies: Black Stool, Bloody St ool, Distension, Melena Genitourinary: Denies: Dysuria, Frequency, Burning Musculoskeletal: Denies: Neck Pain, Shoulder Pain, Arm Pain Skin: Denies: Cyanosis, Jaundice Psychiatric: Denies: Confusion, Depression, Mood Lability Neurological: Denies: Confusion, Dizziness, Headache, Numbness, Paresthesia Exam - Exam Exam: See Below - Vital Signs Vital Signs: Last Vital Signs Temp 36.9 C 06/27/20 19:23 Pulse 112 H 06/27/20 19:23 Resp 18 06/27/20 19:23 BP 104/68 06/27/20 19:23 Pulse Ox 97 06/27/20 19:23 Weight: 52.163 kg - Exam Quality Assessment: No: Supplemental Oxygen General: Alert, Oriented Neck: Supple, Trachea Midline Lungs: Clear to Auscultation, Normal Respiratory Effort Cardiovascular: Regular Rate, Regular Rhythm, Normal S1, Normal S2 GI/Abdominal Exam: Normal Bowel Sounds, Soft, Non-Tender, No Organomegaly. No: Hepatomegaly, Splenomegaly Back Exam: CVA Tenderness (L), CVA Tenderness (R) Extremities: Normal Inspection, Normal Range of Motion, Non-Tender Skin: Dry, Intact - Patient Data Lab Results Last 24 hrs: Laboratory Results - last 24 hr 06/27/20 06/27/20 06/27/20 Range/Units 16:08 16:08 16:08 WBC 13.28 H (4.0-11.0) K/uL RBC 4.27 L (4.50-5.90) M/uL Hgb 13.2 (13.0-17.0) g/dL Hct 39.5 (38.0-50.0) % MCV 92.5 (80.0-98.0) fL MCH 30.9 (27.0-32.0) pg MCHC 33.4 (31.0-37.0) g/dL RDW Std Deviation 46.4 (28.0-62.0) fl RDW Coeff of Claudio 14 (11.0-15.0) % Plt Count 349 (150-400) K/uL MPV 9.40 (7.40-12.00) fL Neut % (Auto) 74.7 (48.0-80.0) % Lymph % (Auto) 16.9 (16.0-40.0) % Whiteside % (Auto) 8.0 (0.0-15.0) % Eos % (Auto) 0.2 (0.0-7.0) % Baso % (Auto) 0.2 (0.0-1.5) % Neut # (Auto) 9.9 H (1.4-5.7) K/uL Lymph # (Auto) 2.3 (0.6-2.4) K/uL Whiteside # (Auto) 1.1 H (0.0-0.8) K/uL Eos # (Auto) 0.0 (0.0-0.7) K/uL Baso # (Auto) 0.0 (0.0-0.1) K/uL Nucleated RBC % 0.0 /100WBC Nucleated RBCs # 0 K/uL D-Dimer, Quantitative (0.0-0.50) mg/L FEU Lactate 2.9 H* (0.20-2.00) mmol/L Sodium 133 L (136-148) mmol/L Potassium 3.6 (3.5-5.1) mmol/L Chloride 80 L (98-107) mmol/L Carbon Dioxide 41.0 H (21.0-32.0) mmol/L BUN 52 H (7.0-18.0) mg/dL Creatinine 4.1 H (0.8-1.3) mg/dL Est Cr Clr Drug Dosing 13.96 mL/min Estimated GFR (MDRD) 14.9 ml/min Glucose 173 H (74-106) mg/dL Calcium 10.1 (8.5-10.1) mg/dL Magnesium (1.8-2.4) mg/dL Total Bilirubin 0.5 (0.2-1.0) mg/dL AST 17 (15-37) IU/L ALT 16 (14-63) IU/L Alkaline Phosphatase 137 H (46-116) U/L Troponin I (0.000-0.056) ng/mL Total Protein 8.9 H (6.4-8.2) g/dL Albumin 4.4 (3.4-5.0) g/dL Globulin 4.5 H (2.6-4.0) g/dL Albumin/Globulin Ratio 1.0 (0.9-1.6) Lipase 653 H (73-393) U/L Urine Color Urine Appearance Urine pH (5.0-8.0) Ur Specific [place] (1.001-1.035) Urine Protein (NEGATIVE) mg/dL Urine Glucose (UA) (NEGATIVE) mg/dL Urine Ketones (NEGATIVE) mg/dL Urine Occult Blood (NEGATIVE) Urine Nitrite (NEGATIVE) Urine Bilirubin (NEGATIVE) Urine Ictotest Urine Urobilinogen (<2.0) EU/dL Ur Leukocyte Esterase (NEGATIVE) Urine RBC (0-2/HPF) Urine WBC (0-5/HPF) Ur Epithelial Cells (NONE-FEW) Urine Bacteria (NEGATIVE) Urine Opiates Screen (NEGATIVE) Ur Oxycodone Screen (NEGATIVE) Urine Methadone Screen (NEGATIVE) Ur Barbiturates Screen (NEGATIVE) Ur Phencyclidine Scrn (NEGATIVE) Ur Amphetamine Screen (NEGATIVE) U Methamphetamines Scrn (NEGATIVE) U Benzodiazepines Scrn (NEGATIVE) U Cocaine Metab Screen (NEGATIVE) U Marijuana (THC) Screen (NEGATIVE) Ethyl Alcohol mg/dL SARS-CoV-2 RNA (KAUR) (NEGATIVE) 06/27/20 06/27/20 06/27/20 Range/Units 16:08 16:08 18:10 WBC (4.0-11.0) K/uL RBC (4.50-5.90) M/uL Hgb (13.0-17.0) g/dL Hct (38.0-50.0) % MCV (80.0-98.0) fL MCH (27.0-32.0) pg MCHC (31.0-37.0) g/dL RDW Std Deviation (28.0-62.0) fl RDW Coeff of Claudio (11.0-15.0) % Plt Count (150-400) K/uL MPV (7.40-12.00) fL Neut % (Auto) (48.0-80.0) % Lymph % (Auto) (16.0-40.0) % Whiteside % (Auto) (0.0-15.0) % Eos % (Auto) (0.0-7.0) % Baso % (Auto) (0.0-1.5) % Neut # (Auto) (1.4-5.7) K/uL Lymph # (Auto) (0.6-2.4) K/uL Whiteside # (Auto) (0.0-0.8) K/uL Eos # (Auto) (0.0-0.7) K/uL Baso # (Auto) (0.0-0.1) K/uL Nucleated RBC % /100WBC Nucleated RBCs # K/uL D-Dimer, Quantitative 5.07 H (0.0-0.50) mg/L FEU Lactate (0.20-2.00) mmol/L Sodium (136-148) mmol/L Potassium (3.5-5.1) mmol/L Chloride (98-107) mmol/L Carbon Dioxide (21.0-32.0) mmol/L BUN (7.0-18.0) mg/dL Creatinine (0.8-1.3) mg/dL Est Cr Clr Drug Dosing mL/min Estimated GFR (MDRD) ml/min Glucose (74-106) mg/dL Calcium (8.5-10.1) mg/dL Magnesium 2.3 (1.8-2.4) mg/dL Total Bilirubin (0.2-1.0) mg/dL AST (15-37) IU/L ALT (14-63) IU/L Alkaline Phosphatase (46-116) U/L Troponin I < 0.050 (0.000-0.056) ng/mL Total Protein (6.4-8.2) g/dL Albumin (3.4-5.0) g/dL Globulin (2.6-4.0) g/dL Albumin/Globulin Ratio (0.9-1.6) Lipase (73-393) U/L Urine Color Urine Appearance Urine pH (5.0-8.0) Ur Specific [place] (1.001-1.035) Urine Protein (NEGATIVE) mg/dL Urine Glucose (UA) (NEGATIVE) mg/dL Urine Ketones (NEGATIVE) mg/dL Urine Occult Blood (NEGATIVE) Urine Nitrite (NEGATIVE) Urine Bilirubin (NEGATIVE) Urine Ictotest Urine Urobilinogen (<2.0) EU/dL Ur Leukocyte Esterase (NEGATIVE) Urine RBC (0-2/HPF) Urine WBC (0-5/HPF) Ur Epithelial Cells (NONE-FEW) Urine Bacteria (NEGATIVE) Urine Opiates Screen (NEGATIVE) Ur Oxycodone Screen (NEGATIVE) Urine Methadone Screen (NEGATIVE) Ur Barbiturates Screen (NEGATIVE) Ur Phencyclidine Scrn (NEGATIVE) Ur Amphetamine Screen (NEGATIVE) U Methamphetamines Scrn (NEGATIVE) U Benzodiazepines Scrn (NEGATIVE) U Cocaine Metab Screen (NEGATIVE) U Marijuana (THC) Screen (NEGATIVE) Ethyl Alcohol <3 mg/dL SARS-CoV-2 RNA (KAUR) NEGATIVE (NEGATIVE) 06/27/20 06/27/20 06/27/20 Range/Units 20:30 20:30 20:34 WBC (4.0-11.0) K/uL RBC (4.50-5.90) M/uL Hgb (13.0-17.0) g/dL Hct (38.0-50.0) % MCV (80.0-98.0) fL MCH (27.0-32.0) pg MCHC (31.0-37.0) g/dL RDW Std Deviation (28.0-62.0) fl RDW Coeff of Claudio (11.0-15.0) % Plt Count (150-400) K/uL MPV (7.40-12.00) fL Neut % (Auto) (48.0-80.0) % Lymph % (Auto) (16.0-40.0) % Whiteside % (Auto) (0.0-15.0) % Eos % (Auto) (0.0-7.0) % Baso % (Auto) (0.0-1.5) % Neut # (Auto) (1.4-5.7) K/uL Lymph # (Auto) (0.6-2.4) K/uL Whiteside # (Auto) (0.0-0.8) K/uL Eos # (Auto) (0.0-0.7) K/uL Baso # (Auto) (0.0-0.1) K/uL Nucleated RBC % /100WBC Nucleated RBCs # K/uL D-Dimer, Quantitative (0.0-0.50) mg/L FEU Lactate 1.0 (0.20-2.00) mmol/L Sodium (136-148) mmol/L Potassium (3.5-5.1) mmol/L Chloride (98-107) mmol/L Carbon Dioxide (21.0-32.0) mmol/L BUN (7.0-18.0) mg/dL Creatinine (0.8-1.3) mg/dL Est Cr Clr Drug Dosing mL/min Estimated GFR (MDRD) ml/min Glucose (74-106) mg/dL Calcium (8.5-10.1) mg/dL Magnesium (1.8-2.4) mg/dL Total Bilirubin (0.2-1.0) mg/dL AST (15-37) IU/L ALT (14-63) IU/L Alkaline Phosphatase (46-116) U/L Troponin I (0.000-0.056) ng/mL Total Protein (6.4-8.2) g/dL Albumin (3.4-5.0) g/dL Globulin (2.6-4.0) g/dL Albumin/Globulin Ratio (0.9-1.6) Lipase (73-393) U/L Urine Color YELLOW Urine Appearance CLEAR Urine pH 7.5 (5.0-8.0) Ur Specific [place] 1.015 (1.001-1.035) Urine Protein TRACE H (NEGATIVE) mg/dL Urine Glucose (UA) NEGATIVE (NEGATIVE) mg/dL Urine Ketones 15 H (NEGATIVE) mg/dL Urine Occult Blood TRACE-INTACT H (NEGATIVE) Urine Nitrite NEGATIVE (NEGATIVE) Urine Bilirubin MODERATE H (NEGATIVE) Urine Ictotest NEGATIVE Urine Urobilinogen 0.2 (<2.0) EU/dL Ur Leukocyte Esterase NEGATIVE (NEGATIVE) Urine RBC 0-2 (0-2/HPF) Urine WBC 0-1 (0-5/HPF) Ur Epithelial Cells RARE (NONE-FEW) Urine Bacteria RARE (NEGATIVE) Urine Opiates Screen NEGATIVE (NEGATIVE) Ur Oxycodone Screen NEGATIVE (NEGATIVE) Urine Methadone Screen NEGATIVE (NEGATIVE) Ur Barbiturates Screen NEGATIVE (NEGATIVE) Ur Phencyclidine Scrn NEGATIVE (NEGATIVE) Ur Amphetamine Screen NEGATIVE (NEGATIVE) U Methamphetamines Scrn NEGATIVE (NEGATIVE) U Benzodiazepines Scrn NEGATIVE (NEGATIVE) U Cocaine Metab Screen NEGATIVE (NEGATIVE) U Marijuana (THC) Screen NEGATIVE (NEGATIVE) Ethyl Alcohol mg/dL SARS-CoV-2 RNA (KAUR) (NEGATIVE) Result Diagrams: 06/27/20 16:08 06/27/20 16:08 Sepsis Event Note - Evaluation Sepsis Screening Result: No Definite Risk - Focused Exam Vital Signs: Vital Signs Temp Pulse Resp BP Pulse Ox 06/27/20 19:23 36.9 C 112 H 18 104/68 97 06/27/20 15:45 36.1 C 120 H 20 110/67 96 - Problem List (1) Acute kidney injury SNOMED Code(s): 53363676, 44765725 ICD Code: N17.9 - ACUTE KIDNEY FAILURE, UNSPECIFIED Status: Acute Current Visit: Yes (2) Gastritis SNOMED Code(s): 7347808 ICD Code: K29.70 - GASTRITIS, UNSPECIFIED, WITHOUT BLEEDING Status: Acute Current Visit: Yes Qualifiers: Gastritis type: unspecified gastritis Chronicity: unspecified Gastritis bleeding: without bleeding Qualified Code(s): K29.70 - Gastritis, unspecified, without bleeding (3) Noncompliance with medication regimen SNOMED Code(s): 559469583 ICD Code: Z91.14 - PATIENT'S OTHER NONCOMPLIANCE WITH MEDICATION REGIMEN Status: Acute Current Visit: Yes (4) Pancreatitis SNOMED Code(s): 45324567 ICD Code: K85.90 - ACUTE PANCREATITIS WITHOUT NECROSIS OR INFECTION, UNSP Status: Acute Priority: High Current Visit: Yes Qualifiers: Chronicity: acute Pancreatitis type: alcohol induced Acute pancreatitis complication: unspecified Qualified Code(s): K85.20 - Alcohol induced acute pancreatitis without necrosis or infection (5) Dehydration SNOMED Code(s): 67942645 ICD Code: E86.0 - DEHYDRATION Status: Acute Current Visit: No (6) High serum lactate SNOMED Code(s): 113560778, 971085833 ICD Code: R79.89 - OTHER SPECIFIED ABNORMAL FINDINGS OF BLOOD CHEMISTRY Status: Acute Current Visit: No (7) Leukocytosis SNOMED Code(s): 763778545, 163602906 ICD Code: D72.829 - ELEVATED WHITE BLOOD CELL COUNT, UNSPECIFIED Status: Acute Current Visit: No Qualifiers: Leukocytosis type: unspecified Qualified Code(s): D72.829 - Elevated white blood cell count, unspecified Problem List Initiated/Reviewed/Updated: Yes Orders Last 24hrs: Active Orders 24 hr Category Date Time Status Admission Status [Patient Status] [ADT] Stat ADT 06/27/20 19:13 Active Ambulate [RC] ASDIRECTED Care 06/27/20 20:47 Active Antiembolic Devices [RC] PER UNIT ROUTINE Care 06/27/20 20:50 Active EKG Documentation Completion [RC] STAT Care 06/27/20 15:52 Active Oxygen Therapy [RC] PRN Care 06/27/20 20:47 Active Pulse Oximetry [RC] PRN Care 06/27/20 20:48 Active RT Aerosol Therapy [RC] ASDIRECTED Care 06/27/20 20:52 Active Telemetry Monitoring [Cardiac Monitoring] [RC] Q8H Care 06/27/20 20:10 Active VTE/DVT Education [RC] PER UNIT ROUTINE Care 06/27/20 20:47 Active Vital Signs [RC] Q4H Care 06/27/20 20:47 Active Nothing per Oral Now Diet [DIET] Diet 06/27/20 Dinner Active BMP [BASIC METABOLIC PANEL,BMP] [CHEM] AM Lab 06/28/20 05:11 Ordered CBC WITH AUTO DIFF [HEME] AM Lab 06/28/20 05:11 Ordered CULTURE BLOOD [BC] Stat Lab 06/27/20 16:31 Received CULTURE BLOOD [BC] Stat Lab 06/27/20 17:09 Received MAGNESIUM [CHEM] AM Lab 06/28/20 05:11 Ordered PHOSPHORUS [CHEM] AM Lab 06/28/20 05:11 Ordered Acetaminophen [TylenoL] Med 06/27/20 20:47 Active 650 mg PO Q4H PRN Albuterol/Ipratropium [DuoNeb 3.0-0.5 MG/3 ML] Med 06/27/20 20:47 Active 3 ml NEB Q4HRRT PRN HYDROmorphone [Dilaudid] Med 06/27/20 20:47 Active 0.5 mg IVPUSH Q3H PRN Heparin Sodium Med 06/27/20 21:00 Active 5,000 units SUBCUT Q8H Lactated Ringers [Ringers, Lactated] 1,000 ml Med 06/27/20 21:00 Active IV ASDIRECTED Ondansetron [Zofran] Med 06/27/20 20:47 Active 4 mg IVPUSH Q4H PRN Pantoprazole [ProTONIX IV] Med 06/27/20 20:47 Active 40 mg IV DAILY Sodium Chloride 0.9% [Saline Flush] Med 06/27/20 15:43 Active 10 ml FLUSH ASDIRECTED PRN Sodium Chloride 0.9% [Saline Flush] Med 06/27/20 15:43 Active 2.5 ml FLUSH ASDIRECTED PRN Blood Culture x2 Reflex Set [OM.PC] Stat Ot 06/27/20 16:16 Ordered Saline Lock Insert [OM.PC] Stat Ot 06/27/20 15:43 Ordered Sequential Compression Device [OM.PC] Per Unit Routine Ot 06/27/20 20:48 Ordered Medication Orders Acetaminophen (Tylenol) 650 mg PO Q4H PRN PRN Reason: Pain (Mild 1-3)/fever Albuterol/Ipratropium (Duoneb 3.0-0.5 Mg/3 Ml) 3 ml NEB Q4HRRT PRN PRN Reason: Shortness Of Breath/wheezing Heparin Sodium (Porcine) (Heparin Sodium) 5,000 units SUBCUT Q8H KATHRYN Hydromorphone HCl (Dilaudid) 0.5 mg IVPUSH Q3H PRN PRN Reason: Pain (severe 7-10) Lactated Ringer's (Ringers, Lactated) 1,000 mls @ 200 mls/hr IV ASDIRECTED KATHRYN Ondansetron HCl (Zofran) 4 mg IVPUSH Q4H PRN PRN Reason: Abdominal Pain Pantoprazole Sodium (Protonix Iv) 40 mg IV DAILY KATHRYN Sodium Chloride (Saline Flush) 10 ml FLUSH ASDIRECTED PRN PRN Reason: Keep Vein Open Last Admin: 06/27/20 16:37 Dose: 10 ml Documented by: SHARON Sodium Chloride (Saline Flush) 2.5 ml FLUSH ASDIRECTED PRN PRN Reason: Keep Vein Open Last Admin: 06/27/20 16:37 Dose: 2.5 ml Documented by: SHARON Assessment/Plan Comment:: 60 y/o M admitted for acute over chronic pancreatitis, possible gastritis Hb is stable, blood streaked emesis likely due to gastritis and chemical irritation from baking soda Significant RISHABH noted, no indications for Dialysis, lkely pre-renal vs ATN, check FENA CT scan noted, i do not suspect infection at this point, HR is high secondary to pain and dehydration, leucocytosis likely reactive, hold off on antibiotics for now Start aggressive IV hydration Start IV PPI BID Start IV zofran for N/V Start IV Dilaudid for pain Nicotine patch Sober for 2 months, hold off on CIWAA for now Needs outpatient endoscopy to rule out neoplasm based on CT findings Reoeat BMP in AM
[2020-06-27] MEDS: Heparin Sodium 5,000 Units/ML Vial SUBCUT SCH (21:39)
[2020-06-27] MEDS: Lactated Ringers 1,000 ML IV SCH (21:39)
[2020-06-27] MEDS ORDERED: LORazepam 1 MG Tab PO ONE (22:27)
[2020-06-27] MEDS: Nicotine 14 MG/24 Hr Patch TRDERM SCH (22:47)
[2020-06-27] MEDS: HYDROmorphone 2 MG/ML Syringe IVPUSH PRN (23:38)
[2020-06-28] MEDS: HYDROmorphone 2 MG/ML Syringe IVPUSH PRN ×5 (03:50→18:58)
[2020-06-28] MEDS: Lactated Ringers 1,000 ML IV SCH ×2 (05:27→17:05)
[2020-06-28] MEDS: Heparin Sodium 5,000 Units/ML Vial SUBCUT SCH ×3 (05:28→21:25)
[2020-06-28 06:22] LABS: CARBON DIOXIDE,CO2 38.6 mmol/L (21.0-32.0)
[2020-06-28] MEDS: Pantoprazole 40 MG in Sodium Chloride 0.9% 10 ML IV SCH ×2 (08:21→21:24)
[2020-06-28] MEDS: Nicotine 14 MG/24 Hr Patch TRDERM SCH (08:23)
[2020-06-28] MEDS ORDERED: Thiamine 100 MG in Sodium Chloride 0.9% 100 ML IV ONE (08:45)
[2020-06-28] MEDS ORDERED: Folic Acid 1 MG Tab PO SCH (09:00)
[2020-06-28] MEDS ORDERED: Pantoprazole 40 MG Vial IV SCH (09:00)
[2020-06-28] MEDS ORDERED: Thiamine 100 MG in Sodium Chloride 0.9% 100 ML IV SCH (09:00)
[2020-06-28] MEDS ORDERED: Glucagon,Human Recombinant 1 MG Vial IM PRN (09:40)
[2020-06-28] MEDS ORDERED: 50% Dextrose in Water 50 ML Syringe IV PRN (09:40)
--- NOTE | 2020-06-28 09:43 | PCM.PN ---
<Lacey Mar - Last Filed: 06/28/20 11:18> - General Info Date of Service: 06/28/20 Subjective Update: Bedside: feeling fatigued and anxious. Requesting medication to help sleep. Mentions some pain in mouth; loose dentition. - Review of Systems General: Reports: Fatigue HEENT: Reports: Other (tooth pain/ multiple ) Pulmonary: Reports: No Symptoms Cardiovascular: Reports: No Symptoms Gastrointestinal: Reports: Abdominal Pain. Denies: Decreased Appetite, Nausea, Vomiting Genitourinary: Reports: No Symptoms Musculoskeletal: Reports: Back Pain Skin: Reports: No Symptoms Neurological: Reports: Headache. Denies: Confusion, Dizziness Psychiatric: Reports: Anxiety - Patient Data Vitals - Most Recent: Last Vital Signs Temp 97.2 F 06/28/20 07:30 Pulse 78 06/28/20 07:30 Resp 18 06/28/20 07:30 BP 131/110 H 06/28/20 07:30 Pulse Ox 93 L 06/28/20 07:30 Weight - Most Recent: 49 kg I&O - Last 24 Hours: Intake & Output 06/27/20 06/28/20 06/28/20 22:59 06:59 14:59 Intake Total 0 Balance 0 Lab Results Last 24 Hours: Laboratory Results - last 24 hr 06/27/20 06/27/20 06/27/20 Range/Units 16:08 16:08 16:08 WBC 13.28 H (4.0-11.0) K/uL RBC 4.27 L (4.50-5.90) M/uL Hgb 13.2 (13.0-17.0) g/dL Hct 39.5 (38.0-50.0) % MCV 92.5 (80.0-98.0) fL MCH 30.9 (27.0-32.0) pg MCHC 33.4 (31.0-37.0) g/dL RDW Std Deviation 46.4 (28.0-62.0) fl RDW Coeff of Claudio 14 (11.0-15.0) % Plt Count 349 (150-400) K/uL MPV 9.40 (7.40-12.00) fL Neut % (Auto) 74.7 (48.0-80.0) % Lymph % (Auto) 16.9 (16.0-40.0) % [place] % (Auto) 8.0 (0.0-15.0) % Eos % (Auto) 0.2 (0.0-7.0) % Baso % (Auto) 0.2 (0.0-1.5) % Neut # (Auto) 9.9 H (1.4-5.7) K/uL Lymph # (Auto) 2.3 (0.6-2.4) K/uL [place] # (Auto) 1.1 H (0.0-0.8) K/uL Eos # (Auto) 0.0 (0.0-0.7) K/uL Baso # (Auto) 0.0 (0.0-0.1) K/uL Nucleated RBC % 0.0 /100WBC Nucleated RBCs # 0 K/uL D-Dimer, Quantitative (0.0-0.50) mg/L FEU Lactate 2.9 H* (0.20-2.00) mmol/L Sodium 133 L (136-148) mmol/L Potassium 3.6 (3.5-5.1) mmol/L Chloride 80 L (98-107) mmol/L Carbon Dioxide 41.0 H (21.0-32.0) mmol/L BUN 52 H (7.0-18.0) mg/dL Creatinine 4.1 H (0.8-1.3) mg/dL Est Cr Clr Drug Dosing 13.96 mL/min Estimated GFR (MDRD) 14.9 ml/min Glucose 173 H (74-106) mg/dL POC Glucose (60-110) mg/dL Calcium 10.1 (8.5-10.1) mg/dL Phosphorus (2.6-4.7) mg/dL Magnesium (1.8-2.4) mg/dL Total Bilirubin 0.5 (0.2-1.0) mg/dL AST 17 (15-37) IU/L ALT 16 (14-63) IU/L Alkaline Phosphatase 137 H (46-116) U/L Troponin I (0.000-0.056) ng/mL Total Protein 8.9 H (6.4-8.2) g/dL Albumin 4.4 (3.4-5.0) g/dL Globulin 4.5 H (2.6-4.0) g/dL Albumin/Globulin Ratio 1.0 (0.9-1.6) Lipase 653 H (73-393) U/L Urine Color Urine Appearance Urine pH (5.0-8.0) Ur Specific [place] (1.001-1.035) Urine Protein (NEGATIVE) mg/dL Urine Glucose (UA) (NEGATIVE) mg/dL Urine Ketones (NEGATIVE) mg/dL Urine Occult Blood (NEGATIVE) Urine Nitrite (NEGATIVE) Urine Bilirubin (NEGATIVE) Urine Ictotest Urine Urobilinogen (<2.0) EU/dL Ur Leukocyte Esterase (NEGATIVE) Urine RBC (0-2/HPF) Urine WBC (0-5/HPF) Ur Epithelial Cells (NONE-FEW) Urine Bacteria (NEGATIVE) Ur Random Sodium (40.0-220.0) mmol/L Ur Random Potassium mmol/L Ur Random Chloride mmol/L Urine Opiates Screen (NEGATIVE) Ur Oxycodone Screen (NEGATIVE) Urine Methadone Screen (NEGATIVE) Ur Barbiturates Screen (NEGATIVE) Ur Phencyclidine Scrn (NEGATIVE) Ur Amphetamine Screen (NEGATIVE) U Methamphetamines Scrn (NEGATIVE) U Benzodiazepines Scrn (NEGATIVE) U Cocaine Metab Screen (NEGATIVE) U Marijuana (THC) Screen (NEGATIVE) Ethyl Alcohol mg/dL SARS-CoV-2 RNA (KAUR) (NEGATIVE) 06/27/20 06/27/20 06/27/20 Range/Units 16:08 16:08 18:10 WBC (4.0-11.0) K/uL RBC (4.50-5.90) M/uL Hgb (13.0-17.0) g/dL Hct (38.0-50.0) % MCV (80.0-98.0) fL MCH (27.0-32.0) pg MCHC (31.0-37.0) g/dL RDW Std Deviation (28.0-62.0) fl RDW Coeff of Claudio (11.0-15.0) % Plt Count (150-400) K/uL MPV (7.40-12.00) fL Neut % (Auto) (48.0-80.0) % Lymph % (Auto) (16.0-40.0) % [place] % (Auto) (0.0-15.0) % Eos % (Auto) (0.0-7.0) % Baso % (Auto) (0.0-1.5) % Neut # (Auto) (1.4-5.7) K/uL Lymph # (Auto) (0.6-2.4) K/uL [place] # (Auto) (0.0-0.8) K/uL Eos # (Auto) (0.0-0.7) K/uL Baso # (Auto) (0.0-0.1) K/uL Nucleated RBC % /100WBC Nucleated RBCs # K/uL D-Dimer, Quantitative 5.07 H (0.0-0.50) mg/L FEU Lactate (0.20-2.00) mmol/L Sodium (136-148) mmol/L Potassium (3.5-5.1) mmol/L Chloride (98-107) mmol/L Carbon Dioxide (21.0-32.0) mmol/L BUN (7.0-18.0) mg/dL Creatinine (0.8-1.3) mg/dL Est Cr Clr Drug Dosing mL/min Estimated GFR (MDRD) ml/min Glucose (74-106) mg/dL POC Glucose (60-110) mg/dL Calcium (8.5-10.1) mg/dL Phosphorus (2.6-4.7) mg/dL Magnesium 2.3 (1.8-2.4) mg/dL Total Bilirubin (0.2-1.0) mg/dL AST (15-37) IU/L ALT (14-63) IU/L Alkaline Phosphatase (46-116) U/L Troponin I < 0.050 (0.000-0.056) ng/mL Total Protein (6.4-8.2) g/dL Albumin (3.4-5.0) g/dL Globulin (2.6-4.0) g/dL Albumin/Globulin Ratio (0.9-1.6) Lipase (73-393) U/L Urine Color Urine Appearance Urine pH (5.0-8.0) Ur Specific [place] (1.001-1.035) Urine Protein (NEGATIVE) mg/dL Urine Glucose (UA) (NEGATIVE) mg/dL Urine Ketones (NEGATIVE) mg/dL Urine Occult Blood (NEGATIVE) Urine Nitrite (NEGATIVE) Urine Bilirubin (NEGATIVE) Urine Ictotest Urine Urobilinogen (<2.0) EU/dL Ur Leukocyte Esterase (NEGATIVE) Urine RBC (0-2/HPF) Urine WBC (0-5/HPF) Ur Epithelial Cells (NONE-FEW) Urine Bacteria (NEGATIVE) Ur Random Sodium (40.0-220.0) mmol/L Ur Random Potassium mmol/L Ur Random Chloride mmol/L Urine Opiates Screen (NEGATIVE) Ur Oxycodone Screen (NEGATIVE) Urine Methadone Screen (NEGATIVE) Ur Barbiturates Screen (NEGATIVE) Ur Phencyclidine Scrn (NEGATIVE) Ur Amphetamine Screen (NEGATIVE) U Methamphetamines Scrn (NEGATIVE) U Benzodiazepines Scrn (NEGATIVE) U Cocaine Metab Screen (NEGATIVE) U Marijuana (THC) Screen (NEGATIVE) Ethyl Alcohol <3 mg/dL SARS-CoV-2 RNA (KAUR) NEGATIVE (NEGATIVE) 06/27/20 06/27/20 06/27/20 Range/Units 20:30 20:30 20:30 WBC (4.0-11.0) K/uL RBC (4.50-5.90) M/uL Hgb (13.0-17.0) g/dL Hct (38.0-50.0) % MCV (80.0-98.0) fL MCH (27.0-32.0) pg MCHC (31.0-37.0) g/dL RDW Std Deviation (28.0-62.0) fl RDW Coeff of Claudio (11.0-15.0) % Plt Count (150-400) K/uL MPV (7.40-12.00) fL Neut % (Auto) (48.0-80.0) % Lymph % (Auto) (16.0-40.0) % [place] % (Auto) (0.0-15.0) % Eos % (Auto) (0.0-7.0) % Baso % (Auto) (0.0-1.5) % Neut # (Auto) (1.4-5.7) K/uL Lymph # (Auto) (0.6-2.4) K/uL [place] # (Auto) (0.0-0.8) K/uL Eos # (Auto) (0.0-0.7) K/uL Baso # (Auto) (0.0-0.1) K/uL Nucleated RBC % /100WBC Nucleated RBCs # K/uL D-Dimer, Quantitative (0.0-0.50) mg/L FEU Lactate (0.20-2.00) mmol/L Sodium (136-148) mmol/L Potassium (3.5-5.1) mmol/L Chloride (98-107) mmol/L Carbon Dioxide (21.0-32.0) mmol/L BUN (7.0-18.0) mg/dL Creatinine (0.8-1.3) mg/dL Est Cr Clr Drug Dosing mL/min Estimated GFR (MDRD) ml/min Glucose (74-106) mg/dL POC Glucose (60-110) mg/dL Calcium (8.5-10.1) mg/dL Phosphorus (2.6-4.7) mg/dL Magnesium (1.8-2.4) mg/dL Total Bilirubin (0.2-1.0) mg/dL AST (15-37) IU/L ALT (14-63) IU/L Alkaline Phosphatase (46-116) U/L Troponin I (0.000-0.056) ng/mL Total Protein (6.4-8.2) g/dL Albumin (3.4-5.0) g/dL Globulin (2.6-4.0) g/dL Albumin/Globulin Ratio (0.9-1.6) Lipase (73-393) U/L Urine Color YELLOW Urine Appearance CLEAR Urine pH 7.5 (5.0-8.0) Ur Specific [place] 1.015 (1.001-1.035) Urine Protein TRACE H (NEGATIVE) mg/dL Urine Glucose (UA) NEGATIVE (NEGATIVE) mg/dL Urine Ketones 15 H (NEGATIVE) mg/dL Urine Occult Blood TRACE-INTACT H (NEGATIVE) Urine Nitrite NEGATIVE (NEGATIVE) Urine Bilirubin MODERATE H (NEGATIVE) Urine Ictotest NEGATIVE Urine Urobilinogen 0.2 (<2.0) EU/dL Ur Leukocyte Esterase NEGATIVE (NEGATIVE) Urine RBC 0-2 (0-2/HPF) Urine WBC 0-1 (0-5/HPF) Ur Epithelial Cells RARE (NONE-FEW) Urine Bacteria RARE (NEGATIVE) Ur Random Sodium 80.0 (40.0-220.0) mmol/L Ur Random Potassium 69.9 mmol/L Ur Random Chloride 67 mmol/L Urine Opiates Screen NEGATIVE (NEGATIVE) Ur Oxycodone Screen NEGATIVE (NEGATIVE) Urine Methadone Screen NEGATIVE (NEGATIVE) Ur Barbiturates Screen NEGATIVE (NEGATIVE) Ur Phencyclidine Scrn NEGATIVE (NEGATIVE) Ur Amphetamine Screen NEGATIVE (NEGATIVE) U Methamphetamines Scrn NEGATIVE (NEGATIVE) U Benzodiazepines Scrn NEGATIVE (NEGATIVE) U Cocaine Metab Screen NEGATIVE (NEGATIVE) U Marijuana (THC) Screen NEGATIVE (NEGATIVE) Ethyl Alcohol mg/dL SARS-CoV-2 RNA (KAUR) (NEGATIVE) 06/27/20 06/28/20 06/28/20 Range/Units 20:34 05:42 05:42 WBC 13.29 H (4.0-11.0) K/uL RBC 3.42 L (4.50-5.90) M/uL Hgb 10.4 L (13.0-17.0) g/dL Hct 31.5 L (38.0-50.0) % MCV 92.1 (80.0-98.0) fL MCH 30.4 (27.0-32.0) pg MCHC 33.0 (31.0-37.0) g/dL RDW Std Deviation 46.1 (28.0-62.0) fl RDW Coeff of Claudio 14 (11.0-15.0) % Plt Count 277 (150-400) K/uL MPV 9.50 (7.40-12.00) fL Neut % (Auto) 59.4 (48.0-80.0) % Lymph % (Auto) 27.2 (16.0-40.0) % [place] % (Auto) 10.8 (0.0-15.0) % Eos % (Auto) 2.3 (0.0-7.0) % Baso % (Auto) 0.3 (0.0-1.5) % Neut # (Auto) 7.9 H (1.4-5.7) K/uL Lymph # (Auto) 3.6 H (0.6-2.4) K/uL [place] # (Auto) 1.4 H (0.0-0.8) K/uL Eos # (Auto) 0.3 (0.0-0.7) K/uL Baso # (Auto) 0.0 (0.0-0.1) K/uL Nucleated RBC % 0.0 /100WBC Nucleated RBCs # 0 K/uL D-Dimer, Quantitative (0.0-0.50) mg/L FEU Lactate 1.0 (0.20-2.00) mmol/L Sodium 135 L (136-148) mmol/L Potassium 3.0 L (3.5-5.1) mmol/L Chloride 89 L (98-107) mmol/L Carbon Dioxide 38.6 H (21.0-32.0) mmol/L BUN 52 H (7.0-18.0) mg/dL Creatinine 3.8 H (0.8-1.3) mg/dL Est Cr Clr Drug Dosing 14.15 mL/min Estimated GFR (MDRD) 16.3 ml/min Glucose 96 (74-106) mg/dL POC Glucose (60-110) mg/dL Calcium 8.8 (8.5-10.1) mg/dL Phosphorus 6.3 H (2.6-4.7) mg/dL Magnesium 2.0 (1.8-2.4) mg/dL Total Bilirubin (0.2-1.0) mg/dL AST (15-37) IU/L ALT (14-63) IU/L Alkaline Phosphatase (46-116) U/L Troponin I (0.000-0.056) ng/mL Total Protein (6.4-8.2) g/dL Albumin (3.4-5.0) g/dL Globulin (2.6-4.0) g/dL Albumin/Globulin Ratio (0.9-1.6) Lipase (73-393) U/L Urine Color Urine Appearance Urine pH (5.0-8.0) Ur Specific [place] (1.001-1.035) Urine Protein (NEGATIVE) mg/dL Urine Glucose (UA) (NEGATIVE) mg/dL Urine Ketones (NEGATIVE) mg/dL Urine Occult Blood (NEGATIVE) Urine Nitrite (NEGATIVE) Urine Bilirubin (NEGATIVE) Urine Ictotest Urine Urobilinogen (<2.0) EU/dL Ur Leukocyte Esterase (NEGATIVE) Urine RBC (0-2/HPF) Urine WBC (0-5/HPF) Ur Epithelial Cells (NONE-FEW) Urine Bacteria (NEGATIVE) Ur Random Sodium (40.0-220.0) mmol/L Ur Random Potassium mmol/L Ur Random Chloride mmol/L Urine Opiates Screen (NEGATIVE) Ur Oxycodone Screen (NEGATIVE) Urine Methadone Screen (NEGATIVE) Ur Barbiturates Screen (NEGATIVE) Ur Phencyclidine Scrn (NEGATIVE) Ur Amphetamine Screen (NEGATIVE) U Methamphetamines Scrn (NEGATIVE) U Benzodiazepines Scrn (NEGATIVE) U Cocaine Metab Screen (NEGATIVE) U Marijuana (THC) Screen (NEGATIVE) Ethyl Alcohol mg/dL SARS-CoV-2 RNA (KAUR) (NEGATIVE) 06/28/20 Range/Units 06:53 WBC (4.0-11.0) K/uL RBC (4.50-5.90) M/uL Hgb (13.0-17.0) g/dL Hct (38.0-50.0) % MCV (80.0-98.0) fL MCH (27.0-32.0) pg MCHC (31.0-37.0) g/dL RDW Std Deviation (28.0-62.0) fl RDW Coeff of Claudio (11.0-15.0) % Plt Count (150-400) K/uL MPV (7.40-12.00) fL Neut % (Auto) (48.0-80.0) % Lymph % (Auto) (16.0-40.0) % [place] % (Auto) (0.0-15.0) % Eos % (Auto) (0.0-7.0) % Baso % (Auto) (0.0-1.5) % Neut # (Auto) (1.4-5.7) K/uL Lymph # (Auto) (0.6-2.4) K/uL [place] # (Auto) (0.0-0.8) K/uL Eos # (Auto) (0.0-0.7) K/uL Baso # (Auto) (0.0-0.1) K/uL Nucleated RBC % /100WBC Nucleated RBCs # K/uL D-Dimer, Quantitative (0.0-0.50) mg/L FEU Lactate (0.20-2.00) mmol/L Sodium (136-148) mmol/L Potassium (3.5-5.1) mmol/L Chloride (98-107) mmol/L Carbon Dioxide (21.0-32.0) mmol/L BUN (7.0-18.0) mg/dL Creatinine (0.8-1.3) mg/dL Est Cr Clr Drug Dosing mL/min Estimated GFR (MDRD) ml/min Glucose (74-106) mg/dL POC Glucose 97 (60-110) mg/dL Calcium (8.5-10.1) mg/dL Phosphorus (2.6-4.7) mg/dL Magnesium (1.8-2.4) mg/dL Total Bilirubin (0.2-1.0) mg/dL AST (15-37) IU/L ALT (14-63) IU/L Alkaline Phosphatase (46-116) U/L Troponin I (0.000-0.056) ng/mL Total Protein (6.4-8.2) g/dL Albumin (3.4-5.0) g/dL Globulin (2.6-4.0) g/dL Albumin/Globulin Ratio (0.9-1.6) Lipase (73-393) U/L Urine Color Urine Appearance Urine pH (5.0-8.0) Ur Specific [place] (1.001-1.035) Urine Protein (NEGATIVE) mg/dL Urine Glucose (UA) (NEGATIVE) mg/dL Urine Ketones (NEGATIVE) mg/dL Urine Occult Blood (NEGATIVE) Urine Nitrite (NEGATIVE) Urine Bilirubin (NEGATIVE) Urine Ictotest Urine Urobilinogen (<2.0) EU/dL Ur Leukocyte Esterase (NEGATIVE) Urine RBC (0-2/HPF) Urine WBC (0-5/HPF) Ur Epithelial Cells (NONE-FEW) Urine Bacteria (NEGATIVE) Ur Random Sodium (40.0-220.0) mmol/L Ur Random Potassium mmol/L Ur Random Chloride mmol/L Urine Opiates Screen (NEGATIVE) Ur Oxycodone Screen (NEGATIVE) Urine Methadone Screen (NEGATIVE) Ur Barbiturates Screen (NEGATIVE) Ur Phencyclidine Scrn (NEGATIVE) Ur Amphetamine Screen (NEGATIVE) U Methamphetamines Scrn (NEGATIVE) U Benzodiazepines Scrn (NEGATIVE) U Cocaine Metab Screen (NEGATIVE) U Marijuana (THC) Screen (NEGATIVE) Ethyl Alcohol mg/dL SARS-CoV-2 RNA (KAUR) (NEGATIVE) Med Orders - Current: Current Medications Acetaminophen (Tylenol) 650 mg PO Q4H PRN PRN Reason: Pain (Mild 1-3)/fever Albuterol/Ipratropium (Duoneb 3.0-0.5 Mg/3 Ml) 3 ml NEB Q4HRRT PRN PRN Reason: Shortness Of Breath/wheezing Dextrose/Water (Dextrose 50% In Water) 50 ml IV ASDIRECTED PRN PRN Reason: Hypoglycemia Folic Acid (Folic Acid) 1 mg PO DAILY [facility] Last Admin: 06/28/20 09:19 Dose: 1 mg Documented by: Glucagon (Glucagen) 1 mg IM ASDIRECTED PRN PRN Reason: Hypoglycemia Heparin Sodium (Porcine) (Heparin Sodium) 5,000 units SUBCUT Q8H [facility] Last Admin: 06/28/20 05:28 Dose: 5,000 units Documented by: Hydromorphone HCl (Dilaudid) 0.5 mg IVPUSH Q3H PRN PRN Reason: Pain (severe 7-10) Last Admin: 06/28/20 08:21 Dose: 0.5 mg Documented by: Lactated Ringer's (Ringers, Lactated) 1,000 mls @ 200 mls/hr IV ASDIRECTED [facility] Last Admin: 06/28/20 05:27 Dose: 200 mls/hr Documented by: Pantoprazole Sodium 40 mg/ (Sodium Chloride) 10 mls @ 200 mls/hr IV BID [facility] Last Admin: 06/28/20 08:21 Dose: 200 mls/hr Documented by: Thiamine HCl 100 mg/ Sodium (Chloride) 101 mls @ 202 mls/hr IV DAILY [facility] Last Admin: 06/28/20 09:20 Dose: 202 mls/hr Documented by: Insulin Aspart (Novolog) 0 unit SUBCUT TIDAC [facility]; Protocol Nicotine (Habitrol) 14 mg TRDERM DAILY [facility] Last Admin: 06/28/20 08:23 Dose: 14 mg Documented by: Ondansetron HCl (Zofran) 4 mg IVPUSH Q4H PRN PRN Reason: Abdominal Pain Sodium Chloride (Saline Flush) 10 ml FLUSH ASDIRECTED PRN PRN Reason: Keep Vein Open Last Admin: 06/27/20 16:37 Dose: 10 ml Documented by: Sodium Chloride (Saline Flush) 2.5 ml FLUSH ASDIRECTED PRN PRN Reason: Keep Vein Open Last Admin: 06/27/20 16:37 Dose: 2.5 ml Documented by: Discontinued Medications Hydromorphone HCl (Dilaudid) 0.5 mg IVPUSH ONETIME ONE Stop: 06/27/20 20:21 Last Admin: 06/27/20 20:27 Dose: 0.5 mg Documented by: Sodium Chloride (Normal Saline) 1,000 mls @ 999 mls/hr IV STAT ONE Stop: 06/27/20 16:51 Last Admin: 06/27/20 16:35 Dose: 999 mls/hr Documented by: Pantoprazole Sodium 80 mg/ (Sodium Chloride) 20 mls @ 420 mls/hr IVPUSH ONETIME ONE Stop: 06/27/20 15:53 Last Admin: 06/27/20 16:37 Dose: 420 mls/hr Documented by: Sodium Chloride (Normal Saline) 1,000 mls @ 999 mls/hr IV STAT ONE Stop: 06/27/20 17:16 Last Admin: 06/27/20 17:43 Dose: 999 mls/hr Documented by: Lorazepam (Ativan) 1 mg IVPUSH ONETIME ONE Stop: 06/27/20 15:52 Last Admin: 06/27/20 16:37 Dose: 1 mg Documented by: Lorazepam (Ativan) 1 mg PO ONETIME ONE Stop: 06/27/20 22:28 Last Admin: 06/27/20 22:47 Dose: 1 mg Documented by: Ondansetron HCl (Zofran) 4 mg IVPUSH ONETIME ONE Stop: 06/27/20 15:55 Last Admin: 06/27/20 16:37 Dose: 4 mg Documented by: Pantoprazole Sodium (Protonix Iv) 40 mg IV DAILY [facility] Last Admin: 06/27/20 21:39 Dose: 40 mg Documented by: Pantoprazole Sodium (Protonix Iv) 40 mg IV BID KATHRYN - Exam Quality Assessment: No: Supplemental Oxygen General: Alert, Oriented HEENT: Pupils Equal, Pupils Reactive, Other (+nystagmus /horizontal ...poor dentition w. 2 loose dentition in lower jawline ) Lungs: Clear to Auscultation, Normal Respiratory Effort Cardiovascular: Regular Rate, Regular Rhythm GI/Abdominal Exam: Soft, Non-Tender, No Organomegaly Back Exam: Normal Inspection Extremities: Normal Inspection Skin: Warm Neurological: No New Focal Deficit Psy/Mental Status: Alert, Anxious Sepsis Event Note - Evaluation Sepsis Screening Result: No Definite Risk - Focused Exam Vital Signs: Vital Signs Temp Pulse Resp BP Pulse Ox 06/28/20 07:30 97.2 F 78 18 131/110 H 93 L 06/28/20 03:58 97.4 F 90 18 112/73 94 L 06/28/20 00:54 97.3 F 89 16 117/72 94 L - Problem List Review Problem List Initiated/Reviewed/Updated: Yes - My Orders Last 24 Hours: My Active Orders 06/28/20 09:00 Folic Acid 1 mg PO DAILY Thiamine [Vitamin B-1] 100 mg Sodium Chloride 0.9% [Normal Saline] 100 ml IV DAILY 06/28/20 09:40 Accu Check [Blood Glucose Check, Bedside] [RC] TIDMEALS Dextrose 50% in Water 50 ml IV ASDIRECTED PRN Glucagon,Human Recombinant [GlucaGen] 1 mg IM ASDIRECTED PRN 06/28/20 Lunch Clear Liquid Diet [DIET] 06/28/20 11:30 Insulin Aspart [NovoLOG] See Protocol SUBCUT TIDAC - Plan Plan:: 60 y/o M admitted for acute over chronic pancreatitis, possible gastritis Hb is stable, blood streaked emesis likely due to gastritis and chemical irritation from baking soda Significant RISHABH noted: improving this AM w. IV LR 200 cc :continue ; recheck BMP in AM Advance to clear liquid diet; poor dentition ; most likely will only tolerate soft diet moving forward. Continue IV PPI BID secondary to gastritis Continue IV zofran for N/V Continue IV Dilaudid for pain Nicotine patch +Nystagmus on examination: start daily folic acid+ thiamine supplementation Needs outpatient endoscopy to rule out neoplasm based on CT findings; currently stable; nominal BP <CristopherHooria - Last Filed: 06/28/20 17:59> - Patient Data Vitals - Most Recent: Last Vital Signs Temp 36.6 C 06/28/20 16:00 Pulse 88 06/28/20 16:00 Resp 16 06/28/20 16:00 BP 130/76 06/28/20 16:00 Pulse Ox 93 L 06/28/20 16:00 I&O - Last 24 Hours: Intake & Output 06/28/20 06/28/20 06/28/20 06:59 14:59 22:59 Intake Total 0 1305 Output Total 775 Balance 0 530 Lab Results Last 24 Hours: Laboratory Results - last 24 hr 06/27/20 06/27/20 06/27/20 Range/Units 18:10 20:30 20:30 WBC (4.0-11.0) K/uL RBC (4.50-5.90) M/uL Hgb (13.0-17.0) g/dL Hct (38.0-50.0) % MCV (80.0-98.0) fL MCH (27.0-32.0) pg MCHC (31.0-37.0) g/dL RDW Std Deviation (28.0-62.0) fl RDW Coeff of Claudio (11.0-15.0) % Plt Count (150-400) K/uL MPV (7.40-12.00) fL Neut % (Auto) (48.0-80.0) % Lymph % (Auto) (16.0-40.0) % [place] % (Auto) (0.0-15.0) % Eos % (Auto) (0.0-7.0) % Baso % (Auto) (0.0-1.5) % Neut # (Auto) (1.4-5.7) K/uL Lymph # (Auto) (0.6-2.4) K/uL [place] # (Auto) (0.0-0.8) K/uL Eos # (Auto) (0.0-0.7) K/uL Baso # (Auto) (0.0-0.1) K/uL Nucleated RBC % /100WBC Nucleated RBCs # K/uL Lactate (0.20-2.00) mmol/L Sodium (136-148) mmol/L Potassium (3.5-5.1) mmol/L Chloride (98-107) mmol/L Carbon Dioxide (21.0-32.0) mmol/L BUN (7.0-18.0) mg/dL Creatinine (0.8-1.3) mg/dL Est Cr Clr Drug Dosing mL/min Estimated GFR (MDRD) ml/min Glucose (74-106) mg/dL POC Glucose (60-110) mg/dL Calcium (8.5-10.1) mg/dL Phosphorus (2.6-4.7) mg/dL Magnesium (1.8-2.4) mg/dL Urine Color YELLOW Urine Appearance CLEAR Urine pH 7.5 (5.0-8.0) Ur Specific [place] 1.015 (1.001-1.035) Urine Protein TRACE H (NEGATIVE) mg/dL Urine Glucose (UA) NEGATIVE (NEGATIVE) mg/dL Urine Ketones 15 H (NEGATIVE) mg/dL Urine Occult Blood TRACE-INTACT H (NEGATIVE) Urine Nitrite NEGATIVE (NEGATIVE) Urine Bilirubin MODERATE H (NEGATIVE) Urine Ictotest NEGATIVE Urine Urobilinogen 0.2 (<2.0) EU/dL Ur Leukocyte Esterase NEGATIVE (NEGATIVE) Urine RBC 0-2 (0-2/HPF) Urine WBC 0-1 (0-5/HPF) Ur Epithelial Cells RARE (NONE-FEW) Urine Bacteria RARE (NEGATIVE) Ur Random Sodium (40.0-220.0) mmol/L Ur Random Potassium mmol/L Ur Random Chloride mmol/L Urine Opiates Screen NEGATIVE (NEGATIVE) Ur Oxycodone Screen NEGATIVE (NEGATIVE) Urine Methadone Screen NEGATIVE (NEGATIVE) Ur Barbiturates Screen NEGATIVE (NEGATIVE) Ur Phencyclidine Scrn NEGATIVE (NEGATIVE) Ur Amphetamine Screen NEGATIVE (NEGATIVE) U Methamphetamines Scrn NEGATIVE (NEGATIVE) U Benzodiazepines Scrn NEGATIVE (NEGATIVE) U Cocaine Metab Screen NEGATIVE (NEGATIVE) U Marijuana (THC) Screen NEGATIVE (NEGATIVE) SARS-CoV-2 RNA ([facility]) NEGATIVE (NEGATIVE) 06/27/20 06/27/20 06/28/20 Range/Units 20:30 20:34 05:42 WBC 13.29 H (4.0-11.0) K/uL RBC 3.42 L (4.50-5.90) M/uL Hgb 10.4 L (13.0-17.0) g/dL Hct 31.5 L (38.0-50.0) % MCV 92.1 (80.0-98.0) fL MCH 30.4 (27.0-32.0) pg MCHC 33.0 (31.0-37.0) g/dL RDW Std Deviation 46.1 (28.0-62.0) fl RDW Coeff of Claudio 14 (11.0-15.0) % Plt Count 277 (150-400) K/uL MPV 9.50 (7.40-12.00) fL Neut % (Auto) 59.4 (48.0-80.0) % Lymph % (Auto) 27.2 (16.0-40.0) % [place] % (Auto) 10.8 (0.0-15.0) % Eos % (Auto) 2.3 (0.0-7.0) % Baso % (Auto) 0.3 (0.0-1.5) % Neut # (Auto) 7.9 H (1.4-5.7) K/uL Lymph # (Auto) 3.6 H (0.6-2.4) K/uL [place] # (Auto) 1.4 H (0.0-0.8) K/uL Eos # (Auto) 0.3 (0.0-0.7) K/uL Baso # (Auto) 0.0 (0.0-0.1) K/uL Nucleated RBC % 0.0 /100WBC Nucleated RBCs # 0 K/uL Lactate 1.0 (0.20-2.00) mmol/L Sodium (136-148) mmol/L Potassium (3.5-5.1) mmol/L Chloride (98-107) mmol/L Carbon Dioxide (21.0-32.0) mmol/L BUN (7.0-18.0) mg/dL Creatinine (0.8-1.3) mg/dL Est Cr Clr Drug Dosing mL/min Estimated GFR (MDRD) ml/min Glucose (74-106) mg/dL POC Glucose (60-110) mg/dL Calcium (8.5-10.1) mg/dL Phosphorus (2.6-4.7) mg/dL Magnesium (1.8-2.4) mg/dL Urine Color Urine Appearance Urine pH (5.0-8.0) Ur Specific [place] (1.001-1.035) Urine Protein (NEGATIVE) mg/dL Urine Glucose (UA) (NEGATIVE) mg/dL Urine Ketones (NEGATIVE) mg/dL Urine Occult Blood (NEGATIVE) Urine Nitrite (NEGATIVE) Urine Bilirubin (NEGATIVE) Urine Ictotest Urine Urobilinogen (<2.0) EU/dL Ur Leukocyte Esterase (NEGATIVE) Urine RBC (0-2/HPF) Urine WBC (0-5/HPF) Ur Epithelial Cells (NONE-FEW) Urine Bacteria (NEGATIVE) Ur Random Sodium 80.0 (40.0-220.0) mmol/L Ur Random Potassium 69.9 mmol/L Ur Random Chloride 67 mmol/L Urine Opiates Screen (NEGATIVE) Ur Oxycodone Screen (NEGATIVE) Urine Methadone Screen (NEGATIVE) Ur Barbiturates Screen (NEGATIVE) Ur Phencyclidine Scrn (NEGATIVE) Ur Amphetamine Screen (NEGATIVE) U Methamphetamines Scrn (NEGATIVE) U Benzodiazepines Scrn (NEGATIVE) U Cocaine Metab Screen (NEGATIVE) U Marijuana (THC) Screen (NEGATIVE) SARS-CoV-2 RNA ([facility]) (NEGATIVE) 06/28/20 06/28/20 06/28/20 Range/Units 05:42 06:53 10:34 WBC (4.0-11.0) K/uL RBC (4.50-5.90) M/uL Hgb (13.0-17.0) g/dL Hct (38.0-50.0) % MCV (80.0-98.0) fL MCH (27.0-32.0) pg MCHC (31.0-37.0) g/dL RDW Std Deviation (28.0-62.0) fl RDW Coeff of Claudio (11.0-15.0) % Plt Count (150-400) K/uL MPV (7.40-12.00) fL Neut % (Auto) (48.0-80.0) % Lymph % (Auto) (16.0-40.0) % [place] % (Auto) (0.0-15.0) % Eos % (Auto) (0.0-7.0) % Baso % (Auto) (0.0-1.5) % Neut # (Auto) (1.4-5.7) K/uL Lymph # (Auto) (0.6-2.4) K/uL [place] # (Auto) (0.0-0.8) K/uL Eos # (Auto) (0.0-0.7) K/uL Baso # (Auto) (0.0-0.1) K/uL Nucleated RBC % /100WBC Nucleated RBCs # K/uL Lactate (0.20-2.00) mmol/L Sodium 135 L (136-148) mmol/L Potassium 3.0 L (3.5-5.1) mmol/L Chloride 89 L (98-107) mmol/L Carbon Dioxide 38.6 H (21.0-32.0) mmol/L BUN 52 H (7.0-18.0) mg/dL Creatinine 3.8 H (0.8-1.3) mg/dL Est Cr Clr Drug Dosing 14.15 mL/min Estimated GFR (MDRD) 16.3 ml/min Glucose 96 (74-106) mg/dL POC Glucose 97 98 (60-110) mg/dL Calcium 8.8 (8.5-10.1) mg/dL Phosphorus 6.3 H (2.6-4.7) mg/dL Magnesium 2.0 (1.8-2.4) mg/dL Urine Color Urine Appearance Urine pH (5.0-8.0) Ur Specific [place] (1.001-1.035) Urine Protein (NEGATIVE) mg/dL Urine Glucose (UA) (NEGATIVE) mg/dL Urine Ketones (NEGATIVE) mg/dL Urine Occult Blood (NEGATIVE) Urine Nitrite (NEGATIVE) Urine Bilirubin (NEGATIVE) Urine Ictotest Urine Urobilinogen (<2.0) EU/dL Ur Leukocyte Esterase (NEGATIVE) Urine RBC (0-2/HPF) Urine WBC (0-5/HPF) Ur Epithelial Cells (NONE-FEW) Urine Bacteria (NEGATIVE) Ur Random Sodium (40.0-220.0) mmol/L Ur Random Potassium mmol/L Ur Random Chloride mmol/L Urine Opiates Screen (NEGATIVE) Ur Oxycodone Screen (NEGATIVE) Urine Methadone Screen (NEGATIVE) Ur Barbiturates Screen (NEGATIVE) Ur Phencyclidine Scrn (NEGATIVE) Ur Amphetamine Screen (NEGATIVE) U Methamphetamines Scrn (NEGATIVE) U Benzodiazepines Scrn (NEGATIVE) U Cocaine Metab Screen (NEGATIVE) U Marijuana (THC) Screen (NEGATIVE) SARS-CoV-2 RNA ([facility]) (NEGATIVE) [place]me Results Last 24 Hours: Microbiology 06/27/20 17:09 Aerobic Blood Culture - Preliminary Blood - Venous NO GROWTH AFTER 1 DAY Anaerobic Blood Culture - Preliminary NO GROWTH AFTER 1 DAY 06/27/20 16:31 Aerobic Blood Culture - Preliminary Blood - Venous - Lab Draw NO GROWTH AFTER 1 DAY Anaerobic Blood Culture - Preliminary NO GROWTH AFTER 1 DAY Med Orders - Current: Current Medications Acetaminophen (Tylenol) 650 mg PO Q4H PRN PRN Reason: Pain (Mild 1-3)/fever Albuterol/Ipratropium (Duoneb 3.0-0.5 Mg/3 Ml) 3 ml NEB Q4HRRT PRN PRN Reason: Shortness Of Breath/wheezing Atorvastatin Calcium (Lipitor) 20 mg PO BEDTIME [facility] Dextrose/Water (Dextrose 50% In Water) 50 ml IV ASDIRECTED PRN PRN Reason: Hypoglycemia Folic Acid (Folic Acid) 1 mg PO DAILY [facility] Last Admin: 06/28/20 09:19 Dose: 1 mg Documented by: Glucagon (Glucagen) 1 mg IM ASDIRECTED PRN PRN Reason: Hypoglycemia Heparin Sodium (Porcine) (Heparin Sodium) 5,000 units SUBCUT Q8H [facility] Last Admin: 06/28/20 13:43 Dose: 5,000 units Documented by: Hydromorphone HCl (Dilaudid) 0.5 mg IVPUSH Q3H PRN PRN Reason: Pain (severe 7-10) Last Admin: 06/28/20 15:18 Dose: 0.5 mg Documented by: Lactated Ringer's (Ringers, Lactated) 1,000 mls @ 200 mls/hr IV ASDIRECTED [facility] Last Admin: 06/28/20 17:05 Dose: 200 mls/hr Documented by: Pantoprazole Sodium 40 mg/ (Sodium Chloride) 10 mls @ 200 mls/hr IV BID [facility] Last Admin: 06/28/20 08:21 Dose: 200 mls/hr Documented by: Thiamine HCl 100 mg/ Sodium (Chloride) 101 mls @ 202 mls/hr IV DAILY [facility] Last Admin: 06/28/20 09:20 Dose: 202 mls/hr Documented by: Insulin Aspart (Novolog) 0 unit SUBCUT TIDAC [facility]; Protocol Last Admin: 06/28/20 11:44 Dose: Not Given Documented by: Lisinopril (Prinivil) 10 mg PO BEDTIME [facility] Nicotine (Habitrol) 14 mg TRDERM DAILY [facility] Last Admin: 06/28/20 08:23 Dose: 14 mg Documented by: Ondansetron HCl (Zofran) 4 mg IVPUSH Q4H PRN PRN Reason: Abdominal Pain Last Admin: 06/28/20 16:52 Dose: 4 mg Documented by: Sodium Chloride (Saline Flush) 10 ml FLUSH ASDIRECTED PRN PRN Reason: Keep Vein Open Last Admin: 06/27/20 16:37 Dose: 10 ml Documented by: Sodium Chloride (Saline Flush) 2.5 ml FLUSH ASDIRECTED PRN PRN Reason: Keep Vein Open Last Admin: 06/27/20 16:37 Dose: 2.5 ml Documented by: Discontinued Medications Hydromorphone HCl (Dilaudid) 0.5 mg IVPUSH ONETIME ONE Stop: 06/27/20 20:21 Last Admin: 06/27/20 20:27 Dose: 0.5 mg Documented by: Sodium Chloride (Normal Saline) 1,000 mls @ 999 mls/hr IV STAT ONE Stop: 06/27/20 16:51 Last Admin: 06/27/20 16:35 Dose: 999 mls/hr Documented by: Pantoprazole Sodium 80 mg/ (Sodium Chloride) 20 mls @ 420 mls/hr IVPUSH ONETIME ONE Stop: 06/27/20 15:53 Last Admin: 06/27/20 16:37 Dose: 420 mls/hr Documented by: Sodium Chloride (Normal Saline) 1,000 mls @ 999 mls/hr IV STAT ONE Stop: 06/27/20 17:16 Last Admin: 06/27/20 17:43 Dose: 999 mls/hr Documented by: Lorazepam (Ativan) 1 mg IVPUSH ONETIME ONE Stop: 06/27/20 15:52 Last Admin: 06/27/20 16:37 Dose: 1 mg Documented by: Lorazepam (Ativan) 1 mg PO ONETIME ONE Stop: 06/27/20 22:28 Last Admin: 06/27/20 22:47 Dose: 1 mg Documented by: Ondansetron HCl (Zofran) 4 mg IVPUSH ONETIME ONE Stop: 06/27/20 15:55 Last Admin: 06/27/20 16:37 Dose: 4 mg Documented by: Pantoprazole Sodium (Protonix Iv) 40 mg IV DAILY [facility] Last Admin: 06/27/20 21:39 Dose: 40 mg Documented by: Pantoprazole Sodium (Protonix Iv) 40 mg IV BID [facility] Sepsis Event Note - Focused Exam Vital Signs: Vital Signs Temp Pulse Resp BP Pulse Ox 06/28/20 16:00 36.6 C 88 16 130/76 93 L 06/28/20 11:20 36.5 C 87 16 116/66 93 L 06/28/20 07:30 36.2 C 78 18 131/110 H 93 L - Problem List & Annotations (1) Acute kidney injury SNOMED Code(s): 93073929, 61821860 Code(s): N17.9 - ACUTE KIDNEY FAILURE, UNSPECIFIED Status: Acute Current Visit: Yes (2) Gastritis SNOMED Code(s): 2356111 Code(s): K29.70 - GASTRITIS, UNSPECIFIED, WITHOUT BLEEDING Status: Acute Current Visit: Yes Qualifiers: Gastritis type: unspecified gastritis Chronicity: unspecified Gastritis bleeding: without bleeding Qualified Code(s): K29.70 - Gastritis, unspecified, without bleeding (3) Noncompliance with medication regimen SNOMED Code(s): 749386251 Code(s): Z91.14 - PATIENT'S OTHER NONCOMPLIANCE WITH MEDICATION REGIMEN Status: Acute Current Visit: Yes (4) Pancreatitis SNOMED Code(s): 60093294 Code(s): K85.90 - ACUTE PANCREATITIS WITHOUT NECROSIS OR INFECTION, UNSP Status: Acute Priority: High Current Visit: Yes Qualifiers: Chronicity: acute Pancreatitis type: alcohol induced Acute pancreatitis complication: unspecified Qualified Code(s): K85.20 - Alcohol induced acute pancreatitis without necrosis or infection (5) Dehydration SNOMED Code(s): 84969480 Code(s): E86.0 - DEHYDRATION Status: Acute Current Visit: No (6) High serum lactate SNOMED Code(s): 125672472, 583282442 Code(s): R79.89 - OTHER SPECIFIED ABNORMAL FINDINGS OF BLOOD CHEMISTRY Status: Acute Current Visit: No (7) Leukocytosis SNOMED Code(s): 871069672, 900011623 Code(s): D72.829 - ELEVATED WHITE BLOOD CELL COUNT, UNSPECIFIED Status: Acute Current Visit: No Qualifiers: Leukocytosis type: unspecified Qualified Code(s): D72.829 - Elevated white blood cell count, unspecified - My Orders Last 24 Hours: My Active Orders 06/27/20 20:10 Telemetry Monitoring [Cardiac Monitoring] [RC] Q8H 06/27/20 20:47 Ambulate [RC] ASDIRECTED Oxygen Therapy [RC] PRN VTE/DVT Education [RC] PER UNIT ROUTINE Vital Signs [RC] Q4H Acetaminophen [TylenoL] 650 mg PO Q4H PRN Albuterol/Ipratropium [DuoNeb 3.0-0.5 MG/3 ML] 3 ml NEB Q4HRRT PRN HYDROmorphone [Dilaudid] 0.5 mg IVPUSH Q3H PRN Ondansetron [Zofran] 4 mg IVPUSH Q4H PRN 06/27/20 20:48 Pulse Oximetry [RC] PRN Sequential Compression Device [OM.PC] Per Unit Routine 06/27/20 20:50 Antiembolic Devices [RC] PER UNIT ROUTINE 06/27/20 20:52 RT Aerosol Therapy [RC] ASDIRECTED 06/27/20 21:00 Heparin Sodium 5,000 units SUBCUT Q8H Lactated Ringers [Ringers, Lactated] 1,000 ml IV ASDIRECTED 06/27/20 22:30 Nicotine [Habitrol] 14 mg TRDERM DAILY 06/27/20 22:47 Resuscitation Status Routine 06/28/20 09:00 Pantoprazole [ProTONIX IV] 40 mg Sodium Chloride 0.9% [Normal Saline] 10 ml IV BID - Plan Plan:: I have seen and evaluated the patient and agree with the residents note unless specified in my note
[2020-06-28] MEDS: Insulin Aspart 100 Units/ML 3 ML Pen SUBCUT SCH ×2 (11:44→18:59)
[2020-06-28] MEDS: Ondansetron 4 MG/2 ML SDV IVPUSH PRN ×2 (12:02→16:52)
[2020-06-28] MEDS ORDERED: LORazepam 2 MG/ML SDV IVPUSH PRN (19:00)
[2020-06-28] MEDS ORDERED: atorvaSTATin 20 MG Tab PO SCH (21:00)
[2020-06-28] MEDS ORDERED: Lisinopril 10 MG Tab PO SCH (21:00)
[2020-06-29] MEDS: Lactated Ringers 1,000 ML IV SCH (00:40)
[2020-06-29] MEDS: HYDROmorphone 2 MG/ML Syringe IVPUSH PRN (02:22)
[2020-06-29 04:41] VITALS: BP 119/72; PULSE 93
== END 2020-06-29 05:57 | disposition still patient (30) | DRG 682 ==
LOC: MW.ED 15:24 → MW.MS 19:13
PROVIDERS: ADMIT Student in an Organized Health Care Education/Training Program; ATTEND Student in an Organized Health Care Education/Training Program
DX: N17.9 Acute kidney failure, unspecified (principal); K85.20 Alcohol induced acute pancreatitis without necrosis or infection; H54.7 Unspecified visual loss; E78.00 Pure hypercholesterolemia, unspecified; J44.9 Chronic obstructive pulmonary disease, unspecified; I10 Essential (primary) hypertension; M19.90 Unspecified osteoarthritis, unspecified site; F32.9 Major depressive disorder, single episode, unspecified; Z20.828 Contact with and (suspected) exposure to other viral communicable diseases; E11.9 Type 2 diabetes mellitus without complications; F17.200 Nicotine dependence, unspecified, uncomplicated; K29.70 Gastritis, unspecified, without bleeding; E86.0 Dehydration; R79.89 Other specified abnormal findings of blood chemistry; Z88.5 Allergy status to narcotic agent; Z79.82 Long term (current) use of aspirin; Z79.84 Long term (current) use of oral hypoglycemic drugs; Z79.899 Other long term (current) drug therapy; Z91.14 Patient's other noncompliance with medication regimen; Z90.49 Acquired absence of other specified parts of digestive tract
CPT/HCPCS: 36415; 71045; 71045-26; 74176; 74176-26; 80048; 80053; 80305-QW; 80307; 81001; 82436; 82962; 83605; 83690; 83735; 84100; 84133; 84300; 84484; 85025; 85379; 87040; 93005; 93010; 96374; 96375; 99285; 99285-25; A9270-GY; C9113; J1170; J1644; J1815-GY; J2060; J2405; J3411; J7030; J7120; U0002

== ENCOUNTER 2021-07-08 16:12 | Inpatient (IN) | payer MEDICAID ==
[2021-07-08] MEDS ORDERED: Sodium Chloride 0.9% 2.5 ML Syringe FLUSH PRN (16:56)
[2021-07-08] MEDS ORDERED: Sodium Chloride 0.9% 10 ML Syringe FLUSH PRN (16:56)
--- NOTE | 2021-07-08 17:01 | EDM.PDOC ---
<Teo Macdonald - Last Filed: 07/08/21 16:56> ED HPI GENERAL MEDICAL PROBLEM - General Chief Complaint: Gastrointestinal Problem Stated Complaint: NAUSEA, SHORTNESS OF BREATH Time Seen by Provider: 07/08/21 16:45 - History of Present Illness INITIAL COMMENTS - FREE TEXT/NARRATIVE: History of present illness: [] Patient presents with body aches. He has body aches and malaise for several days. The patient has developed chest pain a few minutes before he was taken back to the room for evaluation. He developed chest pain while he was waiting to come back into the emergency department. He was actually in our lobby when it happened. He is a smoker he was treated for hypertension. He has negative family history of NM and stroke. The pain is moderately severe but fairly comparable to the other body aches that he is having. He has no history of fever or chills and he has no taste change. The patient was vaccinated twice for COVID-19 but has not had a booster. Last dose was April. Review of systems: As per history of present illness and below otherwise all systems reviewed and negative. Past medical history: As per history of present illness and as reviewed below otherwise noncontr ibutory. Surgical history: As per history of present illness and as reviewed below otherwise noncontributory. Social history: No reported history of drug or alcohol abuse. Family history: As per history of present illness and as reviewed below otherwise noncontributory. Physical exam: Constitutional - well developed, well-nourished and in no acute distress HEENT - normocephalic, no evidence of trauma - external nose and mouth normal - no mass in neck and no JVD - mucosae moist EYES - full EOM, PERRL, no icterus - no evidence of inflammation, injection, or drainage Respiratory - no respiratory distress, equal bilateral expansion, lungs clear to auscultation and no abnormal lung sounds Cardiovascular - Regular Rhythm with S1 and S2 appreciated and no murmur, gallop or rub. GI - abdomen soft without distension or organomegaly - normal bowel sounds - no guard or rebound Musculoskeletal no gross deformity of long bones or joints - no tenderness, swelling or edema Neurologic - Alert and oriented times four - CN II-XII grossly intact - motor sensory and coordination symmetrically normal Psychiatric - appropriate mood and affect with normal thought content Hematologic - No petechiae or purpura - mucosa appropriate color and sclera not pale - normal nail bed color and refill Integument - no rash or evidence of trauma - normal turgor Diagnostics: [] Therapeutics: [] Impression: [] Plan: [] Definitive disposition and diagnosis as appropriate pending reevaluation and review of above. - Related Data Allergies Allergy/AdvReac Type Severity Reaction Status Date / Time morphine Allergy Hallucinati Verified 06/27/20 15:45 ons Home Meds: Home Meds Lisinopril 10 mg PO BEDTIME 10/07/16 [History] atorvaSTATin [Lipitor] 20 mg PO BEDTIME 10/07/16 [History] metFORMIN [Glucophage] 500 mg PO BIDMEALS 10/07/16 [History] Aspirin 81 mg PO BEDTIME 04/25/19 [History] Psyllium Husk [Psyllium Fiber] 5 cap PO DAILY 04/25/19 [History] diphenhydrAMINE HCL [Benadryl] 50 mg PO BEDTIME 04/25/19 [History] Ondansetron [Zofran ODT] 4 mg PO Q6H PRN 3 Days #12 tab.dis 12/13/19 [Rx] Acetaminophen/Codeine [Tylenol with Codeine No.3 300MG/30MG] 30 - 300 mg PO Q4H PRN 06/28/20 [History] Eszopiclone [Lunesta] 2 mg PO BEDTIME PRN 06/28/20 [History] Past Medical History HEENT History: Reports: Impaired Vision Cardiovascular History: Reports: High Cholesterol, Hypertension Respiratory History: Reports: COPD, Pneumothorax Gastrointestinal History: Reports: Pancreatitis Genitourinary History: Reports: Other (See Below) Other Genitourinary History: Stated "a doctor told me that my kidneys were shriveled up." Musculoskeletal History: Reports: Arthritis Other Musculoskeletal History: Back Neurological History: Reports: None Psychiatric History: Reports: Depression, Other (See Below) Other Psychiatric History: History of "melancholia" Endocrine/Metabolic History: Reports: Diabetes, Type II Hematologic History: Reports: None Immunologic History: Reports: None Oncologic (Cancer) History: Reports: None Dermatologic History: Reports: None - Infectious Disease History Infectious Disease History: Reports: Chicken Pox - Past Surgical History Head Surgeries/Procedures: Reports: None HEENT Surgical History: Reports: Tonsillectomy Cardiovascular Surgical History: Reports: None Respiratory Surgical History: Reports: None GI Surgical History: Reports: Cholecystectomy Male Surgical History: Reports: None Endocrine Surgical History: Reports: None Neurological Surgical History: Reports: None Musculoskeletal Surgical History: Reports: None Oncologic Surgical History: Reports: None Social & Family History - Family History Family Medical History: No Pertinent Family History HEENT: Reports: Impaired Vision Endocrine/Metabolic: Reports: Diabetes, type II Oncologic: Reports: Colon, Liver, Lung, Pancreatic, Thyroid - Caffeine Use Caffeine Use: Reports: Coffee ED ROS GENERAL - Review of Systems Review Of Systems: Comprehensive ROS is negative, except as noted in HPI. ED EXAM, GENERAL - Physical Exam Exam: See Below Free Text/Narrative:: My physical exam is in the HPI #1 Interpretation EKG Interpretation Comments: EKG done 07/08/2021 at 1637 hrs. shows atrial fibrillation with a ventricular rate of 122 a QT duration of 552 and a QRS axis of 81. The QRS shows Q wave in V1 and V2 and late transition R wave. Baseline wander makes it difficult to rule out acute ST elevation NM there are some ways in which inferior leads show an ST elevation that could be beyond 1 mm. There are some possible ST depressions as well in the lateral leads. When compared to 06/27/[address] changes if they are in fact more than baseline wander were not present but the Q waves in the anterior leads were. Impression needed better EKG to rule out STEMI #2 Interpretation EKG Interpretation Comments: EKG done 07/08/2021 1647-hour sinus tachycardia premature complexes heart rate 113 [place] 128 QT duration 560 axis 80 Q's in V1 and V2 with late transition R wave variations in the ST segment including some areas of elevation and some areas of depression. Compared to the prior today it is apparent that there is no ST elevation NM. There also is a P wave suggesting that this may be sinus rhythm with frequent ectopy rather than atrial fibrillation. Impression no obvious STEMI. Departure - Departure Disposition: Admitted As Inpatient 65 Clinical Impression: Hyponatremia - Discharge Information Forms: ED Department Discharge <Elmo Breen - Last Filed: 07/08/21 22:47> ED HPI GENERAL MEDICAL PROBLEM Chest Pain Score (Numeric/FACES): 8 Course - Vital Signs Last Recorded V/S: Last Vital Signs Temp 98.1 F 07/08/21 16:43 Pulse 81 07/08/21 22:44 Resp 14 07/08/21 21:33 BP 149/94 H 07/08/21 22:44 Pulse Ox 96 07/08/21 22:44 - Orders/Labs/Meds Orders: Active Orders 24 hr Category Date Time Status OSMOLALITY - SERUM [REF] Stat Lab 07/08/21 21:15 Received OSMOLALITY - URINE Stat Lab 07/08/21 20:32 Received URIC ACID, URINE Stat Lab 07/08/21 20:32 Received Sodium Chloride 0.9% [Saline Flush] Med 07/08/21 16:56 Active 10 ml FLUSH ASDIRECTED PRN Sodium Chloride 0.9% [Saline Flush] Med 07/08/21 16:56 Active 2.5 ml FLUSH ASDIRECTED PRN Saline Lock Insert [OM.PC] Stat Oth 07/08/21 16:56 Ordered Medication Orders Sodium Chloride (Sodium Chloride 0.9% 10 Ml Syringe) 10 ml FLUSH ASDIRECTED PRN PRN Reason: Keep Vein Open Last Admin: 07/08/21 17:10 Dose: 10 ml Documented by: RONI Sodium Chloride (Sodium Chloride 0.9% 2.5 Ml Syringe) 2.5 ml FLUSH ASDIRECTED PRN PRN Reason: Keep Vein Open Last Admin: 07/08/21 17:10 Dose: 2.5 ml Documented by: RONI Labs: Laboratory Tests 07/08/21 07/08/21 07/08/21 Range/Units 16:50 16:50 16:50 WBC 13.08 H (4.0-11.0) K/uL RBC 4.36 L (4.50-5.90) M/uL Hgb 14.5 (13.0-17.0) g/dL Hct 39.1 (38.0-50.0) % MCV 89.7 (80.0-98.0) fL MCH 33.3 H (27.0-32.0) pg MCHC 37.1 H (31.0-37.0) g/dL RDW Std Deviation 47.2 (28.0-62.0) fl RDW Coeff of Claudio 14 (11.0-15.0) % Plt Count 318 (150-400) K/uL MPV 9.40 (7.40-12.00) fL Neut % (Auto) 82.0 H (48.0-80.0) % Lymph % (Auto) 6.7 L (16.0-40.0) % [place] % (Auto) 11.2 (0.0-15.0) % Eos % (Auto) 0.0 (0.0-7.0) % Baso % (Auto) 0.1 (0.0-1.5) % Neut # (Auto) 10.7 H (1.4-5.7) K/uL Lymph # (Auto) 0.9 (0.6-2.4) K/uL [place] # (Auto) 1.5 H (0.0-0.8) K/uL Eos # (Auto) 0.0 (0.0-0.7) K/uL Baso # (Auto) 0.0 (0.0-0.1) K/uL Nucleated RBC % 0.0 /100WBC Nucleated RBCs # 0 K/uL Sodium 117 L* (136-148) mmol/L Potassium 2.9 L (3.5-5.1) mmol/L Chloride 62 L (98-107) mmol/L Carbon Dioxide 45.7 H (21.0-32.0) mmol/L BUN 52 H (7.0-18.0) mg/dL Creatinine 4.3 H (0.8-1.3) mg/dL Est Cr Clr Drug Dosing TNP Estimated GFR (MDRD) 14.1 ml/min Glucose 213 H (74-106) mg/dL Calcium 10.2 H (8.5-10.1) mg/dL Magnesium 2.8 H (1.8-2.4) mg/dL Total Bilirubin 0.4 (0.2-1.0) mg/dL AST 27 (15-37) IU/L ALT 8 L (14-63) IU/L Alkaline Phosphatase 145 H (46-116) U/L Troponin I < 0.050 (0.000-0.056) ng/mL Total Protein 9.6 H (6.4-8.2) g/dL Albumin 3.8 (3.4-5.0) g/dL Globulin 5.8 H (2.6-4.0) g/dL Albumin/Globulin Ratio 0.7 L (0.9-1.6) Urine Color Urine Appearance Urine pH (5.0-8.0) Ur Specific [place] (1.001-1.035) Urine Protein (NEGATIVE) mg/dL Urine Glucose (UA) (NEGATIVE) mg/dL Urine Ketones (NEGATIVE) mg/dL Urine Occult Blood (NEGATIVE) Urine Nitrite (NEGATIVE) Urine Bilirubin (NEGATIVE) Urine Urobilinogen (<2.0) EU/dL Ur Leukocyte Esterase (NEGATIVE) Urine RBC (0-2/HPF) Urine WBC (0-5/HPF) Ur Epithelial Cells (NONE-FEW) Urine Bacteria (NEGATIVE) Ur Random Creatinine mg/dL Ur Random Sodium (40.0-220.0) mmol/L Influenza Type A RNA (NEGATIVE) Influenza Type B RNA (NEGATIVE) SARS-CoV-2 RNA ([facility]) (NEGATIVE) 07/08/21 07/08/21 07/08/21 Range/Units 17:12 20:32 20:32 WBC (4.0-11.0) K/uL RBC (4.50-5.90) M/uL Hgb (13.0-17.0) g/dL Hct (38.0-50.0) % MCV (80.0-98.0) fL MCH (27.0-32.0) pg MCHC (31.0-37.0) g/dL RDW Std Deviation (28.0-62.0) fl RDW Coeff of Claudio (11.0-15.0) % Plt Count (150-400) K/uL MPV (7.40-12.00) fL Neut % (Auto) (48.0-80.0) % Lymph % (Auto) (16.0-40.0) % [place] % (Auto) (0.0-15.0) % Eos % (Auto) (0.0-7.0) % Baso % (Auto) (0.0-1.5) % Neut # (Auto) (1.4-5.7) K/uL Lymph # (Auto) (0.6-2.4) K/uL [place] # (Auto) (0.0-0.8) K/uL Eos # (Auto) (0.0-0.7) K/uL Baso # (Auto) (0.0-0.1) K/uL Nucleated RBC % /100WBC Nucleated RBCs # K/uL Sodium (136-148) mmol/L Potassium (3.5-5.1) mmol/L Chloride (98-107) mmol/L Carbon Dioxide (21.0-32.0) mmol/L BUN (7.0-18.0) mg/dL Creatinine (0.8-1.3) mg/dL Est Cr Clr Drug Dosing Estimated GFR (MDRD) ml/min Glucose (74-106) mg/dL Calcium (8.5-10.1) mg/dL Magnesium (1.8-2.4) mg/dL Total Bilirubin (0.2-1.0) mg/dL AST (15-37) IU/L ALT (14-63) IU/L Alkaline Phosphatase (46-116) U/L Troponin I (0.000-0.056) ng/mL Total Protein (6.4-8.2) g/dL Albumin (3.4-5.0) g/dL Globulin (2.6-4.0) g/dL Albumin/Globulin Ratio (0.9-1.6) Urine Color YELLOW Urine Appearance HAZY Urine pH 6.0 (5.0-8.0) Ur Specific [place] >= 1.030 (1.001-1.035) Urine Protein 100 H (NEGATIVE) mg/dL Urine Glucose (UA) NEGATIVE (NEGATIVE) mg/dL Urine Ketones NEGATIVE (NEGATIVE) mg/dL Urine Occult Blood TRACE-INTACT H (NEGATIVE) Urine Nitrite NEGATIVE (NEGATIVE) Urine Bilirubin NEGATIVE (NEGATIVE) Urine Urobilinogen 0.2 (<2.0) EU/dL Ur Leukocyte Esterase NEGATIVE (NEGATIVE) Urine RBC 0-2 (0-2/HPF) Urine WBC 0-2 (0-5/HPF) Ur Epithelial Cells OCCASIONAL (NONE-FEW) Urine Bacteria FEW (NEGATIVE) Ur Random Creatinine 154.9 mg/dL Ur Random Sodium 26.0 L (40.0-220.0) mmol/L Influenza Type A RNA NEGATIVE (NEGATIVE) Influenza Type B RNA NEGATIVE (NEGATIVE) SARS-CoV-2 RNA ([facility]) NEGATIVE (NEGATIVE) 07/08/21 07/08/21 Range/Units 21:15 21:15 WBC (4.0-11.0) K/uL RBC (4.50-5.90) M/uL Hgb (13.0-17.0) g/dL Hct (38.0-50.0) % MCV (80.0-98.0) fL MCH (27.0-32.0) pg MCHC (31.0-37.0) g/dL RDW Std Deviation (28.0-62.0) fl RDW Coeff of Claudio (11.0-15.0) % Plt Count (150-400) K/uL MPV (7.40-12.00) fL Neut % (Auto) (48.0-80.0) % Lymph % (Auto) (16.0-40.0) % [place] % (Auto) (0.0-15.0) % Eos % (Auto) (0.0-7.0) % Baso % (Auto) (0.0-1.5) % Neut # (Auto) (1.4-5.7) K/uL Lymph # (Auto) (0.6-2.4) K/uL [place] # (Auto) (0.0-0.8) K/uL Eos # (Auto) (0.0-0.7) K/uL Baso # (Auto) (0.0-0.1) K/uL Nucleated RBC % /100WBC Nucleated RBCs # K/uL Sodium 123 L (136-148) mmol/L Potassium 2.6 L (3.5-5.1) mmol/L Chloride 70 L (98-107) mmol/L Carbon Dioxide 49.8 H (21.0-32.0) mmol/L BUN 52 H (7.0-18.0) mg/dL Creatinine 4.2 H (0.8-1.3) mg/dL Est Cr Clr Drug Dosing TNP Estimated GFR (MDRD) 14.5 ml/min Glucose 163 H (74-106) mg/dL Calcium 9.3 (8.5-10.1) mg/dL Magnesium (1.8-2.4) mg/dL Total Bilirubin (0.2-1.0) mg/dL AST (15-37) IU/L ALT (14-63) IU/L Alkaline Phosphatase (46-116) U/L Troponin I < 0.050 (0.000-0.056) ng/mL Total Protein (6.4-8.2) g/dL Albumin (3.4-5.0) g/dL Globulin (2.6-4.0) g/dL Albumin/Globulin Ratio (0.9-1.6) Urine Color Urine Appearance Urine pH (5.0-8.0) Ur Specific [place] (1.001-1.035) Urine Protein (NEGATIVE) mg/dL Urine Glucose (UA) (NEGATIVE) mg/dL Urine Ketones (NEGATIVE) mg/dL Urine Occult Blood (NEGATIVE) Urine Nitrite (NEGATIVE) Urine Bilirubin (NEGATIVE) Urine Urobilinogen (<2.0) EU/dL Ur Leukocyte Esterase (NEGATIVE) Urine RBC (0-2/HPF) Urine WBC (0-5/HPF) Ur Epithelial Cells (NONE-FEW) Urine Bacteria (NEGATIVE) Ur Random Creatinine mg/dL Ur Random Sodium (40.0-220.0) mmol/L Influenza Type A RNA (NEGATIVE) Influenza Type B RNA (NEGATIVE) SARS-CoV-2 RNA ([facility]) (NEGATIVE) Meds: Medications Generic Name Dose Route Start Last Admin Trade Name Brenda PRN Reason Stop Dose Admin Sodium Chloride 10 ml 07/08/21 16:56 07/08/21 17:10 Sodium Chloride 0.9% 10 Ml Syringe FLUSH 10 ml ASDIRECTED PRN Administration Keep Vein Open Sodium Chloride 2.5 ml 07/08/21 16:56 07/08/21 17:10 Sodium Chloride 0.9% 2.5 Ml Syringe FLUSH 2.5 ml ASDIRECTED PRN Administration Keep Vein Open Discontinued Medications Generic Name Dose Route Start Last Admin Trade Name Brenda PRN Reason Stop Dose Admin Aspirin 324 mg 07/08/21 17:07 07/08/21 17:10 Aspirin 81 Mg Tab.Chew PO 07/08/21 17:08 324 mg ONETIME ONE Administration Hydromorphone HCl 1 mg 07/08/21 17:31 07/08/21 17:37 Hydromorphone 2 Mg/Ml Syringe IVPUSH 07/08/21 17:32 1 mg ONETIME ONE Administration Hydromorphone HCl 1 mg 07/08/21 22:35 07/08/21 22:42 Hydromorphone 1 Mg/Ml Syringe IVPUSH 07/08/21 22:36 1 mg ONETIME ONE Administration Sodium Chloride 1,000 mls @ 1,000 mls/hr 07/08/21 18:27 07/08/21 18:34 Normal Saline IV 07/08/21 19:26 1,000 mls/hr .Bolus ONE Administration Ondansetron HCl 4 mg 07/08/21 17:31 07/08/21 17:37 Ondansetron 4 Mg/2 Ml Sdv IVPUSH 07/08/21 17:32 4 mg ONETIME ONE Administration Ondansetron HCl 4 mg 07/08/21 22:35 07/08/21 22:42 Ondansetron 4 Mg/2 Ml Sdv IVPUSH 07/08/21 22:36 4 mg ONETIME ONE Administration Potassium Chloride 40 meq 07/08/21 18:58 07/08/21 19:19 Potassium Chloride 20 Meq Tab.Er PO 07/08/21 18:59 40 meq ONETIME ONE Administration - Re-Assessments/Exams Free Text/Narrative Re-Assessment/Exam: 07/08/21 22:46 Pt will be admitted for the hyponatremia. Pt trop neg x2. Pt has no CP currently. Departure - Departure Time of Disposition: 22:46 Condition: Good Sepsis Event Note (ED) - Focused Exam Vital Signs: Vital Signs Temp Pulse Resp BP Pulse Ox 07/08/21 22:44 81 149/94 H 96 07/08/21 21:33 94 14 131/88 100 07/08/21 16:43 98.1 F 121 H 18 120/75 91 L - My Orders Last 24 Hours: My Active Orders 07/08/21 20:32 OSMOLALITY - URINE Stat URIC ACID, URINE Stat 07/08/21 21:15 OSMOLALITY - SERUM [REF] Stat - Assessment/Plan Last 24 Hours: My Active Orders 07/08/21 20:32 OSMOLALITY - URINE Stat URIC ACID, URINE Stat 07/08/21 21:15 OSMOLALITY - SERUM [REF] Stat
[2021-07-08] MEDS ORDERED: Aspirin 81 MG Tab.Chew PO ONE (17:07)
[2021-07-08] MEDS ORDERED: HYDROmorphone 2 MG/ML Syringe IVPUSH ONE (17:31)
[2021-07-08] MEDS ORDERED: Ondansetron 4 MG/2 ML SDV IVPUSH ONE ×2 (17:31→22:35)
--- NOTE | 2021-07-08 17:56 | CR ---
INDICATION: Shortness of breath TECHNIQUE: Chest radiograph 1 view COMPARISON: 06/27/2020 FINDINGS: Mediastinum: The mediastinum is normal in appearance. The heart silhouette is normal in size and morphology. Lung: Both lungs are unremarkable in appearance. No sign of pleural effusion seen. No pneumothorax is identified. Bone and Soft tissue: Unremarkable for age. IMPRESSION: 1. No acute cardiopulmonary disease is seen. Dictated by: Rl Lopez MD @ 07/08/2021 17:54:55 (Electronically Signed)
[2021-07-08 18:00] LABS: CORONAVIRUS COVID-19 NAA NEGATIVE (NEGATIVE); INFLUENZA A NAA NEGATIVE (NEGATIVE); INFLUENZA B NAA NEGATIVE (NEGATIVE)
[2021-07-08 18:01] LABS: BLOOD UREA NITROGEN,BUN 52 mg/dL (7.0-18.0); GLUCOSE RANDOM 213 mg/dL (74-106)
[2021-07-08 18:08] LABS: CHLORIDE,CL 62 mmol/L (98-107); POTASSIUM,K 2.9 mmol/L (3.5-5.1)
[2021-07-08 18:17] LABS: CARBON DIOXIDE,CO2 45.7 mmol/L (21.0-32.0); SODIUM,NA 117 mmol/L (136-148)
[2021-07-08] MEDS ORDERED: Sodium Chloride 0.9% 1,000 ML IV ONE (18:27)
[2021-07-08] MEDS ORDERED: Potassium Chloride 20 MEQ Tab.ER PO ONE (18:58)
[2021-07-08 21:54] LABS: BLOOD UREA NITROGEN,BUN 52 mg/dL (7.0-18.0); CARBON DIOXIDE,CO2 49.8 mmol/L (21.0-32.0); CHLORIDE,CL 70 mmol/L (98-107); GLUCOSE RANDOM 163 mg/dL (74-106); POTASSIUM,K 2.6 mmol/L (3.5-5.1); SODIUM,NA 123 mmol/L (136-148)
[2021-07-08] MEDS ORDERED: HYDROmorphone 1 MG/ML Syringe IVPUSH ONE (22:35)
--- NOTE | 2021-07-08 23:05 | PCM.HP.2 ---
H&P History of Present Illness - General Date of Service: 07/08/21 Admit Problem/Dx: Admission Diagnosis/Problem Admission Diagnosis/Problem Hyponatremia - History of Present Illness Initial Comments - Free Text/Narative: Avel Branham is a 61 y/o M who presented to the ED for multiple vague complaints. He is a poor historian and does not seem to remember the details of why he is here. He says that he has been forgetting a lot of ongoing life events lately and just cant quite think straight much of the time lately. Most of the information was obtained from the ED Physician. The patient complained of having generalized body aches and malaise for several days. In the past few days he has had episodes of nausea, vomiting and poor oral intake. He denies having any abdominal pain, diarrhea or change in bowel habits. He denied having any fevers. He says he feels lightheaded. His cousin brought to the ED from [place], [place] where they both live. While in the ED and had a cardiac work up with a negative tropon in and EKG. The chest pain completely resolved on its own. He has a long h/o tobacco use. He has no h/o CAD and has not had any cardiac w/up. His labs in the ED revealed an initial NA of 117 and K of 2.9. His CXR and Covid screen were also negative. He was therby admitted to the inpatient service for electrolyte replacement. Chest Pain Score (Numeric/FACES): 8 - Related Data Allergies/Adverse Reactions: Allergies Allergy/AdvReac Type Severity Reaction Status Date / Time morphine Allergy Hallucinati Verified 06/27/20 15:45 ons Home Medications: Home Meds Lisinopril 10 mg PO BEDTIME 10/07/16 [History] atorvaSTATin [Lipitor] 20 mg PO BEDTIME 10/07/16 [History] metFORMIN [Glucophage] 500 mg PO BIDMEALS 10/07/16 [History] Aspirin 81 mg PO BEDTIME 04/25/19 [History] Psyllium Husk [Psyllium Fiber] 5 cap PO DAILY 04/25/19 [History] diphenhydrAMINE HCL [Benadryl] 50 mg PO BEDTIME 04/25/19 [History] Ondansetron [Zofran ODT] 4 mg PO Q6H PRN 3 Days #12 tab.dis 12/13/19 [Rx] Acetaminophen/Codeine [Tylenol with Codeine No.3 300MG/30MG] 30 - 300 mg PO Q4H PRN 06/28/20 [History] Eszopiclone [Lunesta] 2 mg PO BEDTIME PRN 06/28/20 [History] Past Medical History HEENT History: Reports: Impaired Vision Cardiovascular History: Reports: High Cholesterol, Hypertension Respiratory History: Reports: COPD, Pneumothorax Gastrointestinal History: Reports: Pancreatitis Genitourinary History: Reports: Other (See Below) Other Genitourinary History: Stated "a doctor told me that my kidneys were shriveled up." Musculoskeletal History: Reports: Arthritis Other Musculoskeletal History: Back Neurological History: Reports: None Psychiatric History: Reports: Depression, Other (See Below) Other Psychiatric History: History of "melancholia" Endocrine/Metabolic History: Reports: Diabetes, Type II Hematologic History: Reports: None Immunologic History: Reports: None Oncologic (Cancer) History: Reports: None Dermatologic History: Reports: None - Infectious Disease History Infectious Disease History: Reports: Chicken Pox - Past Surgical History Head Surgeries/Procedures: Reports: None HEENT Surgical History: Reports: Tonsillectomy Cardiovascular Surgical History: Reports: None Respiratory Surgical History: Reports: None GI Surgical History: Reports: Cholecystectomy Male Surgical History: Reports: None Endocrine Surgical History: Reports: None Neurological Surgical History: Reports: None Musculoskeletal Surgical History: Reports: None Oncologic Surgical History: Reports: None Social & Family History - Family History Family Medical History: No Pertinent Family History HEENT: Reports: Impaired Vision Endocrine/Metabolic: Reports: Diabetes, type II Oncologic: Reports: Colon, Liver, Lung, Pancreatic, Thyroid - Caffeine Use Caffeine Use: Reports: Coffee H&P Review of Systems - Review of Systems: Review Of Systems: Comprehensive ROS is negative, except as noted in HPI. Exam - Exam Exam: See Below - Vital Signs Vital Signs: Last Vital Signs Temp 98.1 F 07/08/21 16:43 Pulse 81 07/08/21 22:44 Resp 14 07/08/21 21:33 BP 149/94 H 07/08/21 22:44 Pulse Ox 96 07/08/21 22:44 Weight: 120 lb - Exam Physical Exam Comments:: General: Middle aged male. In no distress. CVS: S1S2 appreciated. RRR lungs: clear bilaterally pa:soft, non tender. Bowel sounds present ext: no clubbing, cyanosis or edema. Neuro: no focal deficits psych: stable mood and affect. - Patient Data Lab Results Last 24 hrs: Laboratory Results - last 24 hr 07/08/21 07/08/21 07/08/21 Range/Units 16:50 16:50 16:50 WBC 13.08 H (4.0-11.0) K/uL RBC 4.36 L (4.50-5.90) M/uL Hgb 14.5 (13.0-17.0) g/dL Hct 39.1 (38.0-50.0) % MCV 89.7 (80.0-98.0) fL MCH 33.3 H (27.0-32.0) pg MCHC 37.1 H (31.0-37.0) g/dL RDW Std Deviation 47.2 (28.0-62.0) fl RDW Coeff of Claudio 14 (11.0-15.0) % Plt Count 318 (150-400) K/uL MPV 9.40 (7.40-12.00) fL Neut % (Auto) 82.0 H (48.0-80.0) % Lymph % (Auto) 6.7 L (16.0-40.0) % [place] % (Auto) 11.2 (0.0-15.0) % Eos % (Auto) 0.0 (0.0-7.0) % Baso % (Auto) 0.1 (0.0-1.5) % Neut # (Auto) 10.7 H (1.4-5.7) K/uL Lymph # (Auto) 0.9 (0.6-2.4) K/uL [place] # (Auto) 1.5 H (0.0-0.8) K/uL Eos # (Auto) 0.0 (0.0-0.7) K/uL Baso # (Auto) 0.0 (0.0-0.1) K/uL Nucleated RBC % 0.0 /100WBC Nucleated RBCs # 0 K/uL Sodium 117 L* (136-148) mmol/L Potassium 2.9 L (3.5-5.1) mmol/L Chloride 62 L (98-107) mmol/L Carbon Dioxide 45.7 H (21.0-32.0) mmol/L BUN 52 H (7.0-18.0) mg/dL Creatinine 4.3 H (0.8-1.3) mg/dL Est Cr Clr Drug Dosing TNP Estimated GFR (MDRD) 14.1 ml/min Glucose 213 H (74-106) mg/dL Calcium 10.2 H (8.5-10.1) mg/dL Magnesium 2.8 H (1.8-2.4) mg/dL Total Bilirubin 0.4 (0.2-1.0) mg/dL AST 27 (15-37) IU/L ALT 8 L (14-63) IU/L Alkaline Phosphatase 145 H (46-116) U/L Troponin I < 0.050 (0.000-0.056) ng/mL Total Protein 9.6 H (6.4-8.2) g/dL Albumin 3.8 (3.4-5.0) g/dL Globulin 5.8 H (2.6-4.0) g/dL Albumin/Globulin Ratio 0.7 L (0.9-1.6) Urine Color Urine Appearance Urine pH (5.0-8.0) Ur Specific [place] (1.001-1.035) Urine Protein (NEGATIVE) mg/dL Urine Glucose (UA) (NEGATIVE) mg/dL Urine Ketones (NEGATIVE) mg/dL Urine Occult Blood (NEGATIVE) Urine Nitrite (NEGATIVE) Urine Bilirubin (NEGATIVE) Urine Urobilinogen (<2.0) EU/dL Ur Leukocyte Esterase (NEGATIVE) Urine RBC (0-2/HPF) Urine WBC (0-5/HPF) Ur Epithelial Cells (NONE-FEW) Urine Bacteria (NEGATIVE) Ur Random Creatinine mg/dL Ur Random Sodium (40.0-220.0) mmol/L Influenza Type A RNA (NEGATIVE) Influenza Type B RNA (NEGATIVE) SARS-CoV-2 RNA (KAUR) (NEGATIVE) 07/08/21 07/08/21 07/08/21 Range/Units 17:12 20:32 20:32 WBC (4.0-11.0) K/uL RBC (4.50-5.90) M/uL Hgb (13.0-17.0) g/dL Hct (38.0-50.0) % MCV (80.0-98.0) fL MCH (27.0-32.0) pg MCHC (31.0-37.0) g/dL RDW Std Deviation (28.0-62.0) fl RDW Coeff of Claudio (11.0-15.0) % Plt Count (150-400) K/uL MPV (7.40-12.00) fL Neut % (Auto) (48.0-80.0) % Lymph % (Auto) (16.0-40.0) % [place] % (Auto) (0.0-15.0) % Eos % (Auto) (0.0-7.0) % Baso % (Auto) (0.0-1.5) % Neut # (Auto) (1.4-5.7) K/uL Lymph # (Auto) (0.6-2.4) K/uL [place] # (Auto) (0.0-0.8) K/uL Eos # (Auto) (0.0-0.7) K/uL Baso # (Auto) (0.0-0.1) K/uL Nucleated RBC % /100WBC Nucleated RBCs # K/uL Sodium (136-148) mmol/L Potassium (3.5-5.1) mmol/L Chloride (98-107) mmol/L Carbon Dioxide (21.0-32.0) mmol/L BUN (7.0-18.0) mg/dL Creatinine (0.8-1.3) mg/dL Est Cr Clr Drug Dosing Estimated GFR (MDRD) ml/min Glucose (74-106) mg/dL Calcium (8.5-10.1) mg/dL Magnesium (1.8-2.4) mg/dL Total Bilirubin (0.2-1.0) mg/dL AST (15-37) IU/L ALT (14-63) IU/L Alkaline Phosphatase (46-116) U/L Troponin I (0.000-0.056) ng/mL Total Protein (6.4-8.2) g/dL Albumin (3.4-5.0) g/dL Globulin (2.6-4.0) g/dL Albumin/Globulin Ratio (0.9-1.6) Urine Color YELLOW Urine Appearance HAZY Urine pH 6.0 (5.0-8.0) Ur Specific [place] >= 1.030 (1.001-1.035) Urine Protein 100 H (NEGATIVE) mg/dL Urine Glucose (UA) NEGATIVE (NEGATIVE) mg/dL Urine Ketones NEGATIVE (NEGATIVE) mg/dL Urine Occult Blood TRACE-INTACT H (NEGATIVE) Urine Nitrite NEGATIVE (NEGATIVE) Urine Bilirubin NEGATIVE (NEGATIVE) Urine Urobilinogen 0.2 (<2.0) EU/dL Ur Leukocyte Esterase NEGATIVE (NEGATIVE) Urine RBC 0-2 (0-2/HPF) Urine WBC 0-2 (0-5/HPF) Ur Epithelial Cells OCCASIONAL (NONE-FEW) Urine Bacteria FEW (NEGATIVE) Ur Random Creatinine 154.9 mg/dL Ur Random Sodium 26.0 L (40.0-220.0) mmol/L Influenza Type A RNA NEGATIVE (NEGATIVE) Influenza Type B RNA NEGATIVE (NEGATIVE) SARS-CoV-2 RNA (KAUR) NEGATIVE (NEGATIVE) 07/08/21 07/08/21 Range/Units 21:15 21:15 WBC (4.0-11.0) K/uL RBC (4.50-5.90) M/uL Hgb (13.0-17.0) g/dL Hct (38.0-50.0) % MCV (80.0-98.0) fL MCH (27.0-32.0) pg MCHC (31.0-37.0) g/dL RDW Std Deviation (28.0-62.0) fl RDW Coeff of Claudio (11.0-15.0) % Plt Count (150-400) K/uL MPV (7.40-12.00) fL Neut % (Auto) (48.0-80.0) % Lymph % (Auto) (16.0-40.0) % [place] % (Auto) (0.0-15.0) % Eos % (Auto) (0.0-7.0) % Baso % (Auto) (0.0-1.5) % Neut # (Auto) (1.4-5.7) K/uL Lymph # (Auto) (0.6-2.4) K/uL [place] # (Auto) (0.0-0.8) K/uL Eos # (Auto) (0.0-0.7) K/uL Baso # (Auto) (0.0-0.1) K/uL Nucleated RBC % /100WBC Nucleated RBCs # K/uL Sodium 123 L (136-148) mmol/L Potassium 2.6 L (3.5-5.1) mmol/L Chloride 70 L (98-107) mmol/L Carbon Dioxide 49.8 H (21.0-32.0) mmol/L BUN 52 H (7.0-18.0) mg/dL Creatinine 4.2 H (0.8-1.3) mg/dL Est Cr Clr Drug Dosing TNP Estimated GFR (MDRD) 14.5 ml/min Glucose 163 H (74-106) mg/dL Calcium 9.3 (8.5-10.1) mg/dL Magnesium (1.8-2.4) mg/dL Total Bilirubin (0.2-1.0) mg/dL AST (15-37) IU/L ALT (14-63) IU/L Alkaline Phosphatase (46-116) U/L Troponin I < 0.050 (0.000-0.056) ng/mL Total Protein (6.4-8.2) g/dL Albumin (3.4-5.0) g/dL Globulin (2.6-4.0) g/dL Albumin/Globulin Ratio (0.9-1.6) Urine Color Urine Appearance Urine pH (5.0-8.0) Ur Specific [place] (1.001-1.035) Urine Protein (NEGATIVE) mg/dL Urine Glucose (UA) (NEGATIVE) mg/dL Urine Ketones (NEGATIVE) mg/dL Urine Occult Blood (NEGATIVE) Urine Nitrite (NEGATIVE) Urine Bilirubin (NEGATIVE) Urine Urobilinogen (<2.0) EU/dL Ur Leukocyte Esterase (NEGATIVE) Urine RBC (0-2/HPF) Urine WBC (0-5/HPF) Ur Epithelial Cells (NONE-FEW) Urine Bacteria (NEGATIVE) Ur Random Creatinine mg/dL Ur Random Sodium (40.0-220.0) mmol/L Influenza Type A RNA (NEGATIVE) Influenza Type B RNA (NEGATIVE) SARS-CoV-2 RNA (KAUR) (NEGATIVE) Result Diagrams: 07/08/21 16:50 07/08/21 21:15 Sepsis Event Note - Evaluation Sepsis Screening Result: No Definite Risk - Focused Exam Vital Signs: Vital Signs Temp Pulse Resp BP Pulse Ox 07/08/21 22:44 81 149/94 H 96 07/08/21 21:33 94 14 131/88 100 07/08/21 16:43 98.1 F 121 H 18 120/75 91 L - Problem List (1) CKD (chronic kidney disease), stage IV SNOMED Code(s): 540358109 ICD Code: N18.4 - CHRONIC KIDNEY DISEASE, STAGE 4 (SEVERE) Status: Acute Current Visit: Yes (2) Hyponatremia SNOMED Code(s): 86213147 ICD Code: E87.1 - HYPO-OSMOLALITY AND HYPONATREMIA Status: Acute Current Visit: Yes (3) Diabetes mellitus SNOMED Code(s): 57806001 ICD Code: E11.9 - TYPE 2 DIABETES MELLITUS WITHOUT COMPLICATIONS Status: Chronic Priority: Medium Current Visit: No (4) Hyperlipidemia SNOMED Code(s): 58344304 ICD Code: E78.5 - HYPERLIPIDEMIA, UNSPECIFIED Status: Chronic Priority: Medium Current Visit: No Qualifiers: Hyperlipidemia type: unspecified Qualified Code(s): E78.5 - Hyperlipidemia, unspecified (5) Hypertension SNOMED Code(s): 39187613 ICD Code: I10 - ESSENTIAL (PRIMARY) HYPERTENSION Status: Chronic Priority: Medium Current Visit: No Qualifiers: Hypertension type: essential hypertension (6) Full code status SNOMED Code(s): 950760470 ICD Code: Z78.9 - OTHER SPECIFIED HEALTH STATUS Status: Acute Current Visit: Yes (7) Tobacco abuse SNOMED Code(s): 678570172 ICD Code: Z72.0 - TOBACCO USE Status: Acute Current Visit: Yes (8) Hypokalemia SNOMED Code(s): 89546574 ICD Code: E87.6 - HYPOKALEMIA Status: Acute Current Visit: Yes Problem List Initiated/Reviewed/Updated: Yes Orders Last 24hrs: Active Orders 24 hr Category Date Time Status Admission Status [Patient Status] [ADT] Stat ADT 07/08/21 22:47 Active OSMOLALITY - SERUM [REF] Stat Lab 07/08/21 21:15 Received OSMOLALITY - URINE Stat Lab 07/08/21 20:32 Received URIC ACID, URINE Stat Lab 07/08/21 20:32 Received Sodium Chloride 0.9% [Saline Flush] Med 07/08/21 16:56 Active 10 ml FLUSH ASDIRECTED PRN Sodium Chloride 0.9% [Saline Flush] Med 07/08/21 16:56 Active 2.5 ml FLUSH ASDIRECTED PRN Saline Lock Insert [OM.PC] Stat Oth 07/08/21 16:56 Ordered Medication Orders Sodium Chloride (Sodium Chloride 0.9% 10 Ml Syringe) 10 ml FLUSH ASDIRECTED PRN PRN Reason: Keep Vein Open Last Admin: 07/08/21 17:10 Dose: 10 ml Documented by: RONI Sodium Chloride (Sodium Chloride 0.9% 2.5 Ml Syringe) 2.5 ml FLUSH ASDIRECTED PRN PRN Reason: Keep Vein Open Last Admin: 07/08/21 17:10 Dose: 2.5 ml Documented by: RONI Assessment/Plan Comment:: Hyponatremia Etiology unclear. Likely hypovolemic hyponatremia. Pt has had nausea , vomiting and poor oral intake Admit to the medical floor. Replace fluids with 1/2 NS with 20mEQ KCL repeat labs in am Hypokalemia Replace K. Recheck labs Acute pancreatitis Unclear cause. Keep pt npo. Control pain and nausea check a RUQ US to look for gall bladder pathology. I am suspicious about whether the patient is a drinker. He is unable to give me a clear history at this time. Renal failure. Pt likely has CKD stage III or IV. He will need outpt follow up through his PCP and a referral to nephrology. I will obtain a renal US and microscopy Hold VIOLET I and Metformin due to poor renal function T2DM Holding metformin accuchecks BID with SSI coverage. HTN will use another agent other than lisinopril for now Tobacco abuse smoking cessation counseling will be provided Full code status DVT prophylaxis heparin SQ. - Mortality Measure Prognosis:: Poor
[2021-07-08] MEDS ORDERED: Docusate Sodium 100 MG Cap PO PRN (23:11)
[2021-07-08] MEDS ORDERED: Acetaminophen 325 MG Tab PO PRN (23:11)
[2021-07-08] MEDS ORDERED: Sodium Chloride 0.45% 1,000 ML IV SCH (23:15)
[2021-07-08] MEDS ORDERED: Sodium Chloride 0.45% with KCl 1,000 ML IV SCH (23:15)
[2021-07-08] MEDS ORDERED: Potassium Chloride Riders 40 MEQ in Premix Bag 1 BAG IV ONE (23:17)
[2021-07-08] MEDS ORDERED: Metoclopramide 10 MG/2 ML SDV IVPUSH ONE (23:52)
[2021-07-08] MEDS: Heparin Sodium 5,000 Units/ML Vial SUBCUT SCH (23:58)
[2021-07-09] MEDS ORDERED: Sodium Chloride 0.9% 500 ML IV ONE (00:08)
[2021-07-09] MEDS ORDERED: Sodium Chloride 0.45% with KCl 1,000 ML IV SCH (00:15)
[2021-07-09] MEDS: HYDROmorphone 2 MG/ML Syringe IVPUSH PRN ×5 (01:06→11:48)
[2021-07-09 06:17] LABS: POTASSIUM,K 3.8 mmol/L (3.5-5.1)
[2021-07-09 06:19] LABS: CARBON DIOXIDE,CO2 45.7 mmol/L (21.0-32.0)
[2021-07-09] MEDS: Heparin Sodium 5,000 Units/ML Vial SUBCUT SCH ×2 (06:36→14:20)
[2021-07-09] MEDS: Psyllium Husk Powder Sugar Free 5.85 GM Packet PO SCH (09:47)
--- NOTE | 2021-07-09 12:57 | PCM.PN ---
- General Info Date of Service: 07/09/21 Subjective Update: The patient is a 61-year-old male, on day 2 of service, who has a significant past medical history of a cholecystectomy, alcohol abuse disorder, and chronic pancreatitis, who was admitted to the medical floor due to acute pancreatitis and was also found to be both hyponatremic and hypokalemic. The patient for the past week has had chronic vomiting with at least 2-3 episodes daily, which has been nonbloody and nonbilious, and associated with slight confusion. The patient is an avid drinker of [employer] with 2 drinks daily. In 2006 the patient had his gallbladder removed due to stones which was causing pancreatitis. He continues to have acute pancreatitis every 5 to 6 months due to alcohol consumption since that time. Upon interview with the patient today, he was complaining of abdominal pain in the hypogastric area which has significantly reduced since admission to the hospital. It was explained to him in order to decrease these episodes from happening he would have to abstain from alcohol use. His sister Roshni, a nurse practitioner was on the phone near bedside and it was explained to her that in order to have her brother not suffer from acute pancreatitis that he would have to quit drinking. She admitted that he is moving out to where she lives after discharge and that she would monitor his drinking and set him up with a PCP. She also had questions for both myself and Dr. Moctezuma which were answered. The patient denies any withdrawal symptoms. Yesterday he was n.p.o., but this morning he ate his breakfast to completion and had a healthy appetite. We will continue to monitor his sodium level and once it is improved we anticipate discharge which should be tomorrow. He was concerned about his [place] placement but is producing urine and as a result we will remove it. - Review of Systems General: Denies: Weakness, Fatigue HEENT: Denies: Headaches, Sore Throat Pulmonary: Denies: Shortness of Breath, Cough Cardiovascular: Denies: Chest Pain, Palpitations Gastrointestinal: Reports: Abdominal Pain, Nausea. Denies: Vomiting Genitourinary: Denies: Dysuria, Frequency - Patient Data Vitals - Most Recent: Last Vital Signs Temp 97.8 F 07/09/21 11:49 Pulse 92 07/09/21 11:49 Resp 17 07/09/21 11:49 BP 143/88 H 07/09/21 11:49 Pulse Ox 91 L 07/09/21 11:49 Weight - Most Recent: 110 lb 8 oz I&O - Last 24 Hours: Intake & Output 07/08/21 07/09/21 07/09/21 22:59 06:59 14:59 Intake Total 0 Output Total 500 Balance -500 Lab Results Last 24 Hours: Laboratory Results - last 24 hr 07/08/21 07/08/21 07/08/21 Range/Units 16:50 16:50 16:50 WBC 13.08 H (4.0-11.0) K/uL RBC 4.36 L (4.50-5.90) M/uL Hgb 14.5 (13.0-17.0) g/dL Hct 39.1 (38.0-50.0) % MCV 89.7 (80.0-98.0) fL MCH 33.3 H (27.0-32.0) pg MCHC 37.1 H (31.0-37.0) g/dL RDW Std Deviation 47.2 (28.0-62.0) fl RDW Coeff of Claudio 14 (11.0-15.0) % Plt Count 318 (150-400) K/uL MPV 9.40 (7.40-12.00) fL Neut % (Auto) 82.0 H (48.0-80.0) % Lymph % (Auto) 6.7 L (16.0-40.0) % Mclennan % (Auto) 11.2 (0.0-15.0) % Eos % (Auto) 0.0 (0.0-7.0) % Baso % (Auto) 0.1 (0.0-1.5) % Neut # (Auto) 10.7 H (1.4-5.7) K/uL Lymph # (Auto) 0.9 (0.6-2.4) K/uL Mclennan # (Auto) 1.5 H (0.0-0.8) K/uL Eos # (Auto) 0.0 (0.0-0.7) K/uL Baso # (Auto) 0.0 (0.0-0.1) K/uL Nucleated RBC % 0.0 /100WBC Nucleated RBCs # 0 K/uL Sodium 117 L* (136-148) mmol/L Potassium 2.9 L (3.5-5.1) mmol/L Chloride 62 L (98-107) mmol/L Carbon Dioxide 45.7 H (21.0-32.0) mmol/L BUN 52 H (7.0-18.0) mg/dL Creatinine 4.3 H (0.8-1.3) mg/dL Est Cr Clr Drug Dosing TNP Estimated GFR (MDRD) 14.1 ml/min Glucose 213 H (74-106) mg/dL POC Glucose (70-99) mg/dL Calcium 10.2 H (8.5-10.1) mg/dL Magnesium 2.8 H (1.8-2.4) mg/dL Total Bilirubin 0.4 (0.2-1.0) mg/dL AST 27 (15-37) IU/L ALT 8 L (14-63) IU/L Alkaline Phosphatase 145 H (46-116) U/L Troponin I < 0.050 (0.000-0.056) ng/mL Total Protein 9.6 H (6.4-8.2) g/dL Albumin 3.8 (3.4-5.0) g/dL Globulin 5.8 H (2.6-4.0) g/dL Albumin/Globulin Ratio 0.7 L (0.9-1.6) Lipase (73-393) U/L Urine Color Urine Appearance Urine pH (5.0-8.0) Ur Specific [place] (1.001-1.035) Urine Protein (NEGATIVE) mg/dL Urine Glucose (UA) (NEGATIVE) mg/dL Urine Ketones (NEGATIVE) mg/dL Urine Occult Blood (NEGATIVE) Urine Nitrite (NEGATIVE) Urine Bilirubin (NEGATIVE) Urine Urobilinogen (<2.0) EU/dL Ur Leukocyte Esterase (NEGATIVE) Urine RBC (0-2/HPF) Urine WBC (0-5/HPF) Ur Epithelial Cells (NONE-FEW) Urine Bacteria (NEGATIVE) Ur Random Creatinine mg/dL Ur Random Sodium (40.0-220.0) mmol/L Influenza Type A RNA (NEGATIVE) Influenza Type B RNA (NEGATIVE) SARS-CoV-2 RNA (KAUR) (NEGATIVE) 07/08/21 07/08/21 07/08/21 Range/Units 17:12 20:32 20:32 WBC (4.0-11.0) K/uL RBC (4.50-5.90) M/uL Hgb (13.0-17.0) g/dL Hct (38.0-50.0) % MCV (80.0-98.0) fL MCH (27.0-32.0) pg MCHC (31.0-37.0) g/dL RDW Std Deviation (28.0-62.0) fl RDW Coeff of Claudio (11.0-15.0) % Plt Count (150-400) K/uL MPV (7.40-12.00) fL Neut % (Auto) (48.0-80.0) % Lymph % (Auto) (16.0-40.0) % Mclennan % (Auto) (0.0-15.0) % Eos % (Auto) (0.0-7.0) % Baso % (Auto) (0.0-1.5) % Neut # (Auto) (1.4-5.7) K/uL Lymph # (Auto) (0.6-2.4) K/uL Mclennan # (Auto) (0.0-0.8) K/uL Eos # (Auto) (0.0-0.7) K/uL Baso # (Auto) (0.0-0.1) K/uL Nucleated RBC % /100WBC Nucleated RBCs # K/uL Sodium (136-148) mmol/L Potassium (3.5-5.1) mmol/L Chloride (98-107) mmol/L Carbon Dioxide (21.0-32.0) mmol/L BUN (7.0-18.0) mg/dL Creatinine (0.8-1.3) mg/dL Est Cr Clr Drug Dosing Estimated GFR (MDRD) ml/min Glucose (74-106) mg/dL POC Glucose (70-99) mg/dL Calcium (8.5-10.1) mg/dL Magnesium (1.8-2.4) mg/dL Total Bilirubin (0.2-1.0) mg/dL AST (15-37) IU/L ALT (14-63) IU/L Alkaline Phosphatase (46-116) U/L Troponin I (0.000-0.056) ng/mL Total Protein (6.4-8.2) g/dL Albumin (3.4-5.0) g/dL Globulin (2.6-4.0) g/dL Albumin/Globulin Ratio (0.9-1.6) Lipase (73-393) U/L Urine Color YELLOW Urine Appearance HAZY Urine pH 6.0 (5.0-8.0) Ur Specific [place] >= 1.030 (1.001-1.035) Urine Protein 100 H (NEGATIVE) mg/dL Urine Glucose (UA) NEGATIVE (NEGATIVE) mg/dL Urine Ketones NEGATIVE (NEGATIVE) mg/dL Urine Occult Blood TRACE-INTACT H (NEGATIVE) Urine Nitrite NEGATIVE (NEGATIVE) Urine Bilirubin NEGATIVE (NEGATIVE) Urine Urobilinogen 0.2 (<2.0) EU/dL Ur Leukocyte Esterase NEGATIVE (NEGATIVE) Urine RBC 0-2 (0-2/HPF) Urine WBC 0-2 (0-5/HPF) Ur Epithelial Cells OCCASIONAL (NONE-FEW) Urine Bacteria FEW (NEGATIVE) Ur Random Creatinine 154.9 mg/dL Ur Random Sodium 26.0 L (40.0-220.0) mmol/L Influenza Type A RNA NEGATIVE (NEGATIVE) Influenza Type B RNA NEGATIVE (NEGATIVE) SARS-CoV-2 RNA (KAUR) NEGATIVE (NEGATIVE) 07/08/21 07/08/21 07/08/21 Range/Units 21:15 21:15 21:15 WBC (4.0-11.0) K/uL RBC (4.50-5.90) M/uL Hgb (13.0-17.0) g/dL Hct (38.0-50.0) % MCV (80.0-98.0) fL MCH (27.0-32.0) pg MCHC (31.0-37.0) g/dL RDW Std Deviation (28.0-62.0) fl RDW Coeff of Claudio (11.0-15.0) % Plt Count (150-400) K/uL MPV (7.40-12.00) fL Neut % (Auto) (48.0-80.0) % Lymph % (Auto) (16.0-40.0) % Mclennan % (Auto) (0.0-15.0) % Eos % (Auto) (0.0-7.0) % Baso % (Auto) (0.0-1.5) % Neut # (Auto) (1.4-5.7) K/uL Lymph # (Auto) (0.6-2.4) K/uL Mclennan # (Auto) (0.0-0.8) K/uL Eos # (Auto) (0.0-0.7) K/uL Baso # (Auto) (0.0-0.1) K/uL Nucleated RBC % /100WBC Nucleated RBCs # K/uL Sodium 123 L (136-148) mmol/L Potassium 2.6 L (3.5-5.1) mmol/L Chloride 70 L (98-107) mmol/L Carbon Dioxide 49.8 H (21.0-32.0) mmol/L BUN 52 H (7.0-18.0) mg/dL Creatinine 4.2 H (0.8-1.3) mg/dL Est Cr Clr Drug Dosing TNP Estimated GFR (MDRD) 14.5 ml/min Glucose 163 H (74-106) mg/dL POC Glucose (70-99) mg/dL Calcium 9.3 (8.5-10.1) mg/dL Magnesium (1.8-2.4) mg/dL Total Bilirubin (0.2-1.0) mg/dL AST (15-37) IU/L ALT (14-63) IU/L Alkaline Phosphatase (46-116) U/L Troponin I < 0.050 (0.000-0.056) ng/mL Total Protein (6.4-8.2) g/dL Albumin (3.4-5.0) g/dL Globulin (2.6-4.0) g/dL Albumin/Globulin Ratio (0.9-1.6) Lipase 710 H (73-393) U/L Urine Color Urine Appearance Urine pH (5.0-8.0) Ur Specific [place] (1.001-1.035) Urine Protein (NEGATIVE) mg/dL Urine Glucose (UA) (NEGATIVE) mg/dL Urine Ketones (NEGATIVE) mg/dL Urine Occult Blood (NEGATIVE) Urine Nitrite (NEGATIVE) Urine Bilirubin (NEGATIVE) Urine Urobilinogen (<2.0) EU/dL Ur Leukocyte Esterase (NEGATIVE) Urine RBC (0-2/HPF) Urine WBC (0-5/HPF) Ur Epithelial Cells (NONE-FEW) Urine Bacteria (NEGATIVE) Ur Random Creatinine mg/dL Ur Random Sodium (40.0-220.0) mmol/L Influenza Type A RNA (NEGATIVE) Influenza Type B RNA (NEGATIVE) SARS-CoV-2 RNA (KAUR) (NEGATIVE) 07/08/21 07/09/21 07/09/21 Range/Units 23:47 05:45 06:25 WBC (4.0-11.0) K/uL RBC (4.50-5.90) M/uL Hgb (13.0-17.0) g/dL Hct (38.0-50.0) % MCV (80.0-98.0) fL MCH (27.0-32.0) pg MCHC (31.0-37.0) g/dL RDW Std Deviation (28.0-62.0) fl RDW Coeff of Claudio (11.0-15.0) % Plt Count (150-400) K/uL MPV (7.40-12.00) fL Neut % (Auto) (48.0-80.0) % Lymph % (Auto) (16.0-40.0) % Mclennan % (Auto) (0.0-15.0) % Eos % (Auto) (0.0-7.0) % Baso % (Auto) (0.0-1.5) % Neut # (Auto) (1.4-5.7) K/uL Lymph # (Auto) (0.6-2.4) K/uL Mclennan # (Auto) (0.0-0.8) K/uL Eos # (Auto) (0.0-0.7) K/uL Baso # (Auto) (0.0-0.1) K/uL Nucleated RBC % /100WBC Nucleated RBCs # K/uL Sodium 123 L (136-148) mmol/L Potassium 3.8 (3.5-5.1) mmol/L Chloride 75 L (98-107) mmol/L Carbon Dioxide 45.7 H (21.0-32.0) mmol/L BUN 51 H (7.0-18.0) mg/dL Creatinine 4.0 H (0.8-1.3) mg/dL Est Cr Clr Drug Dosing 13.57 Estimated GFR (MDRD) 15.3 ml/min Glucose 112 H (74-106) mg/dL POC Glucose 105 H (70-99) mg/dL Calcium 9.0 (8.5-10.1) mg/dL Magnesium (1.8-2.4) mg/dL Total Bilirubin (0.2-1.0) mg/dL AST (15-37) IU/L ALT (14-63) IU/L Alkaline Phosphatase (46-116) U/L Troponin I < 0.050 (0.000-0.056) ng/mL Total Protein (6.4-8.2) g/dL Albumin (3.4-5.0) g/dL Globulin (2.6-4.0) g/dL Albumin/Globulin Ratio (0.9-1.6) Lipase (73-393) U/L Urine Color Urine Appearance Urine pH (5.0-8.0) Ur Specific [place] (1.001-1.035) Urine Protein (NEGATIVE) mg/dL Urine Glucose (UA) (NEGATIVE) mg/dL Urine Ketones (NEGATIVE) mg/dL Urine Occult Blood (NEGATIVE) Urine Nitrite (NEGATIVE) Urine Bilirubin (NEGATIVE) Urine Urobilinogen (<2.0) EU/dL Ur Leukocyte Esterase (NEGATIVE) Urine RBC (0-2/HPF) Urine WBC (0-5/HPF) Ur Epithelial Cells (NONE-FEW) Urine Bacteria (NEGATIVE) Ur Random Creatinine mg/dL Ur Random Sodium (40.0-220.0) mmol/L Influenza Type A RNA (NEGATIVE) Influenza Type B RNA (NEGATIVE) SARS-CoV-2 RNA (KAUR) (NEGATIVE) Med Orders - Current: Current Medications Acetaminophen (Acetaminophen 325 Mg Tab) 650 mg PO Q4H PRN PRN Reason: Pain (Mild 1-3)/fever Aspirin (Aspirin 81 Mg Tab.Chew) 81 mg PO BEDTIME KATHRYN Atorvastatin Calcium (Atorvastatin 20 Mg Tab) 20 mg PO BEDTIME KATHRYN Diphenhydramine HCl (Diphenhydramine 25 Mg Cap) 50 mg PO BEDTIME KATHRYN Docusate Sodium (Docusate Sodium 100 Mg Cap) 100 mg PO BID PRN PRN Reason: Constipation Eszopiclone (Eszopiclone 1 Mg Tab) 2 mg PO BEDTIME PRN PRN Reason: Sleep Folic Acid (Folic Acid 1 Mg Tab) 1 mg PO BEDTIME [facility] Heparin Sodium (Porcine) (Heparin Sodium 5,000 Units/Ml Vial) 5,000 units SUBCUT Q8H [facility] Last Admin: 07/09/21 06:36 Dose: 5,000 units Documented by: Hydromorphone HCl (Hydromorphone 2 Mg/Ml Syringe) 0.5 mg IVPUSH Q2H PRN PRN Reason: Abdominal Pain Last Admin: 07/09/21 11:48 Dose: 0.5 mg Documented by: Lorazepam (Lorazepam 2 Mg/Ml Sdv) 0 mg IVPUSH Q4H PRN; Protocol PRN Reason: CIWAA Ondansetron HCl (Ondansetron 4 Mg Tab.Dis) 4 mg PO Q6H PRN PRN Reason: nausea, able to take PO Pantoprazole Sodium (Pantoprazole 40 Mg Tab.Cr) 40 mg PO ACBREAKFAST [facility] Psyllium Husk (Psyllium Husk Powder Sugar Free 5.85 Gm Packet) 1 pkt PO DAILY [facility] Last Admin: 07/09/21 09:47 Dose: 1 pkt Documented by: Sodium Chloride (Sodium Chloride 0.9% 10 Ml Syringe) 10 ml FLUSH ASDIRECTED PRN PRN Reason: Keep Vein Open Last Admin: 07/08/21 17:10 Dose: 10 ml Documented by: Sodium Chloride (Sodium Chloride 0.9% 2.5 Ml Syringe) 2.5 ml FLUSH ASDIRECTED PRN PRN Reason: Keep Vein Open Last Admin: 07/08/21 17:10 Dose: 2.5 ml Documented by: Thiamine HCl (Thiamine 100 Mg Tab) 100 mg PO BEDTIME [facility] Discontinued Medications Aspirin (Aspirin 81 Mg Tab.Chew) 324 mg PO ONETIME ONE Stop: 07/08/21 17:08 Last Admin: 07/08/21 17:10 Dose: 324 mg Documented by: Hydromorphone HCl (Hydromorphone 2 Mg/Ml Syringe) 1 mg IVPUSH ONETIME ONE Stop: 07/08/21 17:32 Last Admin: 07/08/21 17:37 Dose: 1 mg Documented by: Hydromorphone HCl (Hydromorphone 1 Mg/Ml Syringe) 1 mg IVPUSH ONETIME ONE Stop: 07/08/21 22:36 Last Admin: 07/08/21 22:42 Dose: 1 mg Documented by: Sodium Chloride (Normal Saline) 1,000 mls @ 1,000 mls/hr IV .Bolus ONE Stop: 07/08/21 19:26 Last Admin: 07/08/21 18:34 Dose: 1,000 mls/hr Documented by: Sodium Chloride (Sodium Chloride 0.45%) 1,000 mls @ 75 mls/hr IV ASDIRECTED KATHRYN Potassium Chloride/Sodium Chloride (1/2 Ns With 20 Meq Kcl) 1,000 mls @ 75 mls/hr IV ASDIRECTED KATHRYN Potassium Chloride 40 meq/ (Premix) 100 mls @ 25 mls/hr IV ONETIME ONE Stop: 07/09/21 03:16 Last Admin: 07/08/21 23:45 Dose: 25 mls/hr Documented by: Sodium Chloride (Normal Saline) 500 mls @ 999 mls/hr IV .BOLUS ONE Stop: 07/09/21 00:38 Last Admin: 07/09/21 00:10 Dose: 999 mls/hr Documented by: Potassium Chloride/Sodium Chloride (1/2 Ns With 20 Meq Kcl) 1,000 mls @ 150 mls/hr IV ASDIRECTED [facility] Last Admin: 07/09/21 03:33 Dose: 150 mls/hr Documented by: Metoclopramide HCl (Metoclopramide 10 Mg/2 Ml Sdv) 10 mg IVPUSH ONETIME ONE Stop: 07/08/21 23:53 Last Admin: 07/08/21 23:58 Dose: 10 mg Documented by: Ondansetron HCl (Ondansetron 4 Mg/2 Ml Sdv) 4 mg IVPUSH ONETIME ONE Stop: 07/08/21 17:32 Last Admin: 07/08/21 17:37 Dose: 4 mg Documented by: Ondansetron HCl (Ondansetron 4 Mg/2 Ml Sdv) 4 mg IVPUSH ONETIME ONE Stop: 07/08/21 22:36 Last Admin: 07/08/21 22:42 Dose: 4 mg Documented by: Potassium Chloride (Potassium Chloride 20 Meq Tab.Er) 40 meq PO ONETIME ONE Stop: 07/08/21 18:59 Last Admin: 07/08/21 19:19 Dose: 40 meq Documented by: - Exam Urinary Catheter Total Time: 0Days 3Hours General: Alert, Oriented, Cooperative HEENT: No: Mucous Membr. Moist/[place] Neck: Trachea Midline Lungs: Clear to Auscultation, Normal Respiratory Effort Cardiovascular: Regular Rate, Regular Rhythm GI/Abdominal Exam: Normal Bowel Sounds, Soft, Tender - Patient Data Lab Results Last 24 hrs: Laboratory Results - last 24 hr 07/08/21 07/08/21 07/08/21 Range/Units 16:50 16:50 16:50 WBC 13.08 H (4.0-11.0) K/uL RBC 4.36 L (4.50-5.90) M/uL Hgb 14.5 (13.0-17.0) g/dL Hct 39.1 (38.0-50.0) % MCV 89.7 (80.0-98.0) fL MCH 33.3 H (27.0-32.0) pg MCHC 37.1 H (31.0-37.0) g/dL RDW Std Deviation 47.2 (28.0-62.0) fl RDW Coeff of Claudio 14 (11.0-15.0) % Plt Count 318 (150-400) K/uL MPV 9.40 (7.40-12.00) fL Neut % (Auto) 82.0 H (48.0-80.0) % Lymph % (Auto) 6.7 L (16.0-40.0) % Mclennan % (Auto) 11.2 (0.0-15.0) % Eos % (Auto) 0.0 (0.0-7.0) % Baso % (Auto) 0.1 (0.0-1.5) % Neut # (Auto) 10.7 H (1.4-5.7) K/uL Lymph # (Auto) 0.9 (0.6-2.4) K/uL Mclennan # (Auto) 1.5 H (0.0-0.8) K/uL Eos # (Auto) 0.0 (0.0-0.7) K/uL Baso # (Auto) 0.0 (0.0-0.1) K/uL Nucleated RBC % 0.0 /100WBC Nucleated RBCs # 0 K/uL Sodium 117 L* (136-148) mmol/L Potassium 2.9 L (3.5-5.1) mmol/L Chloride 62 L (98-107) mmol/L Carbon Dioxide 45.7 H (21.0-32.0) mmol/L BUN 52 H (7.0-18.0) mg/dL Creatinine 4.3 H (0.8-1.3) mg/dL Est Cr Clr Drug Dosing TNP Estimated GFR (MDRD) 14.1 ml/min Glucose 213 H (74-106) mg/dL POC Glucose (70-99) mg/dL Calcium 10.2 H (8.5-10.1) mg/dL Magnesium 2.8 H (1.8-2.4) mg/dL Total Bilirubin 0.4 (0.2-1.0) mg/dL AST 27 (15-37) IU/L ALT 8 L (14-63) IU/L Alkaline Phosphatase 145 H (46-116) U/L Troponin I < 0.050 (0.000-0.056) ng/mL Total Protein 9.6 H (6.4-8.2) g/dL Albumin 3.8 (3.4-5.0) g/dL Globulin 5.8 H (2.6-4.0) g/dL Albumin/Globulin Ratio 0.7 L (0.9-1.6) Lipase (73-393) U/L Urine Color Urine Appearance Urine pH (5.0-8.0) Ur Specific [place] (1.001-1.035) Urine Protein (NEGATIVE) mg/dL Urine Glucose (UA) (NEGATIVE) mg/dL Urine Ketones (NEGATIVE) mg/dL Urine Occult Blood (NEGATIVE) Urine Nitrite (NEGATIVE) Urine Bilirubin (NEGATIVE) Urine Urobilinogen (<2.0) EU/dL Ur Leukocyte Esterase (NEGATIVE) Urine RBC (0-2/HPF) Urine WBC (0-5/HPF) Ur Epithelial Cells (NONE-FEW) Urine Bacteria (NEGATIVE) Ur Random Creatinine mg/dL Ur Random Sodium (40.0-220.0) mmol/L Influenza Type A RNA (NEGATIVE) Influenza Type B RNA (NEGATIVE) SARS-CoV-2 RNA (KAUR) (NEGATIVE) 07/08/21 07/08/21 07/08/21 Range/Units 17:12 20:32 20:32 WBC (4.0-11.0) K/uL RBC (4.50-5.90) M/uL Hgb (13.0-17.0) g/dL Hct (38.0-50.0) % MCV (80.0-98.0) fL MCH (27.0-32.0) pg MCHC (31.0-37.0) g/dL RDW Std Deviation (28.0-62.0) fl RDW Coeff of Claudio (11.0-15.0) % Plt Count (150-400) K/uL MPV (7.40-12.00) fL Neut % (Auto) (48.0-80.0) % Lymph % (Auto) (16.0-40.0) % Mclennan % (Auto) (0.0-15.0) % Eos % (Auto) (0.0-7.0) % Baso % (Auto) (0.0-1.5) % Neut # (Auto) (1.4-5.7) K/uL Lymph # (Auto) (0.6-2.4) K/uL Mclennan # (Auto) (0.0-0.8) K/uL Eos # (Auto) (0.0-0.7) K/uL Baso # (Auto) (0.0-0.1) K/uL Nucleated RBC % /100WBC Nucleated RBCs # K/uL Sodium (136-148) mmol/L Potassium (3.5-5.1) mmol/L Chloride (98-107) mmol/L Carbon Dioxide (21.0-32.0) mmol/L BUN (7.0-18.0) mg/dL Creatinine (0.8-1.3) mg/dL Est Cr Clr Drug Dosing Estimated GFR (MDRD) ml/min Glucose (74-106) mg/dL POC Glucose (70-99) mg/dL Calcium (8.5-10.1) mg/dL Magnesium (1.8-2.4) mg/dL Total Bilirubin (0.2-1.0) mg/dL AST (15-37) IU/L ALT (14-63) IU/L Alkaline Phosphatase (46-116) U/L Troponin I (0.000-0.056) ng/mL Total Protein (6.4-8.2) g/dL Albumin (3.4-5.0) g/dL Globulin (2.6-4.0) g/dL Albumin/Globulin Ratio (0.9-1.6) Lipase (73-393) U/L Urine Color YELLOW Urine Appearance HAZY Urine pH 6.0 (5.0-8.0) Ur Specific [place] >= 1.030 (1.001-1.035) Urine Protein 100 H (NEGATIVE) mg/dL Urine Glucose (UA) NEGATIVE (NEGATIVE) mg/dL Urine Ketones NEGATIVE (NEGATIVE) mg/dL Urine Occult Blood TRACE-INTACT H (NEGATIVE) Urine Nitrite NEGATIVE (NEGATIVE) Urine Bilirubin NEGATIVE (NEGATIVE) Urine Urobilinogen 0.2 (<2.0) EU/dL Ur Leukocyte Esterase NEGATIVE (NEGATIVE) Urine RBC 0-2 (0-2/HPF) Urine WBC 0-2 (0-5/HPF) Ur Epithelial Cells OCCASIONAL (NONE-FEW) Urine Bacteria FEW (NEGATIVE) Ur Random Creatinine 154.9 mg/dL Ur Random Sodium 26.0 L (40.0-220.0) mmol/L Influenza Type A RNA NEGATIVE (NEGATIVE) Influenza Type B RNA NEGATIVE (NEGATIVE) SARS-CoV-2 RNA (KAUR) NEGATIVE (NEGATIVE) 07/08/21 07/08/21 07/08/21 Range/Units 21:15 21:15 21:15 WBC (4.0-11.0) K/uL RBC (4.50-5.90) M/uL Hgb (13.0-17.0) g/dL Hct (38.0-50.0) % MCV (80.0-98.0) fL MCH (27.0-32.0) pg MCHC (31.0-37.0) g/dL RDW Std Deviation (28.0-62.0) fl RDW Coeff of Claudio (11.0-15.0) % Plt Count (150-400) K/uL MPV (7.40-12.00) fL Neut % (Auto) (48.0-80.0) % Lymph % (Auto) (16.0-40.0) % Mclennan % (Auto) (0.0-15.0) % Eos % (Auto) (0.0-7.0) % Baso % (Auto) (0.0-1.5) % Neut # (Auto) (1.4-5.7) K/uL Lymph # (Auto) (0.6-2.4) K/uL Mclennan # (Auto) (0.0-0.8) K/uL Eos # (Auto) (0.0-0.7) K/uL Baso # (Auto) (0.0-0.1) K/uL Nucleated RBC % /100WBC Nucleated RBCs # K/uL Sodium 123 L (136-148) mmol/L Potassium 2.6 L (3.5-5.1) mmol/L Chloride 70 L (98-107) mmol/L Carbon Dioxide 49.8 H (21.0-32.0) mmol/L BUN 52 H (7.0-18.0) mg/dL Creatinine 4.2 H (0.8-1.3) mg/dL Est Cr Clr Drug Dosing TNP Estimated GFR (MDRD) 14.5 ml/min Glucose 163 H (74-106) mg/dL POC Glucose (70-99) mg/dL Calcium 9.3 (8.5-10.1) mg/dL Magnesium (1.8-2.4) mg/dL Total Bilirubin (0.2-1.0) mg/dL AST (15-37) IU/L ALT (14-63) IU/L Alkaline Phosphatase (46-116) U/L Troponin I < 0.050 (0.000-0.056) ng/mL Total Protein (6.4-8.2) g/dL Albumin (3.4-5.0) g/dL Globulin (2.6-4.0) g/dL Albumin/Globulin Ratio (0.9-1.6) Lipase 710 H (73-393) U/L Urine Color Urine Appearance Urine pH (5.0-8.0) Ur Specific [place] (1.001-1.035) Urine Protein (NEGATIVE) mg/dL Urine Glucose (UA) (NEGATIVE) mg/dL Urine Ketones (NEGATIVE) mg/dL Urine Occult Blood (NEGATIVE) Urine Nitrite (NEGATIVE) Urine Bilirubin (NEGATIVE) Urine Urobilinogen (<2.0) EU/dL Ur Leukocyte Esterase (NEGATIVE) Urine RBC (0-2/HPF) Urine WBC (0-5/HPF) Ur Epithelial Cells (NONE-FEW) Urine Bacteria (NEGATIVE) Ur Random Creatinine mg/dL Ur Random Sodium (40.0-220.0) mmol/L Influenza Type A RNA (NEGATIVE) Influenza Type B RNA (NEGATIVE) SARS-CoV-2 RNA ([facility]) (NEGATIVE) 07/08/21 07/09/21 07/09/21 Range/Units 23:47 05:45 06:25 WBC (4.0-11.0) K/uL RBC (4.50-5.90) M/uL Hgb (13.0-17.0) g/dL Hct (38.0-50.0) % MCV (80.0-98.0) fL MCH (27.0-32.0) pg MCHC (31.0-37.0) g/dL RDW Std Deviation (28.0-62.0) fl RDW Coeff of Claudio (11.0-15.0) % Plt Count (150-400) K/uL MPV (7.40-12.00) fL Neut % (Auto) (48.0-80.0) % Lymph % (Auto) (16.0-40.0) % Mclennan % (Auto) (0.0-15.0) % Eos % (Auto) (0.0-7.0) % Baso % (Auto) (0.0-1.5) % Neut # (Auto) (1.4-5.7) K/uL Lymph # (Auto) (0.6-2.4) K/uL Mclennan # (Auto) (0.0-0.8) K/uL Eos # (Auto) (0.0-0.7) K/uL Baso # (Auto) (0.0-0.1) K/uL Nucleated RBC % /100WBC Nucleated RBCs # K/uL Sodium 123 L (136-148) mmol/L Potassium 3.8 (3.5-5.1) mmol/L Chloride 75 L (98-107) mmol/L Carbon Dioxide 45.7 H (21.0-32.0) mmol/L BUN 51 H (7.0-18.0) mg/dL Creatinine 4.0 H (0.8-1.3) mg/dL Est Cr Clr Drug Dosing 13.57 Estimated GFR (MDRD) 15.3 ml/min Glucose 112 H (74-106) mg/dL POC Glucose 105 H (70-99) mg/dL Calcium 9.0 (8.5-10.1) mg/dL Magnesium (1.8-2.4) mg/dL Total Bilirubin (0.2-1.0) mg/dL AST (15-37) IU/L ALT (14-63) IU/L Alkaline Phosphatase (46-116) U/L Troponin I < 0.050 (0.000-0.056) ng/mL Total Protein (6.4-8.2) g/dL Albumin (3.4-5.0) g/dL Globulin (2.6-4.0) g/dL Albumin/Globulin Ratio (0.9-1.6) Lipase (73-393) U/L Urine Color Urine Appearance Urine pH (5.0-8.0) Ur Specific [place] (1.001-1.035) Urine Protein (NEGATIVE) mg/dL Urine Glucose (UA) (NEGATIVE) mg/dL Urine Ketones (NEGATIVE) mg/dL Urine Occult Blood (NEGATIVE) Urine Nitrite (NEGATIVE) Urine Bilirubin (NEGATIVE) Urine Urobilinogen (<2.0) EU/dL Ur Leukocyte Esterase (NEGATIVE) Urine RBC (0-2/HPF) Urine WBC (0-5/HPF) Ur Epithelial Cells (NONE-FEW) Urine Bacteria (NEGATIVE) Ur Random Creatinine mg/dL Ur Random Sodium (40.0-220.0) mmol/L Influenza Type A RNA (NEGATIVE) Influenza Type B RNA (NEGATIVE) SARS-CoV-2 RNA ([facility]) (NEGATIVE) Result Diagrams: 07/08/21 16:50 07/09/21 05:45 Sepsis Event Note - Evaluation Sepsis Screening Result: No Definite Risk - Focused Exam Vital Signs: Vital Signs Temp Pulse Resp BP Pulse Ox 07/09/21 11:49 97.8 F 92 17 143/88 H 91 L 07/09/21 08:00 97.2 F 88 19 120/80 93 L 07/09/21 03:39 97.6 F 82 18 124/80 94 L - Problem List & Annotations (1) Hypokalemia SNOMED Code(s): 46898210 Code(s): E87.6 - HYPOKALEMIA Status: Acute Current Visit: Yes (2) Hyponatremia SNOMED Code(s): 10984159 Code(s): E87.1 - HYPO-OSMOLALITY AND HYPONATREMIA Status: Acute Current Visit: Yes (3) Acute kidney injury SNOMED Code(s): 41108697, 48289603 Code(s): N17.9 - ACUTE KIDNEY FAILURE, UNSPECIFIED Status: Acute Current Visit: No (4) Pancreatitis SNOMED Code(s): 20943766 Code(s): K85.90 - ACUTE PANCREATITIS WITHOUT NECROSIS OR INFECTION, UNSP Status: Acute Priority: High Current Visit: No Qualifiers: Chronicity: acute Pancreatitis type: alcohol induced Acute pancreatitis complication: unspecified Qualified Code(s): K85.20 - Alcohol induced acute pancreatitis without necrosis or infection (5) CKD (chronic kidney disease), stage IV SNOMED Code(s): 713965413 Code(s): N18.4 - CHRONIC KIDNEY DISEASE, STAGE 4 (SEVERE) Status: Acute Current Visit: Yes (6) Diabetes mellitus SNOMED Code(s): 29915922 Code(s): E11.9 - TYPE 2 DIABETES MELLITUS WITHOUT COMPLICATIONS Status: Chronic Priority: Medium Current Visit: No (7) Alcohol abuse SNOMED Code(s): 02018193 Code(s): F10.10 - ALCOHOL ABUSE, UNCOMPLICATED Status: Acute Current Visit: Yes (8) Alcohol withdrawal SNOMED Code(s): 927357083 Code(s): F10.239 - ALCOHOL DEPENDENCE WITH WITHDRAWAL, UNSPECIFIED Status: Acute Current Visit: Yes - Problem List Review Problem List Initiated/Reviewed/Updated: Yes - Assessment Assessment:: 1. Acute on chronic pancreatitis, due to alcohol abuse disorder -The patient was n.p.o. yesterday but currently is eating a meal and has a healt hy appetite, this is a promising sign -For analgesia the patient has Dilaudid and Tylenol on board -For nausea the patient has Zofran on board -Patient was counseled on alcohol abstinence in order to decrease acute pancreatitis episodes -Continue to monitor patient with daily CBC/BMP 2. Hyponatremia -This is most likely due to vomiting but the patient is now slightly nauseous and as a result we are giving Zofran -We have counseled the patient on increasing his oral intake, he is currently eating and drinking and has a healthy appetite -We will monitor sodium levels with BMP at 4 PM 3. Hypokalemia -Resolved -Continue to monitor with daily BMP 4. RISHABH on CKD -This patient will require an outpatient follow-up with nephrology -In the meantime we will hold nephrotoxic agents and encourage oral intake 5. Diabetes mellitus -Accu-Cheks/ISS/NovoLog -Metformin being held 6. Alcohol abuse disorder/withdrawal -Patient started on CIWA protocol/Ativan -Thiamine and folic acid supplementation in place Disposition: As the patient continues to improve we anticipate discharge tomorrow
[2021-07-09] MEDS: LORazepam 2 MG/ML SDV IVPUSH PRN (14:19)
[2021-07-09] MEDS: Nicotine 21 MG/24 Hr Patch TRDERM SCH (14:19)
[2021-07-09 17:03] LABS: CARBON DIOXIDE,CO2 53.2 mmol/L (21.0-32.0)
[2021-07-09] MEDS: Sodium Chloride 0.9% with KCl 1,000 ML IV ONE ×2 (19:13→19:46)
[2021-07-09] MEDS: Folic Acid 1 MG Tab PO SCH (20:16)
[2021-07-09] MEDS: atorvaSTATin 20 MG Tab PO SCH (20:16)
[2021-07-09] MEDS: Thiamine 100 MG Tab PO SCH (20:16)
[2021-07-09] MEDS: Aspirin 81 MG Tab.Chew PO SCH (20:16)
[2021-07-09] MEDS ORDERED: diphenhydrAMINE 25 MG Cap PO SCH (21:00)
[2021-07-09] MEDS: Ondansetron 4 MG Tab.DIS PO PRN (21:37)
[2021-07-10] MEDS: HYDROmorphone 2 MG/ML Syringe IVPUSH PRN ×2 (00:02→19:47)
[2021-07-10] MEDS: Heparin Sodium 5,000 Units/ML Vial SUBCUT SCH ×2 (00:02→08:24)
[2021-07-10 01:10] LABS: POTASSIUM,K 3.3 mmol/L (3.5-5.1)
[2021-07-10 01:36] LABS: CARBON DIOXIDE,CO2 54.3 mmol/L (21.0-32.0)
[2021-07-10] MEDS: Ondansetron 4 MG Tab.DIS PO PRN ×2 (04:55→10:39)
[2021-07-10] MEDS: LORazepam 2 MG/ML SDV IVPUSH PRN ×3 (05:02→23:35)
[2021-07-10] MEDS ORDERED: Pantoprazole 40 MG Tab.CR PO SCH (07:30)
[2021-07-10] MEDS ORDERED: Potassium Chloride 20 MEQ Tab.ER PO ONE (07:55)
[2021-07-10] MEDS: Nicotine 21 MG/24 Hr Patch TRDERM SCH (08:25)
[2021-07-10] MEDS: Psyllium Husk Powder Sugar Free 5.85 GM Packet PO SCH (08:25)
[2021-07-10] MEDS ORDERED: Sodium Chloride 0.9% 1,000 ML IV SCH (10:15)
[2021-07-10] MEDS: Pantoprazole 40 MG/10 ML Syringe IVPUSH SCH ×2 (10:40→20:51)
--- NOTE | 2021-07-10 10:49 | PCM.PN ---
- General Info Date of Service: 07/10/21 Subjective Update: The patient is a 61-year-old male, on day 3 of service, who has a significant past medical history of a cholecystectomy, alcohol abuse disorder, and chronic pancreatitis, who was admitted to the medical floor due to acute pancreatitis and was also found to be both hyponatremic and hypokalemic. The patient's labs from last night also showed that he continues to be depleted in both sodium and potassium and as a result we will start a normal saline bolus running at 250 mL an hour, I will recheck his levels at 5 PM today. His potassium level was 3.3 from last night and as a result we have given 40 mEq of potassium chloride. He was extremely confused this morning and was trying to exit his room and as a result he received Ativan. He was also vomiting coffee- ground emesis this morning after breakfast and as result we have transitioned him to a clear liquid diet. We also are going to perform a fecal occult blood test and send that off. I spoke to the patient's sister, Roshni an HOT [employer]PER[employer] in [place] and gave her an update on her brother. - Review of Systems General: Reports: Other (The patient was confused this morning and could not give adequate answers to questions) - Patient Data Vitals - Most Recent: Last Vital Signs Temp 98.1 F 07/10/21 08:00 Pulse 83 07/10/21 08:00 Resp 20 07/10/21 08:00 BP 121/95 H 07/10/21 08:00 Pulse Ox 93 L 07/10/21 08:00 Weight - Most Recent: 110 lb 8 oz I&O - Last 24 Hours: Intake & Output 07/09/21 07/10/21 07/10/21 22:59 06:59 14:59 Intake Total 1418 800 Output Total 1250 600 Balance 168 200 Lab Results Last 24 Hours: Laboratory Results - last 24 hr 07/09/21 07/10/21 Range/Units 16:20 00:53 Sodium 121 L 125 L (136-148) mmol/L Potassium 3.0 L 3.3 L (3.5-5.1) mmol/L Chloride 71 L 72 L (98-107) mmol/L Carbon Dioxide 53.2 H 54.3 H (21.0-32.0) mmol/L BUN 48 H 59 H (7.0-18.0) mg/dL Creatinine 3.5 H 3.6 H (0.8-1.3) mg/dL Est Cr Clr Drug Dosing 15.51 15.08 mL/min Estimated GFR (MDRD) 17.8 17.3 ml/min Glucose 228 H 247 H (74-106) mg/dL Calcium 8.3 L 8.7 (8.5-10.1) mg/dL Med Orders - Current: Current Medications Acetaminophen (Acetaminophen 325 Mg Tab) 650 mg PO Q4H PRN PRN Reason: Pain (Mild 1-3)/fever Last Admin: 07/09/21 21:37 Dose: 650 mg Documented by: Aspirin (Aspirin 81 Mg Tab.Chew) 81 mg PO BEDTIME KATHRYN Last Admin: 07/09/21 20:16 Dose: 81 mg Documented by: Atorvastatin Calcium (Atorvastatin 20 Mg Tab) 20 mg PO BEDTIME KTAHRYN Last Admin: 07/09/21 20:16 Dose: 20 mg Documented by: Docusate Sodium (Docusate Sodium 100 Mg Cap) 100 mg PO BID PRN PRN Reason: Constipation Eszopiclone (Eszopiclone 1 Mg Tab) 2 mg PO BEDTIME PRN PRN Reason: Sleep Folic Acid (Folic Acid 1 Mg Tab) 1 mg PO BEDTIME [facility] Last Admin: 07/09/21 20:16 Dose: 1 mg Documented by: Hydromorphone HCl (Hydromorphone 2 Mg/Ml Syringe) 0.5 mg IVPUSH Q2H PRN PRN Reason: Abdominal Pain Last Admin: 07/10/21 00:02 Dose: 0.5 mg Documented by: Sodium Chloride (Normal Saline) 1,000 mls @ 150 mls/hr IV ASDIRECTED [facility] Stop: 07/10/21 16:54 Lorazepam (Lorazepam 2 Mg/Ml Sdv) 0 mg IVPUSH Q4H PRN; Protocol PRN Reason: CIWAA Last Admin: 07/10/21 06:26 Dose: 1 mg Documented by: Nicotine (Nicotine 21 Mg/24 Hr Patch) 21 mg TRDERM DAILY [facility] Last Admin: 07/10/21 08:25 Dose: 21 mg Documented by: Ondansetron HCl (Ondansetron 4 Mg Tab.Dis) 4 mg PO Q6H PRN PRN Reason: nausea, able to take PO Last Admin: 07/10/21 04:55 Dose: 4 mg Documented by: Pantoprazole Sodium (Pantoprazole 40 Mg/10 Ml Syringe) 40 mg IVPUSH BID [facility] Psyllium Husk (Psyllium Husk Powder Sugar Free 5.85 Gm Packet) 1 pkt PO DAILY [facility] Last Admin: 07/10/21 08:25 Dose: 1 pkt Documented by: Sodium Chloride (Sodium Chloride 0.9% 10 Ml Syringe) 10 ml FLUSH ASDIRECTED PRN PRN Reason: Keep Vein Open Last Admin: 07/08/21 17:10 Dose: 10 ml Documented by: Sodium Chloride (Sodium Chloride 0.9% 2.5 Ml Syringe) 2.5 ml FLUSH ASDIRECTED PRN PRN Reason: Keep Vein Open Last Admin: 07/08/21 17:10 Dose: 2.5 ml Documented by: Thiamine HCl (Thiamine 100 Mg Tab) 100 mg PO BEDTIME [facility] Last Admin: 07/09/21 20:16 Dose: 100 mg Documented by: Discontinued Medications Aspirin (Aspirin 81 Mg Tab.Chew) 324 mg PO ONETIME ONE Stop: 07/08/21 17:08 Last Admin: 07/08/21 17:10 Dose: 324 mg Documented by: Diphenhydramine HCl (Diphenhydramine 25 Mg Cap) 50 mg PO BEDTIME [facility] Last Admin: 07/09/21 20:16 Dose: 50 mg Documented by: Heparin Sodium (Porcine) (Heparin Sodium 5,000 Units/Ml Vial) 5,000 units SUBCUT Q8H [facility] Last Admin: 07/10/21 08:24 Dose: Not Given Documented by: Hydromorphone HCl (Hydromorphone 2 Mg/Ml Syringe) 1 mg IVPUSH ONETIME ONE Stop: 07/08/21 17:32 Last Admin: 07/08/21 17:37 Dose: 1 mg Documented by: Hydromorphone HCl (Hydromorphone 1 Mg/Ml Syringe) 1 mg IVPUSH ONETIME ONE Stop: 07/08/21 22:36 Last Admin: 07/08/21 22:42 Dose: 1 mg Documented by: Sodium Chloride (Normal Saline) 1,000 mls @ 1,000 mls/hr IV .Bolus ONE Stop: 07/08/21 19:26 Last Admin: 07/08/21 18:34 Dose: 1,000 mls/hr Documented by: Sodium Chloride (Sodium Chloride 0.45%) 1,000 mls @ 75 mls/hr IV ASDIRECTED KATHRYN Potassium Chloride/Sodium Chloride (1/2 Ns With 20 Meq Kcl) 1,000 mls @ 75 mls/hr IV ASDIRECTED KATHRYN Potassium Chloride 40 meq/ (Premix) 100 mls @ 25 mls/hr IV ONETIME ONE Stop: 07/09/21 03:16 Last Admin: 07/08/21 23:45 Dose: 25 mls/hr Documented by: Sodium Chloride (Normal Saline) 500 mls @ 999 mls/hr IV .BOLUS ONE Stop: 07/09/21 00:38 Last Admin: 07/09/21 00:10 Dose: 999 mls/hr Documented by: Potassium Chloride/Sodium Chloride (1/2 Ns With 20 Meq Kcl) 1,000 mls @ 150 ml s/hr IV ASDIRECTED [facility] Last Admin: 07/09/21 03:33 Dose: 150 mls/hr Documented by: Potassium Chloride/Sodium Chloride (Normal Saline With 40 Meq Kcl) 1,000 mls @ 150 mls/hr IV ONETIME ONE Stop: 07/10/21 00:24 Last Admin: 07/09/21 19:46 Dose: 150 mls/hr Documented by: Metoclopramide HCl (Metoclopramide 10 Mg/2 Ml Sdv) 10 mg IVPUSH ONETIME ONE Stop: 07/08/21 23:53 Last Admin: 07/08/21 23:58 Dose: 10 mg Documented by: Ondansetron HCl (Ondansetron 4 Mg/2 Ml Sdv) 4 mg IVPUSH ONETIME ONE Stop: 07/08/21 17:32 Last Admin: 07/08/21 17:37 Dose: 4 mg Documented by: Ondansetron HCl (Ondansetron 4 Mg/2 Ml Sdv) 4 mg IVPUSH ONETIME ONE Stop: 07/08/21 22:36 Last Admin: 07/08/21 22:42 Dose: 4 mg Documented by: Pantoprazole Sodium (Pantoprazole 40 Mg Tab.Cr) 40 mg PO ACBREAKFAST [facility] Last Admin: 07/10/21 07:11 Dose: 40 mg Documented by: Potassium Chloride (Potassium Chloride 20 Meq Tab.Er) 40 meq PO ONETIME ONE Stop: 07/08/21 18:59 Last Admin: 07/08/21 19:19 Dose: 40 meq Documented by: Potassium Chloride (Potassium Chloride 20 Meq Tab.Er) 40 meq PO ONETIME ONE Stop: 07/10/21 07:56 Last Admin: 07/10/21 08:24 Dose: 40 meq Documented by: - Exam Urinary Catheter Total Time: 0Days 3Hours General: Sedated HEENT: No: Mucous Membr. Moist/[place] [facility] [place] Neck: Trachea Midline Lungs: Clear to Auscultation, Normal Respiratory Effort Cardiovascular: Regular Rate, Regular Rhythm GI/Abdominal Exam: Normal Bowel Sounds, Soft - Patient Data Lab Results Last 24 hrs: Laboratory Results - last 24 hr 07/09/21 07/10/21 Range/Units 16:20 00:53 Sodium 121 L 125 L (136-148) mmol/L Potassium 3.0 L 3.3 L (3.5-5.1) mmol/L Chloride 71 L 72 L (98-107) mmol/L Carbon Dioxide 53.2 H 54.3 H (21.0-32.0) mmol/L BUN 48 H 59 H (7.0-18.0) mg/dL Creatinine 3.5 H 3.6 H (0.8-1.3) mg/dL Est Cr Clr Drug Dosing 15.51 15.08 mL/min Estimated GFR (MDRD) 17.8 17.3 ml/min Glucose 228 H 247 H (74-106) mg/dL Calcium 8.3 L 8.7 (8.5-10.1) mg/dL Result Diagrams: 07/08/21 16:50 07/10/21 00:53 Sepsis Event Note - Evaluation Sepsis Screening Result: No Definite Risk - Focused Exam Vital Signs: Vital Signs Temp Pulse Resp BP Pulse Ox 07/10/21 08:00 98.1 F 83 20 121/95 H 93 L 07/10/21 04:00 97.6 F 101 H 18 127/97 H 94 L 07/10/21 00:00 97.8 F 102 H 18 133/82 95 - Problem List & Annotations (1) Hypokalemia SNOMED Code(s): 61330027 Code(s): E87.6 - HYPOKALEMIA Status: Acute Current Visit: Yes (2) Hyponatremia SNOMED Code(s): 30184127 Code(s): E87.1 - HYPO-OSMOLALITY AND HYPONATREMIA Status: Acute Current Visit: Yes (3) Acute kidney injury SNOMED Code(s): 17766266, 42899862 Code(s): N17.9 - ACUTE KIDNEY FAILURE, UNSPECIFIED Status: Acute Current Visit: No (4) Pancreatitis SNOMED Code(s): 56710797 Code(s): K85.90 - ACUTE PANCREATITIS WITHOUT NECROSIS OR INFECTION, UNSP Status: Acute Priority: High Current Visit: No Qualifiers: Chronicity: acute Pancreatitis type: alcohol induced Acute pancreatitis complication: unspecified Qualified Code(s): K85.20 - Alcohol induced acute pancreatitis without necrosis or infection (5) CKD (chronic kidney disease), stage IV SNOMED Code(s): 729747897 Code(s): N18.4 - CHRONIC KIDNEY DISEASE, STAGE 4 (SEVERE) Status: Acute Current Visit: Yes (6) Diabetes mellitus SNOMED Code(s): 28446717 Code(s): E11.9 - TYPE 2 DIABETES MELLITUS WITHOUT COMPLICATIONS Status: Chronic Priority: Medium Current Visit: No (7) Alcohol abuse SNOMED Code(s): 77648692 Code(s): F10.10 - ALCOHOL ABUSE, UNCOMPLICATED Status: Acute Current Visit: Yes (8) Alcohol withdrawal SNOMED Code(s): 622058331 Code(s): F10.239 - ALCOHOL DEPENDENCE WITH WITHDRAWAL, UNSPECIFIED Status: Acute Current Visit: Yes - Problem List Review Problem List Initiated/Reviewed/Updated: Yes - My Orders Last 24 Hours: My Active Orders 07/09/21 14:00 Nicotine [Habitrol] 21 mg TRDERM DAILY 07/10/21 10:20 BASIC METABOLIC PANEL,BMP [CHEM] AM CBC WITH AUTO DIFF [HEME] AM 07/11/21 05:11 BASIC METABOLIC PANEL,BMP [CHEM] AM CBC WITH AUTO DIFF [HEME] AM - Assessment Assessment:: 1. Acute on chronic pancreatitis, due to alcohol abuse disorder -The patient was vomiting this morning and has been transitioned to a clear liquid diet, he has Zofran on board -He was confused and agitated this morning and as a result was given Ativan -For analgesia the patient has Dilaudid and Tylenol on board -Continue to monitor patient with daily CBC/BMP 2. History of GI bleed -We performed a fecal occult blood test on the patient and are awaiting results -In conversation with the patient's Sister Roshni, he has a history of stomach u lcer 3. Hyponatremia -Levels last night 125 after fluid administration, we will continue with another normal saline bolus and recheck sodium levels at 5 PM 4. Hypokalemia -Levels last night was 3.3, as a result the patient was given 40 mEq of potassium chloride, we will continue to monitor 5. RISHABH on CKD -This patient will require an outpatient follow-up with nephrology, exact cause of his RISHABH/CKD is not known 6. Diabetes mellitus -Accu-Cheks/ISS/NovoLog 7. Alcohol abuse disorder/withdrawal CIWA protocol in place, continue thiamine and folic acid
[2021-07-10 10:50] LABS: POTASSIUM,K 3.3 mmol/L (3.5-5.1)
[2021-07-10 11:02] LABS: CARBON DIOXIDE,CO2 50.2 mmol/L (21.0-32.0)
--- NOTE | 2021-07-10 12:57 | US ---
EXAM DATE: 07/08/21 PATIENT'S AGE: 61 Patient: JOSE LOWE Facility: [facility] Site Site : 1960 Study: US-Abdomen -07/09/2021 12:09:38 PM Ordering Physician: CHAS Final Report: INDICATION: Abdominal pain, renal failure, acute pancreatitis TECHNIQUE: Ultrasound abdomen complete. Sonographic images of the entire abdomen were obtained using de paz-scale and color Doppler. COMPARISON: CT abdomen pelvis June 27, 2020 FINDINGS: Liver: Normal in size and echotexture. No masses. No intrahepatic biliary dilatation. Gallbladder: Status post cholecystectomy. Common bile duct: 3 mm. Pancreas: Normal. Spleen: The spleen measures 3.9 cm in length. Right kidney: 9.3 x 5.3 x 5.5 cm. Normal echotexture and cortex. No masses, stones, or hydronephrosis. Left kidney: 10.9 x 5.7 x 4.7 cm. Normal echotexture and cortex. No masses, stones, or hydronephrosis. Vasculature: Proximal abdominal aorta and IVC are normal in caliber. IMPRESSION: Normal appearance of the pancreas. No hydronephrosis. Status post cholecystectomy. The spleen is small in size. Dictated by Nancy Rodriguez MD @ 07/09/2021 12:27:28 PM Signed by: Nancy Rodriguez MD @07/09/2021 12:27:28 PM (Electronic Signature) Report Signed by Proxy. [facility] CENTERChelo
[2021-07-10] MEDS ORDERED: Sodium Chloride 0.9% 1,000 ML IV ONE (17:07)
[2021-07-10 18:15] LABS: POTASSIUM,K 3.1 mmol/L (3.5-5.1)
[2021-07-10] MEDS ORDERED: Ciprofloxacin in D5W 400 MG in Premix Bag 1 BAG IV SCH ×2 (18:15)
[2021-07-10] MEDS ORDERED: metroNIDAZOLE/Normal Saline 500 MG in Premix Bag 1 BAG IV SCH (19:00)
--- NOTE | 2021-07-10 19:28 | CT ---
INDICATION: Leukocytosis, elevated lipase TECHNIQUE: CT abdomen and pelvis without contrast. COMPARISON: June 27, 2020 FINDINGS: Lower chest: Patchy opacities at both lung bases are new compared to the prior exam. Liver: Unremarkable. Spleen: Unremarkable. Pancreas: The pancreatic head appears prominent. Questionable mild peripancreatic fat stranding around the pancreatic head. There is a focal 3.0 cm hypodensity in the distal pancreas with adjacent calcification. Gallbladder and bile ducts: S/p cholecystectomy. Adrenal glands: Mild thickening of both adrenal glands. Kidneys: Unremarkable. GI tract: Mild thickening of the mid to distal stomach and proximal duodenum. Appendix is normal. Vascular structures: Aortoiliac calcifications. Lymph nodes: Unremarkable. Miscellaneous: Unremarkable. No free air or significant free fluid. Pelvic Organs: Unremarkable. Bones: Old L1 fracture. New minimally displaced acute fracture through the distal sacrum, best seen on image 81 series 204. Small amount of presacral hemorrhage. IMPRESSION: The pancreatic head appears prominent with questionable mild fat stranding around the pancreatic head. This could be due to pancreatic edema or pancreatic mass. There is also a hypodense lesion in the pancreatic tail which may represent a cystic mass, pseudocyst, or focal dilatation of the pancreatic duct. Recommend CT with IV contrast or pancreatic MRI for further characterization. Minimally displaced acute fracture through the distal sacrum. New patchy airspace opacities at both lung bases concerning for pneumonia. Mild thickening of the mid to distal stomach and proximal duodenum. Although this could be due to gastritis, neoplasm cannot be excluded. Recommend endoscopy for further evaluation. Status post cholecystectomy. Findings discussed with Dr. Moctezuma at 7:22 p.m. on July 10, 2021. Please note that all CT scans at this facility use dose modulation, iterative reconstruction, and/or weight-based dosing when appropriate to reduce radiation dose to as low as reasonably achievable. Dictated by Nancy Rodriguez MD @ 07/10/2021 7:27:21 PM (Electronically Signed)
[2021-07-10] MEDS: atorvaSTATin 20 MG Tab PO SCH (20:50)
[2021-07-10] MEDS: Aspirin 81 MG Tab.Chew PO SCH (20:50)
[2021-07-10] MEDS: Folic Acid 1 MG Tab PO SCH (20:51)
[2021-07-10] MEDS: Thiamine 100 MG Tab PO SCH (20:51)
[2021-07-10 22:19] LABS: CARBON DIOXIDE,CO2 38.5 mmol/L (21.0-32.0); POTASSIUM,K 3.1 mmol/L (3.5-5.1)
[2021-07-11] MEDS ORDERED: Azithromycin 500 MG Vial IV SCH (01:00)
[2021-07-11] MEDS ORDERED: Sodium Chloride 0.9% 1,000 ML IV SCH (01:00)
[2021-07-11] MEDS: cefTRIAXone 1 GM in Premix Bag 1 BAG IV SCH (04:34)
[2021-07-11] MEDS: Azithromycin 500 MG in Sodium Chloride 0.9% 250 ML IV SCH (04:35)
[2021-07-11] MEDS: Sodium Chloride 0.9% 1,000 ML IV SCH (04:36)
[2021-07-11 06:44] LABS: CARBON DIOXIDE,CO2 37.7 mmol/L (21.0-32.0); POTASSIUM,K 3.2 mmol/L (3.5-5.1)
[2021-07-11] MEDS: HYDROmorphone 1 MG/ML Syringe IVPUSH PRN ×4 (15:01→23:58)
[2021-07-11] MEDS ORDERED: Potassium Chloride 20 MEQ Tab.ER PO ONE (15:36)
--- NOTE | 2021-07-11 15:44 | PCM.PN ---
- General Info Date of Service: 07/11/21 Subjective Update: The patient is a 61-year-old male, on day 4 of service, who has a significant past medical history of a cholecystectomy, alcohol abuse disorder, and chronic pancreatitis, who was admitted to the medical floor due to acute pancreatitis and was also found to be both hyponatremic and hypokalemic. Upon interview with the patient today he continued to be a poor historian, and was dosing off during questioning. As a result I called the patient's sister, Roshni who is a nurse practitioner in [place] to discuss her brothers current clinical status. It was explained to her that her brother has leukocytosis and patchy opacities at both lung bases on CT and as a result will be treating him with 2 different antibiotics including azithromycin and Rocephin for pneumonia coverage. It was also explained to her that his hyponatremia has slightly improved to 133 and that he still has hypokalemia at a level of 3.2, and as a result he will be given another 40 mEq of potassium chloride to replenish his levels. The patient still has RISHABH but it is slightly improved from 3.6 ro 2.9 with respect to creatinine levels. Other CT findings were also discussed with the patient's sister. She inquired about the fecal occult blood test and it was explained to her that it was negative. There are no other health concerns at this time. - Review of Systems General: Reports: Other (The patient is a poor historian, was dozing off during interview today at bedside and could not answer questions appropriately) - Patient Data Vitals - Most Recent: Last Vital Signs Temp 97.7 F 07/11/21 08:00 Pulse 102 H 07/11/21 08:00 Resp 14 07/11/21 08:00 BP 122/67 07/11/21 08:00 Pulse Ox 100 07/11/21 08:00 Weight - Most Recent: 110 lb 8 oz I&O - Last 24 Hours: Intake & Output 07/11/21 07/11/21 07/11/21 06:59 14:59 22:59 Output Total 800 Balance -800 Lab Results Last 24 Hours: Laboratory Results - last 24 hr 07/10/21 07/10/21 07/11/21 Range/Units 17:23 22:00 05:42 WBC 18.56 H (4.0-11.0) K/uL RBC 2.51 L (4.50-5.90) M/uL Hgb 8.1 L (13.0-17.0) g/dL Hct 23.4 L (38.0-50.0) % MCV 93.2 (80.0-98.0) fL MCH 32.3 H (27.0-32.0) pg MCHC 34.6 (31.0-37.0) g/dL RDW Std Deviation 49.3 (28.0-62.0) fl RDW Coeff of Claudio 14 (11.0-15.0) % Plt Count 280 (150-400) K/uL MPV 9.70 (7.40-12.00) fL Neut % (Auto) 86.1 H (48.0-80.0) % Lymph % (Auto) 5.7 L (16.0-40.0) % Spink % (Auto) 7.5 (0.0-15.0) % Eos % (Auto) 0.6 (0.0-7.0) % Baso % (Auto) 0.1 (0.0-1.5) % Neut # (Auto) 16.0 H (1.4-5.7) K/uL Lymph # (Auto) 1.1 (0.6-2.4) K/uL Spink # (Auto) 1.4 H (0.0-0.8) K/uL Eos # (Auto) 0.1 (0.0-0.7) K/uL Baso # (Auto) 0.0 (0.0-0.1) K/uL Nucleated RBC % 0.0 /100WBC Nucleated RBCs # 0 K/uL Sodium 124 L 125 L (136-148) mmol/L Potassium 3.1 L 3.1 L (3.5-5.1) mmol/L Chloride 81 L 85 L (98-107) mmol/L Carbon Dioxide 42.0 H 38.5 H (21.0-32.0) mmol/L BUN 84 H 84 H (7.0-18.0) mg/dL Creatinine 3.3 H 3.0 H (0.8-1.3) mg/dL Est Cr Clr Drug Dosing 16.45 18.10 mL/min Estimated GFR (MDRD) 19.1 21.3 ml/min Glucose 168 H 172 H (74-106) mg/dL Calcium 8.3 L 7.7 L (8.5-10.1) mg/dL 07/11/21 Range/Units 05:42 WBC (4.0-11.0) K/uL RBC (4.50-5.90) M/uL Hgb (13.0-17.0) g/dL Hct (38.0-50.0) % MCV (80.0-98.0) fL MCH (27.0-32.0) pg MCHC (31.0-37.0) g/dL RDW Std Deviation (28.0-62.0) fl RDW Coeff of Claudio (11.0-15.0) % Plt Count (150-400) K/uL MPV (7.40-12.00) fL Neut % (Auto) (48.0-80.0) % Lymph % (Auto) (16.0-40.0) % Spink % (Auto) (0.0-15.0) % Eos % (Auto) (0.0-7.0) % Baso % (Auto) (0.0-1.5) % Neut # (Auto) (1.4-5.7) K/uL Lymph # (Auto) (0.6-2.4) K/uL Spink # (Auto) (0.0-0.8) K/uL Eos # (Auto) (0.0-0.7) K/uL Baso # (Auto) (0.0-0.1) K/uL Nucleated RBC % /100WBC Nucleated RBCs # K/uL Sodium 133 L (136-148) mmol/L Potassium 3.2 L (3.5-5.1) mmol/L Chloride 90 L (98-107) mmol/L Carbon Dioxide 37.7 H (21.0-32.0) mmol/L BUN 75 H (7.0-18.0) mg/dL Creatinine 2.9 H (0.8-1.3) mg/dL Est Cr Clr Drug Dosing 18.72 mL/min Estimated GFR (MDRD) 22.2 ml/min Glucose 113 H (74-106) mg/dL Calcium 7.8 L (8.5-10.1) mg/dL Cosme Results Last 24 Hours: Microbiology 07/10/21 10:30 Stool Occult Blood (COSME) - Final Stool / Feces Med Orders - Current: Current Medications Acetaminophen (Acetaminophen 325 Mg Tab) 650 mg PO Q4H PRN PRN Reason: Pain (Mild 1-3)/fever Last Admin: 07/09/21 21:37 Dose: 650 mg Documented by: Aspirin (Aspirin 81 Mg Tab.Chew) 81 mg PO BEDTIME [facility] Last Admin: 07/10/21 20:50 Dose: 81 mg Documented by: Atorvastatin Calcium (Atorvastatin 20 Mg Tab) 20 mg PO BEDTIME [facility] Last Admin: 07/10/21 20:50 Dose: 20 mg Documented by: Docusate Sodium (Docusate Sodium 100 Mg Cap) 100 mg PO BID PRN PRN Reason: Constipation Eszopiclone (Eszopiclone 1 Mg Tab) 2 mg PO BEDTIME PRN PRN Reason: Sleep Folic Acid (Folic Acid 1 Mg Tab) 1 mg PO BEDTIME [facility] Last Admin: 07/10/21 20:51 Dose: 1 mg Documented by: Hydromorphone HCl (Hydromorphone 1 Mg/Ml Syringe) 0.5 mg IVPUSH Q2H PRN PRN Reason: Abdominal Pain Last Admin: 07/11/21 15:01 Dose: 0.5 mg Documented by: Sodium Chloride (Normal Saline) 1,000 mls @ 150 mls/hr IV ASDIRECTED [facility] Last Admin: 07/11/21 04:36 Dose: 150 mls/hr Documented by: Ceftriaxone Sodium/Dextrose 1 (gm/ Premix) 50 mls @ 100 mls/hr IV Q24H [facility] Last Admin: 07/11/21 04:34 Dose: 100 mls/hr Documented by: Azithromycin 500 mg/ Sodium (Chloride) 250 mls @ 250 mls/hr IV Q24H [facility] Last Admin: 07/11/21 04:35 Dose: 250 mls/hr Documented by: Lorazepam (Lorazepam 2 Mg/Ml Sdv) 0 mg IVPUSH Q4H PRN; Protocol PRN Reason: CIWAA Last Admin: 07/10/21 23:35 Dose: 2 mg Documented by: Nicotine (Nicotine 21 Mg/24 Hr Patch) 21 mg TRDERM DAILY [facility] Last Admin: 07/10/21 08:25 Dose: 21 mg Documented by: Ondansetron HCl (Ondansetron 4 Mg Tab.Dis) 4 mg PO Q6H PRN PRN Reason: nausea, able to take PO Last Admin: 07/10/21 10:39 Dose: 4 mg Documented by: Pantoprazole Sodium (Pantoprazole 40 Mg/10 Ml Syringe) 40 mg IVPUSH BID [facility] Last Admin: 07/10/21 20:51 Dose: 40 mg Documented by: Psyllium Husk (Psyllium Husk Powder Sugar Free 5.85 Gm Packet) 1 pkt PO DAILY [facility] Last Admin: 07/10/21 08:25 Dose: 1 pkt Documented by: Sodium Chloride (Sodium Chloride 0.9% 10 Ml Syringe) 10 ml FLUSH ASDIRECTED PRN PRN Reason: Keep Vein Open Last Admin: 07/08/21 17:10 Dose: 10 ml Documented by: Sodium Chloride (Sodium Chloride 0.9% 2.5 Ml Syringe) 2.5 ml FLUSH ASDIRECTED PRN PRN Reason: Keep Vein Open Last Admin: 07/08/21 17:10 Dose: 2.5 ml Documented by: Thiamine HCl (Thiamine 100 Mg Tab) 100 mg PO BEDTIME [facility] Last Admin: 07/10/21 20:51 Dose: 100 mg Documented by: Discontinued Medications Aspirin (Aspirin 81 Mg Tab.Chew) 324 mg PO ONETIME ONE Stop: 07/08/21 17:08 Last Admin: 07/08/21 17:10 Dose: 324 mg Documented by: Diphenhydramine HCl (Diphenhydramine 25 Mg Cap) 50 mg PO BEDTIME [facility] Last Admin: 07/09/21 20:16 Dose: 50 mg Documented by: Heparin Sodium (Porcine) (Heparin Sodium 5,000 Units/Ml Vial) 5,000 units SUBCUT Q8H [facility] Last Admin: 07/10/21 08:24 Dose: Not Given Documented by: Hydromorphone HCl (Hydromorphone 2 Mg/Ml Syringe) 1 mg IVPUSH ONETIME ONE Stop: 07/08/21 17:32 Last Admin: 07/08/21 17:37 Dose: 1 mg Documented by: Hydromorphone HCl (Hydromorphone 1 Mg/Ml Syringe) 1 mg IVPUSH ONETIME ONE Stop: 07/08/21 22:36 Last Admin: 07/08/21 22:42 Dose: 1 mg Documented by: Hydromorphone HCl (Hydromorphone 2 Mg/Ml Syringe) 0.5 mg IVPUSH Q2H PRN PRN Reason: Abdominal Pain Last Admin: 07/10/21 19:47 Dose: 0.5 mg Documented by: Sodium Chloride (Normal Saline) 1,000 mls @ 1,000 mls/hr IV .Bolus ONE Stop: 07/08/21 19:26 Last Admin: 07/08/21 18:34 Dose: 1,000 mls/hr Documented by: Sodium Chloride (Sodium Chloride 0.45%) 1,000 mls @ 75 mls/hr IV ASDIRECTED [facility] Potassium Chloride/Sodium Chloride (1/2 Ns With 20 Meq Kcl) 1,000 mls @ 75 mls/hr IV ASDIRECTED [facility] Potassium Chloride 40 meq/ (Premix) 100 mls @ 25 mls/hr IV ONETIME ONE Stop: 07/09/21 03:16 Last Admin: 07/08/21 23:45 Dose: 25 mls/hr Documented by: Sodium Chloride (Normal Saline) 500 mls @ 999 mls/hr IV .BOLUS ONE Stop: 07/09/21 00:38 Last Admin: 07/09/21 00:10 Dose: 999 mls/hr Documented by: Potassium Chloride/Sodium Chloride (1/2 Ns With 20 Meq Kcl) 1,000 mls @ 150 mls/hr IV ASDIRECTED [facility] Last Admin: 07/09/21 03:33 Dose: 150 mls/hr Documented by: Potassium Chloride/Sodium Chloride (Normal Saline With 40 Meq Kcl) 1,000 mls @ 150 mls/hr IV ONETIME ONE Stop: 07/10/21 00:24 Last Admin: 07/09/21 19:46 Dose: 150 mls/hr Documented by: Sodium Chloride (Normal Saline) 1,000 mls @ 150 mls/hr IV ASDIRECTED [facility] Stop: 07/10/21 16:54 Last Admin: 07/10/21 10:40 Dose: 150 mls/hr Documented by: Sodium Chloride (Normal Saline) 1,000 mls @ 250 mls/hr IV .Bolus ONE Stop: 07/10/21 21:06 Last Admin: 07/10/21 17:36 Dose: 250 mls/hr Documented by: Ciprofloxacin/Dextrose 400 mg/ (Premix) 200 mls @ 200 mls/hr IV Q24H [facility] Last Admin: 07/10/21 18:36 Dose: 200 mls/hr Documented by: Metronidazole 500 mg/ Premix 100 mls @ 100 mls/hr IV Q8H [facility] Last Admin: 07/10/21 20:49 Dose: 100 mls/hr Documented by: Sodium Chloride (Normal Saline) 1,000 mls @ 999 mls/hr IV ASDIRECTED [facility] Stop: 07/11/21 02:01 Metoclopramide HCl (Metoclopramide 10 Mg/2 Ml Sdv) 10 mg IVPUSH ONETIME ONE Stop: 07/08/21 23:53 Last Admin: 07/08/21 23:58 Dose: 10 mg Documented by: Ondansetron HCl (Ondansetron 4 Mg/2 Ml Sdv) 4 mg IVPUSH ONETIME ONE Stop: 07/08/21 17:32 Last Admin: 07/08/21 17:37 Dose: 4 mg Documented by: Ondansetron HCl (Ondansetron 4 Mg/2 Ml Sdv) 4 mg IVPUSH ONETIME ONE Stop: 07/08/21 22:36 Last Admin: 07/08/21 22:42 Dose: 4 mg Documented by: Pantoprazole Sodium (Pantoprazole 40 Mg Tab.Cr) 40 mg PO ACBREAKFAST [facility] Last Admin: 07/10/21 07:11 Dose: 40 mg Documented by: Potassium Chloride (Potassium Chloride 20 Meq Tab.Er) 40 meq PO ONETIME ONE Stop: 07/08/21 18:59 Last Admin: 07/08/21 19:19 Dose: 40 meq Documented by: Potassium Chloride (Potassium Chloride 20 Meq Tab.Er) 40 meq PO ONETIME ONE Stop: 07/10/21 07:56 Last Admin: 07/10/21 08:24 Dose: 40 meq Documented by: Potassium Chloride (Potassium Chloride 20 Meq Tab.Er) 40 meq PO ONETIME ONE Stop: 07/11/21 15:37 - Exam Urinary Catheter Total Time: 0Days 3Hours General: Lethargic HEENT: Mucous Membr. Moist/Weeki [place] Neck: Trachea Midline Lungs: Rhonchi Cardiovascular: Regular Rate, Regular Rhythm GI/Abdominal Exam: Normal Bowel Sounds, Soft - Patient Data Lab Results Last 24 hrs: Laboratory Results - last 24 hr 07/10/21 07/10/21 07/11/21 Range/Units 17:23 22:00 05:42 WBC 18.56 H (4.0-11.0) K/uL RBC 2.51 L (4.50-5.90) M/uL Hgb 8.1 L (13.0-17.0) g/dL Hct 23.4 L (38.0-50.0) % MCV 93.2 (80.0-98.0) fL MCH 32.3 H (27.0-32.0) pg MCHC 34.6 (31.0-37.0) g/dL RDW Std Deviation 49.3 (28.0-62.0) fl RDW Coeff of Claudio 14 (11.0-15.0) % Plt Count 280 (150-400) K/uL MPV 9.70 (7.40-12.00) fL Neut % (Auto) 86.1 H (48.0-80.0) % Lymph % (Auto) 5.7 L (16.0-40.0) % Spink % (Auto) 7.5 (0.0-15.0) % Eos % (Auto) 0.6 (0.0-7.0) % Baso % (Auto) 0.1 (0.0-1.5) % Neut # (Auto) 16.0 H (1.4-5.7) K/uL Lymph # (Auto) 1.1 (0.6-2.4) K/uL Spink # (Auto) 1.4 H (0.0-0.8) K/uL Eos # (Auto) 0.1 (0.0-0.7) K/uL Baso # (Auto) 0.0 (0.0-0.1) K/uL Nucleated RBC % 0.0 /100WBC Nucleated RBCs # 0 K/uL Sodium 124 L 125 L (136-148) mmol/L Potassium 3.1 L 3.1 L (3.5-5.1) mmol/L Chloride 81 L 85 L (98-107) mmol/L Carbon Dioxide 42.0 H 38.5 H (21.0-32.0) mmol/L BUN 84 H 84 H (7.0-18.0) mg/dL Creatinine 3.3 H 3.0 H (0.8-1.3) mg/dL Est Cr Clr Drug Dosing 16.45 18.10 mL/min Estimated GFR (MDRD) 19.1 21.3 ml/min Glucose 168 H 172 H (74-106) mg/dL Calcium 8.3 L 7.7 L (8.5-10.1) mg/dL 07/11/21 Range/Units 05:42 WBC (4.0-11.0) K/uL RBC (4.50-5.90) M/uL Hgb (13.0-17.0) g/dL Hct (38.0-50.0) % MCV (80.0-98.0) fL MCH (27.0-32.0) pg MCHC (31.0-37.0) g/dL RDW Std Deviation (28.0-62.0) fl RDW Coeff of Claudio (11.0-15.0) % Plt Count (150-400) K/uL MPV (7.40-12.00) fL Neut % (Auto) (48.0-80.0) % Lymph % (Auto) (16.0-40.0) % Spink % (Auto) (0.0-15.0) % Eos % (Auto) (0.0-7.0) % Baso % (Auto) (0.0-1.5) % Neut # (Auto) (1.4-5.7) K/uL Lymph # (Auto) (0.6-2.4) K/uL Spink # (Auto) (0.0-0.8) K/uL Eos # (Auto) (0.0-0.7) K/uL Baso # (Auto) (0.0-0.1) K/uL Nucleated RBC % /100WBC Nucleated RBCs # K/uL Sodium 133 L (136-148) mmol/L Potassium 3.2 L (3.5-5.1) mmol/L Chloride 90 L (98-107) mmol/L Carbon Dioxide 37.7 H (21.0-32.0) mmol/L BUN 75 H (7.0-18.0) mg/dL Creatinine 2.9 H (0.8-1.3) mg/dL Est Cr Clr Drug Dosing 18.72 mL/min Estimated GFR (MDRD) 22.2 ml/min Glucose 113 H (74-106) mg/dL Calcium 7.8 L (8.5-10.1) mg/dL Result Diagrams: 07/11/21 05:42 07/11/21 05:42 Cosme Results Last 24 hrs: Microbiology 07/10/21 10:30 Stool Occult Blood (COSME) - Final Stool / Feces Sepsis Event Note - Evaluation Sepsis Screening Result: No Definite Risk - Focused Exam Vital Signs: Vital Signs Temp Pulse Resp BP Pulse Ox 07/11/21 08:00 97.7 F 102 H 14 122/67 100 07/11/21 04:00 97.8 F 100 16 118/66 100 - Problem List & Annotations (1) Hypokalemia SNOMED Code(s): 12759554 Code(s): E87.6 - HYPOKALEMIA Status: Acute Current Visit: Yes (2) Hyponatremia SNOMED Code(s): 88196794 Code(s): E87.1 - HYPO-OSMOLALITY AND HYPONATREMIA Status: Acute Current Visit: Yes (3) Acute kidney injury SNOMED Code(s): 82695523, 30206697 Code(s): N17.9 - ACUTE KIDNEY FAILURE, UNSPECIFIED Status: Acute Current Visit: No (4) Pancreatitis SNOMED Code(s): 98057825 Code(s): K85.90 - ACUTE PANCREATITIS WITHOUT NECROSIS OR INFECTION, UNSP Status: Acute Priority: High Current Visit: No Qualifiers: Chronicity: acute Pancreatitis type: alcohol induced Acute pancreatitis complication: unspecified Qualified Code(s): K85.20 - Alcohol induced acute pancreatitis without necrosis or infection (5) CKD (chronic kidney disease), stage IV SNOMED Code(s): 545164013 Code(s): N18.4 - CHRONIC KIDNEY DISEASE, STAGE 4 (SEVERE) Status: Acute Current Visit: Yes (6) Diabetes mellitus SNOMED Code(s): 86434146 Code(s): E11.9 - TYPE 2 DIABETES MELLITUS WITHOUT COMPLICATIONS Status: Chronic Priority: Medium Current Visit: No (7) Alcohol abuse SNOMED Code(s): 03730253 Code(s): F10.10 - ALCOHOL ABUSE, UNCOMPLICATED Status: Acute Current Vis it: Yes (8) Alcohol withdrawal SNOMED Code(s): 593538266 Code(s): F10.239 - ALCOHOL DEPENDENCE WITH WITHDRAWAL, UNSPECIFIED Status: Acute Current Visit: Yes (9) Leukocytosis SNOMED Code(s): 381471508, 497113016 Code(s): D72.829 - ELEVATED WHITE BLOOD CELL COUNT, UNSPECIFIED Status: Acute Current Visit: Yes (10) Pneumonia SNOMED Code(s): 224736344 Code(s): J18.9 - PNEUMONIA, UNSPECIFIED ORGANISM Status: Acute Current Visit: Yes (11) Tobacco dependence SNOMED Code(s): 95037542 Code(s): F17.200 - NICOTINE DEPENDENCE, UNSPECIFIED, UNCOMPLICATED Status: Acute Current Visit: Yes - Problem List Review Problem List Initiated/Reviewed/Updated: Yes - My Orders Last 24 Hours: My Active Orders 07/12/21 05:11 CBC WITH AUTO DIFF [HEME] AM CMP [COMPREHENSIVE METABOLIC PN,CMP] [CHEM] AM 07/13/21 05:11 CBC WITH AUTO DIFF [HEME] AM CMP [COMPREHENSIVE METABOLIC PN,CMP] [CHEM] AM 07/14/21 05:11 CBC WITH AUTO DIFF [HEME] AM CMP [COMPREHENSIVE METABOLIC PN,CMP] [CHEM] AM - Assessment Assessment:: 1. Acute on chronic pancreatitis, due to alcohol abuse disorder -For the patient's vomiting we will continue with Zofran and a clear liquid diet -For analgesia the patient has Dilaudid and Tylenol on board -Continue to monitor patient with daily CBC/BMP 2. Leukocytosis secondary to pneumonia which was seen on CT -Continue with azithromycin 500 mg per IV route every 24 hours -Continue with Rocephin 1 g per IV route every 24 hours 3. History of GI bleed -We performed a fecal occult blood test on the patient which was negative, the patient sister admits that he has a history of stomach ulcer which may be causing his decreased hemoglobin, if his hemoglobin continues to drop we may consider transfusion -The patient may have 2 see a GI specialist upon discharge 4. Hyponatremia -Levels currently at 133, we will continue to monitor with daily BMP 5. Hypokalemia -Levels currently at 3.2, patient has been given 40 mEq of potassium chloride, we will continue to monitor 6. RISHABH on CKD -This patient will require an outpatient follow-up with nephrology, exact cause of his RISHABH/CKD is not known, continue to monitor 7. Diabetes mellitus -Accu-Cheks/ISS/NovoLog 8. Alcohol abuse disorder/withdrawal [facility] protocol in place, continue thiamine and folic acid 9. Tobacco dependence -Patient currently on a nicotine patch 21 mg daily
[2021-07-11] MEDS: Folic Acid 1 MG Tab PO SCH (20:19)
[2021-07-11] MEDS: Aspirin 81 MG Tab.Chew PO SCH (20:19)
[2021-07-11] MEDS: Pantoprazole 40 MG/10 ML Syringe IVPUSH SCH (20:19)
[2021-07-11] MEDS: Thiamine 100 MG Tab PO SCH (20:19)
[2021-07-11] MEDS: atorvaSTATin 20 MG Tab PO SCH (20:19)
[2021-07-11] MEDS: LORazepam 2 MG/ML SDV IVPUSH PRN (20:21)
[2021-07-12] MEDS: LORazepam 2 MG/ML SDV IVPUSH PRN ×3 (00:26→23:07)
[2021-07-12] MEDS: cefTRIAXone 1 GM in Premix Bag 1 BAG IV SCH (03:22)
[2021-07-12] MEDS: Azithromycin 500 MG in Sodium Chloride 0.9% 250 ML IV SCH (03:22)
[2021-07-12 06:14] LABS: POTASSIUM,K 2.9 mmol/L (3.5-5.1)
[2021-07-12] MEDS: Nicotine 21 MG/24 Hr Patch TRDERM SCH ×2 (08:41→11:28)
[2021-07-12] MEDS: Psyllium Husk Powder Sugar Free 5.85 GM Packet PO SCH ×2 (08:43→18:08)
[2021-07-12] MEDS: Pantoprazole 40 MG/10 ML Syringe IVPUSH SCH ×3 (09:53→20:28)
[2021-07-12] MEDS: HYDROmorphone 1 MG/ML Syringe IVPUSH PRN ×5 (09:57→22:25)
[2021-07-12] MEDS ORDERED: Potassium Chloride 20 MEQ Tab.ER PO ONE (11:01)
--- NOTE | 2021-07-12 11:07 | PCM.PN ---
- General Info Date of Service: 07/12/21 - Review of Systems Systems Review Comment:: , bill denies any abdominal pain, no back or leg pain, requesting to advance diet, does not remember how long he has been admitted, and cant recall where he lives. - Patient Data Vitals - Most Recent: Last Vital Signs Temp 36.8 C 07/12/21 07:45 Pulse 102 H 07/12/21 07:45 Resp 18 07/12/21 07:45 BP 121/79 07/12/21 07:45 Pulse Ox 100 07/12/21 07:45 Weight - Most Recent: 50.122 kg I&O - Last 24 Hours: Intake & Output 07/11/21 07/12/21 07/12/21 22:59 06:59 14:59 Intake Total 500 Output Total 600 Balance -100 Lab Results Last 24 Hours: Laboratory Results - last 24 hr 07/12/21 07/12/21 Range/Units 05:23 05:23 WBC 13.14 H (4.0-11.0) K/uL RBC 2.60 L (4.50-5.90) M/uL Hgb 8.4 L (13.0-17.0) g/dL Hct 24.8 L (38.0-50.0) % MCV 95.4 (80.0-98.0) fL MCH 32.3 H (27.0-32.0) pg MCHC 33.9 (31.0-37.0) g/dL RDW Std Deviation 50.5 (28.0-62.0) fl RDW Coeff of Claudio 15 (11.0-15.0) % Plt Count 284 (150-400) K/uL MPV 9.00 (7.40-12.00) fL Neut % (Auto) 75.8 (48.0-80.0) % Lymph % (Auto) 12.1 L (16.0-40.0) % Mckenzie % (Auto) 9.2 (0.0-15.0) % Eos % (Auto) 2.6 (0.0-7.0) % Baso % (Auto) 0.3 (0.0-1.5) % Neut # (Auto) 10.0 H (1.4-5.7) K/uL Lymph # (Auto) 1.6 (0.6-2.4) K/uL Mckenzie # (Auto) 1.2 H (0.0-0.8) K/uL Eos # (Auto) 0.3 (0.0-0.7) K/uL Baso # (Auto) 0.0 (0.0-0.1) K/uL Nucleated RBC % 0.0 /100WBC Nucleated RBCs # 0 K/uL Sodium 135 L (136-148) mmol/L Potassium 2.9 L (3.5-5.1) mmol/L Chloride 95 L (98-107) mmol/L Carbon Dioxide 31.0 (21.0-32.0) mmol/L BUN 49 H (7.0-18.0) mg/dL Creatinine 2.3 H (0.8-1.3) mg/dL Est Cr Clr Drug Dosing 23.61 mL/min Estimated GFR (MDRD) 29.0 ml/min Glucose 83 (74-106) mg/dL Calcium 7.9 L (8.5-10.1) mg/dL Total Bilirubin 0.2 (0.2-1.0) mg/dL AST 22 (15-37) IU/L ALT 10 L (14-63) IU/L Alkaline Phosphatase 74 (46-116) U/L Total Protein 5.9 L (6.4-8.2) g/dL Albumin 2.1 L (3.4-5.0) g/dL Globulin 3.8 (2.6-4.0) g/dL Albumin/Globulin Ratio 0.6 L (0.9-1.6) Med Orders - Current: Current Medications Acetaminophen (Acetaminophen 325 Mg Tab) 650 mg PO Q4H PRN PRN Reason: Pain (Mild 1-3)/fever Last Admin: 07/09/21 21:37 Dose: 650 mg Documented by: Aspirin (Aspirin 81 Mg Tab.Chew) 81 mg PO BEDTIME KATHRYN Last Admin: 07/11/21 20:19 Dose: 81 mg Documented by: Atorvastatin Calcium (Atorvastatin 20 Mg Tab) 20 mg PO BEDTIME KATHRYN Last Admin: 07/11/21 20:19 Dose: 20 mg Documented by: Docusate Sodium (Docusate Sodium 100 Mg Cap) 100 mg PO BID PRN PRN Reason: Constipation Eszopiclone (Eszopiclone 1 Mg Tab) 2 mg PO BEDTIME PRN PRN Reason: Sleep Folic Acid (Folic Acid 1 Mg Tab) 1 mg PO BEDTIME [facility] Last Admin: 07/11/21 20:19 Dose: 1 mg Documented by: Hydromorphone HCl (Hydromorphone 1 Mg/Ml Syringe) 0.5 mg IVPUSH Q2H PRN PRN Reason: Abdominal Pain Last Admin: 07/12/21 09:57 Dose: 0.5 mg Documented by: Sodium Chloride (Normal Saline) 1,000 mls @ 150 mls/hr IV ASDIRECTED [facility] Last Admin: 07/11/21 04:36 Dose: 150 mls/hr Documented by: Ceftriaxone Sodium/Dextrose 1 (gm/ Premix) 50 mls @ 100 mls/hr IV Q24H [facility] Last Admin: 07/12/21 03:22 Dose: 100 mls/hr Documented by: Azithromycin 500 mg/ Sodium (Chloride) 250 mls @ 250 mls/hr IV Q24H [facility] Last Admin: 07/12/21 03:22 Dose: 250 mls/hr Documented by: Lorazepam (Lorazepam 2 Mg/Ml Sdv) 0 mg IVPUSH Q4H PRN; Protocol PRN Reason: CIWAA Last Admin: 07/12/21 04:27 Dose: 2 mg Documented by: Nicotine (Nicotine 21 Mg/24 Hr Patch) 21 mg TRDERM DAILY [facility] Last Admin: 07/12/21 08:41 Dose: 21 mg Documented by: Ondansetron HCl (Ondansetron 4 Mg Tab.Dis) 4 mg PO Q6H PRN PRN Reason: nausea, able to take PO Last Admin: 07/10/21 10:39 Dose: 4 mg Documented by: Pantoprazole Sodium (Pantoprazole 40 Mg/10 Ml Syringe) 40 mg IVPUSH BID [facility] Last Admin: 07/12/21 09:53 Dose: 40 mg Documented by: Potassium Chloride (Potassium Chloride 20 Meq Tab.Er) 40 meq PO ONETIME ONE Stop: 07/12/21 11:02 Psyllium Husk (Psyllium Husk Powder Sugar Free 5.85 Gm Packet) 1 pkt PO DAILY [facility] Last Admin: 07/12/21 08:43 Dose: 1 pkt Documented by: Sodium Chloride (Sodium Chloride 0.9% 10 Ml Syringe) 10 ml FLUSH ASDIRECTED PRN PRN Reason: Keep Vein Open Last Admin: 07/08/21 17:10 Dose: 10 ml Documented by: Sodium Chloride (Sodium Chloride 0.9% 2.5 Ml Syringe) 2.5 ml FLUSH ASDIRECTED PRN PRN Reason: Keep Vein Open Last Admin: 07/08/21 17:10 Dose: 2.5 ml Documented by: Thiamine HCl (Thiamine 100 Mg Tab) 100 mg PO BEDTIME [facility] Last Admin: 07/11/21 20:19 Dose: 100 mg Documented by: Discontinued Medications Aspirin (Aspirin 81 Mg Tab.Chew) 324 mg PO ONETIME ONE Stop: 07/08/21 17:08 Last Admin: 07/08/21 17:10 Dose: 324 mg Documented by: Diphenhydramine HCl (Diphenhydramine 25 Mg Cap) 50 mg PO BEDTIME [facility] Last Admin: 07/09/21 20:16 Dose: 50 mg Documented by: Heparin Sodium (Porcine) (Heparin Sodium 5,000 Units/Ml Vial) 5,000 units SUBCUT Q8H [facility] Last Admin: 07/10/21 08:24 Dose: Not Given Documented by: Hydromorphone HCl (Hydromorphone 2 Mg/Ml Syringe) 1 mg IVPUSH ONETIME ONE Stop: 07/08/21 17:32 Last Admin: 07/08/21 17:37 Dose: 1 mg Documented by: Hydromorphone HCl (Hydromorphone 1 Mg/Ml Syringe) 1 mg IVPUSH ONETIME ONE Stop: 07/08/21 22:36 Last Admin: 07/08/21 22:42 Dose: 1 mg Documented by: Hydromorphone HCl (Hydromorphone 2 Mg/Ml Syringe) 0.5 mg IVPUSH Q2H PRN PRN Reason: Abdominal Pain Last Admin: 07/10/21 19:47 Dose: 0.5 mg Documented by: Sodium Chloride (Normal Saline) 1,000 mls @ 1,000 mls/hr IV .Bolus ONE Stop: 07/08/21 19:26 Last Admin: 07/08/21 18:34 Dose: 1,000 mls/hr Documented by: Sodium Chloride (Sodium Chloride 0.45%) 1,000 mls @ 75 mls/hr IV ASDIRECTED [facility] Potassium Chloride/Sodium Chloride (1/2 Ns With 20 Meq Kcl) 1,000 mls @ 75 mls/hr IV ASDIRECTED [facility] Potassium Chloride 40 meq/ (Premix) 100 mls @ 25 mls/hr IV ONETIME ONE Stop: 07/09/21 03:16 Last Admin: 07/08/21 23:45 Dose: 25 mls/hr Documented by: Sodium Chloride (Normal Saline) 500 mls @ 999 mls/hr IV .BOLUS ONE Stop: 07/09/21 00:38 Last Admin: 07/09/21 00:10 Dose: 999 mls/hr Documented by: Potassium Chloride/Sodium Chloride (1/2 Ns With 20 Meq Kcl) 1,000 mls @ 150 mls/hr IV ASDIRECTED [facility] Last Admin: 07/09/21 03:33 Dose: 150 mls/hr Documented by: Potassium Chloride/Sodium Chloride (Normal Saline With 40 Meq Kcl) 1,000 mls @ 150 mls/hr IV ONETIME ONE Stop: 07/10/21 00:24 Last Admin: 07/09/21 19:46 Dose: 150 mls/hr Documented by: Sodium Chloride (Normal Saline) 1,000 mls @ 150 mls/hr IV ASDIRECTED [facility] Stop: 07/10/21 16:54 Last Admin: 07/10/21 10:40 Dose: 150 mls/hr Documented by: Sodium Chloride (Normal Saline) 1,000 mls @ 250 mls/hr IV .Bolus ONE Stop: 07/10/21 21:06 Last Admin: 07/10/21 17:36 Dose: 250 mls/hr Documented by: Ciprofloxacin/Dextrose 400 mg/ (Premix) 200 mls @ 200 mls/hr IV Q24H [facility] Last Admin: 07/10/21 18:36 Dose: 200 mls/hr Documented by: Metronidazole 500 mg/ Premix 100 mls @ 100 mls/hr IV Q8H [facility] Last Admin: 07/10/21 20:49 Dose: 100 mls/hr Documented by: Sodium Chloride (Normal Saline) 1,000 mls @ 999 mls/hr IV ASDIRECTED [facility] Stop: 07/11/21 02:01 Metoclopramide HCl (Metoclopramide 10 Mg/2 Ml Sdv) 10 mg IVPUSH ONETIME ONE Stop: 07/08/21 23:53 Last Admin: 07/08/21 23:58 Dose: 10 mg Documented by: Ondansetron HCl (Ondansetron 4 Mg/2 Ml Sdv) 4 mg IVPUSH ONETIME ONE Stop: 07/08/21 17:32 Last Admin: 07/08/21 17:37 Dose: 4 mg Documented by: Ondansetron HCl (Ondansetron 4 Mg/2 Ml Sdv) 4 mg IVPUSH ONETIME ONE Stop: 07/08/21 22:36 Last Admin: 07/08/21 22:42 Dose: 4 mg Documented by: Pantoprazole Sodium (Pantoprazole 40 Mg Tab.Cr) 40 mg PO ACBREAKFAST KATHRYN Last Admin: 07/10/21 07:11 Dose: 40 mg Documented by: Potassium Chloride (Potassium Chloride 20 Meq Tab.Er) 40 meq PO ONETIME ONE Stop: 07/08/21 18:59 Last Admin: 07/08/21 19:19 Dose: 40 meq Documented by: Potassium Chloride (Potassium Chloride 20 Meq Tab.Er) 40 meq PO ONETIME ONE Stop: 07/10/21 07:56 Last Admin: 07/10/21 08:24 Dose: 40 meq Documented by: Potassium Chloride (Potassium Chloride 20 Meq Tab.Er) 40 meq PO ONETIME ONE Stop: 07/11/21 15:37 - Exam Urinary Catheter Total Time: 0Days 3Hours General: Alert, No Acute Distress. No: Oriented Lungs: Clear to Auscultation, Normal Respiratory Effort Cardiovascular: Regular Rate, Regular Rhythm GI/Abdominal Exam: Soft, Non-Tender, No Distention Extremities: Non-Tender, No Pedal Edema Skin: Warm, Dry, Intact Neurological: No New Focal Deficit - Patient Data Lab Results Last 24 hrs: Laboratory Results - last 24 hr 07/12/21 07/12/21 Range/Units 05:23 05:23 WBC 13.14 H (4.0-11.0) K/uL RBC 2.60 L (4.50-5.90) M/uL Hgb 8.4 L (13.0-17.0) g/dL Hct 24.8 L (38.0-50.0) % MCV 95.4 (80.0-98.0) fL MCH 32.3 H (27.0-32.0) pg MCHC 33.9 (31.0-37.0) g/dL RDW Std Deviation 50.5 (28.0-62.0) fl RDW Coeff of Claudio 15 (11.0-15.0) % Plt Count 284 (150-400) K/uL MPV 9.00 (7.40-12.00) fL Neut % (Auto) 75.8 (48.0-80.0) % Lymph % (Auto) 12.1 L (16.0-40.0) % Mckenzie % (Auto) 9.2 (0.0-15.0) % Eos % (Auto) 2.6 (0.0-7.0) % Baso % (Auto) 0.3 (0.0-1.5) % Neut # (Auto) 10.0 H (1.4-5.7) K/uL Lymph # (Auto) 1.6 (0.6-2.4) K/uL Mckenzie # (Auto) 1.2 H (0.0-0.8) K/uL Eos # (Auto) 0.3 (0.0-0.7) K/uL Baso # (Auto) 0.0 (0.0-0.1) K/uL Nucleated RBC % 0.0 /100WBC Nucleated RBCs # 0 K/uL Sodium 135 L (136-148) mmol/L Potassium 2.9 L (3.5-5.1) mmol/L Chloride 95 L (98-107) mmol/L Carbon Dioxide 31.0 (21.0-32.0) mmol/L BUN 49 H (7.0-18.0) mg/dL Creatinine 2.3 H (0.8-1.3) mg/dL Est Cr Clr Drug Dosing 23.61 mL/min Estimated GFR (MDRD) 29.0 ml/min Glucose 83 (74-106) mg/dL Calcium 7.9 L (8.5-10.1) mg/dL Total Bilirubin 0.2 (0.2-1.0) mg/dL AST 22 (15-37) IU/L ALT 10 L (14-63) IU/L Alkaline Phosphatase 74 (46-116) U/L Total Protein 5.9 L (6.4-8.2) g/dL Albumin 2.1 L (3.4-5.0) g/dL Globulin 3.8 (2.6-4.0) g/dL Albumin/Globulin Ratio 0.6 L (0.9-1.6) Result Diagrams: 07/12/21 05:23 07/12/21 05:23 Sepsis Event Note - Evaluation Sepsis Screening Result: No Definite Risk - Focused Exam Vital Signs: Vital Signs Temp Pulse Resp BP Pulse Ox 07/12/21 07:45 36.8 C 102 H 18 121/79 100 07/12/21 04:00 36.5 C 119 H 16 118/66 100 07/12/21 00:00 36.6 C 100 16 108/72 100 - Problem List Review Problem List Initiated/Reviewed/Updated: Yes - My Orders Last 24 Hours: My Active Orders 07/12/21 Lunch Regular Diet [DIET] 07/12/21 11:01 Potassium Chloride [Klor-Con M20] 40 meq PO ONETIME ONE - Assessment Assessment:: 1. Acute on chronic pancreatitis, due to alcohol abuse disorder appears to be resolving will advance diet. will consider MRI of Pancrease to follow up CT scan results 2. Alcohol withdrawal Continue CIWAA, patient requiring frequent Ativan dosing, continue thiamine and folic acid 3. Acute on chronic kidney disease, creatinine 2.3, continue IV fluids, 4. Hyponatremia: resolving, likely related to ETOH and dehydration 5. Pneumonia: due to leukocytosis and infiltrates on CT, have started rocephin and azithromycin 6. history of GI bleed: some mild coffee ground emesis two days ago, Hemocult negative. Patient is on PPI, will need outpatient referral for endoscopy considering CT scan report. 7. Diabetes mellitus -Accu-Cheks/ISS/NovoLog 8. sacral fracture, PT consult
[2021-07-12] MEDS: Sodium Chloride 0.9% 1,000 ML IV SCH (16:17)
[2021-07-12] MEDS: Thiamine 100 MG Tab PO SCH (20:27)
[2021-07-12] MEDS: Folic Acid 1 MG Tab PO SCH (20:27)
[2021-07-12] MEDS: Aspirin 81 MG Tab.Chew PO SCH (20:27)
[2021-07-12] MEDS: atorvaSTATin 20 MG Tab PO SCH (20:28)
[2021-07-13] MEDS: cefTRIAXone 1 GM in Premix Bag 1 BAG IV SCH (02:00)
[2021-07-13] MEDS: Azithromycin 500 MG in Sodium Chloride 0.9% 250 ML IV SCH (02:35)
[2021-07-13] MEDS: LORazepam 2 MG/ML SDV IVPUSH PRN ×4 (03:15→22:00)
[2021-07-13] MEDS: HYDROmorphone 1 MG/ML Syringe IVPUSH PRN ×4 (04:03→20:24)
[2021-07-13 06:44] LABS: CARBON DIOXIDE,CO2 29.5 mmol/L (21.0-32.0); POTASSIUM,K 3.8 mmol/L (3.5-5.1)
[2021-07-13] MEDS: Pantoprazole 40 MG/10 ML Syringe IVPUSH SCH ×2 (08:26→20:26)
[2021-07-13] MEDS: Nicotine 21 MG/24 Hr Patch TRDERM SCH (08:26)
[2021-07-13] MEDS: Psyllium Husk Powder Sugar Free 5.85 GM Packet PO SCH (08:26)
--- NOTE | 2021-07-13 15:25 | PCM.PN ---
- General Info Date of Service: 07/13/21 Subjective Update: The patient is a 61-year-old male, on day 4 of service, who has a significant past medical history of a cholecystectomy, alcohol abuse disorder, and chronic pancreatitis, who was admitted to the medical floor due to acute pancreatitis and was also found to be both hyponatremic and hypokalemic. The patient's low sodium and potassium levels have been replenished with treatment. He is currently being treated for pneumonia which was found in hospital with 2 different antibiotics including azithromycin and Rocephin. The most pressing issues for this patient is coffee-ground emesis for which she is receiving Zofran and is on a proton pump inhibitor. He will likely need outpatient scoping done to find the cause. He also has a nondisplaced sacral fracture which will require physical therapy. Upon interview with the patient today, he was complaining of slight memory loss yesterday, today I performed a Mini-Mental status exam on this patient and found that he is indeed suffering from amnesia which may be due to his alcohol use versus some other disease process. We will continue to monitor his clinical status for any deterioration. - Review of Systems General: Reports: Fatigue. Denies: Fever, Weakness HEENT: Denies: Headaches, Sore Throat Pulmonary: Denies: Shortness of Breath, Cough Cardiovascular: Denies: Chest Pain, Palpitations Gastrointestinal: Reports: Abdominal Pain, Nausea. Denies: Vomiting Genitourinary: Denies: Dysuria Neurological: Reports: Confusion, Other (Difficult to find thoughts, memory loss) - Patient Data Vitals - Most Recent: Last Vital Signs Temp 99 F 07/13/21 13:00 Pulse 99 07/13/21 13:00 Resp 14 07/13/21 13:00 BP 138/87 07/13/21 13:00 Pulse Ox 97 07/13/21 13:00 Weight - Most Recent: 110 lb 8 oz I&O - Last 24 Hours: Intake & Output 07/13/21 07/13/21 07/13/21 06:59 14:59 22:59 Intake Total 750 Output Total 1000 Balance -250 Lab Results Last 24 Hours: Laboratory Results - last 24 hr 07/13/21 07/13/21 Range/Units 05:24 05:24 WBC 14.90 H (4.0-11.0) K/uL RBC 2.63 L (4.50-5.90) M/uL Hgb 8.5 L (13.0-17.0) g/dL Hct 24.8 L (38.0-50.0) % MCV 94.3 (80.0-98.0) fL MCH 32.3 H (27.0-32.0) pg MCHC 34.3 (31.0-37.0) g/dL RDW Std Deviation 49.8 (28.0-62.0) fl RDW Coeff of Claudio 15 (11.0-15.0) % Plt Count 329 (150-400) K/uL MPV 8.90 (7.40-12.00) fL Neut % (Auto) 66.9 (48.0-80.0) % Lymph % (Auto) 16.0 (16.0-40.0) % Dillon % (Auto) 12.6 (0.0-15.0) % Eos % (Auto) 4.0 (0.0-7.0) % Baso % (Auto) 0.5 (0.0-1.5) % Neut # (Auto) 10.0 H (1.4-5.7) K/uL Lymph # (Auto) 2.4 (0.6-2.4) K/uL Dillon # (Auto) 1.9 H (0.0-0.8) K/uL Eos # (Auto) 0.6 (0.0-0.7) K/uL Baso # (Auto) 0.1 (0.0-0.1) K/uL Nucleated RBC % 0.0 /100WBC Nucleated RBCs # 0 K/uL Sodium 137 (136-148) mmol/L Potassium 3.8 (3.5-5.1) mmol/L Chloride 101 (98-107) mmol/L Carbon Dioxide 29.5 (21.0-32.0) mmol/L BUN 29 H (7.0-18.0) mg/dL Creatinine 1.8 H (0.8-1.3) mg/dL Est Cr Clr Drug Dosing 30.17 mL/min Estimated GFR (MDRD) 38.4 ml/min Glucose 204 H (74-106) mg/dL Calcium 7.8 L (8.5-10.1) mg/dL Total Bilirubin 0.1 L (0.2-1.0) mg/dL AST 24 (15-37) IU/L ALT 18 (14-63) IU/L Alkaline Phosphatase 75 (46-116) U/L Total Protein 6.3 L (6.4-8.2) g/dL Albumin 2.2 L (3.4-5.0) g/dL Globulin 4.1 H (2.6-4.0) g/dL Albumin/Globulin Ratio 0.5 L (0.9-1.6) Med Orders - Current: Current Medications Acetaminophen (Acetaminophen 325 Mg Tab) 650 mg PO Q4H PRN PRN Reason: Pain (Mild 1-3)/fever Last Admin: 07/09/21 21:37 Dose: 650 mg Documented by: Aspirin (Aspirin 81 Mg Tab.Chew) 81 mg PO BEDTIME [facility] Last Admin: 07/12/21 20:27 Dose: 81 mg Documented by: Atorvastatin Calcium (Atorvastatin 20 Mg Tab) 20 mg PO BEDTIME [facility] Last Admin: 07/12/21 20:28 Dose: 20 mg Documented by: Docusate Sodium (Docusate Sodium 100 Mg Cap) 100 mg PO BID PRN PRN Reason: Constipation Eszopiclone (Eszopiclone 1 Mg Tab) 2 mg PO BEDTIME PRN PRN Reason: Sleep Folic Acid (Folic Acid 1 Mg Tab) 1 mg PO BEDTIME [facility] Last Admin: 07/12/21 20:27 Dose: 1 mg Documented by: Hydromorphone HCl (Hydromorphone 1 Mg/Ml Syringe) 0.5 mg IVPUSH Q2H PRN PRN Reason: Abdominal Pain Last Admin: 07/13/21 10:27 Dose: 0.5 mg Documented by: Sodium Chloride (Normal Saline) 1,000 mls @ 150 mls/hr IV ASDIRECTED [facility] Last Admin: 07/12/21 16:17 Dose: 150 mls/hr Documented by: Ceftriaxone Sodium/Dextrose 1 (gm/ Premix) 50 mls @ 100 mls/hr IV Q24H [facility] Last Admin: 07/13/21 02:00 Dose: 100 mls/hr Documented by: Azithromycin 500 mg/ Sodium (Chloride) 250 mls @ 250 mls/hr IV Q24H [facility] Last Admin: 07/13/21 02:35 Dose: 250 mls/hr Documented by: Lorazepam (Lorazepam 2 Mg/Ml Sdv) 0 mg IVPUSH Q4H PRN; Protocol PRN Reason: CIWAA Last Admin: 07/13/21 10:26 Dose: 1 mg Documented by: Nicotine (Nicotine 21 Mg/24 Hr Patch) 21 mg TRDERM DAILY [facility] Last Admin: 07/13/21 08:26 Dose: 21 mg Documented by: Ondansetron HCl (Ondansetron 4 Mg Tab.Dis) 4 mg PO Q6H PRN PRN Reason: nausea, able to take PO Last Admin: 07/10/21 10:39 Dose: 4 mg Documented by: Pantoprazole Sodium (Pantoprazole 40 Mg/10 Ml Syringe) 40 mg IVPUSH BID [facility] Last Admin: 07/13/21 08:26 Dose: 40 mg Documented by: Psyllium Husk (Psyllium Husk Powder Sugar Free 5.85 Gm Packet) 1 pkt PO DAILY [facility] Last Admin: 07/13/21 08:26 Dose: 1 pkt Documented by: Sodium Chloride (Sodium Chloride 0.9% 10 Ml Syringe) 10 ml FLUSH ASDIRECTED PRN PRN Reason: Keep Vein Open Last Admin: 07/08/21 17:10 Dose: 10 ml Documented by: Sodium Chloride (Sodium Chloride 0.9% 2.5 Ml Syringe) 2.5 ml FLUSH ASDIRECTED PRN PRN Reason: Keep Vein Open Last Admin: 07/08/21 17:10 Dose: 2.5 ml Documented by: Thiamine HCl (Thiamine 100 Mg Tab) 100 mg PO BEDTIME [facility] Last Admin: 07/12/21 20:27 Dose: 100 mg Documented by: Discontinued Medications Aspirin (Aspirin 81 Mg Tab.Chew) 324 mg PO ONETIME ONE Stop: 07/08/21 17:08 Last Admin: 07/08/21 17:10 Dose: 324 mg Documented by: Diphenhydramine HCl (Diphenhydramine 25 Mg Cap) 50 mg PO BEDTIME [facility] Last Admin: 07/09/21 20:16 Dose: 50 mg Documented by: Heparin Sodium (Porcine) (Heparin Sodium 5,000 Units/Ml Vial) 5,000 units SUBCUT Q8H [facility] Last Admin: 07/10/21 08:24 Dose: Not Given Documented by: Hydromorphone HCl (Hydromorphone 2 Mg/Ml Syringe) 1 mg IVPUSH ONETIME ONE Stop: 07/08/21 17:32 Last Admin: 07/08/21 17:37 Dose: 1 mg Documented by: Hydromorphone HCl (Hydromorphone 1 Mg/Ml Syringe) 1 mg IVPUSH ONETIME ONE Stop: 07/08/21 22:36 Last Admin: 07/08/21 22:42 Dose: 1 mg Documented by: Hydromorphone HCl (Hydromorphone 2 Mg/Ml Syringe) 0.5 mg IVPUSH Q2H PRN PRN Reason: Abdominal Pain Last Admin: 07/10/21 19:47 Dose: 0.5 mg Documented by: Sodium Chloride (Normal Saline) 1,000 mls @ 1,000 mls/hr IV .Bolus ONE Stop: 07/08/21 19:26 Last Admin: 07/08/21 18:34 Dose: 1,000 mls/hr Documented by: Sodium Chloride (Sodium Chloride 0.45%) 1,000 mls @ 75 mls/hr IV ASDIRECTED [facility] Potassium Chloride/Sodium Chloride (1/2 Ns With 20 Meq Kcl) 1,000 mls @ 75 mls/hr IV ASDIRECTED [facility] Potassium Chloride 40 meq/ (Premix) 100 mls @ 25 mls/hr IV ONETIME ONE Stop: 07/09/21 03:16 Last Admin: 07/08/21 23:45 Dose: 25 mls/hr Documented by: Sodium Chloride (Normal Saline) 500 mls @ 999 mls/hr IV .BOLUS ONE Stop: 07/09/21 00:38 Last Admin: 07/09/21 00:10 Dose: 999 mls/hr Documented by: Potassium Chloride/Sodium Chloride (1/2 Ns With 20 Meq Kcl) 1,000 mls @ 150 mls/hr IV ASDIRECTED [facility] Last Admin: 07/09/21 03:33 Dose: 150 mls/hr Documented by: Potassium Chloride/Sodium Chloride (Normal Saline With 40 Meq Kcl) 1,000 mls @ 150 mls/hr IV ONETIME ONE Stop: 07/10/21 00:24 Last Admin: 07/09/21 19:46 Dose: 150 mls/hr Documented by: Sodium Chloride (Normal Saline) 1,000 mls @ 150 mls/hr IV ASDIRECTED KATHRYN Stop: 07/10/21 16:54 Last Admin: 07/10/21 10:40 Dose: 150 mls/hr Documented by: Sodium Chloride (Normal Saline) 1,000 mls @ 250 mls/hr IV .Bolus ONE Stop: 07/10/21 21:06 Last Admin: 07/10/21 17:36 Dose: 250 mls/hr Documented by: Ciprofloxacin/Dextrose 400 mg/ (Premix) 200 mls @ 200 mls/hr IV Q24H [facility] Last Admin: 07/10/21 18:36 Dose: 200 mls/hr Documented by: Metronidazole 500 mg/ Premix 100 mls @ 100 mls/hr IV Q8H [facility] Last Admin: 07/10/21 20:49 Dose: 100 mls/hr Documented by: Sodium Chloride (Normal Saline) 1,000 mls @ 999 mls/hr IV ASDIRECTED [facility] Stop: 07/11/21 02:01 Metoclopramide HCl (Metoclopramide 10 Mg/2 Ml Sdv) 10 mg IVPUSH ONETIME ONE Stop: 07/08/21 23:53 Last Admin: 07/08/21 23:58 Dose: 10 mg Documented by: Ondansetron HCl (Ondansetron 4 Mg/2 Ml Sdv) 4 mg IVPUSH ONETIME ONE Stop: 07/08/21 17:32 Last Admin: 07/08/21 17:37 Dose: 4 mg Documented by: Ondansetron HCl (Ondansetron 4 Mg/2 Ml Sdv) 4 mg IVPUSH ONETIME ONE Stop: 07/08/21 22:36 Last Admin: 07/08/21 22:42 Dose: 4 mg Documented by: Pantoprazole Sodium (Pantoprazole 40 Mg Tab.Cr) 40 mg PO ACBREAKFAST [facility] Last Admin: 07/10/21 07:11 Dose: 40 mg Documented by: Potassium Chloride (Potassium Chloride 20 Meq Tab.Er) 40 meq PO ONETIME ONE Stop: 07/08/21 18:59 Last Admin: 07/08/21 19:19 Dose: 40 meq Documented by: Potassium Chloride (Potassium Chloride 20 Meq Tab.Er) 40 meq PO ONETIME ONE Stop: 07/10/21 07:56 Last Admin: 07/10/21 08:24 Dose: 40 meq Documented by: Potassium Chloride (Potassium Chloride 20 Meq Tab.Er) 40 meq PO ONETIME ONE Stop: 07/11/21 15:37 Last Admin: 07/12/21 18:08 Dose: Not Given Documented by: Potassium Chloride (Potassium Chloride 20 Meq Tab.Er) 40 meq PO ONETIME ONE Stop: 07/12/21 11:02 Last Admin: 07/12/21 11:29 Dose: 40 meq Documented by: - Exam Urinary Catheter Total Time: 0Days 3Hours General: Alert, Cooperative. No: Oriented HEENT: Mucous Membr. Moist/[place] Neck: Trachea Midline Lungs: Clear to Auscultation Cardiovascular: Regular Rate, Regular Rhythm GI/Abdominal Exam: Normal Bowel Sounds, Tender Psy/Mental Status: Other (Confusion/slight memory loss) - Patient Data Lab Results Last 24 hrs: Laboratory Results - last 24 hr 07/13/21 07/13/21 Range/Units 05:24 05:24 WBC 14.90 H (4.0-11.0) K/uL RBC 2.63 L (4.50-5.90) M/uL Hgb 8.5 L (13.0-17.0) g/dL Hct 24.8 L (38.0-50.0) % MCV 94.3 (80.0-98.0) fL MCH 32.3 H (27.0-32.0) pg MCHC 34.3 (31.0-37.0) g/dL RDW Std Deviation 49.8 (28.0-62.0) fl RDW Coeff of Claudio 15 (11.0-15.0) % Plt Count 329 (150-400) K/uL MPV 8.90 (7.40-12.00) fL Neut % (Auto) 66.9 (48.0-80.0) % Lymph % (Auto) 16.0 (16.0-40.0) % Dillon % (Auto) 12.6 (0.0-15.0) % Eos % (Auto) 4.0 (0.0-7.0) % Baso % (Auto) 0.5 (0.0-1.5) % Neut # (Auto) 10.0 H (1.4-5.7) K/uL Lymph # (Auto) 2.4 (0.6-2.4) K/uL Dillon # (Auto) 1.9 H (0.0-0.8) K/uL Eos # (Auto) 0.6 (0.0-0.7) K/uL Baso # (Auto) 0.1 (0.0-0.1) K/uL Nucleated RBC % 0.0 /100WBC Nucleated RBCs # 0 K/uL Sodium 137 (136-148) mmol/L Potassium 3.8 (3.5-5.1) mmol/L Chloride 101 (98-107) mmol/L Carbon Dioxide 29.5 (21.0-32.0) mmol/L BUN 29 H (7.0-18.0) mg/dL Creatinine 1.8 H (0.8-1.3) mg/dL Est Cr Clr Drug Dosing 30.17 mL/min Estimated GFR (MDRD) 38.4 ml/min Glucose 204 H (74-106) mg/dL Calcium 7.8 L (8.5-10.1) mg/dL Total Bilirubin 0.1 L (0.2-1.0) mg/dL AST 24 (15-37) IU/L ALT 18 (14-63) IU/L Alkaline Phosphatase 75 (46-116) U/L Total Protein 6.3 L (6.4-8.2) g/dL Albumin 2.2 L (3.4-5.0) g/dL Globulin 4.1 H (2.6-4.0) g/dL Albumin/Globulin Ratio 0.5 L (0.9-1.6) Result Diagrams: 07/13/21 05:24 07/13/21 05:24 Sepsis Event Note - Evaluation Sepsis Screening Result: No Definite Risk - Focused Exam Vital Signs: Vital Signs Temp Pulse Resp BP Pulse Ox 07/13/21 13:00 99 F 99 14 138/87 97 07/13/21 09:00 98.3 F 99 16 156/94 H 96 07/13/21 05:00 110 H 16 139/86 - Problem List & Annotations (1) Hypokalemia SNOMED Code(s): 87627945 Code(s): E87.6 - HYPOKALEMIA Status: Acute Current Visit: Yes (2) Hyponatremia SNOMED Code(s): 26583749 Code(s): E87.1 - HYPO-OSMOLALITY AND HYPONATREMIA Status: Acute Current Visit: Yes (3) Acute kidney injury SNOMED Code(s): 78420789, 89809547 Code(s): N17.9 - ACUTE KIDNEY FAILURE, UNSPECIFIED Status: Acute Current Visit: No (4) Pancreatitis SNOMED Code(s): 58847404 Code(s): K85.90 - ACUTE PANCREATITIS WITHOUT NECROSIS OR INFECTION, UNSP Status: Acute Priority: High Current Visit: No Qualifiers: Chronicity: acute Pancreatitis type: alcohol induced Acute pancreatitis complication: unspecified Qualified Code(s): K85.20 - Alcohol induced acute p ancreatitis without necrosis or infection (5) CKD (chronic kidney disease), stage IV SNOMED Code(s): 785108214 Code(s): N18.4 - CHRONIC KIDNEY DISEASE, STAGE 4 (SEVERE) Status: Acute Current Visit: Yes (6) Diabetes mellitus SNOMED Code(s): 42898018 Code(s): E11.9 - TYPE 2 DIABETES MELLITUS WITHOUT COMPLICATIONS Status: Chronic Priority: Medium Current Visit: No (7) Alcohol abuse SNOMED Code(s): 07031347 Code(s): F10.10 - ALCOHOL ABUSE, UNCOMPLICATED Status: Acute Current Visit: Yes (8) Alcohol withdrawal SNOMED Code(s): 263669881 Code(s): F10.239 - ALCOHOL DEPENDENCE WITH WITHDRAWAL, UNSPECIFIED Status: Acute Current Visit: Yes (9) Leukocytosis SNOMED Code(s): 204490033, 334871379 Code(s): D72.829 - ELEVATED WHITE BLOOD CELL COUNT, UNSPECIFIED Status: Acute Current Visit: Yes (10) Pneumonia SNOMED Code(s): 309716266 Code(s): J18.9 - PNEUMONIA, UNSPECIFIED ORGANISM Status: Acute Current Visit: Yes (11) Tobacco dependence SNOMED Code(s): 26726535 Code(s): F17.200 - NICOTINE DEPENDENCE, UNSPECIFIED, UNCOMPLICATED Status: Acute Current Visit: Yes (12) Confused SNOMED Code(s): 265068129 Code(s): R41.0 - DISORIENTATION, UNSPECIFIED Status: Acute Current Visit: Yes (13) Sacral fracture SNOMED Code(s): 117034227 Code(s): S32.10XA - UNSP FRACTURE OF SACRUM, INIT ENCNTR FOR CLOSED FRACTURE Status: Acute Current Visit: Yes - Problem List Review Problem List Initiated/Reviewed/Updated: Yes - My Orders Last 24 Hours: My Active Orders 07/14/21 05:11 CBC WITH AUTO DIFF [HEME] AM CMP [COMPREHENSIVE METABOLIC PN,CMP] [CHEM] AM - Assessment Assessment:: 1. Acute on chronic pancreatitis, due to alcohol abuse disorder -Continue with Zofran and progress diet as tolerated -For analgesia the patient has Dilaudid and Tylenol on board -Continue to monitor patient with daily CBC/BMP 2. Leukocytosis secondary to pneumonia which was seen on CT -Continue with azithromycin 500 mg per IV route every 24 hours -Continue with Rocephin 1 g per IV route every 24 hours 3. History of GI bleed -Coffee-ground emesis controlled with PPI and Zofran. We will discuss outpatient referral for scoping after discharge. 4. Hyponatremia -Resolved 5. Hypokalemia -Resolved 6. RISHABH on CKD -This patient will require an outpatient follow-up with nephrology, creatinine is currently 1.8 and is coming down, continue to monitor 7. Diabetes mellitus -Accu-Cheks/ISS/NovoLog 8. Alcohol abuse disorder/withdrawal CIWA protocol in place, continue thiamine and folic acid 9. Tobacco dependence -Patient currently on a nicotine patch 21 mg daily 10. Slightly displaced sacral fracture -PT referral in place 11. Slight confusion/amnesia -The patient scored under 20 on a Mini-Mental status exam, this may be due to his alcohol use versus some other disease process -Due to the acute nature of this finding we will continue to monitor and treat accordingly
[2021-07-13] MEDS: Sodium Chloride 0.9% 1,000 ML IV SCH (17:34)
[2021-07-13] MEDS: Thiamine 100 MG Tab PO SCH (20:25)
[2021-07-13] MEDS: Aspirin 81 MG Tab.Chew PO SCH (20:26)
[2021-07-13] MEDS: atorvaSTATin 20 MG Tab PO SCH (20:26)
[2021-07-13] MEDS: Folic Acid 1 MG Tab PO SCH (20:26)
[2021-07-14] MEDS: HYDROmorphone 1 MG/ML Syringe IVPUSH PRN ×6 (00:28→23:17)
[2021-07-14] MEDS: cefTRIAXone 1 GM in Premix Bag 1 BAG IV SCH (00:29)
[2021-07-14] MEDS: Azithromycin 500 MG in Sodium Chloride 0.9% 250 ML IV SCH (02:20)
[2021-07-14] MEDS: LORazepam 2 MG/ML SDV IVPUSH PRN ×2 (03:00→21:00)
[2021-07-14 07:36] LABS: CARBON DIOXIDE,CO2 23.9 mmol/L (21.0-32.0); POTASSIUM,K 4.9 mmol/L (3.5-5.1)
[2021-07-14] MEDS: Sodium Chloride 0.9% 1,000 ML IV SCH (08:26)
[2021-07-14] MEDS: Pantoprazole 40 MG/10 ML Syringe IVPUSH SCH ×2 (08:41→20:01)
[2021-07-14] MEDS: Psyllium Husk Powder Sugar Free 5.85 GM Packet PO SCH (08:42)
[2021-07-14] MEDS: Nicotine 21 MG/24 Hr Patch TRDERM SCH (08:44)
--- NOTE | 2021-07-14 16:57 | PCM.PN ---
- General Info Date of Service: 07/14/21 Subjective Update: The patient is a 61-year-old male, on day 5 of service, who has a significant past medical history of a cholecystectomy, alcohol abuse disorder, and chronic pancreatitis, who was admitted to the medical floor due to acute pancreatitis and was found to have electrolyte abnormalities, as well as pneumonia. The patient was also suffering from withdrawal symptoms from alcohol while in hospital and received 2 doses of Ativan yesterday, however today he did not require any. He was also suffering from some confusion/amnesia yesterday but was oriented to place, time, and person today. His abdominal pain from his acute pancreatitis has subsided. His electrolyte abnormalities have resolved. His emesis has been controlled over the last 24 hours. Upon interview he felt great and is ready to go home however anticipated discharge will be tomorrow o nce the patient figures out package pick up from the hospital. He has no other health concerns at this time. - Review of Systems General: Denies: Weakness, Fatigue HEENT: Denies: Headaches, Sore Throat Pulmonary: Denies: Shortness of Breath, Cough Cardiovascular: Denies: Chest Pain, Palpitations Gastrointestinal: Denies: Abdominal Pain, Nausea, Vomiting Genitourinary: Denies: Dysuria Psychiatric: Denies: Anxiety, Agitation - Patient Data Vitals - Most Recent: Last Vital Signs Temp 98.4 F 07/14/21 13:52 Pulse 98 07/14/21 13:52 Resp 16 07/14/21 13:52 BP 154/99 H 07/14/21 13:52 Pulse Ox 99 07/14/21 13:52 Weight - Most Recent: 110 lb 8 oz I&O - Last 24 Hours: Intake & Output 07/14/21 07/14/21 07/14/21 06:59 14:59 22:59 Intake Total 5488 535 7245 Output Total 1000 980 Balance 200 992 30 Lab Results Last 24 Hours: Laboratory Results - last 24 hr 07/08/21 07/08/21 07/14/21 Range/Units 20:32 20:32 05:58 WBC 9.96 (4.0-11.0) K/uL RBC 2.36 L (4.50-5.90) M/uL Hgb 7.7 L (13.0-17.0) g/dL Hct 22.4 L (38.0-50.0) % MCV 94.9 (80.0-98.0) fL MCH 32.6 H (27.0-32.0) pg MCHC 34.4 (31.0-37.0) g/dL RDW Std Deviation 52.1 (28.0-62.0) fl RDW Coeff of Claudio 15 (11.0-15.0) % Plt Count 324 (150-400) K/uL MPV 8.80 (7.40-12.00) fL Neut % (Auto) 65.4 (48.0-80.0) % Lymph % (Auto) 18.4 (16.0-40.0) % Taylor % (Auto) 11.4 (0.0-15.0) % Eos % (Auto) 4.3 (0.0-7.0) % Baso % (Auto) 0.5 (0.0-1.5) % Neut # (Auto) 6.5 H (1.4-5.7) K/uL Lymph # (Auto) 1.8 (0.6-2.4) K/uL Taylor # (Auto) 1.1 H (0.0-0.8) K/uL Eos # (Auto) 0.4 (0.0-0.7) K/uL Baso # (Auto) 0.1 (0.0-0.1) K/uL Nucleated RBC % 0.0 /100WBC Nucleated RBCs # 0 K/uL Sodium (136-148) mmol/L Potassium (3.5-5.1) mmol/L Chloride (98-107) mmol/L Carbon Dioxide (21.0-32.0) mmol/L BUN (7.0-18.0) mg/dL Creatinine (0.8-1.3) mg/dL Est Cr Clr Drug Dosing mL/min Estimated GFR (MDRD) ml/min Glucose (74-106) mg/dL Calcium (8.5-10.1) mg/dL Total Bilirubin (0.2-1.0) mg/dL AST (15-37) IU/L ALT (14-63) IU/L Alkaline Phosphatase (46-116) U/L Total Protein (6.4-8.2) g/dL Albumin (3.4-5.0) g/dL Globulin (2.6-4.0) g/dL Albumin/Globulin Ratio (0.9-1.6) Urine Osmolality SEE COMMENT Urine Total Volume SEE COMMENT Ur Uric Acid 24 Hr SEE COMMENT Ur Uric Acid Concent SEE COMMENT 07/14/21 Range/Units 05:58 WBC (4.0-11.0) K/uL RBC (4.50-5.90) M/uL Hgb (13.0-17.0) g/dL Hct (38.0-50.0) % MCV (80.0-98.0) fL MCH (27.0-32.0) pg MCHC (31.0-37.0) g/dL RDW Std Deviation (28.0-62.0) fl RDW Coeff of Claudio (11.0-15.0) % Plt Count (150-400) K/uL MPV (7.40-12.00) fL Neut % (Auto) (48.0-80.0) % Lymph % (Auto) (16.0-40.0) % Taylor % (Auto) (0.0-15.0) % Eos % (Auto) (0.0-7.0) % Baso % (Auto) (0.0-1.5) % Neut # (Auto) (1.4-5.7) K/uL Lymph # (Auto) (0.6-2.4) K/uL Taylor # (Auto) (0.0-0.8) K/uL Eos # (Auto) (0.0-0.7) K/uL Baso # (Auto) (0.0-0.1) K/uL Nucleated RBC % /100WBC Nucleated RBCs # K/uL Sodium 137 (136-148) mmol/L Potassium 4.9 (3.5-5.1) mmol/L Chloride 103 (98-107) mmol/L Carbon Dioxide 23.9 (21.0-32.0) mmol/L BUN 18 (7.0-18.0) mg/dL Creatinine 1.6 H (0.8-1.3) mg/dL Est Cr Clr Drug Dosing 33.94 mL/min Estimated GFR (MDRD) 44.0 ml/min Glucose 319 H (74-106) mg/dL Calcium 7.6 L (8.5-10.1) mg/dL Total Bilirubin 0.1 L (0.2-1.0) mg/dL AST 26 (15-37) IU/L ALT 16 (14-63) IU/L Alkaline Phosphatase 76 (46-116) U/L Total Protein 5.7 L (6.4-8.2) g/dL Albumin 2.1 L (3.4-5.0) g/dL Globulin 3.6 (2.6-4.0) g/dL Albumin/Globulin Ratio 0.6 L (0.9-1.6) Urine Osmolality Urine Total Volume Ur Uric Acid 24 Hr Ur Uric Acid Concent Med Orders - Current: Current Medications Acetaminophen (Acetaminophen 325 Mg Tab) 650 mg PO Q4H PRN PRN Reason: Pain (Mild 1-3)/fever Last Admin: 07/09/21 21:37 Dose: 650 mg Documented by: Aspirin (Aspirin 81 Mg Tab.Chew) 81 mg PO BEDTIME [facility] Last Admin: 07/13/21 20:26 Dose: 81 mg Documented by: Atorvastatin Calcium (Atorvastatin 20 Mg Tab) 20 mg PO BEDTIME [facility] Last Admin: 07/13/21 20:26 Dose: 20 mg Documented by: Docusate Sodium (Docusate Sodium 100 Mg Cap) 100 mg PO BID PRN PRN Reason: Constipation Eszopiclone (Eszopiclone 1 Mg Tab) 2 mg PO BEDTIME PRN PRN Reason: Sleep Folic Acid (Folic Acid 1 Mg Tab) 1 mg PO BEDTIME [facility] Last Admin: 07/13/21 20:26 Dose: 1 mg Documented by: Hydromorphone HCl (Hydromorphone 1 Mg/Ml Syringe) 0.5 mg IVPUSH Q2H PRN PRN Reason: Abdominal Pain Last Admin: 07/14/21 14:05 Dose: 0.5 mg Documented by: Ceftriaxone Sodium/Dextrose 1 (gm/ Premix) 50 mls @ 100 mls/hr IV Q24H [facility] Last Admin: 07/14/21 00:29 Dose: 100 mls/hr Documented by: Azithromycin 500 mg/ Sodium (Chloride) 250 mls @ 250 mls/hr IV Q24H [facility] Last Admin: 07/14/21 02:20 Dose: 250 mls/hr Documented by: Lorazepam (Lorazepam 2 Mg/Ml Sdv) 0 mg IVPUSH Q4H PRN; Protocol PRN Reason: CIWAA Last Admin: 07/14/21 03:00 Dose: 1 mg Documented by: Nicotine (Nicotine 21 Mg/24 Hr Patch) 21 mg TRDERM DAILY [facility] Last Admin: 07/14/21 08:44 Dose: 21 mg Documented by: Ondansetron HCl (Ondansetron 4 Mg Tab.Dis) 4 mg PO Q6H PRN PRN Reason: nausea, able to take PO Last Admin: 07/10/21 10:39 Dose: 4 mg Documented by: Pantoprazole Sodium (Pantoprazole 40 Mg/10 Ml Syringe) 40 mg IVPUSH BID [facility] Last Admin: 07/14/21 08:41 Dose: 40 mg Documented by: Psyllium Husk (Psyllium Husk Powder Sugar Free 5.85 Gm Packet) 1 pkt PO DAILY [facility] Last Admin: 07/14/21 08:42 Dose: 1 pkt Documented by: Sodium Chloride (Sodium Chloride 0.9% 10 Ml Syringe) 10 ml FLUSH ASDIRECTED PRN PRN Reason: Keep Vein Open Last Admin: 07/08/21 17:10 Dose: 10 ml Documented by: Sodium Chloride (Sodium Chloride 0.9% 2.5 Ml Syringe) 2.5 ml FLUSH ASDIRECTED PRN PRN Reason: Keep Vein Open Last Admin: 07/08/21 17:10 Dose: 2.5 ml Documented by: Thiamine HCl (Thiamine 100 Mg Tab) 100 mg PO BEDTIME [facility] Last Admin: 07/13/21 20:25 Dose: 100 mg Documented by: Discontinued Medications Aspirin (Aspirin 81 Mg Tab.Chew) 324 mg PO ONETIME ONE Stop: 07/08/21 17:08 Last Admin: 07/08/21 17:10 Dose: 324 mg Documented by: Diphenhydramine HCl (Diphenhydramine 25 Mg Cap) 50 mg PO BEDTIME [facility] Last Admin: 07/09/21 20:16 Dose: 50 mg Documented by: Heparin Sodium (Porcine) (Heparin Sodium 5,000 Units/Ml Vial) 5,000 units SUBCUT Q8H [facility] Last Admin: 07/10/21 08:24 Dose: Not Given Documented by: Hydromorphone HCl (Hydromorphone 2 Mg/Ml Syringe) 1 mg IVPUSH ONETIME ONE Stop: 07/08/21 17:32 Last Admin: 07/08/21 17:37 Dose: 1 mg Documented by: Hydromorphone HCl (Hydromorphone 1 Mg/Ml Syringe) 1 mg IVPUSH ONETIME ONE Stop: 07/08/21 22:36 Last Admin: 07/08/21 22:42 Dose: 1 mg Documented by: Hydromorphone HCl (Hydromorphone 2 Mg/Ml Syringe) 0.5 mg IVPUSH Q2H PRN PRN Reason: Abdominal Pain Last Admin: 07/10/21 19:47 Dose: 0.5 mg Documented by: Sodium Chloride (Normal Saline) 1,000 mls @ 1,000 mls/hr IV .Bolus ONE Stop: 07/08/21 19:26 Last Admin: 07/08/21 18:34 Dose: 1,000 mls/hr Documented by: Sodium Chloride (Sodium Chloride 0.45%) 1,000 mls @ 75 mls/hr IV ASDIRECTED [facility] Potassium Chloride/Sodium Chloride (1/2 Ns With 20 Meq Kcl) 1,000 mls @ 75 mls/hr IV ASDIRECTED KATHRYN Potassium Chloride 40 meq/ (Premix) 100 mls @ 25 mls/hr IV ONETIME ONE Stop: 07/09/21 03:16 Last Admin: 07/08/21 23:45 Dose: 25 mls/hr Documented by: Sodium Chloride (Normal Saline) 500 mls @ 999 mls/hr IV .BOLUS ONE Stop: 07/09/21 00:38 Last Admin: 07/09/21 00:10 Dose: 999 mls/hr Documented by: Potassium Chloride/Sodium Chloride (1/2 Ns With 20 Meq Kcl) 1,000 mls @ 150 mls/hr IV ASDIRECTED KATHRYN Last Admin: 07/09/21 03:33 Dose: 150 mls/hr Documented by: Potassium Chloride/Sodium Chloride (Normal Saline With 40 Meq Kcl) 1,000 mls @ 150 mls/hr IV ONETIME ONE Stop: 07/10/21 00:24 Last Admin: 07/09/21 19:46 Dose: 150 mls/hr Documented by: Sodium Chloride (Normal Saline) 1,000 mls @ 150 mls/hr IV ASDIRECTED KATHRYN Stop: 07/10/21 16:54 Last Admin: 07/10/21 10:40 Dose: 150 mls/hr Documented by: Sodium Chloride (Normal Saline) 1,000 mls @ 250 mls/hr IV .Bolus ONE Stop: 07/10/21 21:06 Last Admin: 07/10/21 17:36 Dose: 250 mls/hr Documented by: Ciprofloxacin/Dextrose 400 mg/ (Premix) 200 mls @ 200 mls/hr IV Q24H [facility] Last Admin: 07/10/21 18:36 Dose: 200 mls/hr Documented by: Metronidazole 500 mg/ Premix 100 mls @ 100 mls/hr IV Q8H [facility] Last Admin: 07/10/21 20:49 Dose: 100 mls/hr Documented by: Sodium Chloride (Normal Saline) 1,000 mls @ 150 mls/hr IV ASDIRECTED [facility] Last Admin: 07/14/21 08:26 Dose: 150 mls/hr Documented by: Sodium Chloride (Normal Saline) 1,000 mls @ 999 mls/hr IV ASDIRECTED [facility] Stop: 07/11/21 02:01 Metoclopramide HCl (Metoclopramide 10 Mg/2 Ml Sdv) 10 mg IVPUSH ONETIME ONE Stop: 07/08/21 23:53 Last Admin: 07/08/21 23:58 Dose: 10 mg Documented by: Ondansetron HCl (Ondansetron 4 Mg/2 Ml Sdv) 4 mg IVPUSH ONETIME ONE Stop: 07/08/21 17:32 Last Admin: 07/08/21 17:37 Dose: 4 mg Documented by: Ondansetron HCl (Ondansetron 4 Mg/2 Ml Sdv) 4 mg IVPUSH ONETIME ONE Stop: 07/08/21 22:36 Last Admin: 07/08/21 22:42 Dose: 4 mg Documented by: Pantoprazole Sodium (Pantoprazole 40 Mg Tab.Cr) 40 mg PO ACBREAKFAST [facility] Last Admin: 07/10/21 07:11 Dose: 40 mg Documented by: Potassium Chloride (Potassium Chloride 20 Meq Tab.Er) 40 meq PO ONETIME ONE Stop: 07/08/21 18:59 Last Admin: 07/08/21 19:19 Dose: 40 meq Documented by: Potassium Chloride (Potassium Chloride 20 Meq Tab.Er) 40 meq PO ONETIME ONE Stop: 07/10/21 07:56 Last Admin: 07/10/21 08:24 Dose: 40 meq Documented by: Potassium Chloride (Potassium Chloride 20 Meq Tab.Er) 40 meq PO ONETIME ONE Stop: 07/11/21 15:37 Last Admin: 07/12/21 18:08 Dose: Not Given Documented by: Potassium Chloride (Potassium Chloride 20 Meq Tab.Er) 40 meq PO ONETIME ONE Stop: 07/12/21 11:02 Last Admin: 07/12/21 11:29 Dose: 40 meq Documented by: - Exam Urinary Catheter Total Time: 0Days 3Hours General: Alert, Oriented, Cooperative HEENT: Mucous Membr. Moist/[place] Neck: Trachea Midline Lungs: Clear to Auscultation, Normal Respiratory Effort Cardiovascular: Regular Rate, Regular Rhythm GI/Abdominal Exam: Normal Bowel Sounds, Soft, Non-Tender - Patient Data Lab Results Last 24 hrs: Laboratory Results - last 24 hr 07/08/21 07/08/21 07/14/21 Range/Units 20:32 20:32 05:58 WBC 9.96 (4.0-11.0) K/uL RBC 2.36 L (4.50-5.90) M/uL Hgb 7.7 L (13.0-17.0) g/dL Hct 22.4 L (38.0-50.0) % MCV 94.9 (80.0-98.0) fL MCH 32.6 H (27.0-32.0) pg MCHC 34.4 (31.0-37.0) g/dL RDW Std Deviation 52.1 (28.0-62.0) fl RDW Coeff of Claudio 15 (11.0-15.0) % Plt Count 324 (150-400) K/uL MPV 8.80 (7.40-12.00) fL Neut % (Auto) 65.4 (48.0-80.0) % Lymph % (Auto) 18.4 (16.0-40.0) % Taylor % (Auto) 11.4 (0.0-15.0) % Eos % (Auto) 4.3 (0.0-7.0) % Baso % (Auto) 0.5 (0.0-1.5) % Neut # (Auto) 6.5 H (1.4-5.7) K/uL Lymph # (Auto) 1.8 (0.6-2.4) K/uL Taylor # (Auto) 1.1 H (0.0-0.8) K/uL Eos # (Auto) 0.4 (0.0-0.7) K/uL Baso # (Auto) 0.1 (0.0-0.1) K/uL Nucleated RBC % 0.0 /100WBC Nucleated RBCs # 0 K/uL Sodium (136-148) mmol/L Potassium (3.5-5.1) mmol/L Chloride (98-107) mmol/L Carbon Dioxide (21.0-32.0) mmol/L BUN (7.0-18.0) mg/dL Creatinine (0.8-1.3) mg/dL Est Cr Clr Drug Dosing mL/min Estimated GFR (MDRD) ml/min Glucose (74-106) mg/dL Calcium (8.5-10.1) mg/dL Total Bilirubin (0.2-1.0) mg/dL AST (15-37) IU/L ALT (14-63) IU/L Alkaline Phosphatase (46-116) U/L Total Protein (6.4-8.2) g/dL Albumin (3.4-5.0) g/dL Globulin (2.6-4.0) g/dL Albumin/Globulin Ratio (0.9-1.6) Urine Osmolality SEE COMMENT Urine Total Volume SEE COMMENT Ur Uric Acid 24 Hr SEE COMMENT Ur Uric Acid Concent SEE COMMENT 07/14/21 Range/Units 05:58 WBC (4.0-11.0) K/uL RBC (4.50-5.90) M/uL Hgb (13.0-17.0) g/dL Hct (38.0-50.0) % MCV (80.0-98.0) fL MCH (27.0-32.0) pg MCHC (31.0-37.0) g/dL RDW Std Deviation (28.0-62.0) fl RDW Coeff of Claudio (11.0-15.0) % Plt Count (150-400) K/uL MPV (7.40-12.00) fL Neut % (Auto) (48.0-80.0) % Lymph % (Auto) (16.0-40.0) % Taylor % (Auto) (0.0-15.0) % Eos % (Auto) (0.0-7.0) % Baso % (Auto) (0.0-1.5) % Neut # (Auto) (1.4-5.7) K/uL Lymph # (Auto) (0.6-2.4) K/uL Taylor # (Auto) (0.0-0.8) K/uL Eos # (Auto) (0.0-0.7) K/uL Baso # (Auto) (0.0-0.1) K/uL Nucleated RBC % /100WBC Nucleated RBCs # K/uL Sodium 137 (136-148) mmol/L Potassium 4.9 (3.5-5.1) mmol/L Chloride 103 (98-107) mmol/L Carbon Dioxide 23.9 (21.0-32.0) mmol/L BUN 18 (7.0-18.0) mg/dL Creatinine 1.6 H (0.8-1.3) mg/dL Est Cr Clr Drug Dosing 33.94 mL/min Estimated GFR (MDRD) 44.0 ml/min Glucose 319 H (74-106) mg/dL Calcium 7.6 L (8.5-10.1) mg/dL Total Bilirubin 0.1 L (0.2-1.0) mg/dL AST 26 (15-37) IU/L ALT 16 (14-63) IU/L Alkaline Phosphatase 76 (46-116) U/L Total Protein 5.7 L (6.4-8.2) g/dL Albumin 2.1 L (3.4-5.0) g/dL Globulin 3.6 (2.6-4.0) g/dL Albumin/Globulin Ratio 0.6 L (0.9-1.6) Urine Osmolality Urine Total Volume Ur Uric Acid 24 Hr Ur Uric Acid Concent Result Diagrams: 07/14/21 05:58 07/14/21 05:58 Sepsis Event Note - Evaluation Sepsis Screening Result: No Definite Risk - Focused Exam Vital Signs: Vital Signs Temp Pulse Resp BP Pulse Ox 07/14/21 13:52 98.4 F 98 16 154/99 H 99 07/14/21 13:00 98.3 F 93 14 177/93 H 97 07/14/21 09:00 98.6 F 97 14 147/87 H 97 07/14/21 05:00 98.2 F 100 16 149/90 H 96 - Problem List & Annotations (1) Hypokalemia SNOMED Code(s): 01562183 Code(s): E87.6 - HYPOKALEMIA Status: Acute Current Visit: Yes (2) Hyponatremia SNOMED Code(s): 40259431 Code(s): E87.1 - HYPO-OSMOLALITY AND HYPONATREMIA Status: Acute Current Visit: Yes (3) Acute kidney injury SNOMED Code(s): 85494684, 44537880 Code(s): N17.9 - ACUTE KIDNEY FAILURE, UNSPECIFIED Status: Acute Current Visit: No (4) Pancreatitis SNOMED Code(s): 19268071 Code(s): K85.90 - ACUTE PANCREATITIS WITHOUT NECROSIS OR INFECTION, UNSP Status: Acute Priority: High Current Visit: No Qualifiers: Chronicity: acute Pancreatitis type: alcohol induced Acute pancreatitis complication: unspecified Qualified Code(s): K85.20 - Alcohol induced acute pancreatitis without necrosis or infection (5) CKD (chronic kidney disease), stage IV SNOMED Code(s): 757017736 Code(s): N18.4 - CHRONIC KIDNEY DISEASE, STAGE 4 (SEVERE) Status: Acute Current Visit: Yes (6) Diabetes mellitus SNOMED Code(s): 00417675 Code(s): E11.9 - TYPE 2 DIABETES MELLITUS WITHOUT COMPLICATIONS Status: Chronic Priority: Medium Current Visit: No (7) Alcohol abuse SNOMED Code(s): 96136542 Code(s): F10.10 - ALCOHOL ABUSE, UNCOMPLICATED Status: Acute Current Visit: Yes (8) Alcohol withdrawal SNOMED Code(s): 977226107 Code(s): F10.239 - ALCOHOL DEPENDENCE WITH WITHDRAWAL, UNSPECIFIED Status: Acute Current Visit: Yes (9) Leukocytosis SNOMED Code(s): 184449302, 880624013 Code(s): D72.829 - ELEVATED WHITE BLOOD CELL COUNT, UNSPECIFIED Status: Acute Current Visit: Yes (10) Pneumonia SNOMED Code(s): 392876813 Code(s): J18.9 - PNEUMONIA, UNSPECIFIED ORGANISM Status: Acute Current Visit: Yes (11) Tobacco dependence SNOMED Code(s): 85006860 Code(s): F17.200 - NICOTINE DEPENDENCE, UNSPECIFIED, UNCOMPLICATED Status: Acute Current Visit: Yes (12) Confused SNOMED Code(s): 618042726 Code(s): R41.0 - DISORIENTATION, UNSPECIFIED Status: Acute Current Visit: Yes (13) Sacral fracture SNOMED Code(s): 477845909 Code(s): S32.10XA - UNSP FRACTURE OF SACRUM, INIT ENCNTR FOR CLOSED FRACTURE Status: Acute Current Visit: Yes - Problem List Review Problem List Initiated/Reviewed/Updated: Yes - My Orders Last 24 Hours: My Active Orders 07/15/21 05:11 CBC WITH AUTO DIFF [HEME] AM CMP [COMPREHENSIVE METABOLIC PN,CMP] [CHEM] AM - Assessment Assessment:: 1. Acute on chronic pancreatitis, due to alcohol abuse disorder -Abdominal pain has resolved and the patient is eating his meals without emesis -Continue with Zofran/Dilaudid and Tylenol on board for pain -Continue to monitor patient with daily CBC/BMP 2. Leukocytosis secondary to pneumonia which was seen on CT -Continue with azithromycin 500 mg per IV route every 24 hours -Continue with Rocephin 1 g per IV route every 24 hours -Once discharge the patient will have oral formulations of azithromycin and cefdinir provided 3. History of GI bleed -Coffee-ground emesis controlled with PPI and Zofran. Have discussed outpatient referral for scoping after discharge. 4. Hyponatremia -Resolved 5. Hypokalemia -Resolved 6. RISHABH on CKD -This patient will require an outpatient follow-up with nephrology, creatinine i s currently 1.6 and is coming down, continue to monitor 7. Diabetes mellitus -Accu-Cheks/ISS/NovoLog 8. Alcohol abuse disorder/withdrawal CIWA protocol in place, continue thiamine and folic acid 9. Tobacco dependence -Patient currently on a nicotine patch 21 mg daily 10. Slightly displaced sacral fracture -PT referral in place 11. Slight confusion/amnesia -The patient is more alert, awake, and oriented today than he was yesterday, continue to monitor Disposition: Patient will be discharged tomorrow
[2021-07-14] MEDS: atorvaSTATin 20 MG Tab PO SCH (20:01)
[2021-07-14] MEDS: Folic Acid 1 MG Tab PO SCH (20:01)
[2021-07-14] MEDS: Aspirin 81 MG Tab.Chew PO SCH (20:01)
[2021-07-14] MEDS: Thiamine 100 MG Tab PO SCH (20:01)
[2021-07-15] MEDS ORDERED: cefTRIAXone 1 GM in Sodium Chloride 0.9% 50 ML IV SCH (01:00)
[2021-07-15] MEDS: Azithromycin 500 MG in Sodium Chloride 0.9% 250 ML IV SCH (01:07)
[2021-07-15] MEDS: HYDROmorphone 1 MG/ML Syringe IVPUSH PRN ×4 (02:48→11:11)
[2021-07-15] MEDS: Nicotine 21 MG/24 Hr Patch TRDERM SCH (08:00)
[2021-07-15] MEDS: Pantoprazole 40 MG/10 ML Syringe IVPUSH SCH (08:00)
[2021-07-15] MEDS: Psyllium Husk Powder Sugar Free 5.85 GM Packet PO SCH (08:04)
[2021-07-15 08:13] LABS: BLOOD UREA NITROGEN,BUN 13 mg/dL (7.0-18.0); CARBON DIOXIDE,CO2 24.8 mmol/L (21.0-32.0); CHLORIDE,CL 106 mmol/L (98-107); GLUCOSE RANDOM 154 mg/dL (74-106); SODIUM,NA 139 mmol/L (136-148)
--- NOTE | 2021-07-15 11:22 | PCM.PN ---
- General Info Date of Service: 07/15/21 Subjective Update: The patient is a 61-year-old male, on day 6 of service, who has a significant past medical history of a cholecystectomy, alcohol abuse disorder, and chronic pancreatitis, who was admitted to the medical floor due to acute pancreatitis and was found to have electrolyte abnormalities, as well as pneumonia. Upon interview with the patient today he still complains of epigastric abdominal pain, 2 out of 10 intensity, dull in nature, and nonradiating. He denies nausea and vomiting but has aspirin on his MAR which was discontinued today. He has no signs of agitation/withdrawal symptoms. He is eating and drinking his meals to completion and has a healthy appetite. He is urinating and defecating without any issues. He will be picked up tomorrow at 12 noon and will remain in hospital today. He has no other health complaints at this time. - Review of Systems General: Denies: Fever, Weakness, Fatigue HEENT: Denies: Headaches, Sore Throat Pulmonary: Denies: Shortness of Breath, Cough Cardiovascular: Denies: Chest Pain, Palpitations Gastrointestinal: Reports: Abdominal Pain. Denies: Constipation, Vomiting Genitourinary: Denies: Dysuria - Patient Data Vitals - Most Recent: Last Vital Signs Temp 98.3 F 07/15/21 08:00 Pulse 90 07/15/21 08:00 Resp 20 07/15/21 08:00 BP 170/105 H 07/15/21 08:00 Pulse Ox 97 07/15/21 08:00 Weight - Most Recent: 110 lb 8 oz I&O - Last 24 Hours: Intake & Output 07/14/21 07/15/21 07/15/21 22:59 06:59 14:59 Intake Total 1010 1500 Output Total 980 140 Balance 30 1360 Lab Results Last 24 Hours: Laboratory Results - last 24 hr 07/15/21 07/15/21 Range/Units 07:15 07:15 WBC 10.02 (4.0-11.0) K/uL RBC 2.32 L (4.50-5.90) M/uL Hgb 7.5 L (13.0-17.0) g/dL Hct 21.9 L (38.0-50.0) % MCV 94.4 (80.0-98.0) fL MCH 32.3 H (27.0-32.0) pg MCHC 34.2 (31.0-37.0) g/dL RDW Std Deviation 51.7 (28.0-62.0) fl RDW Coeff of Claudio 15 (11.0-15.0) % Plt Count 329 (150-400) K/uL MPV 8.70 (7.40-12.00) fL Neut % (Auto) 62.8 (48.0-80.0) % Lymph % (Auto) 19.9 (16.0-40.0) % [place] % (Auto) 13.3 (0.0-15.0) % Eos % (Auto) 3.4 (0.0-7.0) % Baso % (Auto) 0.6 (0.0-1.5) % Neut # (Auto) 6.3 H (1.4-5.7) K/uL Lymph # (Auto) 2.0 (0.6-2.4) K/uL [place] # (Auto) 1.3 H (0.0-0.8) K/uL Eos # (Auto) 0.3 (0.0-0.7) K/uL Baso # (Auto) 0.1 (0.0-0.1) K/uL Nucleated RBC % 0.0 /100WBC Nucleated RBCs # 0 K/uL Sodium 139 (136-148) mmol/L Potassium 5.0 (3.5-5.1) mmol/L Chloride 106 (98-107) mmol/L Carbon Dioxide 24.8 (21.0-32.0) mmol/L BUN 13 (7.0-18.0) mg/dL Creatinine 1.2 (0.8-1.3) mg/dL Est Cr Clr Drug Dosing 45.25 mL/min Estimated GFR (MDRD) > 60.0 ml/min Glucose 154 H (74-106) mg/dL Calcium 7.9 L (8.5-10.1) mg/dL Total Bilirubin 0.1 L (0.2-1.0) mg/dL AST 17 (15-37) IU/L ALT 17 (14-63) IU/L Alkaline Phosphatase 68 (46-116) U/L Total Protein 5.6 L (6.4-8.2) g/dL Albumin 2.2 L (3.4-5.0) g/dL Globulin 3.4 (2.6-4.0) g/dL Albumin/Globulin Ratio 0.7 L (0.9-1.6) Med Orders - Current: Current Medications Acetaminophen (Acetaminophen 325 Mg Tab) 650 mg PO Q4H PRN PRN Reason: Pain (Mild 1-3)/fever Last Admin: 07/09/21 21:37 Dose: 650 mg Documented by: Atorvastatin Calcium (Atorvastatin 20 Mg Tab) 20 mg PO BEDTIME [facility] Last Admin: 07/14/21 20:01 Dose: 20 mg Documented by: Docusate Sodium (Docusate Sodium 100 Mg Cap) 100 mg PO BID PRN PRN Reason: Constipation Eszopiclone (Eszopiclone 1 Mg Tab) 2 mg PO BEDTIME PRN PRN Reason: Sleep Folic Acid (Folic Acid 1 Mg Tab) 1 mg PO BEDTIME [facility] Last Admin: 07/14/21 20:01 Dose: 1 mg Documented by: Hydromorphone HCl (Hydromorphone 1 Mg/Ml Syringe) 0.5 mg IVPUSH Q2H PRN PRN Reason: Abdominal Pain Last Admin: 07/15/21 11:11 Dose: 0.5 mg Documented by: Azithromycin 500 mg/ Sodium (Chloride) 250 mls @ 250 mls/hr IV Q24H [facility] Last Admin: 07/15/21 01:07 Dose: 250 mls/hr Documented by: Ceftriaxone Sodium 1 gm/ (Sodium Chloride) 50 mls @ 100 mls/hr IV Q24H [facility] Last Admin: 07/15/21 00:26 Dose: 100 mls/hr Documented by: Lorazepam (Lorazepam 2 Mg/Ml Sdv) 0 mg IVPUSH Q4H PRN; Protocol PRN Reason: CIWAA Last Admin: 07/14/21 21:00 Dose: 1 mg Documented by: Nicotine (Nicotine 21 Mg/24 Hr Patch) 21 mg TRDERM DAILY [facility] Last Admin: 07/15/21 08:00 Dose: 21 mg Documented by: Ondansetron HCl (Ondansetron 4 Mg Tab.Dis) 4 mg PO Q6H PRN PRN Reason: nausea, able to take PO Last Admin: 07/10/21 10:39 Dose: 4 mg Documented by: Pantoprazole Sodium (Pantoprazole 40 Mg/10 Ml Syringe) 40 mg IVPUSH BID [facility] Last Admin: 07/15/21 08:00 Dose: 40 mg Documented by: Psyllium Husk (Psyllium Husk Powder Sugar Free 5.85 Gm Packet) 1 pkt PO DAILY [facility] Last Admin: 07/15/21 08:04 Dose: 1 pkt Documented by: Sodium Chloride (Sodium Chloride 0.9% 10 Ml Syringe) 10 ml FLUSH ASDIRECTED PRN PRN Reason: Keep Vein Open Last Admin: 07/08/21 17:10 Dose: 10 ml Documented by: Sodium Chloride (Sodium Chloride 0.9% 2.5 Ml Syringe) 2.5 ml FLUSH ASDIRECTED PRN PRN Reason: Keep Vein Open Last Admin: 07/08/21 17:10 Dose: 2.5 ml Documented by: Thiamine HCl (Thiamine 100 Mg Tab) 100 mg PO BEDTIME [facility] Last Admin: 07/14/21 20:01 Dose: 100 mg Documented by: Discontinued Medications Aspirin (Aspirin 81 Mg Tab.Chew) 324 mg PO ONETIME ONE Stop: 07/08/21 17:08 Last Admin: 07/08/21 17:10 Dose: 324 mg Documented by: Aspirin (Aspirin 81 Mg Tab.Chew) 81 mg PO BEDTIME [facility] Last Admin: 07/14/21 20:01 Dose: 81 mg Documented by: Diphenhydramine HCl (Diphenhydramine 25 Mg Cap) 50 mg PO BEDTIME [facility] Last Admin: 07/09/21 20:16 Dose: 50 mg Documented by: Heparin Sodium (Porcine) (Heparin Sodium 5,000 Units/Ml Vial) 5,000 units SUBCUT Q8H [facility] Last Admin: 07/10/21 08:24 Dose: Not Given Documented by: Hydromorphone HCl (Hydromorphone 2 Mg/Ml Syringe) 1 mg IVPUSH ONETIME ONE Stop: 07/08/21 17:32 Last Admin: 07/08/21 17:37 Dose: 1 mg Documented by: Hydromorphone HCl (Hydromorphone 1 Mg/Ml Syringe) 1 mg IVPUSH ONETIME ONE Stop: 07/08/21 22:36 Last Admin: 07/08/21 22:42 Dose: 1 mg Documented by: Hydromorphone HCl (Hydromorphone 2 Mg/Ml Syringe) 0.5 mg IVPUSH Q2H PRN PRN Reason: Abdominal Pain Last Admin: 07/10/21 19:47 Dose: 0.5 mg Documented by: Sodium Chloride (Normal Saline) 1,000 mls @ 1,000 mls/hr IV .Bolus ONE Stop: 07/08/21 19:26 Last Admin: 07/08/21 18:34 Dose: 1,000 mls/hr Documented by: Sodium Chloride (Sodium Chloride 0.45%) 1,000 mls @ 75 mls/hr IV ASDIRECTED [facility] Potassium Chloride/Sodium Chloride (1/2 Ns With 20 Meq Kcl) 1,000 mls @ 75 mls/hr IV ASDIRECTED [facility] Potassium Chloride 40 meq/ (Premix) 100 mls @ 25 mls/hr IV ONETIME ONE Stop: 07/09/21 03:16 Last Admin: 07/08/21 23:45 Dose: 25 mls/hr Documented by: Sodium Chloride (Normal Saline) 500 mls @ 999 mls/hr IV .BOLUS ONE Stop: 07/09/21 00:38 Last Admin: 07/09/21 00:10 Dose: 999 mls/hr Documented by: Potassium Chloride/Sodium Chloride (1/2 Ns With 20 Meq Kcl) 1,000 mls @ 150 mls/hr IV ASDIRECTED [facility] Last Admin: 07/09/21 03:33 Dose: 150 mls/hr Documented by: Potassium Chloride/Sodium Chloride (Normal Saline With 40 Meq Kcl) 1,000 mls @ 150 mls/hr IV ONETIME ONE Stop: 07/10/21 00:24 Last Admin: 07/09/21 19:46 Dose: 150 mls/hr Documented by: Sodium Chloride (Normal Saline) 1,000 mls @ 150 mls/hr IV ASDIRECTED [facility] Stop: 07/10/21 16:54 Last Admin: 07/10/21 10:40 Dose: 150 mls/hr Documented by: Sodium Chloride (Normal Saline) 1,000 mls @ 250 mls/hr IV .Bolus ONE Stop: 07/10/21 21:06 Last Admin: 07/10/21 17:36 Dose: 250 mls/hr Documented by: Ciprofloxacin/Dextrose 400 mg/ (Premix) 200 mls @ 200 mls/hr IV Q24H [facility] Last Admin: 07/10/21 18:36 Dose: 200 mls/hr Documented by: Metronidazole 500 mg/ Premix 100 mls @ 100 mls/hr IV Q8H [facility] Last Admin: 07/10/21 20:49 Dose: 100 mls/hr Documented by: Sodium Chloride (Normal Saline) 1,000 mls @ 150 mls/hr IV ASDIRECTED [facility] Last Admin: 07/14/21 08:26 Dose: 150 mls/hr Documented by: Sodium Chloride (Normal Saline) 1,000 mls @ 999 mls/hr IV ASDIRECTED [facility] Stop: 07/11/21 02:01 Ceftriaxone Sodium/Dextrose 1 (gm/ Premix) 50 mls @ 100 mls/hr IV Q24H [facility] Last Admin: 07/14/21 00:29 Dose: 100 mls/hr Documented by: Metoclopramide HCl (Metoclopramide 10 Mg/2 Ml Sdv) 10 mg IVPUSH ONETIME ONE Stop: 07/08/21 23:53 Last Admin: 07/08/21 23:58 Dose: 10 mg Documented by: Ondansetron HCl (Ondansetron 4 Mg/2 Ml Sdv) 4 mg IVPUSH ONETIME ONE Stop: 07/08/21 17:32 Last Admin: 07/08/21 17:37 Dose: 4 mg Documented by: Ondansetron HCl (Ondansetron 4 Mg/2 Ml Sdv) 4 mg IVPUSH ONETIME ONE Stop: 07/08/21 22:36 Last Admin: 07/08/21 22:42 Dose: 4 mg Documented by: Pantoprazole Sodium (Pantoprazole 40 Mg Tab.Cr) 40 mg PO ACBREAKFAST [facility] Last Admin: 07/10/21 07:11 Dose: 40 mg Documented by: Potassium Chloride (Potassium Chloride 20 Meq Tab.Er) 40 meq PO ONETIME ONE Stop: 07/08/21 18:59 Last Admin: 07/08/21 19:19 Dose: 40 meq Documented by: Potassium Chloride (Potassium Chloride 20 Meq Tab.Er) 40 meq PO ONETIME ONE Stop: 07/10/21 07:56 Last Admin: 07/10/21 08:24 Dose: 40 meq Documented by: Potassium Chloride (Potassium Chloride 20 Meq Tab.Er) 40 meq PO ONETIME ONE Stop: 07/11/21 15:37 Last Admin: 07/12/21 18:08 Dose: Not Given Documented by: Potassium Chloride (Potassium Chloride 20 Meq Tab.Er) 40 meq PO ONETIME ONE Stop: 07/12/21 11:02 Last Admin: 07/12/21 11:29 Dose: 40 meq Documented by: - Exam Urinary Catheter Total Time: 0Days 3Hours General: Alert, Oriented, Cooperative HEENT: Mucous Membr. Moist/[place] Neck: Trachea Midline Lungs: Clear to Auscultation, Normal Respiratory Effort Cardiovascular: Regular Rate, Regular Rhythm GI/Abdominal Exam: Normal Bowel Sounds, Tender - Patient Data Lab Results Last 24 hrs: Laboratory Results - last 24 hr 07/15/21 07/15/21 Range/Units 07:15 07:15 WBC 10.02 (4.0-11.0) K/uL RBC 2.32 L (4.50-5.90) M/uL Hgb 7.5 L (13.0-17.0) g/dL Hct 21.9 L (38.0-50.0) % MCV 94.4 (80.0-98.0) fL MCH 32.3 H (27.0-32.0) pg MCHC 34.2 (31.0-37.0) g/dL RDW Std Deviation 51.7 (28.0-62.0) fl RDW Coeff of Claudio 15 (11.0-15.0) % Plt Count 329 (150-400) K/uL MPV 8.70 (7.40-12.00) fL Neut % (Auto) 62.8 (48.0-80.0) % Lymph % (Auto) 19.9 (16.0-40.0) % [place] % (Auto) 13.3 (0.0-15.0) % Eos % (Auto) 3.4 (0.0-7.0) % Baso % (Auto) 0.6 (0.0-1.5) % Neut # (Auto) 6.3 H (1.4-5.7) K/uL Lymph # (Auto) 2.0 (0.6-2.4) K/uL [place] # (Auto) 1.3 H (0.0-0.8) K/uL Eos # (Auto) 0.3 (0.0-0.7) K/uL Baso # (Auto) 0.1 (0.0-0.1) K/uL Nucleated RBC % 0.0 /100WBC Nucleated RBCs # 0 K/uL Sodium 139 (136-148) mmol/L Potassium 5.0 (3.5-5.1) mmol/L Chloride 106 (98-107) mmol/L Carbon Dioxide 24.8 (21.0-32.0) mmol/L BUN 13 (7.0-18.0) mg/dL Creatinine 1.2 (0.8-1.3) mg/dL Est Cr Clr Drug Dosing 45.25 mL/min Estimated GFR (MDRD) > 60.0 ml/min Glucose 154 H (74-106) mg/dL Calcium 7.9 L (8.5-10.1) mg/dL Total Bilirubin 0.1 L (0.2-1.0) mg/dL AST 17 (15-37) IU/L ALT 17 (14-63) IU/L Alkaline Phosphatase 68 (46-116) U/L Total Protein 5.6 L (6.4-8.2) g/dL Albumin 2.2 L (3.4-5.0) g/dL Globulin 3.4 (2.6-4.0) g/dL Albumin/Globulin Ratio 0.7 L (0.9-1.6) Result Diagrams: 07/15/21 07:15 07/15/21 07:15 Sepsis Event Note - Evaluation Sepsis Screening Result: No Definite Risk - Focused Exam Vital Signs: Vital Signs Temp Pulse Resp BP Pulse Ox 07/15/21 08:00 98.3 F 90 20 170/105 H 97 07/15/21 04:00 97.9 F 97 16 150/96 H 97 - Problem List & Annotations (1) Hypokalemia SNOMED Code(s): 05410393 Code(s): E87.6 - HYPOKALEMIA Status: Acute Current Visit: Yes (2) Hyponatremia SNOMED Code(s): 18963672 Code(s): E87.1 - HYPO-OSMOLALITY AND HYPONATREMIA Status: Acute Current Visit: Yes (3) Acute kidney injury SNOMED Code(s): 67948304, 29849293 Code(s): N17.9 - ACUTE KIDNEY FAILURE, UNSPECIFIED Status: Acute Current Visit: No (4) Pancreatitis SNOMED Code(s): 17337540 Code(s): K85.90 - ACUTE PANCREATITIS WITHOUT NECROSIS OR INFECTION, UNSP Status: Acute Priority: High Current Visit: No Qualifiers: Chronicity: acute Pancreatitis type: alcohol induced Acute pancreatitis complication: unspecified Qualified Code(s): K85.20 - Alcohol induced acute pancreatitis without necrosis or infection (5) CKD (chronic kidney disease), stage IV SNOMED Code(s): 026604504 Code(s): N18.4 - CHRONIC KIDNEY DISEASE, STAGE 4 (SEVERE) Status: Acute Current Visit: Yes (6) Diabetes mellitus SNOMED Code(s): 76593817 Code(s): E11.9 - TYPE 2 DIABETES MELLITUS WITHOUT COMPLICATIONS Status: Chronic Priority: Medium Current Visit: No (7) Alcohol abuse SNOMED Code(s): 94348870 Code(s): F10.10 - ALCOHOL ABUSE, UNCOMPLICATED Status: Acute Current Visit: Yes (8) Alcohol withdrawal SNOMED Code(s): 685532524 Code(s): F10.239 - ALCOHOL DEPENDENCE WITH WITHDRAWAL, UNSPECIFIED Status: Acute Current Visit: Yes (9) Leukocytosis SNOMED Code(s): 215836271, 850175940 Code(s): D72.829 - ELEVATED WHITE BLOOD CELL COUNT, UNSPECIFIED Status: Acute Current Visit: Yes (10) Pneumonia SNOMED Code(s): 392394706 Code(s): J18.9 - PNEUMONIA, UNSPECIFIED ORGANISM Status: Acute Current Visit: Yes (11) Tobacco dependence SNOMED Code(s): 86809920 Code(s): F17.200 - NICOTINE DEPENDENCE, UNSPECIFIED, UNCOMPLICATED Status: Acute Current Visit: Yes (12) Confused SNOMED Code(s): 079479970 Code(s): R41.0 - DISORIENTATION, UNSPECIFIED Status: Acute Current Visit: Yes (13) Sacral fracture SNOMED Code(s): 391068138 Code(s): S32.10XA - UNSP FRACTURE OF SACRUM, INIT ENCNTR FOR CLOSED FRACTURE Status: Acute Current Visit: Yes - Problem List Review Problem List Initiated/Reviewed/Updated: Yes - Assessment Assessment:: 1. Acute on chronic pancreatitis, due to alcohol abuse disorder -Abdominal pain still evident at 2 out of 10 in intensity, will continue to monitor this -The patient is eating his meals without emesis -Continue with Zofran/Dilaudid/Tylenol as needed -Continue to monitor patient with daily CBC/BMP 2. Leukocytosis secondary to pneumonia which was seen on CT -Continue with azithromycin 500 mg per IV route every 24 hours -Continue with Rocephin 1 g per IV route every 24 hours -Once discharge the patient will have oral azithromycin and cefdinir provided 3. History of GI bleed -Coffee-ground emesis controlled with PPI and Zofran -Have discussed outpatient referral for scoping 4. Hyponatremia -Resolved 5. Hypokalemia -Resolved 6. RISHABH on CKD -This patient will require an outpatient follow-up with nephrology, continue to monitor 7. Diabetes mellitus -Accu-Cheks/ISS/NovoLog 8. Alcohol abuse disorder/withdrawal CIWA protocol in place, continue thiamine and folic acid 9. Tobacco dependence -Patient currently on a nicotine patch 21 mg daily 10. Slightly displaced sacral fracture -PT referral in place 11. Slight confusion/amnesia -The patient is alert/awake/oriented today as compared to 48 hours ago, continue to monitor Disposition: Patient will be discharged tomorrow at 12 noon
[2021-07-15 12:54] VITALS: BP 153/93; PULSE 89
--- NOTE | 2021-07-15 17:48 | PCM.PN ---
- General Info Date of Service: 07/15/21 - Patient Data Vitals - Most Recent: Last Vital Signs Temp 98.5 F 07/15/21 12:00 Pulse 89 07/15/21 12:00 Resp 16 07/15/21 12:00 BP 153/93 H 07/15/21 12:00 Pulse Ox 98 07/15/21 12:00 Weight - Most Recent: 110 lb 8 oz I&O - Last 24 Hours: Intake & Output 07/15/21 07/15/21 07/15/21 06:59 14:59 22:59 Intake Total 1500 1300 Output Total 140 1100 Balance 1360 200 Lab Results Last 24 Hours: Laboratory Results - last 24 hr 07/15/21 07/15/21 Range/Units 07:15 07:15 WBC 10.02 (4.0-11.0) K/uL RBC 2.32 L (4.50-5.90) M/uL Hgb 7.5 L (13.0-17.0) g/dL Hct 21.9 L (38.0-50.0) % MCV 94.4 (80.0-98.0) fL MCH 32.3 H (27.0-32.0) pg MCHC 34.2 (31.0-37.0) g/dL RDW Std Deviation 51.7 (28.0-62.0) fl RDW Coeff of Claudio 15 (11.0-15.0) % Plt Count 329 (150-400) K/uL MPV 8.70 (7.40-12.00) fL Neut % (Auto) 62.8 (48.0-80.0) % Lymph % (Auto) 19.9 (16.0-40.0) % Gulf % (Auto) 13.3 (0.0-15.0) % Eos % (Auto) 3.4 (0.0-7.0) % Baso % (Auto) 0.6 (0.0-1.5) % Neut # (Auto) 6.3 H (1.4-5.7) K/uL Lymph # (Auto) 2.0 (0.6-2.4) K/uL Gulf # (Auto) 1.3 H (0.0-0.8) K/uL Eos # (Auto) 0.3 (0.0-0.7) K/uL Baso # (Auto) 0.1 (0.0-0.1) K/uL Nucleated RBC % 0.0 /100WBC Nucleated RBCs # 0 K/uL Sodium 139 (136-148) mmol/L Potassium 5.0 (3.5-5.1) mmol/L Chloride 106 (98-107) mmol/L Carbon Dioxide 24.8 (21.0-32.0) mmol/L BUN 13 (7.0-18.0) mg/dL Creatinine 1.2 (0.8-1.3) mg/dL Est Cr Clr Drug Dosing 45.25 mL/min Estimated GFR (MDRD) > 60.0 ml/min Glucose 154 H (74-106) mg/dL Calcium 7.9 L (8.5-10.1) mg/dL Total Bilirubin 0.1 L (0.2-1.0) mg/dL AST 17 (15-37) IU/L ALT 17 (14-63) IU/L Alkaline Phosphatase 68 (46-116) U/L Total Protein 5.6 L (6.4-8.2) g/dL Albumin 2.2 L (3.4-5.0) g/dL Globulin 3.4 (2.6-4.0) g/dL Albumin/Globulin Ratio 0.7 L (0.9-1.6) Med Orders - Current: Current Medications Discontinued Medications Acetaminophen (Acetaminophen 325 Mg Tab) 650 mg PO Q4H PRN PRN Reason: Pain (Mild 1-3)/fever Last Admin: 07/09/21 21:37 Dose: 650 mg Documented by: Aspirin (Aspirin 81 Mg Tab.Chew) 324 mg PO ONETIME ONE Stop: 07/08/21 17:08 Last Admin: 07/08/21 17:10 Dose: 324 mg Documented by: Aspirin (Aspirin 81 Mg Tab.Chew) 81 mg PO BEDTIME [facility] Last Admin: 07/14/21 20:01 Dose: 81 mg Documented by: Atorvastatin Calcium (Atorvastatin 20 Mg Tab) 20 mg PO BEDTIME [facility] Last Admin: 07/14/21 20:01 Dose: 20 mg Documented by: Diphenhydramine HCl (Diphenhydramine 25 Mg Cap) 50 mg PO BEDTIME [facility] Last Admin: 07/09/21 20:16 Dose: 50 mg Documented by: Docusate Sodium (Docusate Sodium 100 Mg Cap) 100 mg PO BID PRN PRN Reason: Constipation Eszopiclone (Eszopiclone 1 Mg Tab) 2 mg PO BEDTIME PRN PRN Reason: Sleep Folic Acid (Folic Acid 1 Mg Tab) 1 mg PO BEDTIME [facility] Last Admin: 07/14/21 20:01 Dose: 1 mg Documented by: Heparin Sodium (Porcine) (Heparin Sodium 5,000 Units/Ml Vial) 5,000 units SUBCUT Q8H [facility] Last Admin: 07/10/21 08:24 Dose: Not Given Documented by: Hydromorphone HCl (Hydromorphone 2 Mg/Ml Syringe) 1 mg IVPUSH ONETIME ONE Stop: 07/08/21 17:32 Last Admin: 07/08/21 17:37 Dose: 1 mg Documented by: Hydromorphone HCl (Hydromorphone 1 Mg/Ml Syringe) 1 mg IVPUSH ONETIME ONE Stop: 07/08/21 22:36 Last Admin: 07/08/21 22:42 Dose: 1 mg Documented by: Hydromorphone HCl (Hydromorphone 2 Mg/Ml Syringe) 0.5 mg IVPUSH Q2H PRN PRN Reason: Abdominal Pain Last Admin: 07/10/21 19:47 Dose: 0.5 mg Documented by: Hydromorphone HCl (Hydromorphone 1 Mg/Ml Syringe) 0.5 mg IVPUSH Q2H PRN PRN Reason: Abdominal Pain Last Admin: 07/15/21 11:11 Dose: 0.5 mg Documented by: Sodium Chloride (Normal Saline) 1,000 mls @ 1,000 mls/hr IV .Bolus ONE Stop: 07/08/21 19:26 Last Admin: 07/08/21 18:34 Dose: 1,000 mls/hr Documented by: Sodium Chloride (Sodium Chloride 0.45%) 1,000 mls @ 75 mls/hr IV ASDIRECTED [facility] Potassium Chloride/Sodium Chloride (1/2 Ns With 20 Meq Kcl) 1,000 mls @ 75 mls/hr IV ASDIRECTED [facility] Potassium Chloride 40 meq/ (Premix) 100 mls @ 25 mls/hr IV ONETIME ONE Stop: 07/09/21 03:16 Last Admin: 07/08/21 23:45 Dose: 25 mls/hr Documented by: Sodium Chloride (Normal Saline) 500 mls @ 999 mls/hr IV .BOLUS ONE Stop: 07/09/21 00:38 Last Admin: 07/09/21 00:10 Dose: 999 mls/hr Documented by: Potassium Chloride/Sodium Chloride (1/2 Ns With 20 Meq Kcl) 1,000 mls @ 150 mls/hr IV ASDIRECTED [facility] Last Admin: 07/09/21 03:33 Dose: 150 mls/hr Documented by: Potassium Chloride/Sodium Chloride (Normal Saline With 40 Meq Kcl) 1,000 mls @ 150 mls/hr IV ONETIME ONE Stop: 07/10/21 00:24 Last Admin: 07/09/21 19:46 Dose: 150 mls/hr Documented by: Sodium Chloride (Normal Saline) 1,000 mls @ 150 mls/hr IV ASDIRECTED [facility] Stop: 07/10/21 16:54 Last Admin: 07/10/21 10:40 Dose: 150 mls/hr Documented by: Sodium Chloride (Normal Saline) 1,000 mls @ 250 mls/hr IV .Bolus ONE Stop: 07/10/21 21:06 Last Admin: 07/10/21 17:36 Dose: 250 mls/hr Documented by: Ciprofloxacin/Dextrose 400 mg/ (Premix) 200 mls @ 200 mls/hr IV Q24H [facility] Last Admin: 07/10/21 18:36 Dose: 200 mls/hr Documented by: Metronidazole 500 mg/ Premix 100 mls @ 100 mls/hr IV Q8H [facility] Last Admin: 07/10/21 20:49 Dose: 100 mls/hr Documented by: Sodium Chloride (Normal Saline) 1,000 mls @ 150 mls/hr IV ASDIRECTED [facility] Last Admin: 07/14/21 08:26 Dose: 150 mls/hr Documented by: Sodium Chloride (Normal Saline) 1,000 mls @ 999 mls/hr IV ASDIRECTED [facility] Stop: 07/11/21 02:01 Ceftriaxone Sodium/Dextrose 1 (gm/ Premix) 50 mls @ 100 mls/hr IV Q24H [facility] Last Admin: 07/14/21 00:29 Dose: 100 mls/hr Documented by: Azithromycin 500 mg/ Sodium (Chloride) 250 mls @ 250 mls/hr IV Q24H [facility] Last Admin: 07/15/21 01:07 Dose: 250 mls/hr Documented by: Ceftriaxone Sodium 1 gm/ (Sodium Chloride) 50 mls @ 100 mls/hr IV Q24H [facility] Last Admin: 07/15/21 00:26 Dose: 100 mls/hr Documented by: Lorazepam (Lorazepam 2 Mg/Ml Sdv) 0 mg IVPUSH Q4H PRN; Protocol PRN Reason: CIWAA Last Admin: 07/14/21 21:00 Dose: 1 mg Documented by: Metoclopramide HCl (Metoclopramide 10 Mg/2 Ml Sdv) 10 mg IVPUSH ONETIME ONE Stop: 07/08/21 23:53 Last Admin: 07/08/21 23:58 Dose: 10 mg Documented by: Nicotine (Nicotine 21 Mg/24 Hr Patch) 21 mg TRDERM DAILY [facility] Last Admin: 07/15/21 08:00 Dose: 21 mg Documented by: Ondansetron HCl (Ondansetron 4 Mg/2 Ml Sdv) 4 mg IVPUSH ONETIME ONE Stop: 07/08/21 17:32 Last Admin: 07/08/21 17:37 Dose: 4 mg Documented by: Ondansetron HCl (Ondansetron 4 Mg/2 Ml Sdv) 4 mg IVPUSH ONETIME ONE Stop: 07/08/21 22:36 Last Admin: 07/08/21 22:42 Dose: 4 mg Documented by: Ondansetron HCl (Ondansetron 4 Mg Tab.Dis) 4 mg PO Q6H PRN PRN Reason: nausea, able to take PO Last Admin: 07/10/21 10:39 Dose: 4 mg Documented by: Pantoprazole Sodium (Pantoprazole 40 Mg Tab.Cr) 40 mg PO ACBREAKFAST [facility] Last Admin: 07/10/21 07:11 Dose: 40 mg Documented by: Pantoprazole Sodium (Pantoprazole 40 Mg/10 Ml Syringe) 40 mg IVPUSH BID [facility] Last Admin: 07/15/21 08:00 Dose: 40 mg Documented by: Potassium Chloride (Potassium Chloride 20 Meq Tab.Er) 40 meq PO ONETIME ONE Stop: 07/08/21 18:59 Last Admin: 07/08/21 19:19 Dose: 40 meq Documented by: Potassium Chloride (Potassium Chloride 20 Meq Tab.Er) 40 meq PO ONETIME ONE Stop: 07/10/21 07:56 Last Admin: 07/10/21 08:24 Dose: 40 meq Documented by: Potassium Chloride (Potassium Chloride 20 Meq Tab.Er) 40 meq PO ONETIME ONE Stop: 07/11/21 15:37 Last Admin: 07/12/21 18:08 Dose: Not Given Documented by: Potassium Chloride (Potassium Chloride 20 Meq Tab.Er) 40 meq PO ONETIME ONE Stop: 07/12/21 11:02 Last Admin: 07/12/21 11:29 Dose: 40 meq Documented by: Psyllium Husk (Psyllium Husk Powder Sugar Free 5.85 Gm Packet) 1 pkt PO DAILY [facility] Last Admin: 07/15/21 08:04 Dose: 1 pkt Documented by: Sodium Chloride (Sodium Chloride 0.9% 10 Ml Syringe) 10 ml FLUSH ASDIRECTED PRN PRN Reason: Keep Vein Open Last Admin: 07/08/21 17:10 Dose: 10 ml Documented by: Sodium Chloride (Sodium Chloride 0.9% 2.5 Ml Syringe) 2.5 ml FLUSH ASDIRECTED PRN PRN Reason: Keep Vein Open Last Admin: 07/08/21 17:10 Dose: 2.5 ml Documented by: Thiamine HCl (Thiamine 100 Mg Tab) 100 mg PO BEDTIME [facility] Last Admin: 07/14/21 20:01 Dose: 100 mg Documented by: - Exam Urinary Catheter Total Time: 0Days 3Hours - Patient Data Lab Results Last 24 hrs: Laboratory Results - last 24 hr 07/15/21 07/15/21 Range/Units 07:15 07:15 WBC 10.02 (4.0-11.0) K/uL RBC 2.32 L (4.50-5.90) M/uL Hgb 7.5 L (13.0-17.0) g/dL Hct 21.9 L (38.0-50.0) % MCV 94.4 (80.0-98.0) fL MCH 32.3 H (27.0-32.0) pg MCHC 34.2 (31.0-37.0) g/dL RDW Std Deviation 51.7 (28.0-62.0) fl RDW Coeff of Claudio 15 (11.0-15.0) % Plt Count 329 (150-400) K/uL MPV 8.70 (7.40-12.00) fL Neut % (Auto) 62.8 (48.0-80.0) % Lymph % (Auto) 19.9 (16.0-40.0) % Gulf % (Auto) 13.3 (0.0-15.0) % Eos % (Auto) 3.4 (0.0-7.0) % Baso % (Auto) 0.6 (0.0-1.5) % Neut # (Auto) 6.3 H (1.4-5.7) K/uL Lymph # (Auto) 2.0 (0.6-2.4) K/uL Gulf # (Auto) 1.3 H (0.0-0.8) K/uL Eos # (Auto) 0.3 (0.0-0.7) K/uL Baso # (Auto) 0.1 (0.0-0.1) K/uL Nucleated RBC % 0.0 /100WBC Nucleated RBCs # 0 K/uL Sodium 139 (136-148) mmol/L Potassium 5.0 (3.5-5.1) mmol/L Chloride 106 (98-107) mmol/L Carbon Dioxide 24.8 (21.0-32.0) mmol/L BUN 13 (7.0-18.0) mg/dL Creatinine 1.2 (0.8-1.3) mg/dL Est Cr Clr Drug Dosing 45.25 mL/min Estimated GFR (MDRD) > 60.0 ml/min Glucose 154 H (74-106) mg/dL Calcium 7.9 L (8.5-10.1) mg/dL Total Bilirubin 0.1 L (0.2-1.0) mg/dL AST 17 (15-37) IU/L ALT 17 (14-63) IU/L Alkaline Phosphatase 68 (46-116) U/L Total Protein 5.6 L (6.4-8.2) g/dL Albumin 2.2 L (3.4-5.0) g/dL Globulin 3.4 (2.6-4.0) g/dL Albumin/Globulin Ratio 0.7 L (0.9-1.6) Result Diagrams: 07/15/21 07:15 07/15/21 07:15 Sepsis Event Note - Evaluation Sepsis Screening Result: No Definite Risk - Focused Exam Vital Signs: Vital Signs Temp Pulse Resp BP Pulse Ox 07/15/21 12:00 98.5 F 89 16 153/93 H 98 07/15/21 08:00 98.3 F 90 20 170/105 H 97 - Problem List & Annotations (1) Hypokalemia SNOMED Code(s): 55069133 Code(s): E87.6 - HYPOKALEMIA Status: Acute (2) Hyponatremia SNOMED Code(s): 20997191 Code(s): E87.1 - HYPO-OSMOLALITY AND HYPONATREMIA Status: Acute (3) Acute kidney injury SNOMED Code(s): 38766839, 12660111 Code(s): N17.9 - ACUTE KIDNEY FAILURE, UNSPECIFIED Status: Acute (4) Pancreatitis SNOMED Code(s): 09429037 Code(s): K85.90 - ACUTE PANCREATITIS WITHOUT NECROSIS OR INFECTION, UNSP Status: Acute Priority: High Qualifiers: Chronicity: acute Pancreatitis type: alcohol induced Acute pancreatitis complication: unspecified Qualified Code(s): K85.20 - Alcohol induced acute pancreatitis without necrosis or infection (5) CKD (chronic kidney disease), stage IV SNOMED Code(s): 677213042 Code(s): N18.4 - CHRONIC KIDNEY DISEASE, STAGE 4 (SEVERE) Status: Acute (6) Diabetes mellitus SNOMED Code(s): 72748093 Code(s): E11.9 - TYPE 2 DIABETES MELLITUS WITHOUT COMPLICATIONS Status: C hronic Priority: Medium (7) Alcohol abuse SNOMED Code(s): 65774931 Code(s): F10.10 - ALCOHOL ABUSE, UNCOMPLICATED Status: Acute (8) Alcohol withdrawal SNOMED Code(s): 831166925 Code(s): F10.239 - ALCOHOL DEPENDENCE WITH WITHDRAWAL, UNSPECIFIED Status: Acute (9) Leukocytosis SNOMED Code(s): 345051925, 114857776 Code(s): D72.829 - ELEVATED WHITE BLOOD CELL COUNT, UNSPECIFIED Status: Acute (10) Pneumonia SNOMED Code(s): 795030504 Code(s): J18.9 - PNEUMONIA, UNSPECIFIED ORGANISM Status: Acute (11) Tobacco dependence SNOMED Code(s): 58835327 Code(s): F17.200 - NICOTINE DEPENDENCE, UNSPECIFIED, UNCOMPLICATED Status: Acute (12) Confused SNOMED Code(s): 330404602 Code(s): R41.0 - DISORIENTATION, UNSPECIFIED Status: Acute (13) Sacral fracture SNOMED Code(s): 166244804 Code(s): S32.10XA - UNSP FRACTURE OF SACRUM, INIT ENCNTR FOR CLOSED FRACTURE Status: Acute - Assessment Assessment:: 1. Acute on chronic pancreatitis, due to alcohol abuse disorder -Abdominal pain still evident at 2 out of 10 in intensity, will continue to monitor this -The patient is eating his meals without emesis -Continue with Zofran/Dilaudid/Tylenol as needed -Continue to monitor patient with daily CBC/BMP 2. Leukocytosis secondary to pneumonia which was seen on CT -Continue with azithromycin 500 mg per IV route every 24 hours -Continue with Rocephin 1 g per IV route every 24 hours -Once discharge the patient will have oral azithromycin and cefdinir provided 3. History of GI bleed -Coffee-ground emesis controlled with PPI and Zofran -Have discussed outpatient referral for scoping 4. Hyponatremia -Resolved 5. Hypokalemia -Resolved 6. RISHABH on CKD -This patient will require an outpatient follow-up with nephrology, continue to monitor 7. Diabetes mellitus -Accu-Cheks/ISS/NovoLog 8. Alcohol abuse disorder/withdrawal CIWA protocol in place, continue thiamine and folic acid 9. Tobacco dependence -Patient currently on a nicotine patch 21 mg daily 10. Slightly displaced sacral fracture -PT referral in place 11. Slight confusion/amnesia -The patient is alert/awake/oriented today as compared to 48 hours ago, continue to monitor Disposition: Patient will be discharged tomorrow at 12 noon - Plan Plan:: Hyponatremia Etiology unclear. Likely hypovolemic hyponatremia. Pt has had nausea , vomiting and poor oral intake Admit to the medical floor. Replace fluids with 1/2 NS with 20mEQ KCL repeat labs in am Hypokalemia Replace K. Recheck labs Acute pancreatitis Unclear cause. Keep pt npo. Control pain and nausea check a RUQ US to look for gall bladder pathology. I am suspicious about whether the patient is a drinker. He is unable to give me a clear history at this time. Renal failure. Pt likely has CKD stage III or IV. He will need outpt follow up through his PCP and a referral to nephrology. I will obtain a renal US and microscopy Hold VIOLET I and Metformin due to poor renal function T2DM Holding metformin accuchecks BID with SSI coverage. HTN will use another agent other than lisinopril for now Tobacco abuse smoking cessation counseling will be provided Full code status DVT prophylaxis heparin SQ.
--- NOTE | 2021-07-15 17:49 | PCM.DCSUM1 ---
Discharge Summary - Hospital Course Free Text/Narrative:: The patient is a 61-year-old male, on day 6 of service, who has a significant past medical history of a cholecystectomy, alcohol abuse disorder, and chronic pancreatitis, who was admitted to the medical floor due to acute pancreatitis and was found to have electrolyte abnormalities, pneumonia, and withdrawal symptoms from alcohol. During the patient's hospitalization, for his acute pancreatitis he was treated with painkillers and was initially placed on an n.p.o. diet before being transitioned slowly to a full regular diet once it could be tolerated. He was also found to have a pneumonia and was treated with 2 different antibiotics until his symptoms resolved. Another problem the patient had during his hospitalization was withdrawal symptoms from alcohol which was being assessed with [facility] protocol. He was treated with Ativan during his hospitalization and will also be sent home with a prescription for whenever he does have symptoms. Upon interview with the patient today he still complains of epigastric abdominal pain, 2 out of 10 intensity, dull in nature, and nonradiating. He denies nausea and vomiting but has aspirin on his MAR which was discontinued today. When speaking to the patient this morning he stated that his sister who is a nurse practitioner in [place] would be setting up a new PCP for him and that she would be taking an active role in his healthcare. The patient was supposed to leave tomorrow when he could arrange a ride for himself, however he was able to have someone pick him up today and as a result he will be discharged. He is currently stable and ready to leave. - Discharge Data Discharge Date: 07/15/21 Discharge Disposition: Against Medical Advice 07 Condition: Stable - Referral to Home Health Primary Care Physician: PCP None - Discharge Diagnosis/Problem(s) (1) Hypokalemia SNOMED Code(s): 68397246 ICD Code: E87.6 - HYPOKALEMIA Status: Acute (2) Hyponatremia SNOMED Code(s): 94648887 ICD Code: E87.1 - HYPO-OSMOLALITY AND HYPONATREMIA Status: Acute (3) Acute kidney injury SNOMED Code(s): 41655805, 46768646 ICD Code: N17.9 - ACUTE KIDNEY FAILURE, UNSPECIFIED Status: Acute (4) Pancreatitis SNOMED Code(s): 15303720 ICD Code: K85.90 - ACUTE PANCREATITIS WITHOUT NECROSIS OR INFECTION, UNSP Status: Acute Priority: High Qualifiers: Chronicity: acute Pancreatitis type: alcohol induced Acute pancreatitis complication: unspecified Qualified Code(s): K85.20 - Alcohol induced acute pancreatitis without necrosis or infection (5) CKD (chronic kidney disease), stage IV SNOMED Code(s): 956396879 ICD Code: N18.4 - CHRONIC KIDNEY DISEASE, STAGE 4 (SEVERE) Status: Acute (6) Diabetes mellitus SNOMED Code(s): 88460342 ICD Code: E11.9 - TYPE 2 DIABETES MELLITUS WITHOUT COMPLICATIONS Status: Chronic Priority: Medium (7) Alcohol abuse SNOMED Code(s): 78582848 ICD Code: F10.10 - ALCOHOL ABUSE, UNCOMPLICATED Status: Acute (8) Alcohol withdrawal SNOMED Code(s): 044491756 ICD Code: F10.239 - ALCOHOL DEPENDENCE WITH WITHDRAWAL, UNSPECIFIED Status: Acute (9) Leukocytosis SNOMED Code(s): 922539912, 304534680 ICD Code: D72.829 - ELEVATED WHITE BLOOD CELL COUNT, UNSPECIFIED Status: Acute (10) Pneumonia SNOMED Code(s): 753641204 ICD Code: J18.9 - PNEUMONIA, UNSPECIFIED ORGANISM Status: Acute (11) Tobacco dependence SNOMED Code(s): 33940875 ICD Code: F17.200 - NICOTINE DEPENDENCE, UNSPECIFIED, UNCOMPLICATED Status: Acute (12) Confused SNOMED Code(s): 149953902 ICD Code: R41.0 - DISORIENTATION, UNSPECIFIED Status: Acute (13) Sacral fracture SNOMED Code(s): 279566300 ICD Code: S32.10XA - UNSP FRACTURE OF SACRUM, INIT ENCNTR FOR CLOSED FRACTURE Status: Acute - Patient Summary/Data Consults: Consultations 07/12/21 11:12 PT Evaluation and Treatment [CONS] Routine - Discharge Plan Prescriptions/Med Rec: LORazepam [Ativan] 1 mg PO Q12H PRN #4 tablet PRN Reason: withdrawal Home Medications: Home Meds Lisinopril 10 mg PO BEDTIME 10/07/16 [History] atorvaSTATin [Lipitor] 20 mg PO BEDTIME 10/07/16 [History] metFORMIN [Glucophage] 500 mg PO BIDMEALS 10/07/16 [History] Aspirin 81 mg PO BEDTIME 04/25/19 [History] Psyllium Husk [Psyllium Fiber] 5 cap PO DAILY 04/25/19 [History] diphenhydrAMINE HCL [Benadryl] 50 mg PO BEDTIME 04/25/19 [History] Ondansetron [Zofran ODT] 4 mg PO Q6H PRN 3 Days #12 tab.dis 12/13/19 [Rx] Acetaminophen/Codeine [Tylenol with Codeine No.3 300MG/30MG] 30 - 300 mg PO Q4H PRN 06/28/20 [History] Eszopiclone [Lunesta] 2 mg PO BEDTIME PRN 06/28/20 [History] LORazepam [Ativan] 1 mg PO Q12H PRN #4 tablet 07/15/21 [Rx] Patient Handouts: Steps to Quit Smoking, [id number], Food Basics for Chronic Kidney Disease, Smoking Tobacco Information, Adult, Hyponatremia, [id number], Hypokalemia, Chronic Kidney Disease, Adult, [id number], Lorazepam tablets Referrals: Meghan Lyon PA [Physician Label Drier] - 07/21/21 3:45 pm - Discharge Summary/Plan Comment DC Time >30 min.: Yes Total # of Minutes for Discharge Time: 35 minutes - Review of Systems General: Reports: Fatigue HEENT: Denies: Headaches, Sore Throat Pulmonary: Denies: Shortness of Breath, Cough Cardiovascular: Denies: Chest Pain, Palpitations Gastrointestinal: Reports: Abdominal Pain. Denies: Nausea, Vomiting Genitourinary: Denies: Dysuria - Patient Data Vitals - Most Recent: Last Vital Signs Temp 98.5 F 07/15/21 12:00 Pulse 89 07/15/21 12:00 Resp 16 07/15/21 12:00 BP 153/93 H 07/15/21 12:00 Pulse Ox 98 07/15/21 12:00 Weight - Most Recent: 110 lb 8 oz I&O - Last 24 hours: Intake & Output 07/15/21 07/15/21 07/15/21 06:59 14:59 22:59 Intake Total 1500 1300 Output Total 140 1100 Balance 1360 200 Lab Results - Last 24 hrs: Laboratory Results - last 24 hr 07/15/21 07/15/21 Range/Units 07:15 07:15 WBC 10.02 (4.0-11.0) K/uL RBC 2.32 L (4.50-5.90) M/uL Hgb 7.5 L (13.0-17.0) g/dL Hct 21.9 L (38.0-50.0) % MCV 94.4 (80.0-98.0) fL MCH 32.3 H (27.0-32.0) pg MCHC 34.2 (31.0-37.0) g/dL RDW Std Deviation 51.7 (28.0-62.0) fl RDW Coeff of Claudio 15 (11.0-15.0) % Plt Count 329 (150-400) K/uL MPV 8.70 (7.40-12.00) fL Neut % (Auto) 62.8 (48.0-80.0) % Lymph % (Auto) 19.9 (16.0-40.0) % Pope % (Auto) 13.3 (0.0-15.0) % Eos % (Auto) 3.4 (0.0-7.0) % Baso % (Auto) 0.6 (0.0-1.5) % Neut # (Auto) 6.3 H (1.4-5.7) K/uL Lymph # (Auto) 2.0 (0.6-2.4) K/uL Pope # (Auto) 1.3 H (0.0-0.8) K/uL Eos # (Auto) 0.3 (0.0-0.7) K/uL Baso # (Auto) 0.1 (0.0-0.1) K/uL Nucleated RBC % 0.0 /100WBC Nucleated RBCs # 0 K/uL Sodium 139 (136-148) mmol/L Potassium 5.0 (3.5-5.1) mmol/L Chloride 106 (98-107) mmol/L Carbon Dioxide 24.8 (21.0-32.0) mmol/L BUN 13 (7.0-18.0) mg/dL Creatinine 1.2 (0.8-1.3) mg/dL Est Cr Clr Drug Dosing 45.25 mL/min Estimated GFR (MDRD) > 60.0 ml/min Glucose 154 H (74-106) mg/dL Calcium 7.9 L (8.5-10.1) mg/dL Total Bilirubin 0.1 L (0.2-1.0) mg/dL AST 17 (15-37) IU/L ALT 17 (14-63) IU/L Alkaline Phosphatase 68 (46-116) U/L Total Protein 5.6 L (6.4-8.2) g/dL Albumin 2.2 L (3.4-5.0) g/dL Globulin 3.4 (2.6-4.0) g/dL Albumin/Globulin Ratio 0.7 L (0.9-1.6) Med Orders - Current: Current Medications Discontinued Medications Acetaminophen (Acetaminophen 325 Mg Tab) 650 mg PO Q4H PRN PRN Reason: Pain (Mild 1-3)/fever Last Admin: 07/09/21 21:37 Dose: 650 mg Documented by: Aspirin (Aspirin 81 Mg Tab.Chew) 324 mg PO ONETIME ONE Stop: 07/08/21 17:08 Last Admin: 07/08/21 17:10 Dose: 324 mg Documented by: Aspirin (Aspirin 81 Mg Tab.Chew) 81 mg PO BEDTIME KATHRYN Last Admin: 07/14/21 20:01 Dose: 81 mg Documented by: Atorvastatin Calcium (Atorvastatin 20 Mg Tab) 20 mg PO BEDTIME KATHRYN Last Admin: 07/14/21 20:01 Dose: 20 mg Documented by: Diphenhydramine HCl (Diphenhydramine 25 Mg Cap) 50 mg PO BEDTIME KATHRYN Last Admin: 07/09/21 20:16 Dose: 50 mg Documented by: Docusate Sodium (Docusate Sodium 100 Mg Cap) 100 mg PO BID PRN PRN Reason: Constipation Eszopiclone (Eszopiclone 1 Mg Tab) 2 mg PO BEDTIME PRN PRN Reason: Sleep Folic Acid (Folic Acid 1 Mg Tab) 1 mg PO BEDTIME [facility] Last Admin: 07/14/21 20:01 Dose: 1 mg Documented by: Heparin Sodium (Porcine) (Heparin Sodium 5,000 Units/Ml Vial) 5,000 units SUBCUT Q8H [facility] Last Admin: 07/10/21 08:24 Dose: Not Given Documented by: Hydromorphone HCl (Hydromorphone 2 Mg/Ml Syringe) 1 mg IVPUSH ONETIME ONE Stop: 07/08/21 17:32 Last Admin: 07/08/21 17:37 Dose: 1 mg Documented by: Hydromorphone HCl (Hydromorphone 1 Mg/Ml Syringe) 1 mg IVPUSH ONETIME ONE Stop: 07/08/21 22:36 Last Admin: 07/08/21 22:42 Dose: 1 mg Documented by: Hydromorphone HCl (Hydromorphone 2 Mg/Ml Syringe) 0.5 mg IVPUSH Q2H PRN PRN Reason: Abdominal Pain Last Admin: 07/10/21 19:47 Dose: 0.5 mg Documented by: Hydromorphone HCl (Hydromorphone 1 Mg/Ml Syringe) 0.5 mg IVPUSH Q2H PRN PRN Reason: Abdominal Pain Last Admin: 07/15/21 11:11 Dose: 0.5 mg Documented by: Sodium Chloride (Normal Saline) 1,000 mls @ 1,000 mls/hr IV .Bolus ONE Stop: 07/08/21 19:26 Last Admin: 07/08/21 18:34 Dose: 1,000 mls/hr Documented by: Sodium Chloride (Sodium Chloride 0.45%) 1,000 mls @ 75 mls/hr IV ASDIRECTED [facility] Potassium Chloride/Sodium Chloride (1/2 Ns With 20 Meq Kcl) 1,000 mls @ 75 mls/hr IV ASDIRECTED [facility] Potassium Chloride 40 meq/ (Premix) 100 mls @ 25 mls/hr IV ONETIME ONE Stop: 07/09/21 03:16 Last Admin: 07/08/21 23:45 Dose: 25 mls/hr Documented by: Sodium Chloride (Normal Saline) 500 mls @ 999 mls/hr IV .BOLUS ONE Stop: 07/09/21 00:38 Last Admin: 07/09/21 00:10 Dose: 999 mls/hr Documented by: Potassium Chloride/Sodium Chloride (1/2 Ns With 20 Meq Kcl) 1,000 mls @ 150 mls/hr IV ASDIRECTED [facility] Last Admin: 07/09/21 03:33 Dose: 150 mls/hr Documented by: Potassium Chloride/Sodium Chloride (Normal Saline With 40 Meq Kcl) 1,000 mls @ 150 mls/hr IV ONETIME ONE Stop: 07/10/21 00:24 Last Admin: 07/09/21 19:46 Dose: 150 mls/hr Documented by: Sodium Chloride (Normal Saline) 1,000 mls @ 150 mls/hr IV ASDIRECTED [facility] Stop: 07/10/21 16:54 Last Admin: 07/10/21 10:40 Dose: 150 mls/hr Documented by: Sodium Chloride (Normal Saline) 1,000 mls @ 250 mls/hr IV .Bolus ONE Stop: 07/10/21 21:06 Last Admin: 07/10/21 17:36 Dose: 250 mls/hr Documented by: Ciprofloxacin/Dextrose 400 mg/ (Premix) 200 mls @ 200 mls/hr IV Q24H [facility] Last Admin: 07/10/21 18:36 Dose: 200 mls/hr Documented by: Metronidazole 500 mg/ Premix 100 mls @ 100 mls/hr IV Q8H [facility] Last Admin: 07/10/21 20:49 Dose: 100 mls/hr Documented by: Sodium Chloride (Normal Saline) 1,000 mls @ 150 mls/hr IV ASDIRECTED [facility] Last Admin: 07/14/21 08:26 Dose: 150 mls/hr Documented by: Sodium Chloride (Normal Saline) 1,000 mls @ 999 mls/hr IV ASDIRECTED [facility] Stop: 07/11/21 02:01 Ceftriaxone Sodium/Dextrose 1 (gm/ Premix) 50 mls @ 100 mls/hr IV Q24H [facility] Last Admin: 07/14/21 00:29 Dose: 100 mls/hr Documented by: Azithromycin 500 mg/ Sodium (Chloride) 250 mls @ 250 mls/hr IV Q24H [facility] Last Admin: 07/15/21 01:07 Dose: 250 mls/hr Documented by: Ceftriaxone Sodium 1 gm/ (Sodium Chloride) 50 mls @ 100 mls/hr IV Q24H [facility] Last Admin: 07/15/21 00:26 Dose: 100 mls/hr Documented by: Lorazepam (Lorazepam 2 Mg/Ml Sdv) 0 mg IVPUSH Q4H PRN; Protocol PRN Reason: CIWAA Last Admin: 07/14/21 21:00 Dose: 1 mg Documented by: Metoclopramide HCl (Metoclopramide 10 Mg/2 Ml Sdv) 10 mg IVPUSH ONETIME ONE Stop: 07/08/21 23:53 Last Admin: 12/28/21 23:58 Dose: 10 mg Documented by: Nicotine (Nicotine 21 Mg/24 Hr Patch) 21 mg TRDERM DAILY [facility] Last Admin: 07/15/21 08:00 Dose: 21 mg Documented by: Ondansetron HCl (Ondansetron 4 Mg/2 Ml Sdv) 4 mg IVPUSH ONETIME ONE Stop: 07/08/21 17:32 Last Admin: 07/08/21 17:37 Dose: 4 mg Documented by: Ondansetron HCl (Ondansetron 4 Mg/2 Ml Sdv) 4 mg IVPUSH ONETIME ONE Stop: 07/08/21 22:36 Last Admin: 07/08/21 22:42 Dose: 4 mg Documented by: Ondansetron HCl (Ondansetron 4 Mg Tab.Dis) 4 mg PO Q6H PRN PRN Reason: nausea, able to take PO Last Admin: 07/10/21 10:39 Dose: 4 mg Documented by: Pantoprazole Sodium (Pantoprazole 40 Mg Tab.Cr) 40 mg PO ACBREAKFAST [facility] Last Admin: 07/10/21 07:11 Dose: 40 mg Documented by: Pantoprazole Sodium (Pantoprazole 40 Mg/10 Ml Syringe) 40 mg IVPUSH BID [facility] Last Admin: 07/15/21 08:00 Dose: 40 mg Documented by: Potassium Chloride (Potassium Chloride 20 Meq Tab.Er) 40 meq PO ONETIME ONE Stop: 07/08/21 18:59 Last Admin: 07/08/21 19:19 Dose: 40 meq Documented by: Potassium Chloride (Potassium Chloride 20 Meq Tab.Er) 40 meq PO ONETIME ONE Stop: 07/10/21 07:56 Last Admin: 07/10/21 08:24 Dose: 40 meq Documented by: Potassium Chloride (Potassium Chloride 20 Meq Tab.Er) 40 meq PO ONETIME ONE Stop: 07/11/21 15:37 Last Admin: 07/12/21 18:08 Dose: Not Given Documented by: Potassium Chloride (Potassium Chloride 20 Meq Tab.Er) 40 meq PO ONETIME ONE Stop: 07/12/21 11:02 Last Admin: 07/12/21 11:29 Dose: 40 meq Documented by: Psyllium Husk (Psyllium Husk Powder Sugar Free 5.85 Gm Packet) 1 pkt PO DAILY [facility] Last Admin: 07/15/21 08:04 Dose: 1 pkt Documented by: Sodium Chloride (Sodium Chloride 0.9% 10 Ml Syringe) 10 ml FLUSH ASDIRECTED PRN PRN Reason: Keep Vein Open Last Admin: 07/08/21 17:10 Dose: 10 ml Documented by: Sodium Chloride (Sodium Chloride 0.9% 2.5 Ml Syringe) 2.5 ml FLUSH ASDIRECTED PRN PRN Reason: Keep Vein Open Last Admin: 07/08/21 17:10 Dose: 2.5 ml Documented by: Thiamine HCl (Thiamine 100 Mg Tab) 100 mg PO BEDTIME [facility] Last Admin: 07/14/21 20:01 Dose: 100 mg Documented by: - Exam General: Reports: Alert, Oriented, Cooperative HEENT: Reports: Mucous Membr. Moist/[place] Neck: Reports: Trachea Midline Lungs: Reports: Clear to Auscultation, Normal Respiratory Effort Cardiovascular: Reports: Regular Rate, Regular Rhythm, No Murmurs GI/Abdominal Exam: Tender
== END 2021-07-15 16:26 | disposition left against medical advice (07) | DRG 438 ==
LOC: MW.ED 16:12 → MW.MS 22:47
PROVIDERS: ADMIT Hospitalist; ATTEND Hospitalist
DX: K85.20 Alcohol induced acute pancreatitis without necrosis or infection (principal); J18.9 Pneumonia, unspecified organism; S32.10XA Unspecified fracture of sacrum, initial encounter for closed fracture; F10.239 Alcohol dependence with withdrawal, unspecified; E87.1 Hypo-osmolality and hyponatremia; N17.9 Acute kidney failure, unspecified; N18.4 Chronic kidney disease, stage 4 (severe); K86.1 Other chronic pancreatitis; E87.6 Hypokalemia; F17.200 Nicotine dependence, unspecified, uncomplicated; E11.22 Type 2 diabetes mellitus with diabetic chronic kidney disease; D72.829 Elevated white blood cell count, unspecified; I12.9 Hypertensive chronic kidney disease with stage 1 through stage 4 chronic kidney disease, or unspecified chronic kidney disease; H54.7 Unspecified visual loss; E78.00 Pure hypercholesterolemia, unspecified; J44.9 Chronic obstructive pulmonary disease, unspecified; I10 Essential (primary) hypertension; M19.90 Unspecified osteoarthritis, unspecified site; F32.A Depression, unspecified; E11.9 Type 2 diabetes mellitus without complications; Z90.89 Acquired absence of other organs; Z90.49 Acquired absence of other specified parts of digestive tract; Z79.899 Other long term (current) drug therapy; Z79.82 Long term (current) use of aspirin; Z79.84 Long term (current) use of oral hypoglycemic drugs; Z88.5 Allergy status to narcotic agent; Z86.19 Personal history of other infectious and parasitic diseases
CPT/HCPCS: 0240U; 36415; 51702; 71045; 71045-26; 74176; 74176-26; 76700; 76700-26; 80048; 80053; 81001; 82272; 82570; 82947; 83690; 83735; 83930; 83935; 84300; 84484; 84560; 85025; 93005; 96374; 96375; 96376; 97110-GP; 97162-GP; 97530-GP; 99221; 99232; 99238; 99285-25; A9270-GY; C9113; J0456; J0696; J0744; J1170; J1644; J2060; J2405; J2765; J3480; J3490; J7030; J7050

== ENCOUNTER 2021-11-21 15:45 | Inpatient (IN) | payer MEDICAID ==
[2021-11-21] MEDS ORDERED: Sodium Chloride 0.9% 10 ML Syringe FLUSH PRN ×2 (16:20→17:01)
[2021-11-21] MEDS ORDERED: Sodium Chloride 0.9% 2.5 ML Syringe FLUSH PRN ×2 (16:20→17:01)
[2021-11-21] MEDS ORDERED: Ondansetron 4 MG/2 ML SDV IVPUSH ONE (16:20)
[2021-11-21] MEDS ORDERED: Sodium Chloride 0.9% 1,000 ML IV ONE ×2 (16:20→19:30)
[2021-11-21] MEDS ORDERED: Ketorolac 30 MG/ML SDV IVPUSH ONE (16:21)
[2021-11-21] MEDS ORDERED: fentaNYL 50 MCG/ML SDV IVPUSH ONE (17:01)
[2021-11-21] MEDS ORDERED: Acetaminophen 325 MG Tab PO ONE (17:03)
[2021-11-21 17:11] LABS: CORONAVIRUS COVID-19 NAA POSITIVE (NEGATIVE); INFLUENZA A NAA NEGATIVE (NEGATIVE); INFLUENZA B NAA NEGATIVE (NEGATIVE)
[2021-11-21] MEDS ORDERED: fentaNYL 50 MCG/ML SDV ONE (17:14)
[2021-11-21 17:26] LABS: CARBON DIOXIDE,CO2 24.9 mmol/L (21.0-32.0); POTASSIUM,K 4.3 mmol/L (3.5-5.1)
[2021-11-21] MEDS ORDERED: Acetaminophen 325 MG Tab ONE (17:58)
[2021-11-21] MEDS ORDERED: Iopamidol 755 MG/ML 500 ML Multipack Bottle IVPUSH ONE (18:49)
[2021-11-21] MEDS ORDERED: HYDROmorphone 1 MG/ML Syringe IVPUSH ONE (18:56)
[2021-11-21] MEDS ORDERED: HYDROmorphone 1 MG/ML Syringe ONE (19:09)
[2021-11-21] MEDS ORDERED: Nicotine 14 MG/24 Hr Patch TRDERM SCH (21:30)
[2021-11-21] MEDS: Sodium Chloride 0.9% 1,000 ML IV SCH (21:37)
[2021-11-21] MEDS: LORazepam 2 MG/ML SDV IVPUSH PRN (21:45)
[2021-11-22] MEDS: Pantoprazole 40 MG in Sodium Chloride 0.9% 10 ML IVPUSH SCH ×2 (00:40→23:56)
[2021-11-22] MEDS: Thiamine 200 MG/2 ML MDV IVPUSH SCH ×2 (00:40→09:04)
[2021-11-22] MEDS: Folic Acid 50 MG/10 ML MDV SUBCUT SCH ×2 (00:41→09:05)
[2021-11-22] MEDS: HYDROmorphone 1 MG/ML Syringe IVPUSH PRN ×6 (03:32→17:58)
[2021-11-22] MEDS: Sodium Chloride 0.9% 1,000 ML IV SCH ×2 (05:24→16:20)
[2021-11-22] MEDS ORDERED: Magnesium Sulfate/Water 25 ML IV ONE (05:45)
[2021-11-22] MEDS ORDERED: Magnesium Sulfate (4.06 MEQ/ML) 5 GM/10 ML SDV IV ONE (06:00)
[2021-11-22 06:28] LABS: CARBON DIOXIDE,CO2 22.3 mmol/L (21.0-32.0); POTASSIUM,K 4.6 mmol/L (3.5-5.1)
[2021-11-22] MEDS ORDERED: guaiFENesin/Dextromethorphan 100-10 MG/5 ML Soln 10 ML Cup PO PRN (07:35)
[2021-11-22] MEDS: Enoxaparin 40 MG/0.4 ML Syringe SUBCUT SCH (09:04)
[2021-11-22] MEDS: Nicotine 21 MG/24 Hr Patch TRDERM SCH (09:06)
[2021-11-22] MEDS ORDERED: REMDESIVIR 200 MG in Sodium Chloride 0.9% 250 ML IV ONE (10:30)
[2021-11-22 10:50] LABS: POTASSIUM,K 4.1 mmol/L (3.5-5.1)
[2021-11-22] MEDS: LORazepam 2 MG/ML SDV IVPUSH PRN ×2 (16:27→20:24)
[2021-11-22] MEDS ORDERED: Sodium Chloride 0.9% 1,000 ML IV ONE (17:33)
[2021-11-22] MEDS: Dextrose 5%-0.9% NaCl 1,000 ML IV SCH (19:08)
[2021-11-22] MEDS: Ondansetron 4 MG/2 ML SDV IVPUSH PRN (20:24)
[2021-11-23] MEDS: Ondansetron 4 MG/2 ML SDV IVPUSH PRN (02:59)
[2021-11-23] MEDS: HYDROmorphone 1 MG/ML Syringe IVPUSH PRN ×3 (02:59→08:06)
[2021-11-23] MEDS: Dextrose 5%-0.9% NaCl 1,000 ML IV SCH ×2 (03:28→20:23)
[2021-11-23] MEDS: LORazepam 2 MG/ML SDV IVPUSH PRN ×6 (03:59→21:40)
[2021-11-23 06:37] LABS: BLOOD UREA NITROGEN,BUN 17 mg/dL (7.0-18.0); CARBON DIOXIDE,CO2 20.3 mmol/L (21.0-32.0); CHLORIDE,CL 106 mmol/L (98-107); GLUCOSE RANDOM 118 mg/dL (74-106); POTASSIUM,K 3.4 mmol/L (3.5-5.1); SODIUM,NA 138 mmol/L (136-148)
[2021-11-23] MEDS: Enoxaparin 40 MG/0.4 ML Syringe SUBCUT SCH (08:04)
[2021-11-23] MEDS: Nicotine 21 MG/24 Hr Patch TRDERM SCH (08:04)
[2021-11-23] MEDS: Thiamine 200 MG/2 ML MDV IVPUSH SCH (08:05)
[2021-11-23] MEDS: Folic Acid 50 MG/10 ML MDV SUBCUT SCH (08:07)
[2021-11-23] MEDS ORDERED: Magnesium Sulfate/Water 2 GM/50 ML Premix Bag IV ONE (09:42)
[2021-11-23] MEDS ORDERED: NS with KCl 40mEq 1,000 ML IV ONE (09:45)
[2021-11-23] MEDS ORDERED: Magnesium Sulfate/Water 2 GM in Premix Bag 1 BAG IV ONE (10:00)
[2021-11-23] MEDS: REMDESIVIR 100 MG in Sodium Chloride 0.9% 100 ML IV SCH (10:42)
[2021-11-23 10:59] LABS: CARBON DIOXIDE,CO2 20.1 mmol/L (21.0-32.0); POTASSIUM,K 3.4 mmol/L (3.5-5.1)
[2021-11-23] MEDS: oxyCODONE 5 MG Tab PO PRN ×2 (15:12→21:41)
[2021-11-23] MEDS ORDERED: traZODone 50 MG Tab PO PRN (23:50)
[2021-11-24] MEDS: Pantoprazole 40 MG in Sodium Chloride 0.9% 10 ML IVPUSH SCH ×2 (00:05→23:55)
[2021-11-24] MEDS: Lidocaine 5% 700 MG Patch TRDERM SCH ×3 (00:10→23:56)
[2021-11-24] MEDS: Sodium Chloride 0.9% 1,000 ML IV SCH ×2 (00:47→18:03)
[2021-11-24] MEDS: oxyCODONE 5 MG Tab PO PRN ×4 (03:26→22:11)
[2021-11-24] MEDS: LORazepam 2 MG/ML SDV IVPUSH PRN (06:05)
[2021-11-24 06:45] LABS: BLOOD UREA NITROGEN,BUN 14 mg/dL (7.0-18.0); CARBON DIOXIDE,CO2 20.2 mmol/L (21.0-32.0); CHLORIDE,CL 107 mmol/L (98-107); GLUCOSE RANDOM 116 mg/dL (74-106); POTASSIUM,K 4.3 mmol/L (3.5-5.1); SODIUM,NA 138 mmol/L (136-148)
[2021-11-24] MEDS: Enoxaparin 40 MG/0.4 ML Syringe SUBCUT SCH (08:14)
[2021-11-24] MEDS: Thiamine 200 MG/2 ML MDV IVPUSH SCH (08:15)
[2021-11-24] MEDS: Nicotine 21 MG/24 Hr Patch TRDERM SCH (08:16)
[2021-11-24] MEDS: Folic Acid 50 MG/10 ML MDV SUBCUT SCH (08:16)
[2021-11-24] MEDS ORDERED: Magnesium Sulfate/Water 4 GM in Premix Bag 1 BAG IV ONE (09:00)
[2021-11-24] MEDS ORDERED: REMDESIVIR 100 MG in Sodium Chloride 0.9% 100 ML IV SCH (13:00)
[2021-11-24] MEDS: REMDESIVIR 100 MG in Sodium Chloride 0.9% 100 ML IV SCH (15:15)
[2021-11-24] MEDS: Acetaminophen 325 MG Tab PO PRN (15:20)
[2021-11-24] MEDS ORDERED: 50% Dextrose in Water 50 ML Syringe IVPUSH PRN (19:20)
[2021-11-24] MEDS ORDERED: Glucagon,Human Recombinant 1 MG Vial IM PRN (19:20)
[2021-11-25] MEDS: Ondansetron 4 MG/2 ML SDV IVPUSH PRN (02:20)
[2021-11-25] MEDS: Sodium Chloride 0.9% 1,000 ML IV SCH ×3 (02:20→23:38)
[2021-11-25 06:40] LABS: BLOOD UREA NITROGEN,BUN 11 mg/dL (7.0-18.0); CARBON DIOXIDE,CO2 19.1 mmol/L (21.0-32.0); CHLORIDE,CL 107 mmol/L (98-107); GLUCOSE RANDOM 128 mg/dL (74-106); POTASSIUM,K 4.4 mmol/L (3.5-5.1); SODIUM,NA 136 mmol/L (136-148)
[2021-11-25] MEDS: Insulin Aspart 100 Units/ML 3 ML Pen SUBCUT SCH ×3 (06:55→17:41)
[2021-11-25] MEDS ORDERED: Magnesium Sulfate/Water 2 GM in Premix Bag 1 BAG IV ONE (07:16)
[2021-11-25] MEDS: Enoxaparin 40 MG/0.4 ML Syringe SUBCUT SCH (08:24)
[2021-11-25] MEDS: Folic Acid 1 MG Tab PO SCH (08:24)
[2021-11-25] MEDS: Thiamine 100 MG Tab PO SCH (08:24)
[2021-11-25] MEDS: Nicotine 21 MG/24 Hr Patch TRDERM SCH (08:25)
[2021-11-25] MEDS: oxyCODONE 5 MG Tab PO PRN (09:00)
[2021-11-25] MEDS ORDERED: ESZOPICLONE 2 MG PO PRN (11:20)
[2021-11-25] MEDS ORDERED: LORazepam 1 MG Tab PO PRN (11:20)
[2021-11-25] MEDS: Lidocaine 5% 700 MG Patch TRDERM SCH ×2 (12:01→23:39)
[2021-11-25] MEDS: Acetaminophen 325 MG Tab PO PRN ×2 (15:35→20:36)
[2021-11-25] MEDS ORDERED: Lisinopril 10 MG Tab PO SCH (21:00)
[2021-11-25] MEDS ORDERED: traZODone 50 MG Tab PO PRN (21:00)
[2021-11-25] MEDS ORDERED: atorvaSTATin 20 MG Tab PO SCH (21:00)
[2021-11-25] MEDS ORDERED: Aspirin 81 MG Tab.Chew PO SCH (21:00)
[2021-11-25] MEDS ORDERED: Pantoprazole 40 MG Tab.CR PO SCH (21:00)
[2021-11-26 07:13] LABS: BLOOD UREA NITROGEN,BUN 13 mg/dL (7.0-18.0); CARBON DIOXIDE,CO2 21.5 mmol/L (21.0-32.0); CHLORIDE,CL 106 mmol/L (98-107); GLUCOSE RANDOM 135 mg/dL (74-106); SODIUM,NA 137 mmol/L (136-148)
[2021-11-26] MEDS: Insulin Aspart 100 Units/ML 3 ML Pen SUBCUT SCH ×2 (07:42→11:15)
[2021-11-26] MEDS: Enoxaparin 40 MG/0.4 ML Syringe SUBCUT SCH (08:28)
[2021-11-26] MEDS: Nicotine 21 MG/24 Hr Patch TRDERM SCH (08:28)
[2021-11-26] MEDS: Thiamine 100 MG Tab PO SCH (08:30)
[2021-11-26] MEDS: Folic Acid 1 MG Tab PO SCH (08:30)
[2021-11-26 08:38] VITALS: PULSE 94
[2021-11-26] MEDS: Acetaminophen 325 MG Tab PO PRN (08:47)
[2021-11-26] MEDS ORDERED: PSYLLIUM 0.52 GM PO SCH (09:00)
[2021-11-26] MEDS: Lidocaine 5% 700 MG Patch TRDERM SCH (13:17)
[2021-11-26 13:47] VITALS: BP 143/101
== END 2021-11-26 13:40 | disposition home or self-care (01) | DRG 177 ==
LOC: MW.ED 15:45 → MW.MS 19:22
PROVIDERS: ADMIT Internal Medicine; ATTEND Internal Medicine
PROC: 8E0ZXY6 Isolation (ICD-10-PCS; principal; 2021-11-21)
PROC: XW033E5 Introduction of Remdesivir Anti-infective into Peripheral Vein, Percutaneous Approach, New Technology Group 5 (ICD-10-PCS; 2021-11-21)
DX: U07.1 COVID-19 (principal); K85.20 Alcohol induced acute pancreatitis without necrosis or infection; N17.9 Acute kidney failure, unspecified; E83.42 Hypomagnesemia; E86.0 Dehydration; K29.70 Gastritis, unspecified, without bleeding; E87.6 Hypokalemia; F17.200 Nicotine dependence, unspecified, uncomplicated; E78.5 Hyperlipidemia, unspecified; F10.10 Alcohol abuse, uncomplicated; I10 Essential (primary) hypertension; J44.9 Chronic obstructive pulmonary disease, unspecified; F32.A Depression, unspecified; F41.9 Anxiety disorder, unspecified; M19.90 Unspecified osteoarthritis, unspecified site; E78.00 Pure hypercholesterolemia, unspecified; G47.00 Insomnia, unspecified; E11.9 Type 2 diabetes mellitus without complications; Z90.49 Acquired absence of other specified parts of digestive tract; Z79.82 Long term (current) use of aspirin; Z79.899 Other long term (current) drug therapy; Z88.5 Allergy status to narcotic agent
CPT/HCPCS: 0240U; 36415; 71046; 71046-26; 74177; 74177-26; 80053; 80305-QW; 80307; 81001; 82248; 82947; 83605; 83690; 83735; 84100; 84484; 85025; 85027; 87040; 93005; 93010; 96361; 96374; 96375; 99285; 99285-25; A9270-GY; C9113; J1170; J1650; J1885; J2060; J2405; J3010; J3411; J3475; J3480; J3490; J7030; J7042; J7050; Q9967

== ENCOUNTER 2021-12-05 09:57 | Inpatient (IN) | payer MEDICAID ==
[2021-12-05] MEDS ORDERED: HYDROmorphone 1 MG/ML Syringe IVPUSH ONE ×2 (10:19→11:38)
[2021-12-05] MEDS ORDERED: Ondansetron 4 MG/2 ML SDV IVPUSH ONE (10:19)
[2021-12-05] MEDS ORDERED: Sodium Chloride 0.9% 1,000 ML IV ONE ×2 (10:19→11:35)
[2021-12-05 10:52] LABS: BLOOD UREA NITROGEN,BUN 28 mg/dL (7.0-18.0); CHLORIDE,CL 93 mmol/L (98-107); GLUCOSE RANDOM 330 mg/dL (74-106); LIPASE 336 U/L (73-393); POTASSIUM,K 4.2 mmol/L (3.5-5.1); SODIUM,NA 131 mmol/L (136-148)
[2021-12-05 11:25] LABS: CORONAVIRUS COVID-19 NAA POSITIVE (NEGATIVE); INFLUENZA A NAA NEGATIVE (NEGATIVE); INFLUENZA B NAA NEGATIVE (NEGATIVE)
[2021-12-05] MEDS ORDERED: Nicotine 21 MG/24 Hr Patch TRDERM ONE (12:45)
[2021-12-05] MEDS ORDERED: LORazepam 2 MG/ML SDV IVPUSH ONE ×2 (13:12→13:17)
[2021-12-05] MEDS ORDERED: chlordiazePOXIDE 25 MG Cap PO ONE (13:13)
[2021-12-05] MEDS ORDERED: Iopamidol 755 MG/ML 500 ML Multipack Bottle IVPUSH ONE (14:39)
[2021-12-05] MEDS ORDERED: Sodium Chloride 0.9% 2.5 ML Syringe FLUSH PRN (14:55)
[2021-12-05] MEDS ORDERED: Albuterol/Ipratropium 3.0-0.5 MG/3 ML Neb Soln NEB PRN (14:55)
[2021-12-05] MEDS ORDERED: Sodium Chloride 0.9% 10 ML Syringe FLUSH PRN (14:55)
[2021-12-05] MEDS ORDERED: Glucagon,Human Recombinant 1 MG Vial IM PRN (14:55)
[2021-12-05] MEDS ORDERED: Ondansetron 4 MG/2 ML SDV IVPUSH PRN (14:55)
[2021-12-05] MEDS ORDERED: 50% Dextrose in Water 50 ML Syringe IVPUSH PRN (14:55)
[2021-12-05] MEDS: Pantoprazole 40 MG in Sodium Chloride 0.9% 10 ML IVPUSH SCH (16:09)
[2021-12-05] MEDS: Heparin Sodium 5,000 Units/ML Vial SUBCUT SCH (16:14)
[2021-12-05] MEDS: cefTRIAXone 1 GM in Sodium Chloride 0.9% 50 ML IV SCH (16:17)
[2021-12-05] MEDS: Thiamine 500 MG in Sodium Chloride 0.9% 250 ML IV SCH ×2 (16:19→23:33)
[2021-12-05] MEDS: Folic Acid 50 MG/10 ML MDV IV SCH (16:19)
[2021-12-05] MEDS: Azithromycin 500 MG in Sodium Chloride 0.9% 250 ML IV SCH (16:19)
[2021-12-05] MEDS: LORazepam 2 MG/ML SDV IV PRN ×2 (17:31→23:31)
[2021-12-05] MEDS: Insulin Aspart 100 Units/ML 3 ML Pen SUBCUT SCH (18:20)
[2021-12-05] MEDS: Lactated Ringers 1,000 ML IV SCH ×2 (19:58→20:05)
[2021-12-05] MEDS: HYDROmorphone 1 MG/ML Syringe IVPUSH PRN ×2 (20:03→23:32)
[2021-12-05] MEDS ORDERED: Magnesium Sulfate/Water 2 GM in Premix Bag 1 BAG IV ONE (22:00)
[2021-12-06] MEDS: Insulin Aspart 100 Units/ML 3 ML Pen SUBCUT SCH ×4 (00:04→17:37)
[2021-12-06] MEDS: HYDROmorphone 1 MG/ML Syringe IVPUSH PRN (03:49)
[2021-12-06] MEDS: Lactated Ringers 1,000 ML IV SCH ×2 (03:50→13:34)
[2021-12-06] MEDS: Heparin Sodium 5,000 Units/ML Vial SUBCUT SCH ×2 (03:50→14:40)
[2021-12-06 06:55] LABS: CARBON DIOXIDE,CO2 27.7 mmol/L (21.0-32.0)
[2021-12-06] MEDS: LORazepam 2 MG/ML SDV IV PRN ×4 (07:43→22:52)
[2021-12-06] MEDS: Thiamine 500 MG in Sodium Chloride 0.9% 250 ML IV SCH ×2 (07:45→17:17)
[2021-12-06] MEDS: Nicotine 21 MG/24 Hr Patch TRDERM SCH (10:03)
[2021-12-06] MEDS: Pantoprazole 40 MG in Sodium Chloride 0.9% 10 ML IVPUSH SCH (14:36)
[2021-12-06] MEDS: Folic Acid 50 MG/10 ML MDV IV SCH (14:41)
[2021-12-06] MEDS: Azithromycin 500 MG in Sodium Chloride 0.9% 250 ML IV SCH (15:29)
[2021-12-06] MEDS: cefTRIAXone 1 GM in Sodium Chloride 0.9% 50 ML IV SCH (16:48)
[2021-12-07] MEDS: Thiamine 500 MG in Sodium Chloride 0.9% 250 ML IV SCH ×2 (00:01→07:47)
[2021-12-07] MEDS: oxyCODONE 5 MG Tab PO PRN ×2 (00:06→06:12)
[2021-12-07] MEDS: Insulin Aspart 100 Units/ML 3 ML Pen SUBCUT SCH ×2 (00:15→06:18)
[2021-12-07] MEDS: Lactated Ringers 1,000 ML IV SCH ×2 (01:18)
[2021-12-07] MEDS: Heparin Sodium 5,000 Units/ML Vial SUBCUT SCH (03:20)
[2021-12-07 06:04] LABS: CARBON DIOXIDE,CO2 25.1 mmol/L (21.0-32.0)
[2021-12-07] MEDS: LORazepam 2 MG/ML SDV IV PRN (06:11)
[2021-12-07 07:49] VITALS: BP 167/113; PULSE 91
[2021-12-07] MEDS: Nicotine 21 MG/24 Hr Patch TRDERM SCH (08:59)
[2021-12-07] MEDS ORDERED: HYDROmorphone 1 MG/ML Syringe IVPUSH ONE (10:32)
== END 2021-12-07 12:50 | disposition left against medical advice (07) | DRG 438 ==
LOC: MW.ED 09:57 → MW.MS 13:31
PROVIDERS: ADMIT Student in an Organized Health Care Education/Training Program; ATTEND Student in an Organized Health Care Education/Training Program
DX: K85.20 Alcohol induced acute pancreatitis without necrosis or infection (principal); U07.1 COVID-19; F10.230 Alcohol dependence with withdrawal, uncomplicated; E51.2 Wernicke's encephalopathy; J21.8 Acute bronchiolitis due to other specified organisms; N17.9 Acute kidney failure, unspecified; N18.4 Chronic kidney disease, stage 4 (severe); E87.1 Hypo-osmolality and hyponatremia; E78.00 Pure hypercholesterolemia, unspecified; J44.9 Chronic obstructive pulmonary disease, unspecified; M19.90 Unspecified osteoarthritis, unspecified site; F32.A Depression, unspecified; K59.03 Drug induced constipation; E11.22 Type 2 diabetes mellitus with diabetic chronic kidney disease; F17.210 Nicotine dependence, cigarettes, uncomplicated; I12.9 Hypertensive chronic kidney disease with stage 1 through stage 4 chronic kidney disease, or unspecified chronic kidney disease; E83.42 Hypomagnesemia; Z79.82 Long term (current) use of aspirin; Z88.5 Allergy status to narcotic agent; Z79.899 Other long term (current) drug therapy; Z90.49 Acquired absence of other specified parts of digestive tract
CPT/HCPCS: 0240U; 36415; 71275; 71275-26; 74177; 74177-26; 80053; 80307; 82009; 82947; 83605; 83690; 83735; 83880; 84100; 84484; 85025; 85610; 85730; 86140; 93005; 96361; 96374; 96375; 96376; 99285-25; 99291; A9270-GY; C9113; J0456; J0696; J1170; J1644; J2060; J2405; J3360; J3411; J3475; J3490; J7030; J7050; J7120; Q9967

== ENCOUNTER 2021-12-13 14:21 | Observation (INO) | payer MEDICAID ==
[2021-12-13] MEDS ORDERED: Sodium Chloride 0.9% 1,000 ML IV ONE ×3 (14:43→22:39)
[2021-12-13] MEDS ORDERED: Ondansetron 4 MG/2 ML SDV IVPUSH ONE (14:43)
[2021-12-13] MEDS ORDERED: HYDROmorphone 1 MG/ML Syringe IVPUSH ONE (14:43)
[2021-12-13 15:29] LABS: CARBON DIOXIDE,CO2 27.8 mmol/L (21.0-32.0); POTASSIUM,K 3.8 mmol/L (3.5-5.1)
[2021-12-13] MEDS ORDERED: Magnesium Sulfate/Water 2 GM in Premix Bag 1 BAG IV ONE (15:50)
[2021-12-13] MEDS ORDERED: Promethazine 25 MG/ML SDV IM ONE (15:53)
[2021-12-13 16:35] LABS: CORONAVIRUS COVID-19 NAA NEGATIVE (NEGATIVE); INFLUENZA A NAA NEGATIVE (NEGATIVE); INFLUENZA B NAA NEGATIVE (NEGATIVE)
[2021-12-13] MEDS ORDERED: LORazepam 2 MG/ML SDV IVPUSH SCH (18:15)
[2021-12-13] MEDS ORDERED: Thiamine 500 MG in Sodium Chloride 0.9% 250 ML IV SCH (18:15)
[2021-12-13] MEDS ORDERED: Ondansetron 4 MG/2 ML SDV IVPUSH PRN (18:15)
[2021-12-13] MEDS ORDERED: Promethazine 25 MG Tab PO PRN (18:15)
[2021-12-13] MEDS ORDERED: Albuterol/Ipratropium 3.0-0.5 MG/3 ML Neb Soln NEB PRN (18:15)
[2021-12-13] MEDS ORDERED: Glucagon,Human Recombinant 1 MG Vial IM PRN (18:32)
[2021-12-13] MEDS ORDERED: 50% Dextrose in Water 50 ML Syringe IVPUSH PRN (18:32)
[2021-12-13] MEDS: Nicotine 21 MG/24 Hr Patch TRDERM SCH (19:06)
[2021-12-13] MEDS: Folic Acid 50 MG/10 ML MDV IV SCH (19:06)
[2021-12-13] MEDS ORDERED: Thiamine 200 MG/2 ML MDV ONE (19:49)
[2021-12-13] MEDS: Insulin Aspart 100 Units/ML 3 ML Pen SUBCUT SCH ×2 (20:05→20:06)
[2021-12-13] MEDS: HYDROmorphone 1 MG/ML Syringe IVPUSH PRN (20:20)
[2021-12-14] MEDS: HYDROmorphone 1 MG/ML Syringe IVPUSH PRN ×3 (00:01→09:27)
[2021-12-14] MEDS: Lactated Ringers 1,000 ML IV SCH ×2 (00:07→08:56)
[2021-12-14] MEDS ORDERED: Thiamine 200 MG/2 ML MDV ONE (00:52)
[2021-12-14 06:46] LABS: CARBON DIOXIDE,CO2 27.7 mmol/L (21.0-32.0); POTASSIUM,K 3.2 mmol/L (3.5-5.1)
[2021-12-14] MEDS: Insulin Aspart 100 Units/ML 3 ML Pen SUBCUT SCH ×2 (07:40→11:05)
[2021-12-14 07:54] VITALS: BP 174/99; PULSE 109
[2021-12-14] MEDS: Nicotine 21 MG/24 Hr Patch TRDERM SCH (08:01)
[2021-12-14] MEDS: Folic Acid 50 MG/10 ML MDV IV SCH (08:03)
[2021-12-14] MEDS ORDERED: Nicotine 21 MG/24 Hr Patch TRDERM SCH (09:00)
[2021-12-14] MEDS ORDERED: Pantoprazole 40 MG in Sodium Chloride 0.9% 10 ML IVPUSH SCH (09:00)
[2021-12-14] MEDS ORDERED: Potassium Chloride 20 MEQ Tab.ER PO ONE (09:44)
[2021-12-14] MEDS ORDERED: Thiamine 500 MG in Sodium Chloride 0.9% 250 ML IV SCH (18:00)
[2021-12-14] MEDS ORDERED: Heparin Sodium 5,000 Units/ML Vial SUBCUT SCH (18:15)
== END 2021-12-14 12:40 | disposition home or self-care (01) ==
LOC: MW.ED 14:21 → MW.MS 17:04
PROVIDERS: ADMIT Internal Medicine; ATTEND Internal Medicine
DX: K85.20 Alcohol induced acute pancreatitis without necrosis or infection (principal); E78.00 Pure hypercholesterolemia, unspecified; H54.7 Unspecified visual loss; I10 Essential (primary) hypertension; J44.9 Chronic obstructive pulmonary disease, unspecified; F32.A Depression, unspecified; E11.9 Type 2 diabetes mellitus without complications; F17.210 Nicotine dependence, cigarettes, uncomplicated; N28.9 Disorder of kidney and ureter, unspecified; N17.9 Acute kidney failure, unspecified; F10.230 Alcohol dependence with withdrawal, uncomplicated; E51.2 Wernicke's encephalopathy; R00.0 Tachycardia, unspecified; Z88.6 Allergy status to analgesic agent; Z88.8 Allergy status to other drugs, medicaments and biological substances; Z20.822 Contact with and (suspected) exposure to COVID-19; Z79.82 Long term (current) use of aspirin; Z79.899 Other long term (current) drug therapy
CPT/HCPCS: 0240U; 36415; 70450; 71045; 74176; 80053; 80305; 80307; 81001; 82947; 83690; 83735; 84100; 84484; 85025; 85610; 85730; 87086; 93005; 96361; 96365; 96367; 96372; 96375; 96376; 99285; A9270; C9113; G0378; J1170; J2405; J2550; J3411; J3475; J3490; J7030; J7050; J7120; 93010

== ENCOUNTER 2021-12-23 12:50 | Inpatient (IN) | payer MEDICAID ==
[2021-12-23] MEDS ORDERED: Ondansetron 4 MG/2 ML SDV IVPUSH ONE ×2 (13:23→15:36)
[2021-12-23] MEDS ORDERED: Sodium Chloride 0.9% 1,000 ML IV ONE ×2 (13:23→15:44)
[2021-12-23] MEDS ORDERED: HYDROmorphone 1 MG/ML Syringe IVPUSH ONE ×2 (13:23→19:32)
[2021-12-23] MEDS ORDERED: chlordiazePOXIDE 25 MG Cap PO ONE (13:28)
[2021-12-23] MEDS ORDERED: Nicotine 21 MG/24 Hr Patch TRDERM ONE (13:45)
[2021-12-23 15:13] LABS: ACETAMINOPHEN <2.0 ug/mL; BLOOD UREA NITROGEN,BUN 28 mg/dL (7.0-18.0); CARBON DIOXIDE,CO2 26.8 mmol/L (21.0-32.0); CHLORIDE,CL 91 mmol/L (98-107); GLUCOSE RANDOM 197 mg/dL (74-106); POTASSIUM,K 3.6 mmol/L (3.5-5.1); SODIUM,NA 133 mmol/L (136-148)
[2021-12-23 15:15] LABS: ESTIMATED GFR 45 mL/min (>60); LIPASE 1798 U/L (73-393)
[2021-12-23] MEDS ORDERED: LORazepam 2 MG/ML SDV IVPUSH ONE (15:36)
[2021-12-23] MEDS ORDERED: Magnesium Sulfate/Water 2 GM in Premix Bag 1 BAG IV ONE (16:16)
[2021-12-23] MEDS ORDERED: Sodium Chloride 0.9% 1,000 ML IV SCH (21:45)
[2021-12-23] MEDS ORDERED: Thiamine 100 MG in Sodium Chloride 0.9% 100 ML IV SCH (21:45)
[2021-12-23] MEDS ORDERED: Folic Acid 50 MG/10 ML MDV SUBCUT SCH (21:45)
[2021-12-23] MEDS: Heparin Sodium 5,000 Units/ML Vial SUBCUT SCH (22:29)
[2021-12-23] MEDS: Thiamine 200 MG/2 ML MDV IV SCH (22:31)
[2021-12-23] MEDS ORDERED: Ondansetron 4 MG/2 ML SDV ONE (23:55)
[2021-12-23] MEDS: Ondansetron 4 MG/2 ML SDV IVPUSH PRN (23:58)
[2021-12-24] MEDS: HYDROmorphone 1 MG/ML Syringe IVPUSH PRN ×5 (00:15→21:27)
[2021-12-24] MEDS: LORazepam 2 MG/ML SDV IVPUSH PRN ×5 (01:33→23:22)
[2021-12-24] MEDS: Sodium Chloride 0.9% 1,000 ML IV SCH ×5 (03:46→22:26)
[2021-12-24] MEDS: Heparin Sodium 5,000 Units/ML Vial SUBCUT SCH ×3 (05:16→21:31)
[2021-12-24] MEDS: Ondansetron 4 MG/2 ML SDV IVPUSH PRN (06:25)
[2021-12-24 07:20] LABS: CARBON DIOXIDE,CO2 29.3 mmol/L (21.0-32.0)
[2021-12-24] MEDS ORDERED: Potassium Chloride 20 MEQ in Premix Bag 1 BAG IV ONE ×2 (08:07→08:11)
[2021-12-24] MEDS: Thiamine 200 MG/2 ML MDV IV SCH (08:30)
[2021-12-24] MEDS ORDERED: NS with KCl 40mEq 1,000 ML IV ONE (08:30)
[2021-12-24] MEDS: Folic Acid 50 MG/10 ML MDV IV SCH (08:31)
[2021-12-24] MEDS ORDERED: Potassium Chloride 20 MEQ Tab.ER PO SCH (09:00)
[2021-12-24] MEDS: Promethazine 25 MG/ML SDV IM PRN (10:01)
[2021-12-24] MEDS ORDERED: Sodium Chloride 0.9% 1,000 ML IV ONE (20:32)
[2021-12-25] MEDS: LORazepam 2 MG/ML SDV IVPUSH PRN (02:45)
[2021-12-25] MEDS: Sodium Chloride 0.9% 1,000 ML IV SCH ×5 (02:46→23:21)
[2021-12-25] MEDS: Heparin Sodium 5,000 Units/ML Vial SUBCUT SCH ×3 (05:53→20:47)
[2021-12-25] MEDS: HYDROmorphone 1 MG/ML Syringe IVPUSH PRN (06:28)
[2021-12-25 07:04] LABS: CARBON DIOXIDE,CO2 21.8 mmol/L (21.0-32.0); POTASSIUM,K 3.4 mmol/L (3.5-5.1)
[2021-12-25] MEDS ORDERED: NS with KCl 40mEq 1,000 ML IV ONE (07:30)
[2021-12-25] MEDS: Folic Acid 50 MG/10 ML MDV IV SCH (08:31)
[2021-12-25] MEDS: Thiamine 200 MG/2 ML MDV IV SCH (08:37)
[2021-12-25] MEDS ORDERED: 50% Dextrose in Water 50 ML Syringe IVPUSH PRN (08:49)
[2021-12-25] MEDS ORDERED: Glucagon,Human Recombinant 1 MG Vial IM PRN (08:49)
[2021-12-25] MEDS ORDERED: Magnesium Sulfate/Water 2 GM in Premix Bag 1 BAG IV ONE ×2 (08:50→10:15)
[2021-12-25] MEDS ORDERED: HYDROmorphone 1 MG/ML Syringe IVPUSH PRN (09:09)
[2021-12-25] MEDS ORDERED: Insulin Aspart 100 Units/ML 3 ML Pen SUBCUT SCH (11:30)
[2021-12-25] MEDS: Insulin Aspart 100 Units/ML 3 ML Pen SUBCUT SCH ×3 (12:55→23:42)
[2021-12-25] MEDS ORDERED: Haloperidol 5 MG Tab PO ONE (15:01)
[2021-12-25] MEDS: Topiramate 100 MG Tab PO SCH ×2 (15:55→23:21)
[2021-12-25] MEDS: Phosphorus #1 250 MG Tab PO SCH ×2 (17:57→23:42)
[2021-12-25] MEDS ORDERED: Haloperidol Lactate 5 MG/ML SDV IM PRN (19:46)
[2021-12-25] MEDS ORDERED: diphenhydrAMINE 50 MG/ML SDV IVPUSH PRN (19:48)
[2021-12-25] MEDS: Haloperidol 5 MG Tab PO SCH (20:47)
[2021-12-26] MEDS: Sodium Chloride 0.9% 1,000 ML IV SCH ×4 (03:42→19:52)
[2021-12-26] MEDS: Phosphorus #1 250 MG Tab PO SCH ×3 (05:30→18:08)
[2021-12-26] MEDS: Heparin Sodium 5,000 Units/ML Vial SUBCUT SCH ×3 (05:30→21:21)
[2021-12-26] MEDS: Topiramate 100 MG Tab PO SCH ×4 (05:30→21:18)
[2021-12-26] MEDS: Insulin Aspart 100 Units/ML 3 ML Pen SUBCUT SCH ×3 (05:30→18:02)
[2021-12-26] MEDS: Folic Acid 50 MG/10 ML MDV IV SCH (08:02)
[2021-12-26] MEDS: Thiamine 200 MG/2 ML MDV IV SCH (08:02)
[2021-12-26] MEDS ORDERED: traMADol 50 MG Tab PO ONE (08:23)
[2021-12-26 16:45] LABS: CARBON DIOXIDE,CO2 28.1 mmol/L (21.0-32.0); POTASSIUM,K 4.1 mmol/L (3.5-5.1)
[2021-12-26] MEDS: Ondansetron 4 MG Tab.DIS PO PRN (16:50)
[2021-12-26] MEDS ORDERED: traMADol 50 MG Tab PO PRN (16:58)
[2021-12-26] MEDS: Promethazine 25 MG/ML SDV IM PRN (17:34)
[2021-12-26] MEDS ORDERED: Pantoprazole 40 MG in Sodium Chloride 0.9% 10 ML IVPUSH SCH (19:15)
[2021-12-26] MEDS: Haloperidol 5 MG Tab PO SCH (20:12)
[2021-12-26] MEDS: oxyCODONE 5 MG Tab PO PRN (20:12)
[2021-12-26] MEDS: Pantoprazole 40 MG Tab.CR PO SCH (20:12)
[2021-12-26] MEDS: Ondansetron 4 MG/2 ML SDV IVPUSH PRN (21:02)
[2021-12-27] MEDS: Insulin Aspart 100 Units/ML 3 ML Pen SUBCUT SCH ×3 (00:21→12:37)
[2021-12-27] MEDS: oxyCODONE 5 MG Tab PO PRN ×2 (00:21→08:26)
[2021-12-27] MEDS: Ondansetron 4 MG Tab.DIS PO PRN (00:21)
[2021-12-27] MEDS: Phosphorus #1 250 MG Tab PO SCH ×3 (00:21→11:51)
[2021-12-27] MEDS: Heparin Sodium 5,000 Units/ML Vial SUBCUT SCH ×2 (06:02→13:54)
[2021-12-27] MEDS: Topiramate 100 MG Tab PO SCH ×2 (06:02→13:51)
[2021-12-27 07:35] LABS: CARBON DIOXIDE,CO2 23.4 mmol/L (21.0-32.0); POTASSIUM,K 3.8 mmol/L (3.5-5.1)
[2021-12-27] MEDS ORDERED: Potassium Chloride 20 MEQ Tab.ER PO ONE (08:15)
[2021-12-27] MEDS ORDERED: Magnesium Oxide 400 MG Tab PO ONE ×2 (08:15→08:44)
[2021-12-27] MEDS: Pantoprazole 40 MG Tab.CR PO SCH (08:30)
[2021-12-27] MEDS: Thiamine 200 MG/2 ML MDV IV SCH ×2 (08:31→11:30)
[2021-12-27] MEDS: Folic Acid 50 MG/10 ML MDV IV SCH (08:32)
[2021-12-27] MEDS: Magnesium Sulfate/Water 2 GM in Premix Bag 1 BAG IV ONE ×2 (08:33→08:48)
[2021-12-27] MEDS ORDERED: Folic Acid 1 MG Tab PO SCH (09:00)
[2021-12-27 11:54] VITALS: BP 146/98; PULSE 85
== END 2021-12-27 15:00 | disposition home or self-care (01) | DRG 439 ==
LOC: MW.ED 12:50 → MW.MS 17:45
PROVIDERS: ADMIT Internal Medicine; ATTEND Internal Medicine
DX: K85.20 Alcohol induced acute pancreatitis without necrosis or infection (principal); F10.239 Alcohol dependence with withdrawal, unspecified; R45.851 Suicidal ideations; K86.0 Alcohol-induced chronic pancreatitis; F32.A Depression, unspecified; F10.229 Alcohol dependence with intoxication, unspecified; E87.6 Hypokalemia; F17.210 Nicotine dependence, cigarettes, uncomplicated; F29 Unspecified psychosis not due to a substance or known physiological condition; E11.9 Type 2 diabetes mellitus without complications; Z20.822 Contact with and (suspected) exposure to COVID-19; E78.5 Hyperlipidemia, unspecified; I10 Essential (primary) hypertension; J44.9 Chronic obstructive pulmonary disease, unspecified; Z87.09 Personal history of other diseases of the respiratory system; Z79.4 Long term (current) use of insulin; Z90.89 Acquired absence of other organs; Z98.890 Other specified postprocedural states; Z90.49 Acquired absence of other specified parts of digestive tract
CPT/HCPCS: 36415; 71045; 71045-26; 74177; 74177-26; 80053; 80143; 80179; 80305-QW; 80307; 81001; 82947; 83690; 83735; 84100; 84439; 84443; 84484; 85025; 96361; 96365; 96375; 96376; 99284; 99285-25; A9270-GY; J1170; J1644; J1815-GY; J2060; J2405; J2550; J3411; J3475; J3480; J7030; U0002